=== PATIENT | male | born 1960 | race Hispanic/Latino ===

== ENCOUNTER 2017-04-06 10:51 | Inpatient (IN) | payer MEDICARE, MEDICAID ==
[2017-04-06 11:38] LABS: BASO # 0.04 K/mm3 (0.0-2.0); BASO % 0.5 % (0.0-3.0); EOS # 0.1 (0.0-0.7); EOS % 1.6 % (1.5-5.0); GRAN # 6.64 (1.4-6.5); GRAN % 76.1 % (50.0-68.0); HEMOGLOBIN 14.4 gm/dL (14.0-18.0); LYMPH # 1.2 (1.2-3.4); LYMPH % 14.2 % (22.0-35.0); MEAN CORPUSCULAR HEMOGLOBIN 29.9 pg (25.0-35.0); MEAN CORPUSCULAR HGB CONC 33.6 g/dl (31.0-37.0); MEAN PLATELET VOLUME 10.3 fl (7.0-11.0); MONO # 0.7 (0.1-0.6); MONO % 7.6 % (1.0-6.0); PLATELET COUNT 299 10^3/uL (120.0-450.0); RBC 4.82 10^6/uL (3.5-6.1); RED CELL DISTRIBUTION WIDTH 12.8 % (11.5-14.5); WHITE BLOOD COUNT 8.7 10^3/ul (4.5-11.0)
--- NOTE | 2017-04-06 11:42 | ED PDOC ---
Arrival/HPI - General Chief Complaint: Lower Extremity Problem/Injury Time Seen by Provider: 04/06/17 11:07 Historian: Patient, Caregiver - History of Present Illness Narrative History of Present Illness (Text): 04/06/17 11:38 A 56 year old male was sent into the emergency department by industrial eng for possible cellulitis to bilateral lower extremities. Caregiver reports patient has failed several outpatient antibiotic treatments. Patient denies any fever, chills, nausea, vomiting, diarrhea, abdominal pain, chest pain, shortness of breath or any other complaints. PMD: Dr. Saavedra Emergency Detail Driver: Dr. Horta Time/Duration: < month Symptom Course: Unchanged Quality: Other Context: Other Past Medical History - Provider Review Nursing Documentation Reviewed: Yes - Infectious Disease Hx of Infectious Diseases: None - Tetanus Immunization Tetanus Immunization: Unknown - Cardiac Hx Cardiac Disorders: Yes Hx Congestive Heart Failure: Yes Hx Hypertension: Yes - Pulmonary Hx Chronic Obstructive Pulmonary Disease (COPD): No - Neurological Other/Comment: Epilepsy - HEENT Hx HEENT Disorder: Yes Other/Comment: wears glasses - Renal Hx Renal Failure: No - Endocrine/Metabolic Hx Diabetes Mellitus Type 2: Yes - Hematological/Oncological Hx Blood Disorders: No Hx AIDS: No Hx Anemia: No Hx Cancer: No Hx Chemotherapy: No Hx Cirrhosis: No Hx Hepatitis A: No Hx Hepatitis B: No Hx Hepatitis C: No Hx Metastasis: No Hx Shingles: No Hx Unexplained Bleeding: No Other/Comment: blood infection - Integumentary Hx Dermatological Disorder: Yes Hx Basal Cell Carcinoma: No Hx Eczema: No Hx Melanoma: No Hx Psoriasis: No Hx Squamous Cell Carcinoma: No Other/Comment: multiple wounds on the rt leg, cellulitis in b/l extreminity. 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 - Surgical History Hx Amputation: No Hx Appendectomy: No Hx Cholecystectomy: No Hx Gastric Bypass Surgery: No Hx Hysterectomy: No Hx Joint Replacement: No Hx Kidney Transplant: No Hx Liver Transplant: No Hx Mastectomy: No Hx Musculoskeletal Surgery: No Hx Open Heart Surgery: No Hx Orthopedic Surgery: No Hx Splenectomy: No Hx Valve Replacement: No - Anesthesia Hx Anesthesia: Yes Hx Anesthesia Reactions: No Hx Malignant Hyperthermia: No - Suicidal Assessment Feels Threatened In Home Enviroment: No Family/Social History - Physician Review Nursing Documentation Reviewed: Yes Family/Social History: No Known Family HX Smoking Status: Former Smoker Hx Alcohol Use: No Hx Substance Use: No Hx Substance Use Treatment: No Allergies/Home Meds Allergies/Adverse Reactions: Allergies No Known Allergies Allergy (Verified 04/06/17 13:00) Home Medications: Home Meds Medication Instructions Recorded Confirmed Omeprazole [Prilosec] 20 mg PO DAILY 05/30/15 04/06/17 Ramipril [Altace] 10 mg PO DAILY 05/30/15 04/06/17 Glipizide 10 mg PO [facility] 08/24/15 04/06/17 Pioglitazone [Actos] 45 mg PO DAILY #0 12/10/15 04/06/17 Potassium Chloride [K-Tab ER] 20 meq PO DAILY #0 12/10/15 04/06/17 Atorvastatin [Lipitor] 10 mg PO DIN 05/29/16 04/06/17 Iron Fumarate/Vit C/Vit B12/FA 1 cap PO DAILY 05/31/16 04/06/17 [Trigels-F Forte Softgel] Insulin Glargine,Hum.rec.anlog 45 unit SQ 04/06/17 04/06/17 [Lantus Solostar] Metformin HCl [Glucophage] 1,000 mg PO ACBD 04/06/17 04/06/17 Review of Systems - Physician Review All systems were reviewed & negative as marked: Yes - Review of Systems Constitutional: absent: Fevers, Night Sweats Respiratory: absent: SOB Cardiovascular: absent: Chest Pain Gastrointestinal: absent: Abdominal Pain, Diarrhea, Nausea, Vomiting Skin: Cellulitis (to bilateral lower extremities) Physical Exam Vital Signs Reviewed: Yes Vital Signs Temp Pulse Resp BP Pulse Ox 04/06/17 12:06 79 18 144/79 97 04/06/17 11:12 89 18 146/81 97 04/06/17 11:02 97.9 F 96 H 16 146/81 98 Temperature: Afebrile Blood Pressure: Normal Pulse: Tachycardic Respiratory Rate: Normal Appearance: Positive for: Well-Appearing, Non-Toxic, Comfortable Pain Distress: None Mental Status: Positive for: Alert and Oriented X 3 Finger Stick Blood Glucose: 411 - Systems Exam Head: Present: Atraumatic, Normocephalic Pupils: Present: PERRL Extroacular Muscles: Present: EOMI Conjunctiva: Present: Normal Mouth: Present: Moist Mucous Membranes Neck: Present: Normal Range of Motion Respiratory/Chest: Present: Clear to Auscultation, Good Air Exchange. No: Respiratory Distress, Accessory Muscle Use Cardiovascular: Present: Regular Rate and Rhythm, Normal S1, S2. No: Murmurs Abdomen: Present: Normal Bowel Sounds. No: Tenderness, Distention, Peritoneal Signs Back: Present: Normal Inspection Upper Extremity: Present: Normal Inspection. No: Cyanosis, Edema Lower Extremity: Present: NORMAL PULSES, Neurovascularly Intact, Other ( bilateral lower extremity cellulitis). No: Edema, CALF TENDERNESS, Deformity Neurological: Present: GCS=15, CN II-XII Intact, Speech Normal Skin: Present: Warm, Dry, Normal Color. No: Rashes Psychiatric: Present: Alert, Oriented x 3, Normal Insight, Normal Concentration Medical Decision Making ED Course and Treatment: 04/06/17 11:38 Impression: A 56 year old male with cellulitis to bilateral lower extremities Plan: -- Lower extremity duplex ultrasound -- Labs -- Blood and Wound culture -- IV fluids, Vancomycin and insulin -- Reassess and disposition Progress Notes: 04/06/17 12:52 Ultrasound is negative for DVT. - Lab Interpretations Lab Results: 04/06/17 11:15 04/06/17 11:15 Lab Results 04/06/17 11:15: Sodium 134, Potassium 4.5, Chloride 99, Carbon Dioxide 24, Anion Gap 16, BUN 12, Creatinine 0.6, Est GFR ( Amer) > 60, Est GFR (Non- Af Amer) > 60, Random Glucose 452 H* D, Calcium 9.7, Total Bilirubin 0.7, AST 28 , ALT 37, Alkaline Phosphatase 135 H, Total Protein 7.8, Albumin 4.2, Globulin 3.5, Albumin/Globulin Ratio 1.2 04/06/17 11:15: WBC 8.7, RBC 4.82, Hgb 14.4, Hct 42.9, MCV 89.0, MCH 29.9, MCHC 33.6, RDW 12.8, Plt Count 299, MPV 10.3, Gran % 76.1 H, Lymph % (Auto) 14.2 L, [place] % (Auto) 7.6 H, Eos % (Auto) 1.6, Baso % (Auto) 0.5, Gran # 6.64 H, Lymph # 1.2, [place] # 0.7 H, Eos # 0.1, Baso # 0.04 - RAD Interpretation Radiology Orders: 04/06/17 12:05 DUPLEX LOWER EXTRM VEIN BILAT [US] Stat - Medication Orders Current Medication Orders: Atorvastatin Calcium (Lipitor) 10 mg PO DIN [facility] Last Admin: 04/06/17 17:29 Dose: 10 mg Diltiazem HCl (Cardizem Cd) 120 mg PO DAILY [facility] Last Admin: 04/06/17 16:27 Dose: 120 mg Furosemide (Lasix) 20 mg PO DAILY [facility] Last Admin: 04/06/17 17:29 Dose: 20 mg Gabapentin (Neurontin) 400 mg PO TID [facility] PRN Reason: Protocol Last Admin: 04/06/17 17:29 Dose: 400 mg Glipizide (Glucotrol) 10 mg PO ACBD [facility] Last Admin: 04/06/17 17:27 Dose: 10 mg Cefepime HCl (Maxipime 1gm) 1 gm in 100 mls @ 100 mls/hr IVPB Q8 [facility] PRN Reason: Protocol Last Admin: 04/06/17 22:10 Dose: 100 mls/hr Vancomycin HCl (Vancomycin 1gm) 1 gm in 250 mls @ 167 mls/hr IVPB Q12H [facility] PRN Reason: Protocol Last Admin: 04/06/17 17:26 Dose: 167 mls/hr Insulin Human Regular (Humulin R High) 0 units SC ACHS [facility] PRN Reason: Protocol Last Admin: 04/06/17 17:28 Dose: 10 units Metformin HCl (Glucophage) 1,000 mg PO ACBD [facility] Last Admin: 04/06/17 17:27 Dose: 1,000 mg Potassium Chloride (K-Dur 20 Meq Er Tab) 20 meq PO DAILY [facility] Ramipril (Altace) 10 mg PO DAILY [facility] Warfarin Sodium (Coumadin) 10 mg PO DAILY [facility] PRN Reason: Protocol Warfarin Sodium (Coumadin) 2 mg PO DAILY [facility] PRN Reason: Protocol Discontinued Medications Vancomycin HCl (Vancomycin 1gm) 1 gm in 250 mls @ 167 mls/hr IVPB STAT [facility] PRN Reason: Protocol Stop: 04/06/17 13:34 Last Admin: 04/06/17 12:27 Dose: 167 mls/hr Sodium Chloride (Sodium Chloride 0.9%) 1,000 mls @ 200 mls/hr IV .Q5H [facility] Last Admin: 04/06/17 12:26 Dose: 200 mls/hr Insulin Human Regular (Humulin R) 6 units IVP STAT STA Stop: 04/06/17 12:09 Last Admin: 04/06/17 12:29 Dose: 6 units Pneumococcal Polyvalent Vaccine (Pneumovax 23 Vaccine) 0.5 ml IM .ONCE ONE Stop: 04/06/17 19:02 - Scribe Statement The provider has reviewed the documentation as recorded by the Kelli Houston Provider Scribe Attestation: All medical record entries made by the Juniberika were at my direction and personally dictated by me. I have reviewed the chart and agree that the record accurately reflects my personal performance of the history, physical exam, medical decision making, and the department course for this patient. I have also personally directed, reviewed, and agree with the discharge instructions and disposition. Disposition/Present on Arrival - Present on Arrival Any Indicators Present on Arrival: Yes History of DVT/PE: No History of Uncontrolled Diabetes: Yes Urinary Catheter: No History of Decub. Ulcer: No History Surgical Site Infection Following: None - Disposition Have Diagnosis and Disposition been Completed?: Yes Diagnosis: Cellulitis Disposition: HOSPITALIZED Disposition Time: 12:05 Condition: STABLE
[2017-04-06 11:45] LABS: ALB/GLOB RATIO 1.2 (1.1-1.8); ALBUMIN 4.2 g/dL (3.0-4.8); ALT/SGPT 37 U/L (7-56); AST/SGOT 28 U/L (15-59); BLOOD UREA NITROGEN 12 mg/dL (7-21); CALCIUM 9.7 mg/dL (8.4-10.5); GFR AFRICAN-AMERICAN > 60; GFR NON-AFRICAN AMERICAN > 60
[2017-04-06] MEDS ORDERED: Vancomycin 1gm in NS 250ml 1 GM/250 ML BAG IVPB STA (12:05)
[2017-04-06] MEDS ORDERED: Insulin Regular 1 UNITS/0.01 ML ML IVP STA (12:08)
[2017-04-06] MEDS ORDERED: Sodium Chloride 0.9% 1,000 ML IV SCH (12:15)
--- NOTE | 2017-04-06 16:22 | US ---
HISTORY: Leg pain and swelling. Evaluate for DVT PHYSICIAN(S): Link Owens MD. TECHNIQUE: Duplex sonography and color-flow Doppler with graded compression were used to evaluate the deep venous systems of both lower extremities. The exam is limited by body habitus and edema. The calf veins are not adequately seen. FINDINGS: The visualized deep venous systems of both lower extremities are sonographically normal and compressible. Normal wave forms and augmentation are seen. There is no sonographic evidence for deep venous thrombosis in the visualized segments of both lower extremities. IMPRESSION: No sonographic evidence for deep venous thrombosis in the visualized segments of both lower extremities. Limited exam
[2017-04-06] MEDS: diltiaZEM 120 mg/24 Hours CD Cap PO SCH (16:27)
[2017-04-06] MEDS: Cefepime 1gm in NS 100ml 1 GM/100 ML BAG IVPB SCH ×2 (17:21→22:10)
[2017-04-06] MEDS: Vancomycin 1gm in NS 250ml 1 GM/250 ML BAG IVPB SCH (17:26)
[2017-04-06] MEDS: Insulin Reg-HIGH-Coverage SC SCH ×2 (17:28→23:06)
[2017-04-06 19:00] VITALS: BMI 52.4
[2017-04-06] MEDS ORDERED: Pneumococcal 23-Valent Vaccine IM ONE (19:01)
[2017-04-07] MEDS: Vancomycin 1gm in NS 250ml 1 GM/250 ML BAG IVPB SCH ×2 (04:05→17:05)
[2017-04-07] MEDS: Cefepime 1gm in NS 100ml 1 GM/100 ML BAG IVPB SCH ×3 (06:14→21:21)
[2017-04-07 07:25] LABS: INR 1.01 (0.93-1.08); PROTHROMBIN TIME 10.9 Seconds (9.9-11.8)
[2017-04-07] MEDS: Insulin Reg-HIGH-Coverage SC SCH ×3 (08:00→17:07)
[2017-04-07 08:13] VITALS: RESP 20
[2017-04-07] MEDS: Potassium Chloride 20 mEq ER Tab PO SCH (09:41)
[2017-04-07] MEDS: diltiaZEM 120 mg/24 Hours CD Cap PO SCH (09:41)
--- NOTE | 2017-04-07 10:47 | CP.PCM.CON ---
<Magui Ahuja - Last Filed: 04/07/17 10:43> History of Present Illness - History of Present Illness History of Present Illness: 56 year old male with PMHx including DM, CHF, hypertension, atrial fibrillation , elephantiasis, dyslipidemia, was seen today with attending Dr. Horta regarding right lower extremity ulcerations and bilateral lower extremity chronic edema. Patient is resting comfortably in bed. Bilateral lower extremitie bandages are clean dry and intact. No new complaints at this time. Patient denies any n/v/f/c/sob/cp. Past Patient History - Infectious Disease Hx of Infectious Diseases: None - Tetanus Immunizations Tetanus Immunization: Unknown - Past Medical History & Family History Past Medical History?: Yes - Past Social History Smoking Status: Former Smoker - CARDIAC Hx Cardiac Disorders: Yes Hx Congestive Heart Failure: Yes Hx Hypertension: Yes - PULMONARY Hx Chronic Obstructive Pulmonary Disease (COPD): No - NEUROLOGICAL Other/Comment: Epilepsy - HEENT Hx HEENT Problems: Yes Other/Comment: wears glasses - RENAL Hx Renal Failure: No - ENDOCRINE/METABOLIC Hx Diabetes Mellitus Type 2: Yes - HEMATOLOGICAL/ONCOLOGICAL Hx Blood Disorders: No Hx AIDS: No Hx Anemia: No Hx Cancer: No Hx Chemotherapy: No Hx Cirrhosis: No Hx Hepatitis A: No Hx Hepatitis B: No Hx Hepatitis C: No Hx Metastesis: No Hx Shingles: No Hx Unexplained Bleeding: No Other/Comment: blood infection - INTEGUMENTARY Hx Dermatological Problems: Yes Hx Basil Cell: No Hx Eczema: No Hx Melanoma: No Hx Psoriasis: No Hx Squamous Cell: No Other/Comment: multiple wounds on the rt leg, cellulitis in b/l extreminity. 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 - SURGICAL HISTORY Hx Amputation: No Hx Appendectomy: No Hx Cholecystectomy: No Hx Gastric Bypass Surgery: No Hx Hysterectomy: No Hx Joint Replacement: No Hx Kidney Transplant: No Hx Liver Transplant: No Hx Mastectomy: No Hx Musculoskeletal Surgery: No Hx Open Heart Surgery: No Hx Orthopedic Surgery: No Hx Splenectomy: No Hx Valve Replacement: No - ANESTHESIA Hx Anesthesia: Yes Hx Anesthesia Reactions: No Hx Malignant Hyperthermia: No Meds Allergies/Adverse Reactions: Allergies Allergy/AdvReac Type Severity Reaction Status Date / Time No Known Allergies Allergy Verified 04/06/17 13:00 - Medications Medications: Current Medications Atorvastatin Calcium (Lipitor) 10 mg PO DIN [facility] Last Admin: 04/06/17 17:29 Dose: 10 mg Diltiazem HCl (Cardizem Cd) 120 mg PO DAILY [facility] Last Admin: 04/07/17 09:41 Dose: 120 mg Furosemide (Lasix) 20 mg PO DAILY [facility] Last Admin: 04/07/17 09:41 Dose: 20 mg Gabapentin (Neurontin) 400 mg PO TID [facility] PRN Reason: Protocol Last Admin: 04/07/17 09:40 Dose: 400 mg Glipizide (Glucotrol) 10 mg PO ACBD [facility] Last Admin: 04/07/17 08:00 Dose: 10 mg Cefepime HCl (Maxipime 1gm) 1 gm in 100 mls @ 100 mls/hr IVPB Q8 [facility] PRN Reason: Protocol Last Admin: 04/07/17 06:14 Dose: 100 mls/hr Vancomycin HCl (Vancomycin 1gm) 1 gm in 250 mls @ 167 mls/hr IVPB Q12H [facility] PRN Reason: Protocol Last Admin: 04/07/17 04:05 Dose: 167 mls/hr Insulin Human Regular (Humulin R High) 0 units SC ACHS [facility] PRN Reason: Protocol Last Admin: 04/07/17 08:00 Dose: 7 units Metformin HCl (Glucophage) 1,000 mg PO ACBD [facility] Last Admin: 04/07/17 08:00 Dose: 1,000 mg Potassium Chloride (K-Dur 20 Meq Er Tab) 20 meq PO DAILY [facility] Last Admin: 04/07/17 09:41 Dose: 20 meq Ramipril (Altace) 10 mg PO DAILY [facility] Last Admin: 04/07/17 09:40 Dose: 10 mg Warfarin Sodium (Coumadin) 10 mg PO DAILY [facility] PRN Reason: Protocol Last Admin: 04/07/17 09:41 Dose: 10 mg Warfarin Sodium (Coumadin) 2 mg PO DAILY [facility] PRN Reason: Protocol Last Admin: 04/07/17 09:41 Dose: 2 mg Physical Exam - Constitutional Appears: No Acute Distress - Extremities Exam Additional comments: Lower extremity focused exam: VASC: Diffuse edema of bilateral lower extremities. Skin temperature is increased on the right NEURO: Gross sensation intact DERM: Open ulceration to right lower extremity with granular base at the lateral aspect of the leg with sanguinous drainage, no purulence, no erythema, moderate malodor. Two additional small superficial ulcerations present to the anterior and lateral leg with sanguinous drainage. Surrounding skin is erythematous and hyperpigmented. Left leg has an open ulcer to the lateral aspect just distal to the knee, mild xerosis and hyperpigmentation. ORTHO: Negative pain on palpation to the lower extremities - Neurological Exam Neurological exam: Alert, Oriented x3 - Psychiatric Exam Psychiatric exam: Normal Affect, Normal Mood Results - Vital Signs Recent Vital Signs: Last Vital Signs Temp 97.6 F 04/07/17 08:12 Pulse 89 04/07/17 09:41 Resp 20 04/07/17 08:12 BP 170/88 H 04/07/17 09:41 Pulse Ox 94 L 04/07/17 08:12 - Labs Result Diagrams: 04/06/17 11:15 04/06/17 11:15 Labs: Laboratory Results - last 24 hr 04/06/17 04/07/17 16:13 06:45 PT 10.9 INR 1.01 POC Glucose (mg/dL) 325 H Assessment & Plan - Assessment and Plan (Free Text) Assessment: 56 year old male with right lower extremity cellulitis with venous stasis ulceration and bilateral chronic lower extremity edema. Plan: Patient examined and evaluated with an attending Dr. Horta Patients bilateral legs cleansed with saline LE US negative for DVT Right leg dressed with xeroform, ABD, kerlix Left leg dressed with maxorb, optifoam Patient to continue IV abx Podiatry will continue to follow, pt will f/u in the wound care center after DC <Brittney Horta - Last Filed: 04/09/17 14:52> Results - Vital Signs Recent Vital Signs: Last Vital Signs Temp 98.2 F 04/09/17 08:00 Pulse 65 04/09/17 08:00 Resp 20 04/09/17 08:00 BP 178/88 H 04/09/17 09:24 Pulse Ox 94 L 04/09/17 08:00 - Labs Result Diagrams: 04/06/17 11:15 04/06/17 11:15 Attending/Attestation - Attestation I have personally seen and examined this patient.: Yes I have fully participated in the care of the patient.: Yes I have reviewed all pertinent clinical information: Yes
--- NOTE | 2017-04-07 11:50 | CP.PCM.CON ---
History of Present Illness - History of Present Illness History of Present Illness: 56 year old male with PMH of right leg skin/skin structure infection with chronic leg ulcers, growing MRSA and sensitive Klebsiella in 2016, Bilateral lower extremity skin and skin structure infection (Enterobacter, Klebsiella Oxytoca and Group B Strep, as well as MRSA) which was treated 06/2015; MRSA and Pseudomonas cellulitis of left leg in Sep 2015, January and March 2016, and MRSA cellulitis in 2015, chronic lymphedema of the lower extremities, Morbid obesity with BMI 53, HTN, DM, history of Strep bacteremia, history of hernia surgery, Learning disability wasa brought in to [facility] because of failed outpatient therapy for the right leg, which has been weeping associated with the ulcers on the legs. There has been no note of fever, no vomiting, no diarrhea, no loss of consciousness, no convulsions. Infectious Diseases consult is requested to further evaluate and manage. Review of Systems - Review of Systems Systems not reviewed;Unavailable: Other (learning disability) Past Patient History - Infectious Disease Hx of Infectious Diseases: None - Tetanus Immunizations Tetanus Immunization: Unknown - Past Medical History & Family History Past Medical History?: Yes - Past Social History Smoking Status: Former Smoker - CARDIAC Hx Cardiac Disorders: Yes Hx Congestive Heart Failure: Yes Hx Hypertension: Yes - PULMONARY Hx Chronic Obstructive Pulmonary Disease (COPD): No - NEUROLOGICAL Other/Comment: Epilepsy - HEENT Hx HEENT Problems: Yes Other/Comment: wears glasses - RENAL Hx Renal Failure: No - ENDOCRINE/METABOLIC Hx Diabetes Mellitus Type 2: Yes - HEMATOLOGICAL/ONCOLOGICAL Hx Blood Disorders: No Hx AIDS: No Hx Anemia: No Hx Cancer: No Hx Chemotherapy: No Hx Cirrhosis: No Hx Hepatitis A: No Hx Hepatitis B: No Hx Hepatitis C: No Hx Metastesis: No Hx Shingles: No Hx Unexplained Bleeding: No Other/Comment: blood infection - INTEGUMENTARY Hx Dermatological Problems: Yes Hx Basil Cell: No Hx Eczema: No Hx Melanoma: No Hx Psoriasis: No Hx Squamous Cell: No Other/Comment: multiple wounds on the rt leg, cellulitis in b/l extreminity. 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 - SURGICAL HISTORY Hx Amputation: No Hx Appendectomy: No Hx Cholecystectomy: No Hx Gastric Bypass Surgery: No Hx Hysterectomy: No Hx Joint Replacement: No Hx Kidney Transplant: No Hx Liver Transplant: No Hx Mastectomy: No Hx Musculoskeletal Surgery: No Hx Open Heart Surgery: No Hx Orthopedic Surgery: No Hx Splenectomy: No Hx Valve Replacement: No - ANESTHESIA Hx Anesthesia: Yes Hx Anesthesia Reactions: No Hx Malignant Hyperthermia: No Meds Allergies/Adverse Reactions: Allergies Allergy/AdvReac Type Severity Reaction Status Date / Time No Known Allergies Allergy Verified 04/06/17 13:00 - Medications Medications: Current Medications Atorvastatin Calcium (Lipitor) 10 mg PO DIN [facility] Diltiazem HCl (Cardizem Cd) 120 mg PO DAILY [facility] Furosemide (Lasix) 20 mg PO DAILY [facility] Gabapentin (Neurontin) 400 mg PO TID [facility] PRN Reason: Protocol Glipizide (Glucotrol) 10 mg PO ACBD [facility] Cefepime HCl (Maxipime 1gm) 1 gm in 100 mls @ 100 mls/hr IVPB Q8 [facility] PRN Reason: Protocol Vancomycin HCl (Vancomycin 1gm) 250 mls @ 167 mls/hr IVPB Q12H [facility] PRN Reason: Protocol Insulin Human Regular (Humulin R High) 0 units SC ACHS [facility] PRN Reason: Protocol Metformin HCl (Glucophage) 1,000 mg PO ACBD [facility] Potassium Chloride (K-Dur 20 Meq Er Tab) 20 meq PO DAILY [facility] Ramipril (Altace) 10 mg PO DAILY [facility] Warfarin Sodium (Coumadin) 10 mg PO DAILY [facility] PRN Reason: Protocol Warfarin Sodium (Coumadin) 2 mg PO DAILY [facility] PRN Reason: Protocol Physical Exam - Constitutional Appears: Non-toxic, No Acute Distress - Head Exam Head Exam: NORMAL INSPECTION - ENT Exam ENT Exam: Mucous Membranes Moist - Neck Exam Neck exam: Negative for: Lymphadenopathy, Meningismus - Respiratory Exam Respiratory Exam: Decreased Breath Sounds - Cardiovascular Exam Cardiovascular Exam: +S1, +S2 - GI/Abdominal Exam GI & Abdominal Exam: Soft. absent: Tenderness - Extremities Exam Additional comments: right leg with dry dressings in place Results - Vital Signs Recent Vital Signs: Last Vital Signs Temp 97.9 F 04/06/17 11:02 Pulse 79 04/06/17 12:06 Resp 18 04/06/17 12:06 BP 144/79 04/06/17 12:06 Pulse Ox 97 04/06/17 12:06 - Labs Result Diagrams: 04/06/17 11:15 04/06/17 11:15 Labs: Laboratory Results - last 24 hr 04/06/17 16:13 POC Glucose (mg/dL) 325 H Assessment & Plan - Assessment and Plan (Free Text) Plan: Assessment Probable right leg skin and skin structure infection associated with chronic leg ulcers history of sepsis secondary to right leg skin/skin structure infection with chronic leg ulcers, growing MRSA and sensitive Klebsiella history of MRSA cellulitis Jun. 2015 history of Bilateral lower extremity skin and skin structure infection ( Enterobacter, Klebsiella Oxytoca and Group B Strep, as well as MRSA) which was treated 06/2015; MRSA and Pseudomonas cellulitis of left leg in Sep 2015, January and March 2016 chronic lymphedema of the lower extremities Morbid obesity with BMI 55 HTN DM history of Strep bacteremia history of hernia surgery Learning disability Plan started patient on Vancomycin and cefepime pending blood and wound cx; follow up Podiatry evaluation and plans will monitor clinically
--- NOTE | 2017-04-07 18:50 | CP.PCM.HP ---
History of Present Illness - History of Present Illness History of Present Illness: Pt sent due to R leg ulcer. He has a hx of MRSA and frequent infections in the legs. He has chronic skin changes and chronic wounds. He denies SOB/CP/N/V/LIAO/ Fever. He is no able to give a good history due to his cognitive issues. Present on Admission - Present on Admission Any Indicators Present on Admission: Yes History of DVT/PE: Yes Review of Systems - Constitutional Constitutional: absent: Frequent Falls, Lethargy, Malaise - EENT Eyes: absent: Diplopia, Loss of Peripheral Vision, Photophobia Ears: absent: Disequilibrium Nose/Mouth/Throat: absent: Dry Mouth - Cardiovascular Cardiovascular: Leg Edema. absent: Claudication - Respiratory Respiratory: absent: Cough Past Patient History - Infectious Disease Hx of Infectious Diseases: None - Tetanus Immunizations Tetanus Immunization: Unknown - Past Medical History & Family History Past Medical History?: Yes - Past Social History Smoking Status: Former Smoker - CARDIAC Hx Cardiac Disorders: Yes Hx Congestive Heart Failure: Yes Hx Hypertension: Yes - PULMONARY Hx Chronic Obstructive Pulmonary Disease (COPD): No - NEUROLOGICAL Other/Comment: Epilepsy - HEENT Hx HEENT Problems: Yes Other/Comment: wears glasses - RENAL Hx Renal Failure: No - ENDOCRINE/METABOLIC Hx Diabetes Mellitus Type 2: Yes - HEMATOLOGICAL/ONCOLOGICAL Hx Blood Disorders: No Hx AIDS: No Hx Anemia: No Hx Cancer: No Hx Chemotherapy: No Hx Cirrhosis: No Hx Hepatitis A: No Hx Hepatitis B: No Hx Hepatitis C: No Hx Metastesis: No Hx Shingles: No Hx Unexplained Bleeding: No Other/Comment: blood infection - INTEGUMENTARY Hx Dermatological Problems: Yes Hx Basil Cell: No Hx Eczema: No Hx Melanoma: No Hx Psoriasis: No Hx Squamous Cell: No Other/Comment: multiple wounds on the rt leg, cellulitis in b/l extreminity. 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 - SURGICAL HISTORY Hx Amputation: No Hx Appendectomy: No Hx Cholecystectomy: No Hx Gastric Bypass Surgery: No Hx Hysterectomy: No Hx Joint Replacement: No Hx Kidney Transplant: No Hx Liver Transplant: No Hx Mastectomy: No Hx Musculoskeletal Surgery: No Hx Open Heart Surgery: No Hx Orthopedic Surgery: No Hx Splenectomy: No Hx Valve Replacement: No - ANESTHESIA Hx Anesthesia: Yes Hx Anesthesia Reactions: No Hx Malignant Hyperthermia: No Meds Allergies/Adverse Reactions: Allergies Allergy/AdvReac Type Severity Reaction Status Date / Time No Known Allergies Allergy Verified 04/06/17 13:00 Physical Exam - Head Exam Head Exam: ATRAUMATIC, NORMAL INSPECTION, NORMOCEPHALIC - Eye Exam Eye Exam: EOMI, Normal appearance, PERRL Pupil Exam: NORMAL ACCOMODATION, PERRL - ENT Exam ENT Exam: Mucous Membranes Moist, Normal Exam - Neck Exam Neck exam: Positive for: Normal Inspection - Respiratory Exam Respiratory Exam: Clear to Auscultation Bilateral, NORMAL BREATHING PATTERN - Cardiovascular Exam Cardiovascular Exam: RRR, +S1, +S2 - GI/Abdominal Exam GI & Abdominal Exam: Normal Bowel Sounds, Soft. absent: Organomegaly, Pulsatile Mass, Tenderness - Exam Exam: NORMAL INSPECTION - Back Exam Back exam: NORMAL INSPECTION. absent: CVA tenderness (R) - Neurological Exam Neurological exam: Alert, CN II-XII Intact, Normal Gait, Oriented x3, Reflexes Normal - Skin Skin Exam: Erythema, Pallor, Rash Results - Vital Signs Recent Vital Signs: Last Vital Signs Temp 98.2 F 04/07/17 16:30 Pulse 72 04/07/17 16:30 Resp 20 04/07/17 16:30 BP 164/84 H 04/07/17 16:30 Pulse Ox 99 04/07/17 16:30 - Labs Result Diagrams: 04/06/17 11:15 04/06/17 11:15 Labs: Laboratory Results - last 24 hr 04/06/17 04/07/17 13:08 06:45 PT 10.9 INR 1.01 POC Glucose (mg/dL) 349 H Assessment & Plan - Assessment and Plan (Free Text) Assessment: Cellulitis DM-2 A Fib Obesit HTN Dylipidemia Plan: Pt will need to be admited for IV Abx. He is going to be seen by Dr Horta from Podiatry and by ID. He is going to be covered by Insulin. He will be given Coumadin for his A fib. Spoke to Dr Horta. - Date & Time Date: 04/07/17 Time: 08:25
[2017-04-08] MEDS: Vancomycin 1gm in NS 250ml 1 GM/250 ML BAG IVPB SCH ×2 (05:29→16:53)
[2017-04-08] MEDS: Cefepime 1gm in NS 100ml 1 GM/100 ML BAG IVPB SCH ×3 (05:29→21:54)
[2017-04-08] MEDS: Insulin Reg-HIGH-Coverage SC SCH ×4 (08:18→22:28)
--- NOTE | 2017-04-08 08:33 | CP.PCM.PN ---
Subjective - Date & Time of Evaluation Date of Evaluation: 04/08/17 Time of Evaluation: 08:29 - Subjective Subjective: Pt with no pain. Eating well. Sleeps well. Objective - Vital Signs/Intake and Output Vital Signs (last 24 hours): Temp Pulse Resp BP Pulse Ox 98.5 F 73 20 170/96 H 97 04/08/17 07:30 04/08/17 07:30 04/08/17 07:30 04/08/17 07:30 04/08/17 07:30 Intake and Output: 04/08/17 04/08/17 06:59 18:59 Intake Total 960 Output Total 1250 Balance -290 - Medications Medications: Current Medications Atorvastatin Calcium (Lipitor) 10 mg PO DIN [facility] Last Admin: 04/07/17 17:07 Dose: 10 mg Diltiazem HCl (Cardizem Cd) 120 mg PO DAILY [facility] Last Admin: 04/07/17 09:41 Dose: 120 mg Furosemide (Lasix) 20 mg PO DAILY [facility] Last Admin: 04/07/17 09:41 Dose: 20 mg Gabapentin (Neurontin) 400 mg PO TID [facility] PRN Reason: Protocol Last Admin: 04/07/17 17:07 Dose: 400 mg Glipizide (Glucotrol) 10 mg PO ACBD [facility] Last Admin: 04/07/17 17:07 Dose: 10 mg Cefepime HCl (Maxipime 1gm) 1 gm in 100 mls @ 100 mls/hr IVPB Q8 [facility] PRN Reason: Protocol Last Admin: 04/08/17 05:29 Dose: 100 mls/hr Vancomycin HCl (Vancomycin 1gm) 1 gm in 250 mls @ 167 mls/hr IVPB Q12H [facility] PRN Reason: Protocol Last Admin: 04/08/17 05:29 Dose: 167 mls/hr Insulin Human Regular (Humulin R High) 0 units SC ACHS [facility] PRN Reason: Protocol Last Admin: 04/07/17 17:07 Dose: 4 units Metformin HCl (Glucophage) 1,000 mg PO ACBD [facility] Last Admin: 04/07/17 17:07 Dose: 1,000 mg Potassium Chloride (K-Dur 20 Meq Er Tab) 20 meq PO DAILY [facility] Last Admin: 04/07/17 09:41 Dose: 20 meq Ramipril (Altace) 10 mg PO DAILY [facility] Last Admin: 04/07/17 09:40 Dose: 10 mg Warfarin Sodium (Coumadin) 10 mg PO DAILY [facility] PRN Reason: Protocol Last Admin: 04/07/17 09:41 Dose: 10 mg Warfarin Sodium (Coumadin) 2 mg PO DAILY [facility] PRN Reason: Protocol Last Admin: 04/07/17 09:41 Dose: 2 mg - Labs Labs: PT 10.9 Seconds (9.9-11.8) 04/07/17 06:45 INR 1.01 (0.93-1.08) 04/07/17 06:45 - Constitutional Appears: Non-toxic - Head Exam Head Exam: NORMAL INSPECTION - Eye Exam Eye Exam: EOMI, Normal appearance, PERRL - ENT Exam ENT Exam: Mucous Membranes Moist, Normal Exam - Neck Exam Neck Exam: Full ROM, Normal Inspection. absent: Lymphadenopathy - Respiratory Exam Respiratory Exam: Clear to Ausculation Bilateral, NORMAL BREATHING PATTERN. absent: Prolonged Expiratory Phase, Rales, Respiratory Distress - Cardiovascular Exam Cardiovascular Exam: REGULAR RHYTHM, +S1, +S2. absent: Murmur - GI/Abdominal Exam GI & Abdominal Exam: Soft, Normal Bowel Sounds. absent: Tenderness - Rectal Exam Rectal Exam: NORMAL INSPECTION Assessment and Plan - Assessment and Plan (Free Text) Assessment: Cellulitis DM-2 A Fib Obesit HTN Dylipidemia . Plan: Pt will need to be admited for IV Abx- Vanco. Dr Horta from Podiatry and by ID following. Will get Surgery evaluation with Dr Mondragon, known to him very well. He is going to be covered by Insulin. He will be given Coumadin for his A fib. On ISS for DM-2. FS with coverage. On Neurontin for neuropathy. On Cardiezem for A fib. Lipitor for Dyslipidemia. TCU evaluation.
[2017-04-08] MEDS: Potassium Chloride 20 mEq ER Tab PO SCH (09:21)
[2017-04-08] MEDS: diltiaZEM 120 mg/24 Hours CD Cap PO SCH (09:22)
--- NOTE | 2017-04-08 10:48 | CP.PCM.CON ---
History of Present Illness - History of Present Illness History of Present Illness: 56M PMHx of MRSA and leg infections presented to the ED for bilateral lower extremity cellulitis. Pt states continued change in color of his legs. Denies pain, fever, chest pain, SOB, abd pain, N/V. Pt is poor historian. PMHx: MRSA cellulitis PSHx: Hernia repair Meds: per Med Rec Review of Systems - Constitutional Constitutional: As Per HPI. absent: Headache - Cardiovascular Cardiovascular: Leg Edema, Leg Ulcers. absent: Chest Pain - Respiratory Respiratory: absent: Cough, Dyspnea - Gastrointestinal Gastrointestinal: absent: Abdominal Pain, Change in Bowel Habits - Musculoskeletal Musculoskeletal: Abnormal Gait Past Patient History - Infectious Disease Hx of Infectious Diseases: None, MRSA - Tetanus Immunizations Tetanus Immunization: Unknown - Past Medical History & Family History Past Medical History?: Yes - Past Social History Smoking Status: Former Smoker - CARDIAC Hx Cardiac Disorders: Yes Hx Congestive Heart Failure: Yes Hx Hypertension: Yes - PULMONARY Hx Chronic Obstructive Pulmonary Disease (COPD): No - NEUROLOGICAL Other/Comment: Epilepsy - HEENT Hx HEENT Problems: Yes Other/Comment: wears glasses - RENAL Hx Renal Failure: No - ENDOCRINE/METABOLIC Hx Diabetes Mellitus Type 2: Yes - HEMATOLOGICAL/ONCOLOGICAL Hx Blood Disorders: No Hx AIDS: No Hx Anemia: No Hx Cancer: No Hx Chemotherapy: No Hx Cirrhosis: No Hx Hepatitis A: No Hx Hepatitis B: No Hx Hepatitis C: No Hx Metastesis: No Hx Shingles: No Hx Unexplained Bleeding: No Other/Comment: blood infection - INTEGUMENTARY Hx Dermatological Problems: Yes Hx Basil Cell: No Hx Eczema: No Hx Melanoma: No Hx Psoriasis: No Hx Squamous Cell: No Other/Comment: multiple wounds on the rt leg, cellulitis in b/l extreminity. 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 - SURGICAL HISTORY Hx Amputation: No Hx Appendectomy: No Hx Cholecystectomy: No Hx Gastric Bypass Surgery: No Hx Hysterectomy: No Hx Joint Replacement: No Hx Kidney Transplant: No Hx Liver Transplant: No Hx Mastectomy: No Hx Musculoskeletal Surgery: No Hx Open Heart Surgery: No Hx Orthopedic Surgery: No Hx Splenectomy: No Hx Valve Replacement: No - ANESTHESIA Hx Anesthesia: Yes Hx Anesthesia Reactions: No Hx Malignant Hyperthermia: No Meds Allergies/Adverse Reactions: Allergies Allergy/AdvReac Type Severity Reaction Status Date / Time No Known Allergies Allergy Verified 04/06/17 13:00 - Medications Medications: Current Medications Atorvastatin Calcium (Lipitor) 10 mg PO DIN [facility] Last Admin: 04/07/17 17:07 Dose: 10 mg Diltiazem HCl (Cardizem Cd) 120 mg PO DAILY [facility] Last Admin: 04/08/17 09:22 Dose: 120 mg Furosemide (Lasix) 20 mg PO DAILY [facility] Last Admin: 04/08/17 09:21 Dose: 20 mg Gabapentin (Neurontin) 400 mg PO TID [facility] PRN Reason: Protocol Last Admin: 04/08/17 09:26 Dose: 400 mg Glipizide (Glucotrol) 10 mg PO ACBD [facility] Last Admin: 04/08/17 08:19 Dose: 10 mg Cefepime HCl (Maxipime 1gm) 1 gm in 100 mls @ 100 mls/hr IVPB Q8 [facility] PRN Reason: Protocol Last Admin: 04/08/17 05:29 Dose: 100 mls/hr Vancomycin HCl (Vancomycin 1gm) 1 gm in 250 mls @ 167 mls/hr IVPB Q12H [facility] PRN Reason: Protocol Last Admin: 04/08/17 05:29 Dose: 167 mls/hr Insulin Human Regular (Humulin R High) 0 units SC ACHS [facility] PRN Reason: Protocol Last Admin: 04/08/17 08:18 Dose: 4 units Metformin HCl (Glucophage) 1,000 mg PO ACBD [facility] Last Admin: 04/08/17 08:19 Dose: 1,000 mg Potassium Chloride (K-Dur 20 Meq Er Tab) 20 meq PO DAILY [facility] Last Admin: 04/08/17 09:21 Dose: 20 meq Ramipril (Altace) 10 mg PO DAILY [facility] Last Admin: 04/08/17 09:22 Dose: 10 mg Warfarin Sodium (Coumadin) 10 mg PO DAILY [facility] PRN Reason: Protocol Last Admin: 04/08/17 09:25 Dose: 10 mg Warfarin Sodium (Coumadin) 2 mg PO DAILY [facility] PRN Reason: Protocol Last Admin: 04/08/17 09:26 Dose: 2 mg Physical Exam - Constitutional Appears: No Acute Distress Additional comments: Only responds to questions as yes and no - Head Exam Head Exam: ATRAUMATIC - Eye Exam Eye Exam: Normal appearance, PERRL - Respiratory Exam Respiratory Exam: Clear to Auscultation Bilateral, NORMAL BREATHING PATTERN. absent: Accessory Muscle Use - Cardiovascular Exam Cardiovascular Exam: REGULAR RHYTHM, +S1, +S2 - GI/Abdominal Exam GI & Abdominal Exam: Normal Bowel Sounds, Soft. absent: Firm, Organomegaly, Pulsatile Mass, Tenderness Additional comments: old scar 5cm below umbilicus - Extremities Exam Extremities exam: Positive for: joint swelling Additional comments: Skin erosion bilateral. dark, non-erythema left leg. Right leg in bandage during time of examination. Removed bandage and re-dressed. Right leg stage 2 ulcer. - Skin Additional comments: Right leg ulcer measuring below the tibial plateau to 4cm above the malleolus. Results - Vital Signs Recent Vital Signs: Last Vital Signs Temp 98.5 F 04/08/17 07:30 Pulse 73 04/08/17 09:22 Resp 20 04/08/17 07:30 BP 170/96 H 04/08/17 09:22 Pulse Ox 97 04/08/17 07:30 - Labs Result Diagrams: 04/06/17 11:15 04/06/17 11:15 Labs: Laboratory Results - last 24 hr 04/06/17 13:08 POC Glucose (mg/dL) 349 H Assessment & Plan - Assessment and Plan (Free Text) Assessment: 56M with hx of leg ulcers and MRSA Plan: - continue with dressing changes - follow ID recs - wound care per podiatry - no surgical intervention at this time will discuss with Dr. Giancarlo Rangel PGY1
--- NOTE | 2017-04-08 11:22 | CP.PCM.PN ---
Subjective - Date & Time of Evaluation Date of Evaluation: 04/08/17 Time of Evaluation: 10:10 - Subjective Subjective: Comfortable on a chair, not in distress, afebrile. Objective - Vital Signs/Intake and Output Vital Signs (last 24 hours): Temp Pulse Resp BP Pulse Ox 98.5 F 73 20 170/96 H 97 04/08/17 07:30 04/08/17 07:30 04/08/17 07:30 04/08/17 07:30 04/08/17 07:30 Intake and Output: 04/08/17 04/08/17 06:59 18:59 Intake Total 960 Output Total 1250 Balance -290 - Medications Medications: Current Medications Atorvastatin Calcium (Lipitor) 10 mg PO DIN [facility] Last Admin: 04/07/17 17:07 Dose: 10 mg Diltiazem HCl (Cardizem Cd) 120 mg PO DAILY [facility] Last Admin: 04/07/17 09:41 Dose: 120 mg Furosemide (Lasix) 20 mg PO DAILY [facility] Last Admin: 04/07/17 09:41 Dose: 20 mg Gabapentin (Neurontin) 400 mg PO TID [facility] PRN Reason: Protocol Last Admin: 04/07/17 17:07 Dose: 400 mg Glipizide (Glucotrol) 10 mg PO ACBD [facility] Last Admin: 04/07/17 17:07 Dose: 10 mg Cefepime HCl (Maxipime 1gm) 1 gm in 100 mls @ 100 mls/hr IVPB Q8 [facility] PRN Reason: Protocol Last Admin: 04/08/17 05:29 Dose: 100 mls/hr Vancomycin HCl (Vancomycin 1gm) 1 gm in 250 mls @ 167 mls/hr IVPB Q12H [facility] PRN Reason: Protocol Last Admin: 04/08/17 05:29 Dose: 167 mls/hr Insulin Human Regular (Humulin R High) 0 units SC ACHS [facility] PRN Reason: Protocol Last Admin: 04/07/17 17:07 Dose: 4 units Metformin HCl (Glucophage) 1,000 mg PO ACBD [facility] Last Admin: 04/07/17 17:07 Dose: 1,000 mg Potassium Chloride (K-Dur 20 Meq Er Tab) 20 meq PO DAILY [facility] Last Admin: 04/07/17 09:41 Dose: 20 meq Ramipril (Altace) 10 mg PO DAILY [facility] Last Admin: 04/07/17 09:40 Dose: 10 mg Warfarin Sodium (Coumadin) 10 mg PO DAILY [facility] PRN Reason: Protocol Last Admin: 04/07/17 09:41 Dose: 10 mg Warfarin Sodium (Coumadin) 2 mg PO DAILY [facility] PRN Reason: Protocol Last Admin: 04/07/17 09:41 Dose: 2 mg - Labs Labs: PT 10.9 Seconds (9.9-11.8) 04/07/17 06:45 INR 1.01 (0.93-1.08) 04/07/17 06:45 - Constitutional Appears: Non-toxic, No Acute Distress - Head Exam Head Exam: NORMAL INSPECTION - Neck Exam Neck Exam: absent: Meningismus - Respiratory Exam Respiratory Exam: Decreased Breath Sounds - Cardiovascular Exam Cardiovascular Exam: +S1, +S2 - GI/Abdominal Exam GI & Abdominal Exam: Soft. absent: Tenderness - Extremities Exam Additional comments: right leg with dry dressings in place Assessment and Plan - Assessment and Plan (Free Text) Plan: Assessment Probable right leg skin and skin structure infection associated with chronic leg ulcers history of sepsis secondary to right leg skin/skin structure infection with chronic leg ulcers, growing MRSA and sensitive Klebsiella history of MRSA cellulitis Jun. 2015 history of Bilateral lower extremity skin and skin structure infection ( Enterobacter, Klebsiella Oxytoca and Group B Strep, as well as MRSA) which was treated 06/2015; MRSA and Pseudomonas cellulitis of left leg in Sep 2015, January and March 2016 chronic lymphedema of the lower extremities Morbid obesity with BMI 55 HTN DM history of Strep bacteremia history of hernia surgery Learning disability Plan continue Vancomycin and cefepime day 2 pending final blood and wound cx; follow up Podiatry evaluation and plans will continue to monitor clinically
--- NOTE | 2017-04-08 11:53 | CP.PCM.PN ---
<Magui Ahuja - Last Filed: 04/08/17 11:50> Subjective - Date & Time of Evaluation Date of Evaluation: 04/08/17 Time of Evaluation: 11:50 - Subjective Subjective: 56 year old male was seen today resting in a chair at bedside regarding right lower extremity cellulitis, ulcerations and bilateral lower extremity chronic edema. Bilateral lower extremity bandages are clean dry and intact. No new complaints at this time. Patient denies any n/v/f/c/sob/cp. Objective - Vital Signs/Intake and Output Vital Signs (last 24 hours): Temp Pulse Resp BP Pulse Ox 98.5 F 73 20 170/96 H 97 04/08/17 07:30 04/08/17 09:22 04/08/17 07:30 04/08/17 09:22 04/08/17 07:30 Intake and Output: 04/08/17 04/08/17 06:59 18:59 Intake Total 960 Output Total 1250 Balance -290 - Medications Medications: Current Medications Atorvastatin Calcium (Lipitor) 10 mg PO DIN [facility] Last Admin: 04/07/17 17:07 Dose: 10 mg Diltiazem HCl (Cardizem Cd) 120 mg PO DAILY [facility] Last Admin: 04/08/17 09:22 Dose: 120 mg Furosemide (Lasix) 20 mg PO DAILY [facility] Last Admin: 04/08/17 09:21 Dose: 20 mg Gabapentin (Neurontin) 400 mg PO TID [facility] PRN Reason: Protocol Last Admin: 04/08/17 09:26 Dose: 400 mg Glipizide (Glucotrol) 10 mg PO ACBD [facility] Last Admin: 04/08/17 08:19 Dose: 10 mg Cefepime HCl (Maxipime 1gm) 1 gm in 100 mls @ 100 mls/hr IVPB Q8 [facility] PRN Reason: Protocol Last Admin: 04/08/17 05:29 Dose: 100 mls/hr Vancomycin HCl (Vancomycin 1gm) 1 gm in 250 mls @ 167 mls/hr IVPB Q12H [facility] PRN Reason: Protocol Last Admin: 04/08/17 05:29 Dose: 167 mls/hr Insulin Human Regular (Humulin R High) 0 units SC ACHS [facility] PRN Reason: Protocol Last Admin: 04/08/17 08:18 Dose: 4 units Metformin HCl (Glucophage) 1,000 mg PO ACBD [facility] Last Admin: 04/08/17 08:19 Dose: 1,000 mg Potassium Chloride (K-Dur 20 Meq Er Tab) 20 meq PO DAILY [facility] Last Admin: 04/08/17 09:21 Dose: 20 meq Ramipril (Altace) 10 mg PO DAILY [facility] Last Admin: 04/08/17 09:22 Dose: 10 mg Warfarin Sodium (Coumadin) 10 mg PO DAILY [facility] PRN Reason: Protocol Last Admin: 04/08/17 09:25 Dose: 10 mg Warfarin Sodium (Coumadin) 2 mg PO DAILY [facility] PRN Reason: Protocol Last Admin: 04/08/17 09:26 Dose: 2 mg - Labs Labs: PT 10.9 Seconds (9.9-11.8) 04/07/17 06:45 INR 1.01 (0.93-1.08) 04/07/17 06:45 - Constitutional Appears: Non-toxic, No Acute Distress - Extremities Exam Additional comments: Lower extremity focused exam: VASC: Diffuse edema of bilateral lower extremities. Skin temperature is increased on the right lower extremity compared to left NEURO: Gross sensation intact DERM: Open ulcerations to right lower extremity with granular base at the lateral aspect of the leg with sanguinous drainage, no purulence, no erythema, moderate malodor. Two additional small superficial ulcerations present to the anterior and lateral leg with sanguinous drainage. Surrounding skin is erythematous and hyperpigmented. Left leg has an open ulcer to the lateral aspect just distal to the knee with moderate amount of serous drainage, mild xerosis and hyperpigmentation. ORTHO: Negative pain on palpation to the lower extremities - Neurological Exam Neurological Exam: Alert, Awake - Psychiatric Exam Psychiatric exam: Normal Mood Assessment and Plan - Assessment and Plan (Free Text) Assessment: 56 year old male with right lower extremity cellulitis with venous stasis ulceration and bilateral chronic lower extremity edema. Plan: Patient examined and evaluated discussed in detail with attending Dr. Guerrero Patients bilateral legs cleansed with saline LE US negative for DVT Right leg dressed with xeroform, ABD, kerlix Left leg dressed with maxorb, optifoam Patient to continue IV abx per ID Podiatry will continue to follow, pt will f/u in the wound care center after DC <Marin Guerrero - Last Filed: 04/08/17 12:18> Objective - Vital Signs/Intake and Output Vital Signs (last 24 hours): Temp Pulse Resp BP Pulse Ox 98.5 F 73 20 170/96 H 97 04/08/17 07:30 04/08/17 09:22 04/08/17 07:30 04/08/17 09:22 04/08/17 07:30 Intake and Output: 04/08/17 04/08/17 06:59 18:59 Intake Total 960 Output Total 1250 Balance -290 - Medications Medications: Current Medications Atorvastatin Calcium (Lipitor) 10 mg PO DIN [facility] Last Admin: 04/07/17 17:07 Dose: 10 mg Diltiazem HCl (Cardizem Cd) 120 mg PO DAILY [facility] Last Admin: 04/08/17 09:22 Dose: 120 mg Furosemide (Lasix) 20 mg PO DAILY [facility] Last Admin: 04/08/17 09:21 Dose: 20 mg Gabapentin (Neurontin) 400 mg PO TID [facility] PRN Reason: Protocol Last Admin: 04/08/17 09:26 Dose: 400 mg Glipizide (Glucotrol) 10 mg PO ACBD [facility] Last Admin: 04/08/17 08:19 Dose: 10 mg Cefepime HCl (Maxipime 1gm) 1 gm in 100 mls @ 100 mls/hr IVPB Q8 [facility] PRN Reason: Protocol Last Admin: 04/08/17 05:29 Dose: 100 mls/hr Vancomycin HCl (Vancomycin 1gm) 1 gm in 250 mls @ 167 mls/hr IVPB Q12H [facility] PRN Reason: Protocol Last Admin: 04/08/17 05:29 Dose: 167 mls/hr Insulin Human Regular (Humulin R High) 0 units SC ACHS [facility] PRN Reason: Protocol Last Admin: 04/08/17 08:18 Dose: 4 units Metformin HCl (Glucophage) 1,000 mg PO ACBD [facility] Last Admin: 04/08/17 08:19 Dose: 1,000 mg Potassium Chloride (K-Dur 20 Meq Er Tab) 20 meq PO DAILY [facility] Last Admin: 04/08/17 09:21 Dose: 20 meq Ramipril (Altace) 10 mg PO DAILY [facility] Last Admin: 04/08/17 09:22 Dose: 10 mg Warfarin Sodium (Coumadin) 10 mg PO DAILY [facility] PRN Reason: Protocol Last Admin: 04/08/17 09:25 Dose: 10 mg Warfarin Sodium (Coumadin) 2 mg PO DAILY [facility] PRN Reason: Protocol Last Admin: 04/08/17 09:26 Dose: 2 mg - Labs Labs: PT 10.9 Seconds (9.9-11.8) 04/07/17 06:45 INR 1.01 (0.93-1.08) 04/07/17 06:45 Attending/Attestation - Attestation I have personally seen and examined this patient.: Yes I have fully participated in the care of the patient.: Yes I have reviewed all pertinent clinical information, including history, physical exam and plan: Yes
[2017-04-08 15:59] VITALS: O2SAT 94
[2017-04-09] MEDS: Vancomycin 1gm in NS 250ml 1 GM/250 ML BAG IVPB SCH (04:53)
[2017-04-09] MEDS: Cefepime 1gm in NS 100ml 1 GM/100 ML BAG IVPB SCH (06:32)
[2017-04-09] MEDS: diltiaZEM 120 mg/24 Hours CD Cap PO SCH ×2 (06:54→09:29)
[2017-04-09] MEDS: Insulin Reg-HIGH-Coverage SC SCH (07:49)
[2017-04-09 08:08] VITALS: PULSE 65; TEMP 98.2
--- NOTE | 2017-04-09 08:25 | CP.PCM.PN ---
Subjective - Date & Time of Evaluation Date of Evaluation: 04/09/17 Time of Evaluation: 08:15 - Subjective Subjective: Pt with no pain. Eating well. Objective - Vital Signs/Intake and Output Vital Signs (last 24 hours): Temp Pulse Resp BP Pulse Ox 98.2 F 65 20 187/90 H 94 L 04/09/17 08:00 04/09/17 08:00 04/09/17 08:00 04/09/17 08:00 04/09/17 08:00 Intake and Output: 04/09/17 04/09/17 06:59 18:59 Intake Total 1020 Output Total 1125 Balance -105 - Medications Medications: Current Medications Atorvastatin Calcium (Lipitor) 10 mg PO DIN [facility] Last Admin: 04/08/17 18:07 Dose: 10 mg Diltiazem HCl (Cardizem Cd) 120 mg PO DAILY [facility] Last Admin: 04/09/17 06:54 Dose: 120 mg Furosemide (Lasix) 20 mg PO DAILY [facility] Last Admin: 04/08/17 09:21 Dose: 20 mg Gabapentin (Neurontin) 400 mg PO TID [facility] PRN Reason: Protocol Last Admin: 04/08/17 18:07 Dose: 400 mg Glipizide (Glucotrol) 10 mg PO ACBD [facility] Last Admin: 04/09/17 07:49 Dose: 10 mg Cefepime HCl (Maxipime 1gm) 1 gm in 100 mls @ 100 mls/hr IVPB Q8 [facility] PRN Reason: Protocol Last Admin: 04/09/17 06:32 Dose: 100 mls/hr Vancomycin HCl (Vancomycin 1gm) 1 gm in 250 mls @ 167 mls/hr IVPB Q12H [facility] PRN Reason: Protocol Last Admin: 04/09/17 04:53 Dose: 167 mls/hr Insulin Human Regular (Humulin R High) 0 units SC ACHS [facility] PRN Reason: Protocol Last Admin: 04/09/17 07:49 Dose: 7 units Metformin HCl (Glucophage) 1,000 mg PO ACBD [facility] Last Admin: 04/09/17 07:49 Dose: 1,000 mg Potassium Chloride (K-Dur 20 Meq Er Tab) 20 meq PO DAILY [facility] Last Admin: 04/08/17 09:21 Dose: 20 meq Ramipril (Altace) 10 mg PO DAILY [facility] Last Admin: 04/08/17 09:22 Dose: 10 mg Warfarin Sodium (Coumadin) 10 mg PO DAILY [facility] PRN Reason: Protocol Last Admin: 04/08/17 09:25 Dose: 10 mg Warfarin Sodium (Coumadin) 2 mg PO DAILY [facility] PRN Reason: Protocol Last Admin: 04/08/17 09:26 Dose: 2 mg - Labs Labs: PT 10.9 Seconds (9.9-11.8) 04/07/17 06:45 INR 1.01 (0.93-1.08) 04/07/17 06:45 - Constitutional Appears: Well - Head Exam Head Exam: NORMAL INSPECTION - Eye Exam Eye Exam: EOMI, Normal appearance, PERRL - ENT Exam ENT Exam: Mucous Membranes Moist, Normal Exam - Neck Exam Neck Exam: Full ROM, Normal Inspection. absent: Lymphadenopathy - Respiratory Exam Respiratory Exam: Clear to Ausculation Bilateral, NORMAL BREATHING PATTERN. absent: Rales, Rhonchi - Cardiovascular Exam Cardiovascular Exam: REGULAR RHYTHM, +S1, +S2. absent: Murmur - GI/Abdominal Exam GI & Abdominal Exam: Soft, Normal Bowel Sounds. absent: Tenderness, Hernia - Extremities Exam Extremities Exam: Full ROM, Normal Capillary Refill (chronic skin changes). absent: Joint Swelling, Pedal Edema Assessment and Plan - Assessment and Plan (Free Text) Plan: IV Abx- Vanco. Dr Horta from Podiatry and by ID, and Dr Mondragon following. On Insulin. He will be given Coumadin for his A fib. On ISS for DM-2. FS with coverage. On Neurontin for neuropathy. On Cardiezem for A fib. Lipitor for Dyslipidemia. TCU pending.
--- NOTE | 2017-04-09 08:55 | CP.PCM.PN ---
Subjective - Date & Time of Evaluation Date of Evaluation: 04/09/17 Time of Evaluation: 09:00 - Subjective Subjective: Diabetic male seen for cellulitis and infection with open wounds to the RLE - pt with elephantitis of the legs which we have been trying to control with compression dressings; unfortunately his insurance will not pay for [place] wraps or lymphedema machine Pt seen with legs elevated in no distress Objective - Vital Signs/Intake and Output Vital Signs (last 24 hours): Temp Pulse Resp BP Pulse Ox 98.2 F 65 20 187/90 H 94 L 04/09/17 08:00 04/09/17 08:00 04/09/17 08:00 04/09/17 08:00 04/09/17 08:00 Intake and Output: 04/09/17 04/09/17 06:59 18:59 Intake Total 1020 Output Total 1125 Balance -105 - Medications Medications: Current Medications Atorvastatin Calcium (Lipitor) 10 mg PO DIN [facility] Last Admin: 04/08/17 18:07 Dose: 10 mg Diltiazem HCl (Cardizem Cd) 120 mg PO DAILY [facility] Last Admin: 04/09/17 06:54 Dose: 120 mg Furosemide (Lasix) 20 mg PO DAILY [facility] Last Admin: 04/08/17 09:21 Dose: 20 mg Gabapentin (Neurontin) 400 mg PO TID [facility] PRN Reason: Protocol Last Admin: 04/08/17 18:07 Dose: 400 mg Glipizide (Glucotrol) 10 mg PO ACBD [facility] Last Admin: 04/09/17 07:49 Dose: 10 mg Cefepime HCl (Maxipime 1gm) 1 gm in 100 mls @ 100 mls/hr IVPB Q8 [facility] PRN Reason: Protocol Last Admin: 04/09/17 06:32 Dose: 100 mls/hr Vancomycin HCl (Vancomycin 1gm) 1 gm in 250 mls @ 167 mls/hr IVPB Q12H [facility] PRN Reason: Protocol Last Admin: 04/09/17 04:53 Dose: 167 mls/hr Insulin Human Regular (Humulin R High) 0 units SC ACHS [facility] PRN Reason: Protocol Last Admin: 04/09/17 07:49 Dose: 7 units Metformin HCl (Glucophage) 1,000 mg PO ACBD [facility] Last Admin: 04/09/17 07:49 Dose: 1,000 mg Potassium Chloride (K-Dur 20 Meq Er Tab) 20 meq PO DAILY [facility] Last Admin: 04/08/17 09:21 Dose: 20 meq Ramipril (Altace) 10 mg PO DAILY [facility] Last Admin: 04/08/17 09:22 Dose: 10 mg Warfarin Sodium (Coumadin) 10 mg PO DAILY [facility] PRN Reason: Protocol Last Admin: 04/08/17 09:25 Dose: 10 mg Warfarin Sodium (Coumadin) 2 mg PO DAILY [facility] PRN Reason: Protocol Last Admin: 04/08/17 09:26 Dose: 2 mg - Labs Labs: PT 10.9 Seconds (9.9-11.8) 04/07/17 06:45 INR 1.01 (0.93-1.08) 04/07/17 06:45 - Constitutional Appears: Well, No Acute Distress - Extremities Exam Extremities Exam: Normal Capillary Refill, Pedal Edema. absent: Calf Tenderness , Joint Swelling, Tenderness Additional comments: multiple open wounds on the right leg - cellulitis is resolving - no calor - maceration of the tissue noted; multiple small open wounds no sinus tract no undermining no fluctuance no malodor noted - chronic skin changes of chronic edema noted Assessment and Plan - Assessment and Plan (Free Text) Assessment: Diabetes with chronic lower extremity edema - RLE cellulits and ulcerationbs - improving Plan: continue local care continue leg elevation continue IV amtibiotics C&S reviewed pt toTCU ]dressing change done will follow
[2017-04-09] MEDS: Potassium Chloride 20 mEq ER Tab PO SCH (09:24)
[2017-04-09 09:31] VITALS: BP 178/88
--- NOTE | 2017-04-09 11:40 | CP.PCM.PN ---
Subjective - Date & Time of Evaluation Date of Evaluation: 04/09/17 Time of Evaluation: 11:05 - Subjective Subjective: Comfortable on a chair, not in distress, afebrile. Objective - Vital Signs/Intake and Output Vital Signs (last 24 hours): Temp Pulse Resp BP Pulse Ox 98.2 F 65 20 178/88 H 94 L 04/09/17 08:00 04/09/17 08:00 04/09/17 08:00 04/09/17 09:24 04/09/17 08:00 Intake and Output: 04/09/17 04/09/17 06:59 18:59 Intake Total 1020 Output Total 1125 Balance -105 - Medications Medications: Current Medications Atorvastatin Calcium (Lipitor) 10 mg PO DIN [facility] Last Admin: 04/08/17 18:07 Dose: 10 mg Diltiazem HCl (Cardizem Cd) 120 mg PO DAILY [facility] Last Admin: 04/09/17 09:29 Dose: Not Given Furosemide (Lasix) 20 mg PO DAILY [facility] Last Admin: 04/09/17 09:24 Dose: 20 mg Gabapentin (Neurontin) 400 mg PO TID [facility] PRN Reason: Protocol Last Admin: 04/09/17 09:24 Dose: 400 mg Glipizide (Glucotrol) 10 mg PO ACBD [facility] Last Admin: 04/09/17 07:49 Dose: 10 mg Cefepime HCl (Maxipime 1gm) 1 gm in 100 mls @ 100 mls/hr IVPB Q8 [facility] PRN Reason: Protocol Last Admin: 04/09/17 06:32 Dose: 100 mls/hr Vancomycin HCl (Vancomycin 1gm) 1 gm in 250 mls @ 167 mls/hr IVPB Q12H [facility] PRN Reason: Protocol Last Admin: 04/09/17 04:53 Dose: 167 mls/hr Insulin Human Regular (Humulin R High) 0 units SC ACHS [facility] PRN Reason: Protocol Last Admin: 04/09/17 07:49 Dose: 7 units Metformin HCl (Glucophage) 1,000 mg PO ACBD [facility] Last Admin: 04/09/17 07:49 Dose: 1,000 mg Potassium Chloride (K-Dur 20 Meq Er Tab) 20 meq PO DAILY [facility] Last Admin: 04/09/17 09:24 Dose: 20 meq Ramipril (Altace) 10 mg PO DAILY [facility] Last Admin: 04/09/17 09:24 Dose: 10 mg Warfarin Sodium (Coumadin) 10 mg PO DAILY [facility] PRN Reason: Protocol Last Admin: 04/09/17 09:24 Dose: 10 mg Warfarin Sodium (Coumadin) 2 mg PO DAILY [facility] PRN Reason: Protocol Last Admin: 04/09/17 09:24 Dose: 2 mg - Labs Labs: PT 10.9 Seconds (9.9-11.8) 04/07/17 06:45 INR 1.01 (0.93-1.08) 04/07/17 06:45 - Constitutional Appears: Non-toxic, No Acute Distress - Head Exam Head Exam: NORMAL INSPECTION - ENT Exam ENT Exam: Mucous Membranes Moist - Neck Exam Neck Exam: absent: Lymphadenopathy, Meningismus - Respiratory Exam Respiratory Exam: Decreased Breath Sounds - Cardiovascular Exam Cardiovascular Exam: +S1, +S2 - GI/Abdominal Exam GI & Abdominal Exam: Soft. absent: Tenderness - Extremities Exam Additional comments: right leg with dry dressings in place Assessment and Plan - Assessment and Plan (Free Text) Plan: Assessment Probable right leg skin and skin structure infection associated with chronic leg ulcers history of sepsis secondary to right leg skin/skin structure infection with chronic leg ulcers, growing MRSA and sensitive Klebsiella history of MRSA cellulitis Jun. 2015 history of Bilateral lower extremity skin and skin structure infection ( Enterobacter, Klebsiella Oxytoca and Group B Strep, as well as MRSA) which was treated 06/2015; MRSA and Pseudomonas cellulitis of left leg in Sep 2015, January and March 2016 chronic lymphedema of the lower extremities Morbid obesity with BMI 55 HTN DM history of Strep bacteremia history of hernia surgery Learning disability Plan continue Vancomycin and cefepime day 3 pending final blood and wound cx ( preliminarily showing Staph aureus); reviewed Podiatry evaluation and plans will continue to monitor clinically
== END 2017-04-09 11:50 | DRG 593 ==
LOC: ED 10:51 → ERH 12:06 → 5RNO 13:23
PROVIDERS: ADMIT Internal Medicine Nephrology; ATTEND Internal Medicine Nephrology
DX: L97.919 Non-pressure chronic ulcer of unspecified part of right lower leg with unspecified severity (principal); L03.115 Cellulitis of right lower limb; I11.0 Hypertensive heart disease with heart failure; E11.622 Type 2 diabetes mellitus with other skin ulcer; I50.9 Heart failure, unspecified; Z68.43 Body mass index [BMI] 50.0-59.9, adult; I48.91 Unspecified atrial fibrillation; G62.9 Polyneuropathy, unspecified; L03.116 Cellulitis of left lower limb; G40.909 Epilepsy, unspecified, not intractable, without status epilepticus; E66.01 Morbid (severe) obesity due to excess calories; E78.5 Hyperlipidemia, unspecified; F79 Unspecified intellectual disabilities; F81.9 Developmental disorder of scholastic skills, unspecified; I87.8 Other specified disorders of veins; I89.0 Lymphedema, not elsewhere classified; Z79.899 Other long term (current) drug therapy; Z86.14 Personal history of Methicillin resistant Staphylococcus aureus infection; Z87.891 Personal history of nicotine dependence; R40.2412 Glasgow coma scale score 13-15, at arrival to emergency department; L85.3 Xerosis cutis; L81.9 Disorder of pigmentation, unspecified; B95.62 Methicillin resistant Staphylococcus aureus infection as the cause of diseases classified elsewhere

== ENCOUNTER 2017-04-09 12:02 | Inpatient (IN) | payer OTHER, MEDICAID ==
[2017-04-09 12:10] VITALS: BMI 52.2
[2017-04-09] MEDS: Cefepime 1gm in NS 100ml 1 GM/100 ML BAG IVPB SCH ×2 (15:18→21:36)
[2017-04-09] MEDS: Vancomycin 1gm in NS 250ml 1 GM/250 ML BAG IVPB SCH (17:28)
[2017-04-09] MEDS: Insulin Reg-HIGH-Coverage SC SCH ×2 (17:40→21:49)
[2017-04-10] MEDS: Vancomycin 1gm in NS 250ml 1 GM/250 ML BAG IVPB SCH (05:18)
[2017-04-10] MEDS: Cefepime 1gm in NS 100ml 1 GM/100 ML BAG IVPB SCH (05:18)
[2017-04-10] MEDS: Insulin Reg-HIGH-Coverage SC SCH ×4 (06:33→22:16)
[2017-04-10] MEDS: Potassium Chloride 20 mEq ER Tab PO SCH (08:03)
--- NOTE | 2017-04-10 08:29 | CP.PCM.PN ---
Subjective - Date & Time of Evaluation Date of Evaluation: 04/10/17 Time of Evaluation: 08:25 - Subjective Subjective: PGY [address] Mondragon Patient seen and examined this morning. No acute events over night. Patient has MR and does not verbalize any complaints at this time. Objective - Vital Signs/Intake and Output Vital Signs (last 24 hours): Temp Pulse Resp BP Pulse Ox 98.5 F 78 18 162/90 H 95 04/10/17 06:00 04/10/17 06:00 04/10/17 06:00 04/10/17 06:00 04/10/17 06:00 Intake and Output: 04/10/17 04/10/17 06:59 18:59 Intake Total 680 Output Total 700 Balance -20 - Medications Medications: Current Medications Atorvastatin Calcium (Lipitor) 10 mg PO DIN [facility] PRN Reason: Protocol Last Admin: 04/09/17 17:27 Dose: 10 mg Diltiazem HCl (Cardizem Cd) 120 mg PO DAILY [facility] PRN Reason: Protocol Furosemide (Lasix) 20 mg PO DAILY [facility] PRN Reason: Protocol Gabapentin (Neurontin) 400 mg PO TID [facility] PRN Reason: Protocol Last Admin: 04/09/17 17:27 Dose: 400 mg Glipizide (Glucotrol) 10 mg PO 0700,1700 [facility] PRN Reason: Protocol Last Admin: 04/10/17 06:43 Dose: 10 mg Cefepime HCl (Maxipime 1gm) 1 gm in 100 mls @ 100 mls/hr IVPB Q8 [facility] PRN Reason: Protocol Last Admin: 04/10/17 05:18 Dose: 100 mls/hr Vancomycin HCl (Vancomycin 1gm) 1 gm in 250 mls @ 167 mls/hr IVPB Q12H [facility] PRN Reason: Protocol Last Admin: 04/10/17 05:18 Dose: 167 mls/hr Insulin Human Regular (Humulin R High) 0 units SC ACHS [facility] PRN Reason: Protocol Last Admin: 04/10/17 06:33 Dose: 4 units Metformin HCl (Glucophage) 1,000 mg PO ACBD [facility] PRN Reason: Protocol Last Admin: 04/10/17 08:03 Dose: 1,000 mg Potassium Chloride (K-Dur 20 Meq Er Tab) 20 meq PO 0800 [facility] PRN Reason: Protocol Last Admin: 04/10/17 08:03 Dose: 20 meq Ramipril (Altace) 10 mg PO DAILY [facility] PRN Reason: Protocol Warfarin Sodium (Coumadin) 10 mg PO 1800 [facility] PRN Reason: Protocol Warfarin Sodium (Coumadin) 2 mg PO 1800 [facility] PRN Reason: Protocol - Constitutional Appears: No Acute Distress - Respiratory Exam Respiratory Exam: NORMAL BREATHING PATTERN. absent: Respiratory Distress - Extremities Exam Additional comments: b/l LE lymphedema - Neurological Exam Neurological Exam: Alert, Awake Assessment and Plan - Assessment and Plan (Free Text) Assessment: 56 year old M with b/l LE lymphedema and RLE wound Plan: Apply abdominal binders to upper thighs b/l Apply serg wraps to lower portion of LE b/l Continue medical management for MRSA infxn Swapnil Salazar PGY 1
[2017-04-10] MEDS: diltiaZEM 120 mg/24 Hours CD Cap PO SCH (10:21)
--- NOTE | 2017-04-10 13:50 | CP.PCM.CON ---
History of Present Illness - History of Present Illness History of Present Illness: 56 year old male with PMH of right leg skin/skin structure infection with chronic leg ulcers, growing MRSA and sensitive Klebsiella in 2015, Bilateral lower extremity skin and skin structure infection (Enterobacter, Klebsiella Oxytoca and Group B Strep, as well as MRSA) which was treated 06/2015; MRSA and Pseudomonas cellulitis of left leg in Sep 2015, January and March 2016, and MRSA cellulitis in 2015, chronic lymphedema of the lower extremities, Morbid obesity with BMI 53, HTN, DM, history of Strep bacteremia, history of hernia surgery, Learning disability was initially brought in to [facility] because of lower extremity edema with weeping of the ulcers on the right leg. He has been on antibiotics and wound care and has been doing well. He is now transferred to [facility] for continued medical therapy and physical rehab. Infectious Diseases consult is requested to continue his antibiotic therapy. Review of Systems - Review of Systems Systems not reviewed;Unavailable: Other (learning disability) Past Patient History - Infectious Disease Hx of Infectious Diseases: None, MRSA - Tetanus Immunizations Tetanus Immunization: Unknown - Past Medical History & Family History Past Medical History?: Yes - Past Social History Smoking Status: Former Smoker - CARDIAC Hx Cardiac Disorders: Yes Hx Congestive Heart Failure: Yes Hx Hypertension: Yes - PULMONARY Hx Chronic Obstructive Pulmonary Disease (COPD): No - NEUROLOGICAL Other/Comment: Epilepsy - HEENT Hx HEENT Problems: Yes Other/Comment: wears glasses - RENAL Hx Renal Failure: No - ENDOCRINE/METABOLIC Hx Diabetes Mellitus Type 2: Yes - HEMATOLOGICAL/ONCOLOGICAL Hx Blood Disorders: No Hx AIDS: No Hx Anemia: No Hx Cancer: No Hx Chemotherapy: No Hx Cirrhosis: No Hx Hepatitis A: No Hx Hepatitis B: No Hx Hepatitis C: No Hx Metastesis: No Hx Shingles: No Hx Unexplained Bleeding: No Other/Comment: blood infection - INTEGUMENTARY Hx Dermatological Problems: Yes Hx Basil Cell: No Hx Eczema: No Hx Melanoma: No Hx Psoriasis: No Hx Squamous Cell: No Other/Comment: multiple wounds on the rt leg, cellulitis in b/l extreminity. 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 - SURGICAL HISTORY Hx Amputation: No Hx Appendectomy: No Hx Cholecystectomy: No Hx Gastric Bypass Surgery: No Hx Hysterectomy: No Hx Joint Replacement: No Hx Kidney Transplant: No Hx Liver Transplant: No Hx Mastectomy: No Hx Musculoskeletal Surgery: No Hx Open Heart Surgery: No Hx Orthopedic Surgery: No Hx Splenectomy: No Hx Valve Replacement: No - ANESTHESIA Hx Anesthesia: Yes Hx Anesthesia Reactions: No Hx Malignant Hyperthermia: No Meds Allergies/Adverse Reactions: Allergies Allergy/AdvReac Type Severity Reaction Status Date / Time No Known Allergies Allergy Verified 04/06/17 13:00 - Medications Medications: Current Medications Atorvastatin Calcium (Lipitor) 10 mg PO DIN [facility] PRN Reason: Protocol Last Admin: 04/09/17 17:27 Dose: 10 mg Diltiazem HCl (Cardizem Cd) 120 mg PO DAILY [facility] PRN Reason: Protocol Furosemide (Lasix) 20 mg PO DAILY [facility] PRN Reason: Protocol Gabapentin (Neurontin) 400 mg PO TID [facility] PRN Reason: Protocol Last Admin: 04/09/17 17:27 Dose: 400 mg Glipizide (Glucotrol) 10 mg PO 0700,1700 [facility] PRN Reason: Protocol Last Admin: 04/09/17 17:27 Dose: 10 mg Cefepime HCl (Maxipime 1gm) 1 gm in 100 mls @ 100 mls/hr IVPB Q8 [facility] PRN Reason: Protocol Last Admin: 04/09/17 21:36 Dose: 100 mls/hr Vancomycin HCl (Vancomycin 1gm) 1 gm in 250 mls @ 167 mls/hr IVPB Q12H [facility] PRN Reason: Protocol Last Admin: 04/09/17 17:28 Dose: 167 mls/hr Insulin Human Regular (Humulin R High) 0 units SC ACHS [facility] PRN Reason: Protocol Last Admin: 04/09/17 21:49 Dose: Not Given Metformin HCl (Glucophage) 1,000 mg PO ACBD [facility] PRN Reason: Protocol Last Admin: 04/09/17 17:43 Dose: 1,000 mg Potassium Chloride (K-Dur 20 Meq Er Tab) 20 meq PO 0800 [facility] PRN Reason: Protocol Ramipril (Altace) 10 mg PO DAILY [facility] PRN Reason: Protocol Warfarin Sodium (Coumadin) 10 mg PO 1800 [facility] PRN Reason: Protocol Warfarin Sodium (Coumadin) 2 mg PO 1800 [facility] PRN Reason: Protocol Physical Exam - Constitutional Appears: Non-toxic, No Acute Distress - Head Exam Head Exam: NORMAL INSPECTION - ENT Exam ENT Exam: Mucous Membranes Moist - Neck Exam Neck exam: Negative for: Lymphadenopathy, Meningismus - Respiratory Exam Respiratory Exam: Decreased Breath Sounds - Cardiovascular Exam Cardiovascular Exam: +S1, +S2 - GI/Abdominal Exam GI & Abdominal Exam: Soft. absent: Tenderness - Extremities Exam Additional comments: both legs with dry dressings in place Results - Vital Signs Recent Vital Signs: Last Vital Signs Temp 98 F 04/09/17 16:00 Pulse 68 04/09/17 16:00 Resp 18 04/09/17 16:00 BP 133/76 04/09/17 16:00 Pulse Ox 95 04/09/17 16:00 - Labs Labs: Laboratory Results - last 24 hr 04/09/17 04/09/17 16:37 21:36 POC Glucose (mg/dL) 183 H 167 H Assessment & Plan - Assessment and Plan (Free Text) Plan: Assessment Probable right leg skin and skin structure infection associated with chronic leg ulcers, growing MRSA history of sepsis secondary to right leg skin/skin structure infection with chronic leg ulcers, growing MRSA and sensitive Klebsiella history of MRSA cellulitis Jun. 2015 history of Bilateral lower extremity skin and skin structure infection ( Enterobacter, Klebsiella Oxytoca and Group B Strep, as well as MRSA) which was treated 06/2015; MRSA and Pseudomonas cellulitis of left leg in Sep 2015, January and March 2016 chronic lymphedema of the lower extremities Morbid obesity with BMI 55 HTN DM history of Strep bacteremia history of hernia surgery Learning disability Plan continue Vancomycin day 4 and will continue to follow clinically - will target 7 -10 days of therapy
[2017-04-11] MEDS: Insulin Reg-HIGH-Coverage SC SCH ×3 (06:36→17:43)
--- NOTE | 2017-04-11 08:08 | CP.PCM.PN ---
Subjective - Date & Time of Evaluation Date of Evaluation: 04/11/17 Time of Evaluation: 08:04 - Subjective Subjective: General Surgery PGY [address] Mondragon Patient seen and examined this morning at bedside. No acute events over night. Patient has MR and does not verbalize any discomfort at this time. Objective - Vital Signs/Intake and Output Vital Signs (last 24 hours): Temp Pulse Resp BP Pulse Ox 98.5 F 71 18 155/84 H 97 04/11/17 05:29 04/11/17 05:29 04/11/17 05:29 04/11/17 05:29 04/11/17 05:29 Intake and Output: 04/11/17 04/11/17 06:59 18:59 Intake Total 500 Output Total 700 Balance -200 - Medications Medications: Current Medications Atorvastatin Calcium (Lipitor) 10 mg PO DIN [facility] PRN Reason: Protocol Last Admin: 04/10/17 17:59 Dose: 10 mg Diltiazem HCl (Cardizem Cd) 120 mg PO DAILY [facility] PRN Reason: Protocol Last Admin: 04/10/17 10:21 Dose: 120 mg Furosemide (Lasix) 20 mg PO DAILY [facility] PRN Reason: Protocol Last Admin: 04/10/17 10:23 Dose: 20 mg Gabapentin (Neurontin) 400 mg PO TID [facility] PRN Reason: Protocol Last Admin: 04/10/17 17:58 Dose: 400 mg Glipizide (Glucotrol) 10 mg PO 0700,1700 [facility] PRN Reason: Protocol Last Admin: 04/11/17 06:35 Dose: 10 mg Vancomycin HCl 1.5 gm/ Sodium (Chloride) 250 mls @ 167 mls/hr IVPB 0600,1800 [facility] PRN Reason: Protocol Last Admin: 04/11/17 05:12 Dose: 167 mls/hr Insulin Human Regular (Humulin R High) 0 units SC ACHS [facility] PRN Reason: Protocol Last Admin: 04/11/17 06:36 Dose: 2 units Metformin HCl (Glucophage) 1,000 mg PO ACBD [facility] PRN Reason: Protocol Last Admin: 04/10/17 17:58 Dose: 1,000 mg Potassium Chloride (K-Dur 20 Meq Er Tab) 20 meq PO 0800 [facility] PRN Reason: Protocol Last Admin: 04/10/17 08:03 Dose: 20 meq Ramipril (Altace) 10 mg PO DAILY [facility] PRN Reason: Protocol Last Admin: 04/10/17 10:21 Dose: 10 mg Warfarin Sodium (Coumadin) 10 mg PO 1800 [facility] PRN Reason: Protocol Last Admin: 04/10/17 17:59 Dose: 10 mg Warfarin Sodium (Coumadin) 2 mg PO 1800 [facility] PRN Reason: Protocol Last Admin: 04/10/17 18:03 Dose: 2 mg - Constitutional Appears: No Acute Distress - Head Exam Head Exam: ATRAUMATIC - ENT Exam ENT Exam: Mucous Membranes Moist - Respiratory Exam Respiratory Exam: Clear to Ausculation Bilateral, NORMAL BREATHING PATTERN - Cardiovascular Exam Cardiovascular Exam: REGULAR RHYTHM - Extremities Exam Extremities Exam: Pedal Edema Additional comments: B/L LE edema with RLE wound. - Neurological Exam Neurological Exam: Alert, Awake - Psychiatric Exam Additional comments: Patient has MR. He is in a pleasant mood today. - Skin Skin Exam: Dry, Normal Color, Warm Assessment and Plan - Assessment and Plan (Free Text) Assessment: 56 year old M with B/L LE edema with RLE wound. Plan: No need for abdominal binders/serg wraps on LE at this time. Continue medical management for MRSA infxn. No need for surgical intervention at this moment. Swapnil Salazar PGY 1
[2017-04-11] MEDS: Potassium Chloride 20 mEq ER Tab PO SCH (08:32)
[2017-04-11 08:33] LABS: INR 2.06 (0.93-1.08); PROTHROMBIN TIME 22.2 Seconds (9.9-11.8)
[2017-04-11] MEDS: diltiaZEM 120 mg/24 Hours CD Cap PO SCH (10:10)
--- NOTE | 2017-04-11 17:06 | CP.PCM.PN ---
<AhujaMagui - Last Filed: 04/11/17 17:02> Subjective - Date & Time of Evaluation Date of Evaluation: 04/11/17 Time of Evaluation: 17:02 - Subjective Subjective: 56 year old male was seen today resting in a chair at bedside in TCU regarding right lower extremity cellulitis, ulcerations and bilateral lower extremity chronic edema. Bilateral lower extremity bandages are clean dry and intact. No new complaints at this time. Objective - Vital Signs/Intake and Output Vital Signs (last 24 hours): Temp Pulse Resp BP Pulse Ox 97 F L 75 18 141/68 95 04/11/17 16:00 04/11/17 16:00 04/11/17 16:00 04/11/17 16:00 04/11/17 16:00 Intake and Output: 04/11/17 04/11/17 06:59 18:59 Intake Total 500 Output Total 700 Balance -200 - Medications Medications: Current Medications Atorvastatin Calcium (Lipitor) 10 mg PO DIN [facility] PRN Reason: Protocol Last Admin: 04/10/17 17:59 Dose: 10 mg Diltiazem HCl (Cardizem Cd) 120 mg PO DAILY [facility] PRN Reason: Protocol Last Admin: 04/11/17 10:10 Dose: 120 mg Furosemide (Lasix) 20 mg PO DAILY [facility] PRN Reason: Protocol Last Admin: 04/11/17 10:11 Dose: 20 mg Gabapentin (Neurontin) 400 mg PO TID [facility] PRN Reason: Protocol Last Admin: 04/11/17 13:38 Dose: 400 mg Glipizide (Glucotrol) 10 mg PO 0700,1700 [facility] PRN Reason: Protocol Last Admin: 04/11/17 06:35 Dose: 10 mg Vancomycin HCl 1.5 gm/ Sodium (Chloride) 250 mls @ 167 mls/hr IVPB 0600,1800 [facility] PRN Reason: Protocol Last Admin: 04/11/17 05:12 Dose: 167 mls/hr Insulin Human Regular (Humulin R High) 0 units SC ACHS [facility] PRN Reason: Protocol Last Admin: 04/11/17 12:48 Dose: 2 units Metformin HCl (Glucophage) 1,000 mg PO ACBD [facility] PRN Reason: Protocol Potassium Chloride (K-Dur 20 Meq Er Tab) 20 meq PO 0800 [facility] PRN Reason: Protocol Last Admin: 04/11/17 08:32 Dose: 20 meq Ramipril (Altace) 10 mg PO DAILY [facility] PRN Reason: Protocol Last Admin: 04/11/17 10:10 Dose: 10 mg Warfarin Sodium (Coumadin) 10 mg PO 1800 [facility] PRN Reason: Protocol Last Admin: 04/10/17 17:59 Dose: 10 mg Warfarin Sodium (Coumadin) 2 mg PO 1800 [facility] PRN Reason: Protocol Last Admin: 04/10/17 18:03 Dose: 2 mg - Labs Labs: PT 22.2 Seconds (9.9-11.8) H 04/11/17 07:40 INR 2.06 (0.93-1.08) H 04/11/17 07:40 - Constitutional Appears: Non-toxic, No Acute Distress - Extremities Exam Additional comments: Lower extremity focused exam: VASC: Diffuse edema of bilateral lower extremities. Skin temperature is warm to warm from proximal to distal b/l-cellulitis resolving NEURO: Gross sensation intact DERM: Superficial ulcerations noted to right lower extremity with granular base at the lateral aspect of the leg with scant amount sanguinous drainage, no purulence, no erythema, no malodor noted. Left leg has an open ulcer to the lateral aspect just distal to the knee with moderate amount of serous drainage, no malodor, no fluctuance, mild xerosis and hyperpigmentation. Chronic skin changes of chronic edema noted ORTHO: Negative pain on palpation to the lower extremities - Neurological Exam Neurological Exam: Alert, Awake - Psychiatric Exam Psychiatric exam: Normal Affect, Normal Mood Assessment and Plan - Assessment and Plan (Free Text) Assessment: 56 year old male with diabetes and chronic lower extremity edema, right LE celulitis and ulcerations-improving Plan: Patient examined and evaluated discussed in detail with attending Dr. Horta wound culture-MRSA Patients bilateral legs cleansed with saline Right leg dressed with maxorb, ABD, kerlix Left leg dressed with maxorb, optifoam Patient to continue IV abx per ID Podiatry will continue to follow, pt will f/u in the wound care center after DC <Brittney Horta - Last Filed: 04/17/17 17:19> Objective - Vital Signs/Intake and Output Vital Signs (last 24 hours): Temp Pulse Resp BP Pulse Ox 98.3 F 67 18 146/73 95 04/16/17 05:45 04/17/17 09:50 04/16/17 05:45 04/17/17 09:50 04/16/17 05:45 - Medications Medications: Current Medications Atorvastatin Calcium (Lipitor) 10 mg PO DIN [facility] PRN Reason: Protocol Last Admin: 04/16/17 17:36 Dose: 10 mg Diltiazem HCl (Cardizem Cd) 120 mg PO DAILY [facility] PRN Reason: Protocol Last Admin: 04/17/17 09:50 Dose: 120 mg Furosemide (Lasix) 20 mg PO DAILY [facility] PRN Reason: Protocol Last Admin: 04/17/17 09:50 Dose: 20 mg Gabapentin (Neurontin) 400 mg PO TID [facility] PRN Reason: Protocol Last Admin: 04/17/17 13:22 Dose: 400 mg Glipizide (Glucotrol) 10 mg PO 0700,1700 [facility] PRN Reason: Protocol Last Admin: 04/17/17 08:01 Dose: 10 mg Insulin Human Regular (Humulin R High) 0 units SC ACHS [facility] PRN Reason: Protocol Last Admin: 04/17/17 13:21 Dose: Not Given Metformin HCl (Glucophage) 1,000 mg PO ACBD [facility] PRN Reason: Protocol Last Admin: 04/17/17 08:01 Dose: 1,000 mg Potassium Chloride (K-Dur 20 Meq Er Tab) 20 meq PO 0800 [facility] PRN Reason: Protocol Last Admin: 04/17/17 08:01 Dose: 20 meq Ramipril (Altace) 10 mg PO DAILY [facility] PRN Reason: Protocol Last Admin: 04/17/17 09:50 Dose: 10 mg - Labs Labs: 04/14/17 05:26 PT 50.5 Seconds (9.9-11.8) H* 04/17/17 08:19 INR 4.68 (0.93-1.08) H* 04/17/17 08:19 Attending/Attestation - Attestation I have personally seen and examined this patient.: Yes I have fully participated in the care of the patient.: Yes I have reviewed all pertinent clinical information, including history, physical exam and plan: Yes
--- NOTE | 2017-04-11 18:57 | CP.PCM.PN ---
Subjective - Date & Time of Evaluation Date of Evaluation: 04/11/17 Time of Evaluation: 12:30 - Subjective Subjective: Comfortably walking around doing physical rehab, not in distress, afebrile. Objective - Vital Signs/Intake and Output Vital Signs (last 24 hours): Temp Pulse Resp BP Pulse Ox 97 F L 75 18 141/68 95 04/11/17 16:00 04/11/17 16:00 04/11/17 16:00 04/11/17 16:00 04/11/17 16:00 Intake and Output: 04/11/17 04/11/17 06:59 18:59 Intake Total 500 Output Total 700 Balance -200 - Medications Medications: Current Medications Atorvastatin Calcium (Lipitor) 10 mg PO DIN [facility] PRN Reason: Protocol Last Admin: 04/11/17 17:44 Dose: 10 mg Diltiazem HCl (Cardizem Cd) 120 mg PO DAILY [facility] PRN Reason: Protocol Last Admin: 04/11/17 10:10 Dose: 120 mg Furosemide (Lasix) 20 mg PO DAILY [facility] PRN Reason: Protocol Last Admin: 04/11/17 10:11 Dose: 20 mg Gabapentin (Neurontin) 400 mg PO TID [facility] PRN Reason: Protocol Last Admin: 04/11/17 17:44 Dose: 400 mg Glipizide (Glucotrol) 10 mg PO 0700,1700 [facility] PRN Reason: Protocol Last Admin: 04/11/17 17:43 Dose: 10 mg Vancomycin HCl 1.5 gm/ Sodium (Chloride) 250 mls @ 167 mls/hr IVPB 0600,1800 [facility] PRN Reason: Protocol Last Admin: 04/11/17 17:45 Dose: 167 mls/hr Insulin Human Regular (Humulin R High) 0 units SC ACHS [facility] PRN Reason: Protocol Last Admin: 04/11/17 17:43 Dose: 2 units Metformin HCl (Glucophage) 1,000 mg PO ACBD [facility] PRN Reason: Protocol Last Admin: 04/11/17 17:43 Dose: 1,000 mg Potassium Chloride (K-Dur 20 Meq Er Tab) 20 meq PO 0800 [facility] PRN Reason: Protocol Last Admin: 04/11/17 08:32 Dose: 20 meq Ramipril (Altace) 10 mg PO DAILY [facility] PRN Reason: Protocol Last Admin: 04/11/17 10:10 Dose: 10 mg Warfarin Sodium (Coumadin) 10 mg PO 1800 [facility] PRN Reason: Protocol Last Admin: 04/11/17 17:42 Dose: 10 mg Warfarin Sodium (Coumadin) 2 mg PO 1800 [facility] PRN Reason: Protocol Last Admin: 04/11/17 17:42 Dose: 2 mg - Labs Labs: PT 22.2 Seconds (9.9-11.8) H 04/11/17 07:40 INR 2.06 (0.93-1.08) H 04/11/17 07:40 - Constitutional Appears: Non-toxic, No Acute Distress - Head Exam Head Exam: NORMAL INSPECTION - ENT Exam ENT Exam: Mucous Membranes Moist - Neck Exam Neck Exam: absent: Meningismus - Respiratory Exam Respiratory Exam: Decreased Breath Sounds - Cardiovascular Exam Cardiovascular Exam: +S1, +S2 - GI/Abdominal Exam GI & Abdominal Exam: Soft. absent: Tenderness Assessment and Plan - Assessment and Plan (Free Text) Plan: Assessment Probable right leg skin and skin structure infection associated with chronic leg ulcers, growing MRSA history of sepsis secondary to right leg skin/skin structure infection with chronic leg ulcers, growing MRSA and sensitive Klebsiella history of MRSA cellulitis Jun. 2015 history of Bilateral lower extremity skin and skin structure infection ( Enterobacter, Klebsiella Oxytoca and Group B Strep, as well as MRSA) which was treated 06/2015; MRSA and Pseudomonas cellulitis of left leg in Sep 2015, January and March 2016 chronic lymphedema of the lower extremities Morbid obesity with BMI 55 HTN DM history of Strep bacteremia history of hernia surgery Learning disability Plan continue Vancomycin day 5 and will continue to follow clinically - will target 7 -10 days of therapy
[2017-04-12] MEDS: Insulin Reg-HIGH-Coverage SC SCH ×5 (06:47→22:16)
[2017-04-12] MEDS: Potassium Chloride 20 mEq ER Tab PO SCH (07:53)
[2017-04-12] MEDS: diltiaZEM 120 mg/24 Hours CD Cap PO SCH (10:14)
--- NOTE | 2017-04-12 12:14 | CP.PCM.PN ---
<SeymourMagui - Last Filed: 04/12/17 12:12> Subjective - Date & Time of Evaluation Date of Evaluation: 04/12/17 Time of Evaluation: 12:12 - Subjective Subjective: 56 year old male was seen today resting in a chair at bedside in TCU regarding right lower extremity cellulitis, ulcerations and bilateral lower extremity chronic edema. Dressing c/d/i. Patient NAD. Objective - Vital Signs/Intake and Output Vital Signs (last 24 hours): Temp Pulse Resp BP Pulse Ox 97.6 F 72 12 135/82 100 04/12/17 10:00 04/12/17 10:14 04/12/17 10:00 04/12/17 10:15 04/12/17 10:00 - Medications Medications: Current Medications Atorvastatin Calcium (Lipitor) 10 mg PO DIN [facility] PRN Reason: Protocol Last Admin: 04/11/17 17:44 Dose: 10 mg Diltiazem HCl (Cardizem Cd) 120 mg PO DAILY [facility] PRN Reason: Protocol Last Admin: 04/12/17 10:14 Dose: 120 mg Furosemide (Lasix) 20 mg PO DAILY [facility] PRN Reason: Protocol Last Admin: 04/12/17 10:15 Dose: 20 mg Gabapentin (Neurontin) 400 mg PO TID [facility] PRN Reason: Protocol Last Admin: 04/12/17 10:15 Dose: 400 mg Glipizide (Glucotrol) 10 mg PO 0700,1700 [facility] PRN Reason: Protocol Last Admin: 04/12/17 07:52 Dose: 10 mg Vancomycin HCl 1.5 gm/ Sodium (Chloride) 250 mls @ 167 mls/hr IVPB 0600,1800 [facility] PRN Reason: Protocol Last Admin: 04/12/17 05:22 Dose: 167 mls/hr Insulin Human Regular (Humulin R High) 0 units SC ACHS [facility] PRN Reason: Protocol Last Admin: 04/12/17 11:55 Dose: Not Given Metformin HCl (Glucophage) 1,000 mg PO ACBD [facility] PRN Reason: Protocol Last Admin: 04/12/17 07:52 Dose: 1,000 mg Potassium Chloride (K-Dur 20 Meq Er Tab) 20 meq PO 0800 [facility] PRN Reason: Protocol Last Admin: 04/12/17 07:53 Dose: 20 meq Ramipril (Altace) 10 mg PO DAILY [facility] PRN Reason: Protocol Last Admin: 04/12/17 10:14 Dose: 10 mg Warfarin Sodium (Coumadin) 10 mg PO 1800 [facility] PRN Reason: Protocol Last Admin: 04/11/17 17:42 Dose: 10 mg Warfarin Sodium (Coumadin) 2 mg PO 1800 [facility] PRN Reason: Protocol Last Admin: 04/11/17 17:42 Dose: 2 mg - Labs Labs: PT 22.2 Seconds (9.9-11.8) H 04/11/17 07:40 INR 2.06 (0.93-1.08) H 04/11/17 07:40 - Constitutional Appears: No Acute Distress - Extremities Exam Additional comments: Lower extremity focused exam: VASC: Diffuse edema of bilateral lower extremities. Skin temperature is warm to warm from proximal to distal b/l-cellulitis resolving NEURO: Gross sensation intact DERM: Superficial ulcerations noted to right lower extremity with granular base at the lateral aspect of the leg with scant amount sanguinous drainage, no purulence, no erythema, no malodor noted. Left leg has an open ulcer to the lateral aspect just distal to the knee with mild amount of serous drainage, no malodor, no fluctuance, mild xerosis and hyperpigmentation. Chronic skin changes of chronic edema noted ORTHO: Negative pain on palpation to the lower extremities - Neurological Exam Neurological Exam: Alert, Awake Assessment and Plan - Assessment and Plan (Free Text) Assessment: 56 year old male with diabetes and chronic lower extremity edema, right LE celulitis and ulcerations-improving Plan: Patient examined and evaluated discussed in detail with attending Dr. Horta chart,labs, vitals reviewed wound culture-MRSA Right leg dressed with maxorb, ABD, kerlix Left leg dressed with maxorb, optifoam Patient to continue IV abx per ID Podiatry will continue to follow, pt will f/u in the wound care center after DC <Brittney Horta - Last Filed: 04/17/17 17:21> Objective - Vital Signs/Intake and Output Vital Signs (last 24 hours): Temp Pulse Resp BP Pulse Ox 98.3 F 67 18 146/73 95 04/16/17 05:45 04/17/17 09:50 04/16/17 05:45 04/17/17 09:50 04/16/17 05:45 - Medications Medications: Current Medications Atorvastatin Calcium (Lipitor) 10 mg PO DIN [facility] PRN Reason: Protocol Last Admin: 04/16/17 17:36 Dose: 10 mg Diltiazem HCl (Cardizem Cd) 120 mg PO DAILY [facility] PRN Reason: Protocol Last Admin: 04/17/17 09:50 Dose: 120 mg Furosemide (Lasix) 20 mg PO DAILY [facility] PRN Reason: Protocol Last Admin: 04/17/17 09:50 Dose: 20 mg Gabapentin (Neurontin) 400 mg PO TID [facility] PRN Reason: Protocol Last Admin: 04/17/17 13:22 Dose: 400 mg Glipizide (Glucotrol) 10 mg PO 0700,1700 [facility] PRN Reason: Protocol Last Admin: 04/17/17 08:01 Dose: 10 mg Insulin Human Regular (Humulin R High) 0 units SC ACHS [facility] PRN Reason: Protocol Last Admin: 04/17/17 13:21 Dose: Not Given Metformin HCl (Glucophage) 1,000 mg PO ACBD [facility] PRN Reason: Protocol Last Admin: 04/17/17 08:01 Dose: 1,000 mg Potassium Chloride (K-Dur 20 Meq Er Tab) 20 meq PO 0800 [facility] PRN Reason: Protocol Last Admin: 04/17/17 08:01 Dose: 20 meq Ramipril (Altace) 10 mg PO DAILY [facility] PRN Reason: Protocol Last Admin: 04/17/17 09:50 Dose: 10 mg - Labs Labs: 04/14/17 05:26 PT 50.5 Seconds (9.9-11.8) H* 04/17/17 08:19 INR 4.68 (0.93-1.08) H* 04/17/17 08:19 Attending/Attestation - Attestation I have personally seen and examined this patient.: Yes I have fully participated in the care of the patient.: Yes I have reviewed all pertinent clinical information, including history, physical exam and plan: Yes
[2017-04-13] MEDS: Insulin Reg-HIGH-Coverage SC SCH ×4 (06:35→21:40)
[2017-04-13] MEDS: Potassium Chloride 20 mEq ER Tab PO SCH (07:53)
[2017-04-13] MEDS: diltiaZEM 120 mg/24 Hours CD Cap PO SCH (09:48)
--- NOTE | 2017-04-13 11:35 | CP.PCM.PN ---
<AhujaMagui - Last Filed: 04/13/17 11:32> Subjective - Date & Time of Evaluation Date of Evaluation: 04/13/17 Time of Evaluation: 11:32 - Subjective Subjective: 56 year old male was seen today resting in a chair at bedside with attending Dr. Horta regarding right lower extremity cellulitis, ulcerations and bilateral lower extremity chronic edema. Dressing c/d/i. Patient NAD. Objective - Vital Signs/Intake and Output Vital Signs (last 24 hours): Temp Pulse Resp BP Pulse Ox 98.8 F 70 18 124/63 100 04/12/17 16:44 04/13/17 09:48 04/12/17 16:44 04/13/17 09:49 04/12/17 16:44 - Medications Medications: Current Medications Atorvastatin Calcium (Lipitor) 10 mg PO DIN [facility] PRN Reason: Protocol Last Admin: 04/12/17 17:32 Dose: 10 mg Diltiazem HCl (Cardizem Cd) 120 mg PO DAILY [facility] PRN Reason: Protocol Last Admin: 04/13/17 09:48 Dose: 120 mg Furosemide (Lasix) 20 mg PO DAILY [facility] PRN Reason: Protocol Last Admin: 04/13/17 09:49 Dose: 20 mg Gabapentin (Neurontin) 400 mg PO TID [facility] PRN Reason: Protocol Last Admin: 04/13/17 09:50 Dose: 400 mg Glipizide (Glucotrol) 10 mg PO 0700,1700 [facility] PRN Reason: Protocol Last Admin: 04/13/17 07:52 Dose: 10 mg Vancomycin HCl 1.5 gm/ Sodium (Chloride) 250 mls @ 167 mls/hr IVPB 0600,1800 [facility] PRN Reason: Protocol Last Admin: 04/13/17 05:38 Dose: 167 mls/hr Insulin Human Regular (Humulin R High) 0 units SC ACHS [facility] PRN Reason: Protocol Last Admin: 04/13/17 06:35 Dose: 2 units Metformin HCl (Glucophage) 1,000 mg PO ACBD [facility] PRN Reason: Protocol Last Admin: 04/13/17 07:52 Dose: 1,000 mg Potassium Chloride (K-Dur 20 Meq Er Tab) 20 meq PO 0800 [facility] PRN Reason: Protocol Last Admin: 04/13/17 07:53 Dose: 20 meq Ramipril (Altace) 10 mg PO DAILY [facility] PRN Reason: Protocol Last Admin: 04/13/17 09:48 Dose: 10 mg Warfarin Sodium (Coumadin) 10 mg PO 1800 [facility] PRN Reason: Protocol Last Admin: 04/12/17 18:30 Dose: 10 mg Warfarin Sodium (Coumadin) 2 mg PO 1800 [facility] PRN Reason: Protocol Last Admin: 04/12/17 18:29 Dose: 2 mg - Labs Labs: PT 22.2 Seconds (9.9-11.8) H 04/11/17 07:40 INR 2.06 (0.93-1.08) H 04/11/17 07:40 - Constitutional Appears: Well, Non-toxic, No Acute Distress - Extremities Exam Additional comments: Lower extremity focused exam: VASC: Diffuse edema of bilateral lower extremities. Skin temperature is warm to warm from proximal to distal b/l-cellulitis resolving NEURO: Gross sensation intact DERM: Superficial ulceration noted to right lower extremity with granular base at the medial aspect of the leg with scant amount sanguinous drainage, no purulence, no erythema, no malodor noted. Superfical ulceration noted to the lateral aspect just distal to the knee with scant amount of serous drainage, no malodor, no fluctuance, mild xerosis and hyperpigmentation. Chronic skin changes of chronic edema noted ORTHO: Negative pain on palpation to the lower extremities - Neurological Exam Neurological Exam: Alert, Awake - Psychiatric Exam Psychiatric exam: Normal Affect, Normal Mood Assessment and Plan - Assessment and Plan (Free Text) Assessment: 56 year old male with diabetes and chronic lower extremity edema, right LE cellulitis and ulcerations-improving Plan: Patient examined and evaluated with attending Dr. Horta chart,labs, vitals reviewed wound culture-MRSA Right and left leg ulcers dressed with maxorb, optifoam Tubigrips applied to LE b/l, to be applied during the day and removed at night Patient to continue IV abx per ID Podiatry will continue to follow, pt will f/u in the wound care center after DC <Brittney Horta - Last Filed: 04/17/17 17:22> Objective - Vital Signs/Intake and Output Vital Signs (last 24 hours): Temp Pulse Resp BP Pulse Ox 98.3 F 67 18 146/73 95 04/16/17 05:45 04/17/17 09:50 04/16/17 05:45 04/17/17 09:50 04/16/17 05:45 - Medications Medications: Current Medications Atorvastatin Calcium (Lipitor) 10 mg PO DIN [facility] PRN Reason: Protocol Last Admin: 04/16/17 17:36 Dose: 10 mg Diltiazem HCl (Cardizem Cd) 120 mg PO DAILY [facility] PRN Reason: Protocol Last Admin: 04/17/17 09:50 Dose: 120 mg Furosemide (Lasix) 20 mg PO DAILY [facility] PRN Reason: Protocol Last Admin: 04/17/17 09:50 Dose: 20 mg Gabapentin (Neurontin) 400 mg PO TID [facility] PRN Reason: Protocol Last Admin: 04/17/17 13:22 Dose: 400 mg Glipizide (Glucotrol) 10 mg PO 0700,1700 [facility] PRN Reason: Protocol Last Admin: 04/17/17 08:01 Dose: 10 mg Insulin Human Regular (Humulin R High) 0 units SC ACHS [facility] PRN Reason: Protocol Last Admin: 04/17/17 13:21 Dose: Not Given Metformin HCl (Glucophage) 1,000 mg PO ACBD [facility] PRN Reason: Protocol Last Admin: 04/17/17 08:01 Dose: 1,000 mg Potassium Chloride (K-Dur 20 Meq Er Tab) 20 meq PO 0800 [facility] PRN Reason: Protocol Last Admin: 04/17/17 08:01 Dose: 20 meq Ramipril (Altace) 10 mg PO DAILY [facility] PRN Reason: Protocol Last Admin: 04/17/17 09:50 Dose: 10 mg - Labs Labs: 04/14/17 05:26 PT 50.5 Seconds (9.9-11.8) H* 04/17/17 08:19 INR 4.68 (0.93-1.08) H* 04/17/17 08:19 Attending/Attestation - Attestation I have personally seen and examined this patient.: Yes I have fully participated in the care of the patient.: Yes I have reviewed all pertinent clinical information, including history, physical exam and plan: Yes
--- NOTE | 2017-04-13 12:29 | CP.PCM.PN ---
Subjective - Date & Time of Evaluation Date of Evaluation: 04/13/17 Time of Evaluation: 12:05 - Subjective Subjective: Comfortable on a chair, no fevers overnight, not in distress. Objective - Vital Signs/Intake and Output Vital Signs (last 24 hours): Temp Pulse Resp BP Pulse Ox 97 F L 75 18 141/68 95 04/11/17 16:00 04/11/17 16:00 04/11/17 16:00 04/11/17 16:00 04/11/17 16:00 - Medications Medications: Current Medications Atorvastatin Calcium (Lipitor) 10 mg PO DIN [facility] PRN Reason: Protocol Last Admin: 04/11/17 17:44 Dose: 10 mg Diltiazem HCl (Cardizem Cd) 120 mg PO DAILY [facility] PRN Reason: Protocol Last Admin: 04/11/17 10:10 Dose: 120 mg Furosemide (Lasix) 20 mg PO DAILY [facility] PRN Reason: Protocol Last Admin: 04/11/17 10:11 Dose: 20 mg Gabapentin (Neurontin) 400 mg PO TID [facility] PRN Reason: Protocol Last Admin: 04/11/17 17:44 Dose: 400 mg Glipizide (Glucotrol) 10 mg PO 0700,1700 [facility] PRN Reason: Protocol Last Admin: 04/12/17 07:52 Dose: 10 mg Vancomycin HCl 1.5 gm/ Sodium (Chloride) 250 mls @ 167 mls/hr IVPB 0600,1800 [facility] PRN Reason: Protocol Last Admin: 04/12/17 05:22 Dose: 167 mls/hr Insulin Human Regular (Humulin R High) 0 units SC ACHS [facility] PRN Reason: Protocol Last Admin: 04/12/17 06:52 Dose: 4 units Metformin HCl (Glucophage) 1,000 mg PO ACBD [facility] PRN Reason: Protocol Last Admin: 04/12/17 07:52 Dose: 1,000 mg Potassium Chloride (K-Dur 20 Meq Er Tab) 20 meq PO 0800 [facility] PRN Reason: Protocol Last Admin: 04/12/17 07:53 Dose: 20 meq Ramipril (Altace) 10 mg PO DAILY [facility] PRN Reason: Protocol Last Admin: 04/11/17 10:10 Dose: 10 mg Warfarin Sodium (Coumadin) 10 mg PO 1800 [facility] PRN Reason: Protocol Last Admin: 04/11/17 17:42 Dose: 10 mg Warfarin Sodium (Coumadin) 2 mg PO 1800 [facility] PRN Reason: Protocol Last Admin: 04/11/17 17:42 Dose: 2 mg - Labs Labs: PT 22.2 Seconds (9.9-11.8) H 04/11/17 07:40 INR 2.06 (0.93-1.08) H 04/11/17 07:40 - Constitutional Appears: Non-toxic, No Acute Distress - Head Exam Head Exam: NORMAL INSPECTION - Neck Exam Neck Exam: absent: Meningismus - Respiratory Exam Respiratory Exam: Decreased Breath Sounds - Cardiovascular Exam Cardiovascular Exam: +S1, +S2 - GI/Abdominal Exam GI & Abdominal Exam: Soft. absent: Tenderness - Extremities Exam Additional comments: both lower extremities with dry dressings in place Assessment and Plan - Assessment and Plan (Free Text) Plan: Assessment Probable right leg skin and skin structure infection associated with chronic leg ulcers, growing MRSA history of sepsis secondary to right leg skin/skin structure infection with chronic leg ulcers, growing MRSA and sensitive Klebsiella history of MRSA cellulitis Jun. 2015 history of Bilateral lower extremity skin and skin structure infection ( Enterobacter, Klebsiella Oxytoca and Group B Strep, as well as MRSA) which was treated 06/2015; MRSA and Pseudomonas cellulitis of left leg in Sep 2015, January and March 2016 chronic lymphedema of the lower extremities Morbid obesity with BMI 55 HTN DM history of Strep bacteremia history of hernia surgery Learning disability Plan continue Vancomycin day 6 and will continue to monitor clinically - target 7-10 days of therapy
[2017-04-14 06:08] LABS: INR 2.84 (0.93-1.08); PROTHROMBIN TIME 30.7 Seconds (9.9-11.8)
[2017-04-14] MEDS: Insulin Reg-HIGH-Coverage SC SCH ×4 (06:38→21:58)
[2017-04-14] MEDS: Potassium Chloride 20 mEq ER Tab PO SCH (08:13)
[2017-04-14 08:36] LABS: ALB/GLOB RATIO 1.2 (1.1-1.8); ALBUMIN 3.7 g/dL (3.0-4.8); ALT/SGPT 44 U/L (7-56); AST/SGOT 28 U/L (15-59); BLOOD UREA NITROGEN 9 mg/dL (7-21); CALCIUM 9.3 mg/dL (8.4-10.5); GFR AFRICAN-AMERICAN > 60; GFR NON-AFRICAN AMERICAN > 60
[2017-04-14] MEDS: diltiaZEM 120 mg/24 Hours CD Cap PO SCH (09:10)
--- NOTE | 2017-04-14 10:29 | CP.PCM.PN ---
<Magui Ahuja - Last Filed: 04/14/17 10:27> Subjective - Date & Time of Evaluation Date of Evaluation: 04/14/17 Time of Evaluation: 10:27 - Subjective Subjective: 56 year old male was seen resting in a chair at bedside with attending Dr. Horta regarding right lower extremity cellulitis, ulcerations and bilateral lower extremity chronic edema. Dressing c/d/i. Tubigrips noted to LE b/l. Patient NAD. Objective - Vital Signs/Intake and Output Vital Signs (last 24 hours): Temp Pulse Resp BP Pulse Ox 98.5 F 66 18 134/78 95 04/13/17 16:00 04/14/17 09:10 04/13/17 16:00 04/14/17 09:11 04/13/17 16:00 Intake and Output: 04/14/17 04/14/17 06:59 18:59 Intake Total 680 Output Total 800 Balance -120 - Medications Medications: Current Medications Atorvastatin Calcium (Lipitor) 10 mg PO DIN [facility]LIN PRN Reason: Protocol Last Admin: 04/13/17 17:35 Dose: 10 mg Diltiazem HCl (Cardizem Cd) 120 mg PO DAILY [facility] PRN Reason: Protocol Last Admin: 04/14/17 09:10 Dose: 120 mg Furosemide (Lasix) 20 mg PO DAILY [facility]LIN PRN Reason: Protocol Last Admin: 04/14/17 09:11 Dose: 20 mg Gabapentin (Neurontin) 400 mg PO TID MARLIN PRN Reason: Protocol Last Admin: 04/14/17 09:12 Dose: 400 mg Glipizide (Glucotrol) 10 mg PO 0700,1700 MARLIN PRN Reason: Protocol Last Admin: 04/14/17 08:13 Dose: 10 mg Vancomycin HCl 1.5 gm/ Sodium (Chloride) 250 mls @ 167 mls/hr IVPB 0600,1800 MARLIN PRN Reason: Protocol Last Admin: 04/14/17 05:35 Dose: 167 mls/hr Insulin Human Regular (Humulin R High) 0 units SC ACHS MARLIN PRN Reason: Protocol Last Admin: 04/14/17 06:38 Dose: 4 units Metformin HCl (Glucophage) 1,000 mg PO ACBD [facility]LIN PRN Reason: Protocol Last Admin: 04/14/17 08:13 Dose: 1,000 mg Potassium Chloride (K-Dur 20 Meq Er Tab) 20 meq PO 0800 MARLIN PRN Reason: Protocol Last Admin: 04/14/17 08:13 Dose: 20 meq Ramipril (Altace) 10 mg PO DAILY [facility]LIN PRN Reason: Protocol Last Admin: 04/14/17 09:10 Dose: 10 mg Warfarin Sodium (Coumadin) 10 mg PO 1800 [facility] PRN Reason: Protocol Last Admin: 04/13/17 17:33 Dose: 10 mg Warfarin Sodium (Coumadin) 2 mg PO 1800 [facility] PRN Reason: Protocol Last Admin: 04/13/17 17:34 Dose: 2 mg - Labs Labs: 04/14/17 05:26 PT 30.7 Seconds (9.9-11.8) H* 04/14/17 05:26 INR 2.84 (0.93-1.08) H 04/14/17 05:26 - Constitutional Appears: Well, Non-toxic, No Acute Distress - Extremities Exam Additional comments: Lower extremity focused exam: VASC: Diffuse edema of bilateral lower extremities. Skin temperature is warm to warm from proximal to distal b/l-cellulitis resolving NEURO: Gross sensation intact DERM: Superficial ulceration-improving noted to right lower extremity with granular base at the medial aspect of the leg with scant amount sanguinous drainage, no purulence, no erythema, no malodor noted. Superfical ulceration- improving noted to the lateral aspect just distal to the knee with scant amount of serous drainage, no malodor, no fluctuance, mild xerosis and hyperpigmentation. Chronic skin changes of chronic edema noted ORTHO: Negative pain on palpation to the lower extremities - Neurological Exam Neurological Exam: Alert, Awake, Oriented x3 - Psychiatric Exam Psychiatric exam: Normal Affect, Normal Mood Assessment and Plan - Assessment and Plan (Free Text) Assessment: 56 year old male with diabetes and chronic lower extremity edema, right LE cellulitis and ulcerations-improving Plan: Patient examined and evaluated with attending Dr. Horta chart, labs, vitals reviewed;afebrile wound culture-MRSA Right and left leg ulcers dressed with maxorb, optifoam Tubigrips applied to LE b/l, to be applied during the day and removed at night Patient to continue IV abx per ID Podiatry will continue to follow, pt will f/u in the wound care center after DC <Brittney Horta - Last Filed: 04/17/17 17:30> Objective - Vital Signs/Intake and Output Vital Signs (last 24 hours): Temp Pulse Resp BP Pulse Ox 98.3 F 67 18 146/73 95 04/16/17 05:45 04/17/17 09:50 04/16/17 05:45 04/17/17 09:50 04/16/17 05:45 - Medications Medications: Current Medications Atorvastatin Calcium (Lipitor) 10 mg PO DIN MARLIN PRN Reason: Protocol Last Admin: 04/17/17 17:21 Dose: 10 mg Diltiazem HCl (Cardizem Cd) 120 mg PO DAILY [facility]LIN PRN Reason: Protocol Last Admin: 04/17/17 09:50 Dose: 120 mg Furosemide (Lasix) 20 mg PO DAILY [facility]LIN PRN Reason: Protocol Last Admin: 04/17/17 09:50 Dose: 20 mg Gabapentin (Neurontin) 400 mg PO TID [facility]LIN PRN Reason: Protocol Last Admin: 04/17/17 17:21 Dose: 400 mg Glipizide (Glucotrol) 10 mg PO 0700,1700 MAR[facility] PRN Reason: Protocol Last Admin: 04/17/17 17:20 Dose: 10 mg Insulin Human Regular (Humulin R High) 0 units SC ACHS [facility]LIN PRN Reason: Protocol Last Admin: 04/17/17 17:20 Dose: 2 units Metformin HCl (Glucophage) 1,000 mg PO ACBD [facility] PRN Reason: Protocol Last Admin: 04/17/17 17:20 Dose: 1,000 mg Potassium Chloride (K-Dur 20 Meq Er Tab) 20 meq PO 0800 [facility] PRN Reason: Protocol Last Admin: 04/17/17 08:01 Dose: 20 meq Ramipril (Altace) 10 mg PO DAILY [facility]LIN PRN Reason: Protocol Last Admin: 04/17/17 09:50 Dose: 10 mg - Labs Labs: 04/14/17 05:26 PT 50.5 Seconds (9.9-11.8) H* 04/17/17 08:19 INR 4.68 (0.93-1.08) H* 04/17/17 08:19 Attending/Attestation - Attestation I have personally seen and examined this patient.: Yes I have fully participated in the care of the patient.: Yes I have reviewed all pertinent clinical information, including history, physical exam and plan: Yes
[2017-04-15] MEDS: Insulin Reg-HIGH-Coverage SC SCH ×4 (06:29→22:00)
[2017-04-15] MEDS: Potassium Chloride 20 mEq ER Tab PO SCH (08:20)
[2017-04-15] MEDS: diltiaZEM 120 mg/24 Hours CD Cap PO SCH (09:35)
--- NOTE | 2017-04-15 16:03 | CP.PCM.PN ---
Subjective - Date & Time of Evaluation Date of Evaluation: 04/15/17 Time of Evaluation: 11:40 - Subjective Subjective: Comfortable on a chair, not in distress, afebrile. Objective - Vital Signs/Intake and Output Vital Signs (last 24 hours): Temp Pulse Resp BP Pulse Ox 98.5 F 71 18 120/68 95 04/13/17 16:00 04/13/17 16:00 04/13/17 16:00 04/13/17 16:00 04/13/17 16:00 Intake and Output: 04/13/17 04/14/17 18:59 06:59 Intake Total 680 Output Total 800 Balance -120 - Medications Medications: Current Medications Atorvastatin Calcium (Lipitor) 10 mg PO DIN [facility]LIN PRN Reason: Protocol Last Admin: 04/13/17 17:35 Dose: 10 mg Diltiazem HCl (Cardizem Cd) 120 mg PO DAILY [facility] PRN Reason: Protocol Last Admin: 04/13/17 09:48 Dose: 120 mg Furosemide (Lasix) 20 mg PO DAILY [facility] PRN Reason: Protocol Last Admin: 04/13/17 09:49 Dose: 20 mg Gabapentin (Neurontin) 400 mg PO TID [facility] PRN Reason: Protocol Last Admin: 04/13/17 17:36 Dose: 400 mg Glipizide (Glucotrol) 10 mg PO 0700,1700 [facility] PRN Reason: Protocol Last Admin: 04/13/17 17:34 Dose: 10 mg Vancomycin HCl 1.5 gm/ Sodium (Chloride) 250 mls @ 167 mls/hr IVPB 0600,1800 [facility] PRN Reason: Protocol Last Admin: 04/14/17 05:35 Dose: 167 mls/hr Insulin Human Regular (Humulin R High) 0 units SC ACHS [facility] PRN Reason: Protocol Last Admin: 04/13/17 21:40 Dose: Not Given Metformin HCl (Glucophage) 1,000 mg PO ACBD [facility] PRN Reason: Protocol Last Admin: 04/13/17 17:34 Dose: 1,000 mg Potassium Chloride (K-Dur 20 Meq Er Tab) 20 meq PO 0800 [facility] PRN Reason: Protocol Last Admin: 04/13/17 07:53 Dose: 20 meq Ramipril (Altace) 10 mg PO DAILY [facility] PRN Reason: Protocol Last Admin: 04/13/17 09:48 Dose: 10 mg Warfarin Sodium (Coumadin) 10 mg PO 1800 [facility] PRN Reason: Protocol Last Admin: 04/13/17 17:33 Dose: 10 mg Warfarin Sodium (Coumadin) 2 mg PO 1800 [facility] PRN Reason: Protocol Last Admin: 04/13/17 17:34 Dose: 2 mg - Labs Labs: PT 30.7 Seconds (9.9-11.8) H* 04/14/17 05:26 INR 2.84 (0.93-1.08) H 04/14/17 05:26 - Constitutional Appears: Non-toxic, No Acute Distress - Head Exam Head Exam: NORMAL INSPECTION - Neck Exam Neck Exam: absent: Meningismus - Respiratory Exam Respiratory Exam: Decreased Breath Sounds - Cardiovascular Exam Cardiovascular Exam: +S1, +S2 - GI/Abdominal Exam GI & Abdominal Exam: Soft. absent: Tenderness - Extremities Exam Additional comments: both legs with dry dressings in place Assessment and Plan - Assessment and Plan (Free Text) Plan: Assessment Probable right leg skin and skin structure infection associated with chronic leg ulcers, growing MRSA history of sepsis secondary to right leg skin/skin structure infection with chronic leg ulcers, growing MRSA and sensitive Klebsiella history of MRSA cellulitis 2015 history of Bilateral lower extremity skin and skin structure infection ( Enterobacter, Klebsiella Oxytoca and Group B Strep, as well as MRSA) which was treated 06/2015; MRSA and Pseudomonas cellulitis of left leg in Sep 2015, January and March 2016 chronic lymphedema of the lower extremities Morbid obesity with BMI 55 HTN DM history of Strep bacteremia history of hernia surgery Learning disability Plan continue Vancomycin day 8 and will continue to monitor clinically - target 7-10 days of therapy - will d/c antibiotics after today
[2017-04-16] MEDS: Insulin Reg-HIGH-Coverage SC SCH ×4 (06:43→21:31)
[2017-04-16] MEDS: Potassium Chloride 20 mEq ER Tab PO SCH (08:09)
[2017-04-16] MEDS: diltiaZEM 120 mg/24 Hours CD Cap PO SCH (09:50)
--- NOTE | 2017-04-16 11:13 | PN ---
DATE: 04/14/2017 SUBJECTIVE: Patient is in room 320, was seen earlier. No fevers, no chills. Overall, much improved. PHYSICAL EXAMINATION: VITAL SIGNS: Temperature is 98, blood pressure is 130/70, respiratory rate of 16. HEENT: Unremarkable. NECK: Supple. LUNGS: Decreased breath sounds. HEART: Normal S1, S2. ABDOMEN: Noted. EXTREMITIES: Examination of lower extremities are noted. LABORATORY EXAMINATION: Reveals a BUN of 9, creatinine of 0.5 and review of orders reveals the patient to be on vancomycin. Microbiology reveals the patient's cultures are MRSA from the right leg, and patient's last creatinine was 0.5. ASSESSMENT AND PLAN: This is a 56-year-old male with morbid obesity, body mass index of 52 with a probable right leg skin and soft tissue infection with methicillin-resistant Staphylococcus aureus and history of sepsis. Today is day #7 of vancomycin, will complete 7 to 10 days and we will follow with you. Jean-Claude Aviles MD
--- NOTE | 2017-04-16 11:25 | PN ---
DATE: 04/15/2017 SUBJECTIVE: The patient has no complaints of chest pain, no headaches, or dizziness. PHYSICAL EXAMINATION: VITAL SIGNS: Temperature is 97.7, pulse is 62, blood pressure is 135/83, respirations 17. HEENT: Atraumatic, normocephalic. Anicteric sclerae. Moist mucosa. NECK: No JVD, adenopathy or bruits. CARDIOVASCULAR: S1, S2 is regular. No murmurs, rubs or gallops. LUNGS: Clear to auscultation bilaterally, good air entry. No wheezes or rales. ABDOMEN: Bowel sounds are positive, soft, nontender, nondistended. EXTREMITIES: Lower extremities, there are chronic skin changes in the legs. Full range of motion. ASSESSMENT: 1. Lower extremity cellulitis, resolved. 2. Atrial fibrillation. 3. Obesity with a BMI of 52. 4. Hypertension. 5. Dyslipidemia. 6. Diabetes type 2. PLAN: The patient is currently comfortable. He is on the diltiazem for his hypertension. He is on Altace as well. His blood pressure is controlled. He is on Coumadin. He is on Lipitor for his dyslipidemia as well as metformin. The patient is on potassium replacement and Lipitor for dyslipidemia. He has finished with vancomycin. I will discontinue his vancomycin at this point. His mother is also in the hospital on the Transitional Care Unit. We will need to coordinate the patient's discharge. He is walking well with physical therapy. He walks more than 100 feet. His last INR was therapeutic. I will repeat his INR in a few days. Winston Streeter MD
[2017-04-17] MEDS: Insulin Reg-HIGH-Coverage SC SCH ×4 (06:31→22:07)
[2017-04-17] MEDS: Potassium Chloride 20 mEq ER Tab PO SCH (08:01)
[2017-04-17 08:56] LABS: PROTHROMBIN TIME 50.5 Seconds (9.9-11.8)
[2017-04-17 08:57] LABS: INR 4.68 (0.93-1.08)
[2017-04-17] MEDS: diltiaZEM 120 mg/24 Hours CD Cap PO SCH (09:50)
--- NOTE | 2017-04-17 15:55 | CP.PCM.PN ---
<Karley Sommers - Last Filed: 04/17/17 16:35> Subjective - Date & Time of Evaluation Date of Evaluation: 04/17/17 Time of Evaluation: 13:30 - Subjective Subjective: 56 year old male was seen resting in a chair at bedside regarding right lower extremity cellulitis, ulcerations and bilateral lower extremity chronic edema. Dressing clean dry and intact. Tubigrips noted to LE B/L. Patient NAD. Objective - Vital Signs/Intake and Output Vital Signs (last 24 hours): Temp Pulse Resp BP Pulse Ox 98.3 F 67 18 146/73 95 04/16/17 05:45 04/17/17 09:50 04/16/17 05:45 04/17/17 09:50 04/16/17 05:45 - Medications Medications: Current Medications Atorvastatin Calcium (Lipitor) 10 mg PO DIN [facility] PRN Reason: Protocol Last Admin: 04/16/17 17:36 Dose: 10 mg Diltiazem HCl (Cardizem Cd) 120 mg PO DAILY [facility] PRN Reason: Protocol Last Admin: 04/17/17 09:50 Dose: 120 mg Furosemide (Lasix) 20 mg PO DAILY [facility] PRN Reason: Protocol Last Admin: 04/17/17 09:50 Dose: 20 mg Gabapentin (Neurontin) 400 mg PO TID [facility] PRN Reason: Protocol Last Admin: 04/17/17 13:22 Dose: 400 mg Glipizide (Glucotrol) 10 mg PO 0700,1700 [facility] PRN Reason: Protocol Last Admin: 04/17/17 08:01 Dose: 10 mg Insulin Human Regular (Humulin R High) 0 units SC ACHS [facility] PRN Reason: Protocol Last Admin: 04/17/17 13:21 Dose: Not Given Metformin HCl (Glucophage) 1,000 mg PO ACBD [facility] PRN Reason: Protocol Last Admin: 04/17/17 08:01 Dose: 1,000 mg Potassium Chloride (K-Dur 20 Meq Er Tab) 20 meq PO 0800 [facility] PRN Reason: Protocol Last Admin: 04/17/17 08:01 Dose: 20 meq Ramipril (Altace) 10 mg PO DAILY [facility] PRN Reason: Protocol Last Admin: 04/17/17 09:50 Dose: 10 mg - Labs Labs: 04/14/17 05:26 PT 50.5 Seconds (9.9-11.8) H* 04/17/17 08:19 INR 4.68 (0.93-1.08) H* 04/17/17 08:19 - Constitutional Appears: Well, Non-toxic, No Acute Distress - Extremities Exam Additional comments: Lower extremity focused exam: Vasc: Diffuse edema of bilateral lower extremities. Skin temperature is warm to warm from proximal to distal b/l with cellulitis shown to be resolving Derm: Superficial ulceration on RLE shows positive signs of healing- no drainage , no purulence, no erythema, no malodor noted. Superfical ulceration-improving noted to the lateral aspect just distal to the knee with scant amount of serous drainage noted on dressing, no malodor, no fluctuance, mild hyperpigmentation. Chronic skin changes of chronic edema noted Neuro: Protective sensation is grossly intact Ortho: Negative pain upon palpation to the lower extremities - Neurological Exam Neurological Exam: Alert, Awake, Oriented x3 - Psychiatric Exam Psychiatric exam: Normal Affect, Normal Mood Assessment and Plan - Assessment and Plan (Free Text) Assessment: 56 year old male with diabetes and chronic lower extremity edema, right LE cellulitis and superficial ulcerations on proximal anterior legs B/L Plan: Patient examined and evaluated in bedside chair Discussed plan in detail with attending Dr. Horta chart, labs, vitals reviewed- afebrile Left anterior leg wound dressed with Maxorb and Optifoam Tubigrips applied to LE b/l, to be applied during the day and removed at night Patient to continue IV abx per ID Podiatry will continue to follow Pt will f/u in the wound care center after DC <Brittney Horta - Last Filed: 04/17/17 18:45> Objective - Vital Signs/Intake and Output Vital Signs (last 24 hours): Temp Pulse Resp BP Pulse Ox 98.3 F 67 18 146/73 95 04/16/17 05:45 04/17/17 09:50 04/16/17 05:45 04/17/17 09:50 04/16/17 05:45 - Medications Medications: Current Medications Atorvastatin Calcium (Lipitor) 10 mg PO DIN MARLIN PRN Reason: Protocol Last Admin: 04/17/17 17:21 Dose: 10 mg Diltiazem HCl (Cardizem Cd) 120 mg PO DAILY [facility] PRN Reason: Protocol Last Admin: 04/17/17 09:50 Dose: 120 mg Furosemide (Lasix) 20 mg PO DAILY [facility] PRN Reason: Protocol Last Admin: 04/17/17 09:50 Dose: 20 mg Gabapentin (Neurontin) 400 mg PO TID [facility] PRN Reason: Protocol Last Admin: 04/17/17 17:21 Dose: 400 mg Glipizide (Glucotrol) 10 mg PO 0700,1700 MAR[facility] PRN Reason: Protocol Last Admin: 04/17/17 17:20 Dose: 10 mg Insulin Human Regular (Humulin R High) 0 units SC ACHS [facility] PRN Reason: Protocol Last Admin: 04/17/17 17:20 Dose: 2 units Metformin HCl (Glucophage) 1,000 mg PO ACBD [facility] PRN Reason: Protocol Last Admin: 04/17/17 17:20 Dose: 1,000 mg Potassium Chloride (K-Dur 20 Meq Er Tab) 20 meq PO 0800 [facility] PRN Reason: Protocol Last Admin: 04/17/17 08:01 Dose: 20 meq Ramipril (Altace) 10 mg PO DAILY [facility] PRN Reason: Protocol Last Admin: 04/17/17 09:50 Dose: 10 mg - Labs Labs: 04/14/17 05:26 PT 50.5 Seconds (9.9-11.8) H* 04/17/17 08:19 INR 4.68 (0.93-1.08) H* 04/17/17 08:19 Attending/Attestation - Attestation I have personally seen and examined this patient.: Yes I have fully participated in the care of the patient.: Yes I have reviewed all pertinent clinical information, including history, physical exam and plan: Yes
--- NOTE | 2017-04-17 16:16 | CP.PCM.PN ---
Subjective - Date & Time of Evaluation Date of Evaluation: 04/17/17 Time of Evaluation: 09:15 - Subjective Subjective: Comfortable on a chair, not in distress, no fevers. Objective - Vital Signs/Intake and Output Vital Signs (last 24 hours): Temp Pulse Resp BP Pulse Ox 98.3 F 67 18 146/73 95 04/16/17 05:45 04/17/17 09:50 04/16/17 05:45 04/17/17 09:50 04/16/17 05:45 - Medications Medications: Current Medications Atorvastatin Calcium (Lipitor) 10 mg PO DIN MARLIN PRN Reason: Protocol Last Admin: 04/16/17 17:36 Dose: 10 mg Diltiazem HCl (Cardizem Cd) 120 mg PO DAILY [facility] PRN Reason: Protocol Last Admin: 04/17/17 09:50 Dose: 120 mg Furosemide (Lasix) 20 mg PO DAILY [facility] PRN Reason: Protocol Last Admin: 04/17/17 09:50 Dose: 20 mg Gabapentin (Neurontin) 400 mg PO TID [facility] PRN Reason: Protocol Last Admin: 04/17/17 13:22 Dose: 400 mg Glipizide (Glucotrol) 10 mg PO 0700,1700 [facility] PRN Reason: Protocol Last Admin: 04/17/17 08:01 Dose: 10 mg Insulin Human Regular (Humulin R High) 0 units SC ACHS [facility] PRN Reason: Protocol Last Admin: 04/17/17 13:21 Dose: Not Given Metformin HCl (Glucophage) 1,000 mg PO ACBD [facility] PRN Reason: Protocol Last Admin: 04/17/17 08:01 Dose: 1,000 mg Potassium Chloride (K-Dur 20 Meq Er Tab) 20 meq PO 0800 [facility] PRN Reason: Protocol Last Admin: 04/17/17 08:01 Dose: 20 meq Ramipril (Altace) 10 mg PO DAILY [facility] PRN Reason: Protocol Last Admin: 04/17/17 09:50 Dose: 10 mg - Labs Labs: 04/14/17 05:26 PT 50.5 Seconds (9.9-11.8) H* 04/17/17 08:19 INR 4.68 (0.93-1.08) H* 04/17/17 08:19 - Constitutional Appears: Non-toxic, No Acute Distress - Head Exam Head Exam: NORMAL INSPECTION - ENT Exam ENT Exam: Mucous Membranes Moist - Neck Exam Neck Exam: absent: Lymphadenopathy, Meningismus - Respiratory Exam Respiratory Exam: Decreased Breath Sounds - Cardiovascular Exam Cardiovascular Exam: +S1, +S2 - GI/Abdominal Exam GI & Abdominal Exam: Soft. absent: Tenderness - Extremities Exam Additional comments: lower extremities with dry dressings in place Assessment and Plan - Assessment and Plan (Free Text) Plan: Assessment S/P right leg skin and skin structure infection associated with chronic leg ulcers, growing MRSA history of sepsis secondary to right leg skin/skin structure infection with chronic leg ulcers, growing MRSA and sensitive Klebsiella history of MRSA cellulitis 2015 history of Bilateral lower extremity skin and skin structure infection ( Enterobacter, Klebsiella Oxytoca and Group B Strep, as well as MRSA) which was treated 06/2015; MRSA and Pseudomonas cellulitis of left leg in Sep 2015, January and March 2016 chronic lymphedema of the lower extremities Morbid obesity with BMI 55 HTN DM history of Strep bacteremia history of hernia surgery Learning disability Plan S/P 8 days of Vancomycin - will continue to monitor off antibiotics since he is at risk for nosocomial infections
[2017-04-18] MEDS: Insulin Reg-HIGH-Coverage SC SCH ×2 (06:33→13:44)
[2017-04-18 08:15] LABS: PROTHROMBIN TIME 47.5 Seconds (9.9-11.8)
[2017-04-18 08:17] LABS: INR 4.4 (0.93-1.08)
[2017-04-18] MEDS: Potassium Chloride 20 mEq ER Tab PO SCH (08:45)
--- NOTE | 2017-04-18 09:21 | PN ---
SUBJECTIVE: The patient is 56-year-old, seen and examined, sitting in chair, seems very comfortable, not in any distress. No fever, no nausea, no vomiting, no diarrhea. PHYSICAL EXAMINATION: VITAL SIGNS: He is afebrile. Pulse 67, respirations 18, blood pressure 146/73. LUNGS: Bilateral fair airflow. No rhonchi or crackles. HEART: S1 and S2 audible. ABDOMEN: Soft, obese, nontender. No rebound, no guarding. NEUROLOGIC: He is awake and alert, able to communicate. EXTREMITIES: Bilateral legs are wrapped in pressure dressings. Bilateral chronic stasis dermatitis visible on both feet. LABORATORY EXAM: His PT is 50.5 and INR 4.68. Chemistry: Blood sugar is 182. ASSESSMENT: 1. Chronic stasis bilateral dermatitis with cellulitis. 2. Morbid obesity. 3. Methicillin-resistant Staphylococcus aureus wound infection. 4. Hypertension. 5. Qeb-slcslrp-xtihihmes diabetes. 6. Learning disability. PLAN: We will continue the patient on current medical treatment. We will hold his Coumadin for today and tomorrow. Follow up PT and INR on Tuesday and restart Coumadin according to the patient's levels. Maria Hunt MD
[2017-04-18] MEDS: diltiaZEM 120 mg/24 Hours CD Cap PO SCH (09:52)
[2017-04-18 11:57] VITALS: BP 149/78; PULSE 67; RESP 12; TEMP 98; O2SAT 99
--- NOTE | 2017-04-18 13:57 | CP.PCM.PN ---
Subjective - Date & Time of Evaluation Date of Evaluation: 04/18/17 Time of Evaluation: 08:45 - Subjective Subjective: Comfortable on a chair, afebrile, not in distress. Objective - Vital Signs/Intake and Output Vital Signs (last 24 hours): Temp Pulse Resp BP Pulse Ox 98.3 F 67 18 146/73 95 04/16/17 05:45 04/17/17 09:50 04/16/17 05:45 04/17/17 09:50 04/16/17 05:45 - Medications Medications: Current Medications Atorvastatin Calcium (Lipitor) 10 mg PO DIN [facility]LIN PRN Reason: Protocol Last Admin: 04/17/17 17:21 Dose: 10 mg Diltiazem HCl (Cardizem Cd) 120 mg PO DAILY [facility] PRN Reason: Protocol Last Admin: 04/17/17 09:50 Dose: 120 mg Furosemide (Lasix) 20 mg PO DAILY [facility] PRN Reason: Protocol Last Admin: 04/17/17 09:50 Dose: 20 mg Gabapentin (Neurontin) 400 mg PO TID [facility] PRN Reason: Protocol Last Admin: 04/17/17 17:21 Dose: 400 mg Glipizide (Glucotrol) 10 mg PO 0700,1700 [facility] PRN Reason: Protocol Last Admin: 04/17/17 17:20 Dose: 10 mg Insulin Human Regular (Humulin R High) 0 units SC ACHS [facility]LIN PRN Reason: Protocol Last Admin: 04/18/17 06:33 Dose: 2 units Metformin HCl (Glucophage) 1,000 mg PO ACBD [facility] PRN Reason: Protocol Last Admin: 04/17/17 17:20 Dose: 1,000 mg Potassium Chloride (K-Dur 20 Meq Er Tab) 20 meq PO 0800 [facility] PRN Reason: Protocol Last Admin: 04/17/17 08:01 Dose: 20 meq Ramipril (Altace) 10 mg PO DAILY [facility]LIN PRN Reason: Protocol Last Admin: 04/17/17 09:50 Dose: 10 mg - Labs Labs: 04/14/17 05:26 PT 47.5 Seconds (9.9-11.8) H* 04/18/17 07:10 INR 4.40 (0.93-1.08) H* 04/18/17 07:10 - Constitutional Appears: Non-toxic, No Acute Distress - Head Exam Head Exam: NORMAL INSPECTION - Neck Exam Neck Exam: absent: Meningismus - Respiratory Exam Respiratory Exam: Decreased Breath Sounds - Cardiovascular Exam Cardiovascular Exam: +S1, +S2 - GI/Abdominal Exam GI & Abdominal Exam: Soft. absent: Tenderness - Extremities Exam Additional comments: both legs with dry dressings in place Assessment and Plan - Assessment and Plan (Free Text) Plan: Assessment S/P right leg skin and skin structure infection associated with chronic leg ulcers, grew MRSA history of sepsis secondary to right leg skin/skin structure infection with chronic leg ulcers, growing MRSA and sensitive Klebsiella history of MRSA cellulitis Jun. 2015 history of Bilateral lower extremity skin and skin structure infection ( Enterobacter, Klebsiella Oxytoca and Group B Strep, as well as MRSA) which was treated 06/2015; MRSA and Pseudomonas cellulitis of left leg in Sep 2015, January and March 2016 chronic lymphedema of the lower extremities Morbid obesity with BMI 55 HTN DM history of Strep bacteremia history of hernia surgery Learning disability Plan S/P 8 days of Vancomycin - will continue to monitor off antibiotics since he is at risk for hospital-acquired infections
--- NOTE | 2017-04-19 06:36 | DS ---
SUBJECTIVE: The patient is going to be discharged home today. His cellulitis has improved. He is going to continue on his home medications. His Coumadin has been hold because of elevated INR and his Coumadin dosage has been decreased. He is going to follow up Dr Horta and . PHYSICAL EXAMINATION: VITAL SIGNS: Temperature of 98, pulse of 67, blood pressure 149/78, respirations 12, and O2 saturation 99%. HEENT: Anicteric sclerae, moist mucosa. NECK: No JVD, adenopathy or thyromegaly. CARDIOVASCULAR: S1 and S2, irregular. No murmurs, rubs or gallops. LUNGS: Clear to occultation bilaterally. No wheezes, rales, or rhonchi. ABDOMEN: Bowel sounds are positive, soft, nontender, it is obese, difficult to check for hepatosplenomegaly. EXTREMITIES: Lower extremities, chronic skin changes. Full range of motion. ASSESSMENT: 1. Lower extremity cellulitis, resolved. 2. Atrial fibrillation. 3. Obesity with a body mass index of 52. 4. Hypertension. 5. Dyslipidemia 6. Diabetes type 2. PLAN: 1. The patient is currently comfortable. He is going to continue with his home medication. Condition is stable. Activity, increase as tolerated. Follow up with Dr. Owens as well as with Dr. Horta in 1 to 2 weeks. 2. Follow up with in 1 to 2 weeks. Winston Streeter MD
== END 2017-04-18 14:09 | disposition home health service (06) | DRG 603 ==
LOC: TRCU 12:02
PROVIDERS: ADMIT Internal Medicine Nephrology; ATTEND Internal Medicine Nephrology
PROC: F07Z9FZ Gait Training/Functional Ambulation Treatment using Assistive, Adaptive, Supportive or Protective Equipment (ICD-10-PCS; principal; 2017-04-10)
PROC: F07M6ZZ Therapeutic Exercise Treatment of Musculoskeletal System - Whole Body (ICD-10-PCS; 2017-04-10)
PROC: F08Z4ZZ Home Management Treatment (ICD-10-PCS; 2017-04-12)
DX: L03.115 Cellulitis of right lower limb (principal); E11.622 Type 2 diabetes mellitus with other skin ulcer; I11.0 Hypertensive heart disease with heart failure; I50.9 Heart failure, unspecified; Z68.43 Body mass index [BMI] 50.0-59.9, adult; I48.91 Unspecified atrial fibrillation; G40.909 Epilepsy, unspecified, not intractable, without status epilepticus; L97.919 Non-pressure chronic ulcer of unspecified part of right lower leg with unspecified severity; B95.62 Methicillin resistant Staphylococcus aureus infection as the cause of diseases classified elsewhere; E78.5 Hyperlipidemia, unspecified; E66.01 Morbid (severe) obesity due to excess calories; F79 Unspecified intellectual disabilities; F81.9 Developmental disorder of scholastic skills, unspecified; I89.0 Lymphedema, not elsewhere classified; L30.9 Dermatitis, unspecified; R79.1 Abnormal coagulation profile; Z79.84 Long term (current) use of oral hypoglycemic drugs; Z86.14 Personal history of Methicillin resistant Staphylococcus aureus infection; Z87.891 Personal history of nicotine dependence; L85.3 Xerosis cutis; L81.9 Disorder of pigmentation, unspecified

== ENCOUNTER 2017-05-20 08:15 | Inpatient (IN) | payer MEDICARE, MEDICAID ==
[2017-05-20] MEDS ORDERED: Piperacillin/Tazobact 3.375 gm 100 ML IVPB STA (08:24)
[2017-05-20] MEDS ORDERED: Vancomycin 1gm in NS 250ml 1 GM/250 ML BAG IVPB STA (08:25)
[2017-05-20] MEDS ORDERED: Sodium Chloride 0.9% 500 ML IV STA (08:25)
--- NOTE | 2017-05-20 08:28 | ED PDOC ---
Arrival/HPI - General Chief Complaint: Abdominal Pain Time Seen by Provider: 05/20/17 08:17 Historian: Patient - History of Present Illness Narrative History of Present Illness (Text): 05/20/17 08:24 Leonardo Patel is a 56 year old male, with a history of afib on eliquis and chronic leg ulcers, presents to the emergency department complaining of 3 day duration of elevated blood glucose level and lower abdominal pain. States symptoms are associated with nausea. Denies any vomiting, diarrhea, or urinary symptoms. Patient also notes of discharge from open wounds on right leg. He was admitted to the hospital recently for right lower extremity ulcers. Denies any headache dizziness, chest pain, difficulty breathing, back pain, or any other complaints at this time. Time/Duration: Other (3 day) Symptom Onset: Gradual Symptom Course: Unchanged Severity Level: Mild Activities at Onset: Light Past Medical History - Provider Review Nursing Documentation Reviewed: Yes - Infectious Disease Hx of Infectious Diseases: None, MRSA - Tetanus Immunization Tetanus Immunization: Unknown - Cardiac Hx Cardiac Disorders: Yes (Afib) Hx Congestive Heart Failure: Yes Hx Hypertension: Yes - Pulmonary Hx Chronic Obstructive Pulmonary Disease (COPD): No - Neurological Other/Comment: Epilepsy - HEENT Hx HEENT Disorder: Yes Other/Comment: wears glasses - Renal Hx Renal Failure: No - Endocrine/Metabolic Hx Diabetes Mellitus Type 2: Yes - Hematological/Oncological Hx Blood Disorders: No Hx AIDS: No Hx Anemia: No Hx Cancer: No Hx Chemotherapy: No Hx Cirrhosis: No Hx Hepatitis A: No Hx Hepatitis B: No Hx Hepatitis C: No Hx Metastasis: No Hx Shingles: No Hx Unexplained Bleeding: No Other/Comment: blood infection - Integumentary Hx Dermatological Disorder: Yes Hx Basal Cell Carcinoma: No Hx Eczema: No Hx Melanoma: No Hx Psoriasis: No Hx Squamous Cell Carcinoma: No Other/Comment: multiple wounds on the rt leg, cellulitis in b/l extreminity. 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 - Surgical History Hx Amputation: No Hx Appendectomy: No Hx Cholecystectomy: No Hx Gastric Bypass Surgery: No Hx Hysterectomy: No Hx Joint Replacement: No Hx Kidney Transplant: No Hx Liver Transplant: No Hx Mastectomy: No Hx Musculoskeletal Surgery: No Hx Open Heart Surgery: No Hx Orthopedic Surgery: No Hx Splenectomy: No Hx Valve Replacement: No - Anesthesia Hx Anesthesia: Yes Hx Anesthesia Reactions: No Hx Malignant Hyperthermia: No - Suicidal Assessment Feels Threatened In Home Enviroment: No Family/Social History - Physician Review Nursing Documentation Reviewed: Yes Family/Social History: No Known Family HX Smoking Status: Former Smoker Hx Alcohol Use: No Hx Substance Use: No Hx Substance Use Treatment: No Allergies/Home Meds Allergies/Adverse Reactions: Allergies No Known Allergies Allergy (Verified 05/20/17 12:16) Home Medications: Home Meds Medication Instructions Recorded Confirmed Apixaban [Eliquis] 2.5 mg PO BID 05/20/17 05/20/17 Atorvastatin [Lipitor] 10 mg PO DAILY 05/20/17 05/20/17 Diltiazem HCl [Diltiazem ER] 120 mg PO DAILY 05/20/17 05/20/17 Ferrous Fum/Vit C/B12/Stomc [Ziks 1 cap PO DAILY 05/20/17 05/20/17 Hematogen] Furosemide [Lasix] 20 mg PO DAILY 05/20/17 05/20/17 Gabapentin [Neurontin] 400 mg PO TID 05/20/17 05/20/17 GlipiZIDE [Glipizide] 10 mg PO BID 05/20/17 05/20/17 Insulin Lispro [Humalog Kwikpen 1 unit SQ ACHS 05/20/17 05/20/17 U-100] Metformin HCl [Glucophage] 1,000 mg PO BID 05/20/17 05/20/17 Omeprazole 20 mg PO DAILY 05/20/17 05/20/17 Omeprazole 20 mg PO DAILY 05/20/17 05/20/17 Pioglitazone HCl 45 mg PO DAILY 05/20/17 05/20/17 Potassium Chloride [Klor-Con M20] 20 meq PO DAILY 05/20/17 05/20/17 Ramipril [Altace] 10 mg PO DAILY 05/20/17 05/20/17 Review of Systems - Physician Review All systems were reviewed & negative as marked: Yes - Review of Systems Constitutional: Normal. absent: Fatigue, Fevers Respiratory: Normal. absent: SOB, Cough Cardiovascular: Normal. absent: Chest Pain, Palpitations Gastrointestinal: Abdominal Pain, Nausea. absent: Diarrhea, Vomiting Musculoskeletal: Other (drainage from open wound on right leg ) Psychiatric: Normal Physical Exam Vital Signs Reviewed: Yes Vital Signs Temp Pulse Resp BP Pulse Ox 05/20/17 11:19 98 H 18 148/76 99 05/20/17 09:32 99.4 F 05/20/17 08:21 98 F 92 H 18 154/61 H 95 Temperature: Afebrile Blood Pressure: Normal Pulse: Regular Respiratory Rate: Normal Appearance: Positive for: Non-Toxic, Other (Morbidly obese ) Pain Distress: None Mental Status: Positive for: Alert and Oriented X 3 Finger Stick Blood Glucose: 280 - Systems Exam Head: Present: Atraumatic, Normocephalic Pupils: Present: PERRL Conjunctiva: Present: Normal Mouth: Present: Moist Mucous Membranes Respiratory/Chest: Present: Clear to Auscultation, Good Air Exchange. No: Respiratory Distress, Accessory Muscle Use Cardiovascular: Present: Regular Rate and Rhythm, Normal S1, S2. No: Murmurs Abdomen: Present: Tenderness (minimal lower abdominal tenderness ), Normal Bowel Sounds. No: Distention, Peritoneal Signs, Guarding, McBurney's Point Tender Upper Extremity: Present: Normal Inspection. No: Cyanosis, Edema Lower Extremity: Present: Edema, Other (purulent discharge from open wound on right leg. b/l lower extremity elephantiasis. ). No: NORMAL PULSES, Cyanosis, Deformity, Temperature Abnormalties Neurological: Present: GCS=15, CN II-XII Intact, Speech Normal Skin: Present: Warm, Dry, Normal Color. No: Rashes Psychiatric: Present: Alert, Oriented x 3, Normal Insight, Normal Concentration Medical Decision Making ED Course and Treatment: 05/20/17 08:38 Impression: A 56 year old male who presents to the emergency department complaining of elevated blood glucose level, abdominal pain and discharge from open wound on right leg. Plan: -- EKG -- Labs, cardiac enzymes -- Chest X-ray -- Toradol --Zofran -- IV Fluids -- Vanco -- Zosyn -- Blood culture -- Urine culture -- Urinalysis -- Reassess and disposition Progress Notes: 05/20/17 08:40 EKG interpreted by me: NSR @ 96 bpm. normal axis. normal interval. 05/20/17 09:48 IMPRESSION: Two separate ureteral stones seen on the left. There is 5 mm distal ureteral stone at the UVJ and a 5-6 mm stone in the proximal ureter. There is also left- sided nephrolithiasis 05/20/17 10:50 Case discussed with who is aware and agrees with the plan to admit patient to med/surg for cellulitis and renal colic. Accepts patient under his service with on consult. Patient is aware and agrees with the plan. - Lab Interpretations Lab Results: 05/20/17 08:25 05/20/17 08:25 Lab Results 05/20/17 09:15: PT 11.0, INR 1.02, APTT 29.8 05/20/17 09:09: Urine Color Yellow, Urine Appearance Sl cloudy, Urine pH 6.0, Ur Specific [place] 1.010, Urine Protein Negative, Urine Glucose (UA) >=1000, Urine Ketones 15 H, Urine Blood Small H, Urine Nitrate Negative, Urine Bilirubin Negative, Urine Urobilinogen 0.2, Ur Leukocyte Esterase Negative, Urine RBC 5 - 10, Urine WBC Negative 05/20/17 08:25: pO2 68 H, VBG pH 7.37, VBG pCO2 43.0, VBG HCO3 24.9, VBG Total CO2 26.2, VBG O2 Sat (Calc) 96.1 H, VBG Base Excess -0.6 L, VBG Potassium 4.7, Sodium 133.0, Chloride 98.0, Glucose 322 H, Lactate 1.1, FiO2 21.0, Venous Blood Potassium 4.7 05/20/17 08:25: Sodium 135, Chloride 99, Potassium 4.7, Carbon Dioxide 24, Anion Gap 17, BUN 20, Creatinine 1.0, Est GFR ( Amer) > 60, Est GFR (Non- Af Amer) > 60, Random Glucose 305 H*, Calcium 9.4, Total Bilirubin 1.0, AST 20, ALT 36, Alkaline Phosphatase 122, Lactate Dehydrogenase 343, Total Creatine Kinase 31 L, Troponin I < 0.01, Total Protein 7.5, Albumin 4.1, Globulin 3.4, Albumin/Globulin Ratio 1.2, Amylase 48, Lipase 78 05/20/17 08:25: WBC 14.4 H D, RBC 4.85, Hgb 14.3, Hct 42.5, MCV 87.6, MCH 29.5, MCHC 33.6, RDW 13.2, Plt Count 269, MPV 10.3, Gran % 82.0 H, Lymph % (Auto) 8.1 L, Cameron % (Auto) 9.0 H, Eos % (Auto) 0.8 L, Baso % (Auto) 0.1, Gran # 11.78 H, Lymph # 1.2, Cameron # 1.3 H, Eos # 0.1, Baso # 0.02 05/20/17 08:20: POC Glucose (mg/dL) 280 H - RAD Interpretation Radiology Orders: 05/20/17 09:05 ABD & PELVIS IV CONTRAST ONLY [CT] Stat - Medication Orders Current Medication Orders: Apixaban (Eliquis) 2.5 mg PO BID [facility] PRN Reason: Protocol Atorvastatin Calcium (Lipitor) 10 mg PO DAILY [facility] Last Admin: 05/20/17 12:57 Dose: 10 mg Diltiazem HCl (Cardizem Cd) 120 mg PO DAILY [facility] Last Admin: 05/20/17 12:56 Dose: 120 mg Furosemide (Lasix) 20 mg PO DAILY [facility] Last Admin: 05/20/17 12:56 Dose: 20 mg Gabapentin (Neurontin) 400 mg PO TID [facility] PRN Reason: Protocol Last Admin: 05/20/17 17:02 Dose: 400 mg Glipizide (Glucotrol) 10 mg PO BID [facility] Last Admin: 05/20/17 17:02 Dose: 10 mg Cefepime HCl (Maxipime 1gm) 1 gm in 100 mls @ 100 mls/hr IVPB Q8 [facility] PRN Reason: Protocol Vancomycin HCl (Vancomycin 1gm) 1 gm in 250 mls @ 167 mls/hr IVPB Q12 [facility] PRN Reason: Protocol Insulin Human Regular (Humulin R Med) 0 units SC ACHS [facility] PRN Reason: Protocol Last Admin: 05/20/17 16:48 Dose: 7 units Metformin HCl (Glucophage) 1,000 mg PO BID [facility] Last Admin: 05/20/17 17:02 Dose: 1,000 mg Pioglitazone HCl (Actos) 45 mg PO DAILY [facility] Last Admin: 05/20/17 14:20 Dose: 45 mg Potassium Chloride (K-Dur 20 Meq Er Tab) 20 meq PO DAILY [facility] Last Admin: 05/20/17 12:57 Dose: 20 meq Ramipril (Altace) 10 mg PO DAILY [facility] Last Admin: 05/20/17 12:56 Dose: 10 mg Discontinued Medications Piperacillin Sod/Tazobactam Sod (Zosyn 3.375 In Ns 100ml) 100 mls @ 200 mls/hr IVPB STAT [facility] PRN Reason: Protocol Stop: 05/20/17 08:53 Last Admin: 05/20/17 08:42 Dose: 200 mls/hr Vancomycin HCl (Vancomycin 1gm) 1 gm in 250 mls @ 167 mls/hr IVPB STAT [facility] PRN Reason: Protocol Stop: 05/20/17 09:54 Last Admin: 05/20/17 09:54 Dose: 167 mls/hr Sodium Chloride (Sodium Chloride 0.9%) 500 mls @ 999 mls/hr IV .Q31M STA Stop: 05/20/17 08:55 Last Admin: 05/20/17 08:42 Dose: 999 mls/hr Vancomycin HCl (Vancomycin 1gm) 1 gm in 250 mls @ 167 mls/hr IVPB Q12H [facility] PRN Reason: Protocol Insulin Human Regular (Humulin R) 4 units IV STAT STA Stop: 05/20/17 09:11 Last Admin: 05/20/17 09:54 Dose: 4 units Iohexol (Omnipaque 350 150 Ml) Confirm Administered Dose 150 ml .ROUTE .STK-MED ONE Stop: 05/20/17 09:16 Ketorolac Tromethamine (Toradol) 30 mg IVP STAT STA Stop: 05/20/17 08:24 Last Admin: 05/20/17 08:43 Dose: 30 mg Ondansetron HCl (Zofran Inj) 4 mg IVP STAT STA Stop: 05/20/17 08:24 Last Admin: 05/20/17 08:42 Dose: 4 mg - Scribe Statement The provider has reviewed the documentation as recorded by the Kelli Martinez Provider Attestation: All medical record entries made by the Kelli were at my direction and personally dictated by me. I have reviewed the chart and agree that the record accurately reflects my personal performance of the history, physical exam, medical decision making, and the department course for this patient. I have also personally directed, reviewed, and agree with the discharge instructions and disposition. Disposition/Present on Arrival - Present on Arrival Any Indicators Present on Arrival: No History of DVT/PE: No History of Uncontrolled Diabetes: Yes Urinary Catheter: No History of Decub. Ulcer: No History Surgical Site Infection Following: None - Disposition Have Diagnosis and Disposition been Completed?: Yes Diagnosis: Cellulitis, Nephrolithiasis, Lymphedema of both lower extremities, Hyperglycemia Disposition: HOSPITALIZED Disposition Time: 11:00 Patient Problems: Current Active Problems Problem Status Onset Cellulitis Acute Hyperglycemia Acute Lymphedema of both lower extremities Acute Nephrolithiasis Acute Condition: FAIR
[2017-05-20 08:38] LABS: ADD MANUAL DIFF? NO
[2017-05-20 08:43] LABS: VENOUS BLOOD GAS BASE EXCESS -0.6 mmol/L (0.0-2.0); VENOUS BLOOD PH 7.37 (7.32-7.43)
[2017-05-20 08:44] LABS: BASO # 0.02 K/mm3 (0.0-2.0); BASO % 0.1 % (0.0-3.0); EOS # 0.1 (0.0-0.7); EOS % 0.8 % (1.5-5.0); GRAN # 11.78 (1.4-6.5); HEMATOCRIT 42.5 % (42.0-52.0); LYMPH # 1.2 (1.2-3.4); LYMPH % 8.1 % (22.0-35.0); MEAN CELL VOLUME 87.6 fl (80.0-105.0); MEAN CORPUSCULAR HEMOGLOBIN 29.5 pg (25.0-35.0); MEAN CORPUSCULAR HGB CONC 33.6 g/dl (31.0-37.0); MEAN PLATELET VOLUME 10.3 fl (7.0-11.0); MONO # 1.3 (0.1-0.6); PLATELET COUNT 269 10^3/uL (120.0-450.0); RED CELL DISTRIBUTION WIDTH 13.2 % (11.5-14.5); WHITE BLOOD COUNT 14.4 10^3/ul (4.5-11.0)
[2017-05-20 08:56] LABS: ALB/GLOB RATIO 1.2 (1.1-1.8); ALKALINE PHOSPHATASE 122 U/L (38-133); ALT/SGPT 36 U/L (7-56); AMYLASE 48 U/L (35-125); AST/SGOT 20 U/L (15-59); BLOOD UREA NITROGEN 20 mg/dL (7-21); CALCIUM 9.4 mg/dL (8.4-10.5); CARBON DIOXIDE 24 mmol/L (21-33); CHLORIDE 99 mmol/L (98-107); GFR AFRICAN-AMERICAN > 60; LIPASE 78 U/L (23-300); POTASSIUM 4.7 mmol/L (3.6-5.0); SODIUM 135 mmol/L (132-148); TOTAL PROTEIN 7.5 g/dL (5.8-8.3)
[2017-05-20 09:04] LABS: GLUCOSE,RANDOM 305 mg/dL (70-110)
[2017-05-20 09:08] LABS: TROPONIN I < 0.01 ng/mL
[2017-05-20] MEDS ORDERED: Insulin Regular 1 UNITS/0.01 ML ML IV STA (09:10)
[2017-05-20 09:32] LABS: URINE BILIRUBIN NEGATIVE (NEGATIVE); URINE BLOOD SMALL (NEGATIVE); URINE GLUCOSE (UA) >=1000 mg/dL (NEGATIVE); URINE KETONE 15 mg/dL (NEGATIVE); URINE LEUKOCYTE ESTERASE NEGATIVE Leu/uL (NEGATIVE); URINE PROTEIN NEGATIVE mg/dL (<30 mg/dL); URINE UROBILINOGEN 0.2 E.U./dL (<1 E.U./dL)
[2017-05-20 09:34] LABS: URINE APPEARANCE SL CLOUDY (CLEAR); URINE COLOR YELLOW (YELLOW)
[2017-05-20 09:35] LABS: INR 1.02 (0.93-1.08); PARTIAL THROMBOPLASTIN TIME 29.8 Seconds (23.7-30.8)
--- NOTE | 2017-05-20 09:43 | CT ---
PROCEDURE: CT Abdomen and Pelvis without intravenous contrast HISTORY: lower abd pain COMPARISON: 11/21/2014 TECHNIQUE: Without contrast.. Contrast Dose: Radiation dose: Total exam DLP = 1225 mGy-cm. This CT exam was performed using one or more of the following dose reduction techniques: Automated exposure control, adjustment of the mA and/or kV according to patient size, and/or use of iterative reconstruction technique. FINDINGS: LOWER THORAX: Unremarkable. LIVER: Unremarkable. No gross lesion or ductal dilatation. GALLBLADDER AND BILE DUCTS: There is a density near the neck of the gallbladder suspicious for stone. No evidence of cholecystitis. PANCREAS: Unremarkable. No gross lesion or ductal dilatation. SPLEEN: Unremarkable. ADRENALS: Unremarkable. No mass. KIDNEYS AND URETERS: There is a 5 mm stone in the left distal ureter at the UVJ image 151. The ureter is mildly dilated and there is some periureteral stranding. There is also a 6 mm stone in the proximal left ureter. This finding was also seen on the previous study. There is also nephrolithiasis. There is a 10 mm stone in the renal pelvis on the left. VASCULATURE: Unremarkable. No aortic aneurysm. BOWEL: Unremarkable. No obstruction. No gross mural thickening. APPENDIX: Unremarkable. Normal appendix. PERITONEUM: Unremarkable. No free fluid. No free air. LYMPH NODES: Unremarkable. No enlarged lymph nodes. BLADDER: Unremarkable. REPRODUCTIVE: Unremarkable. BONES: No acute fracture. OTHER FINDINGS: None. IMPRESSION: Two separate ureteral stones seen on the left. There is a 5 mm distal ureteral stone at the UVJ and a 5-6 mm stone in the proximal ureter. There is also left-sided nephrolithiasis
[2017-05-20 09:44] LABS: URINE WBC NEGATIVE /hpf (0-6)
[2017-05-20 12:47] VITALS: BMI 40.3
[2017-05-20] MEDS: diltiaZEM 120 mg/24 Hours CD Cap PO SCH (12:56)
[2017-05-20] MEDS: Potassium Chloride 20 mEq ER Tab PO SCH (12:57)
--- NOTE | 2017-05-20 15:26 | CP.PCM.CON ---
History of Present Illness - History of Present Illness History of Present Illness: Patient is a 56 year old male PMH CAD, HTN, Epilepsy, and chronic leg ulcers who presented to [facility] ED on 05/20/17 with complaints of abdominal pain found to have renal and ureteral stones, and leg ulcers. History was obtained from patient's mother; patient unable to verbally communicate. According to mother, patient was diagnosed with Elephantiasis 10 years ago which extended from his lower legs bilaterally to his feet, after 5 years of treatment with Dr. Horta , patient's condition improved on his legs but still pursued on his feet bilaterally due to patient no longer being able to obtain full length leg wrappings because of insurance. Patient also suffers from ulcerative wounds and skin growths on lower extremities bilaterally. As per patient's mother, wounds tend to both drain and bleed chronically. Patient wounds are taken care of three times a week at patient's home by both travel nurses and mother. Wounds are painful for patient. Patient is able to freely move extremities. PMH: See above PMD: Dr. Saavedra PSHx: Inguinal hernia repair Past Patient History - Infectious Disease Hx of Infectious Diseases: None, MRSA - Tetanus Immunizations Tetanus Immunization: Unknown - Past Medical History & Family History Past Medical History?: Yes - Past Social History Smoking Status: Never Smoked - CARDIAC Hx Cardiac Disorders: Yes (Afib) Hx Cardia Arrhythmia: Yes Hx Circulatory Problems: Yes Hx Congestive Heart Failure: Yes Hx Hypercholesterolemia: Yes Hx Hypertension: Yes Hx Peripheral Edema: Yes Hx Peripheral Vascular Disease: Yes - PULMONARY Hx Respiratory Disorders: No Hx Chronic Obstructive Pulmonary Disease (COPD): No - NEUROLOGICAL Hx Neurological Disorder: Yes (NEUROPATHY) Other/Comment: Epilepsy - HEENT Hx HEENT Problems: Yes Other/Comment: wears glasses - RENAL Hx Chronic Kidney Disease: Yes (2 URETERAL STONE,L NEPHROLITHIASIS) Hx Renal Failure: No - ENDOCRINE/METABOLIC Hx Endocrine Disorders: Yes Hx Diabetes Mellitus Type 2: Yes - HEMATOLOGICAL/ONCOLOGICAL Hx Blood Disorders: Yes (MRSA 2016 LEG WOUND) Hx AIDS: No Hx Anemia: No Hx Cancer: No Hx Chemotherapy: No Hx Cirrhosis: No Hx Hepatitis A: No Hx Hepatitis B: No Hx Hepatitis C: No Hx Metastesis: No Hx Shingles: No Hx Unexplained Bleeding: No Other/Comment: blood infection - INTEGUMENTARY Hx Dermatological Problems: Yes Hx Basil Cell: No Hx Eczema: No Hx Melanoma: No Hx Psoriasis: No Hx Squamous Cell: No Other/Comment: multiple wounds on the rt leg, cellulitis in b/l extreminity. Left thigh cellulitis - MUSCULOSKELETAL/RHEUMATOLOGICAL Hx Musculoskeletal Disorders: Yes Hx Falls: Yes Hx Unsteady Gait: Yes - GASTROINTESTINAL Hx Gastrointestinal Disorders: Yes Hx Colostomy: No Hx Crohn's Disease: No Hx Diverticulitis: No Hx Gall Bladder Disease: No Hx Gastroesophageal Reflux: Yes Hx Ileostomy: No Hx Liver Failure: No Hx Pancreatitis: No HX Swallowing Problems: No - GENITOURINARY/GYNECOLOGICAL Hx Genitourinary Disorders: No Hx Hematuria: No Hx Incontinence: No Hx Prostate Problems: No Hx Sexually Transmitted Disorders: No Hx Urinary Tract Infection: No - PSYCHIATRIC Hx Psychophysiologic Disorder: Yes Hx Substance Use: No Other/Comment: mental retardation due to defect - SURGICAL HISTORY Hx Surgeries: (VEIN STRIPPED 2000) Hx Amputation: No Hx Appendectomy: No Hx Cholecystectomy: No Hx Gastric Bypass Surgery: No Hx Hysterectomy: No Hx Joint Replacement: No Hx Kidney Transplant: No Hx Liver Transplant: No Hx Mastectomy: No Hx Musculoskeletal Surgery: No Hx Open Heart Surgery: No Hx Orthopedic Surgery: No Hx Splenectomy: No Hx Valve Replacement: No - ANESTHESIA Hx Anesthesia: Yes Hx Anesthesia Reactions: No Hx Malignant Hyperthermia: No Meds Allergies/Adverse Reactions: Allergies Allergy/AdvReac Type Severity Reaction Status Date / Time No Known Allergies Allergy Verified 05/20/17 12:16 - Medications Medications: Current Medications Apixaban (Eliquis) 2.5 mg PO BID [facility] PRN Reason: Protocol Atorvastatin Calcium (Lipitor) 10 mg PO DAILY [facility] Last Admin: 05/20/17 12:57 Dose: 10 mg Diltiazem HCl (Cardizem Cd) 120 mg PO DAILY [facility] Last Admin: 05/20/17 12:56 Dose: 120 mg Furosemide (Lasix) 20 mg PO DAILY [facility] Last Admin: 05/20/17 12:56 Dose: 20 mg Gabapentin (Neurontin) 400 mg PO TID [facility] PRN Reason: Protocol Glipizide (Glucotrol) 10 mg PO BID [facility] Insulin Human Regular (Humulin R Med) 0 units SC ACHS [facility] PRN Reason: Protocol Metformin HCl (Glucophage) 1,000 mg PO BID [facility] Pioglitazone HCl (Actos) 45 mg PO DAILY [facility] Last Admin: 05/20/17 14:20 Dose: 45 mg Potassium Chloride (K-Dur 20 Meq Er Tab) 20 meq PO DAILY [facility] Last Admin: 05/20/17 12:57 Dose: 20 meq Ramipril (Altace) 10 mg PO DAILY [facility] Last Admin: 05/20/17 12:56 Dose: 10 mg Physical Exam - Constitutional Appears: Well - Head Exam Head Exam: ATRAUMATIC, NORMAL INSPECTION, NORMOCEPHALIC - Eye Exam Eye Exam: Normal appearance - ENT Exam ENT Exam: Mucous Membranes Moist, Normal Exam - Neck Exam Neck exam: Positive for: Normal Inspection - Respiratory Exam Respiratory Exam: Clear to Auscultation Bilateral, NORMAL BREATHING PATTERN - Cardiovascular Exam Cardiovascular Exam: REGULAR RHYTHM, +S1, +S2 - GI/Abdominal Exam GI & Abdominal Exam: Normal Bowel Sounds, Soft - Extremities Exam Extremities exam: Positive for: joint swelling, tenderness Additional comments: Lower extremities are dry and scale-like bilaterally, edematous, and draining. - Neurological Exam Neurological exam: Alert, Oriented x3 - Skin Additional comments: Chronic lymphatic and venous stasis bilaterally Results - Vital Signs Recent Vital Signs: Last Vital Signs Temp 98.4 F 05/20/17 12:19 Pulse 78 05/20/17 12:56 Resp 18 05/20/17 12:19 BP 137/70 05/20/17 12:56 Pulse Ox 99 05/20/17 11:19 - Labs Result Diagrams: 05/20/17 08:25 05/20/17 08:25 Labs: Laboratory Results - last 24 hr 05/20/17 10:50 POC Glucose (mg/dL) 306 H Assessment & Plan - Assessment and Plan (Free Text) Assessment: Chronic lymphatic edematous and venous stasis changes - Full knee wrappings applied - Elevation of lower extremities - Will continue to change dressings daily Follow up with recs as per Dr. Mondragon
--- NOTE | 2017-05-20 16:27 | CARD ---
APPROVED REPORT EKG Measurement Heart [id number] <Conclusion> Normal sinus rhythm Normal ECG
[2017-05-20] MEDS: Insulin Reg-MEDIUM-Coverage SC SCH (16:48)
[2017-05-20] MEDS: Vancomycin 1gm in NS 250ml 1 GM/250 ML BAG IVPB SCH ×3 (16:57→22:45)
[2017-05-20] MEDS: Cefepime 1gm in NS 100ml 1 GM/100 ML BAG IVPB SCH (21:22)
[2017-05-21] MEDS: Cefepime 1gm in NS 100ml 1 GM/100 ML BAG IVPB SCH ×3 (05:46→21:21)
[2017-05-21] MEDS: Pantoprazole 40 mg EC Tab PO SCH (05:46)
--- NOTE | 2017-05-21 07:59 | CP.PCM.PN ---
Subjective - Date & Time of Evaluation Date of Evaluation: 05/21/17 Time of Evaluation: 07:00 - Subjective Subjective: Patient is a 56 M with chronic lymphedema and venous stasis. Patient was seen and examined at bedside today alert awake and oriented with no acute complaints. Patient does admit to tenderness in lower extremities bilaterally which according to patient's mother is always present. Patient denies f/c/n/v. Objective - Vital Signs/Intake and Output Vital Signs (last 24 hours): Temp Pulse Resp BP Pulse Ox 97 F L 88 20 142/80 100 05/20/17 16:00 05/20/17 16:00 05/20/17 16:00 05/20/17 16:00 05/20/17 16:00 Intake and Output: 05/21/17 05/21/17 06:59 18:59 Intake Total 480 Output Total 600 Balance -120 - Medications Medications: Current Medications Apixaban (Eliquis) 2.5 mg PO BID [facility] PRN Reason: Protocol Last Admin: 05/20/17 18:25 Dose: 2.5 mg Atorvastatin Calcium (Lipitor) 10 mg PO DAILY [facility] Last Admin: 05/20/17 12:57 Dose: 10 mg Diltiazem HCl (Cardizem Cd) 120 mg PO DAILY [facility] Last Admin: 05/20/17 12:56 Dose: 120 mg Furosemide (Lasix) 20 mg PO DAILY [facility] Last Admin: 05/20/17 12:56 Dose: 20 mg Gabapentin (Neurontin) 400 mg PO TID [facility] PRN Reason: Protocol Last Admin: 05/20/17 17:02 Dose: 400 mg Glipizide (Glucotrol) 10 mg PO BID [facility] Last Admin: 05/20/17 17:02 Dose: 10 mg Cefepime HCl (Maxipime 1gm) 1 gm in 100 mls @ 100 mls/hr IVPB Q8 [facility] PRN Reason: Protocol Last Admin: 05/21/17 05:46 Dose: 100 mls/hr Vancomycin HCl (Vancomycin 1gm) 1 gm in 250 mls @ 167 mls/hr IVPB Q12 [facility] PRN Reason: Protocol Last Admin: 05/20/17 22:45 Dose: 167 mls/hr Insulin Human Regular (Humulin R Med) 0 units SC ACHS [facility] PRN Reason: Protocol Last Admin: 05/20/17 16:48 Dose: 7 units Metformin HCl (Glucophage) 1,000 mg PO BID [facility] Last Admin: 05/20/17 17:02 Dose: 1,000 mg Pantoprazole Sodium (Protonix Ec Tab) 40 mg PO 0600 [facility] Last Admin: 05/21/17 05:46 Dose: 40 mg Pioglitazone HCl (Actos) 45 mg PO DAILY [facility] Last Admin: 05/20/17 14:20 Dose: 45 mg Potassium Chloride (K-Dur 20 Meq Er Tab) 20 meq PO DAILY [facility] Last Admin: 05/20/17 12:57 Dose: 20 meq Ramipril (Altace) 10 mg PO DAILY [facility] Last Admin: 05/20/17 12:56 Dose: 10 mg - Labs Labs: PT 11.0 Seconds (9.9-11.8) 05/20/17 09:15 INR 1.02 (0.93-1.08) 05/20/17 09:15 APTT 29.8 Seconds (23.7-30.8) 05/20/17 09:15 - Constitutional Appears: Well - Head Exam Head Exam: ATRAUMATIC, NORMAL INSPECTION, NORMOCEPHALIC - Eye Exam Eye Exam: Normal appearance - ENT Exam ENT Exam: Mucous Membranes Moist, Normal Exam - Neck Exam Neck Exam: Normal Inspection - Respiratory Exam Respiratory Exam: Clear to Ausculation Bilateral, NORMAL BREATHING PATTERN - Cardiovascular Exam Cardiovascular Exam: REGULAR RHYTHM, +S1, +S2 - Extremities Exam Additional comments: B/L lymphedema and chronic venous stasis Assessment and Plan - Assessment and Plan (Free Text) Assessment: 1.56 year old man with B/L lymphedema and chronic venous stasis -Abdominal binders in place -Continue to CEASAR bandage both legs -Podiatry on board -No surgical intervention at the moment; Surgical consult as needed Tommy Santos D.O. PGY1
[2017-05-21] MEDS: Insulin Reg-MEDIUM-Coverage SC SCH ×3 (09:09→17:02)
--- NOTE | 2017-05-21 10:01 | CP.PCM.CON ---
<Magui Ahuja - Last Filed: 05/21/17 09:58> History of Present Illness - History of Present Illness History of Present Illness: Podiatry consult note for Dr. Guerrero 56 year old male with PMHx including DM, CHF, hypertension, atrial fibrillation , elephantiasis, dyslipidemia, was seen today with attending Dr. Guerrero regarding right lower extremity ulcerations and bilateral lower extremity chronic edema. Patient is resting comfortably in bed. Bilateral lower extremity bandages are clean dry and intact. No new complaints at this time. Patient denies any n/v/f/c/sob/cp. Past Patient History - Infectious Disease Hx of Infectious Diseases: None, MRSA - Tetanus Immunizations Tetanus Immunization: Unknown - Past Medical History & Family History Past Medical History?: Yes - Past Social History Smoking Status: Former Smoker - CARDIAC Hx Cardiac Disorders: Yes (Afib) Hx Congestive Heart Failure: Yes Hx Hypertension: Yes - PULMONARY Hx Chronic Obstructive Pulmonary Disease (COPD): No - NEUROLOGICAL Other/Comment: Epilepsy - HEENT Hx HEENT Problems: Yes Other/Comment: wears glasses - RENAL Hx Renal Failure: No - ENDOCRINE/METABOLIC Hx Diabetes Mellitus Type 2: Yes - HEMATOLOGICAL/ONCOLOGICAL Hx Blood Disorders: No Hx AIDS: No Hx Anemia: No Hx Cancer: No Hx Chemotherapy: No Hx Cirrhosis: No Hx Hepatitis A: No Hx Hepatitis B: No Hx Hepatitis C: No Hx Metastesis: No Hx Shingles: No Hx Unexplained Bleeding: No Other/Comment: blood infection - INTEGUMENTARY Hx Dermatological Problems: Yes Hx Basil Cell: No Hx Eczema: No Hx Melanoma: No Hx Psoriasis: No Hx Squamous Cell: No Other/Comment: multiple wounds on the rt leg, cellulitis in b/l extreminity. 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 - SURGICAL HISTORY Hx Amputation: No Hx Appendectomy: No Hx Cholecystectomy: No Hx Gastric Bypass Surgery: No Hx Hysterectomy: No Hx Joint Replacement: No Hx Kidney Transplant: No Hx Liver Transplant: No Hx Mastectomy: No Hx Musculoskeletal Surgery: No Hx Open Heart Surgery: No Hx Orthopedic Surgery: No Hx Splenectomy: No Hx Valve Replacement: No - ANESTHESIA Hx Anesthesia: Yes Hx Anesthesia Reactions: No Hx Malignant Hyperthermia: No Meds Allergies/Adverse Reactions: Allergies Allergy/AdvReac Type Severity Reaction Status Date / Time No Known Allergies Allergy Verified 05/23/17 16:25 - Medications Medications: Current Medications Apixaban (Eliquis) 2.5 mg PO BID [facility] PRN Reason: Protocol Last Admin: 05/20/17 18:25 Dose: 2.5 mg Atorvastatin Calcium (Lipitor) 10 mg PO DAILY [facility] Last Admin: 05/20/17 12:57 Dose: 10 mg Diltiazem HCl (Cardizem Cd) 120 mg PO DAILY [facility] Last Admin: 05/20/17 12:56 Dose: 120 mg Furosemide (Lasix) 20 mg PO DAILY [facility] Last Admin: 05/20/17 12:56 Dose: 20 mg Gabapentin (Neurontin) 400 mg PO TID [facility] PRN Reason: Protocol Last Admin: 05/20/17 17:02 Dose: 400 mg Glipizide (Glucotrol) 10 mg PO BID [facility] Last Admin: 05/20/17 17:02 Dose: 10 mg Cefepime HCl (Maxipime 1gm) 1 gm in 100 mls @ 100 mls/hr IVPB Q8 [facility] PRN Reason: Protocol Last Admin: 05/21/17 05:46 Dose: 100 mls/hr Vancomycin HCl (Vancomycin 1gm) 1 gm in 250 mls @ 167 mls/hr IVPB Q12 [facility] PRN Reason: Protocol Last Admin: 05/20/17 22:45 Dose: 167 mls/hr Insulin Human Regular (Humulin R Med) 0 units SC ACHS [facility] PRN Reason: Protocol Last Admin: 05/21/17 09:09 Dose: 3 units Metformin HCl (Glucophage) 1,000 mg PO BID [facility] Last Admin: 05/20/17 17:02 Dose: 1,000 mg Pantoprazole Sodium (Protonix Ec Tab) 40 mg PO 0600 [facility] Last Admin: 05/21/17 05:46 Dose: 40 mg Pioglitazone HCl (Actos) 45 mg PO DAILY [facility] Last Admin: 05/20/17 14:20 Dose: 45 mg Potassium Chloride (K-Dur 20 Meq Er Tab) 20 meq PO DAILY [facility] Last Admin: 05/20/17 12:57 Dose: 20 meq Ramipril (Altace) 10 mg PO DAILY [facility] Last Admin: 05/20/17 12:56 Dose: 10 mg Physical Exam - Constitutional Appears: Non-toxic, No Acute Distress - Extremities Exam Additional comments: Lower extremity focused exam: VASC: Diffuse edema of bilateral lower extremities. Pedal pulses non-palpable due to edema. Skin temperature warm to warm from proximal to distal b/l NEURO: Gross sensation diminished b/l DERM: Open ulceration noted to right lower extremity measuring approximately 2 cm by 1.5 cm by 0.2 cm with granular base at the lateral aspect of the leg with scant amount of sanguinous drainage, no purulence, no erythema, mild malodor. No open ulcerations noted to the left lower extremity. Skin is diffusely xerotic with hyperpigmentation. Skin changes of chronic edema noted. ORTHO: No tenderness on palpation to the lower extremities - Neurological Exam Neurological exam: Alert, Oriented x3 - Psychiatric Exam Psychiatric exam: Normal Affect, Normal Mood Results - Vital Signs Recent Vital Signs: Last Vital Signs Temp 98.5 F 05/21/17 08:03 Pulse 80 05/21/17 08:03 Resp 18 05/21/17 08:03 BP 133/67 05/21/17 08:03 Pulse Ox 95 05/21/17 08:03 - Labs Result Diagrams: 05/20/17 08:25 05/20/17 08:25 Labs: Laboratory Results - last 24 hr 05/20/17 05/20/17 05/20/17 10:50 16:34 21:32 POC Glucose (mg/dL) 306 H 302 H 229 H Assessment & Plan - Assessment and Plan (Free Text) Assessment: 56 year old male with diabetes and chronic lower extremity lymphedema with right leg ulceration Plan: Patient examined and evaluated at bedside with attending Dr. Guerrero chart, labs, vitals reviewed- afebrile,WBC 14.4 Right leg wound culture obtained Right LE dressed with xeroform, 4x4, ABD, CEASAR Left LE dressed with CEASAR Lotrisone ordered to be applied to legs daily Patient to continue IV abx per ID Podiatry will continue to follow Pt will f/u in the wound care center after DC <Marin Guerrero - Last Filed: 05/24/17 11:51> Results - Vital Signs Recent Vital Signs: Last Vital Signs Temp 98.1 F 05/23/17 07:34 Pulse 69 05/23/17 10:37 Resp 20 05/23/17 07:34 BP 132/68 05/23/17 10:38 Pulse Ox 96 05/23/17 07:34 - Labs Result Diagrams: 05/23/17 08:49 05/23/17 08:49 Labs: Laboratory Results - last 24 hr 05/23/17 05/23/17 05/23/17 11:09 16:23 16:59 POC Glucose (mg/dL) 286 H 111 H 167 H Attending/Attestation - Attestation I have personally seen and examined this patient.: Yes I have fully participated in the care of the patient.: Yes I have reviewed all pertinent clinical information: Yes
[2017-05-21] MEDS ORDERED: Oxycodone/Acetaminophen 5/325 mg Tab PO PRN (10:23)
[2017-05-21] MEDS: diltiaZEM 120 mg/24 Hours CD Cap PO SCH (10:50)
[2017-05-21] MEDS: Potassium Chloride 20 mEq ER Tab PO SCH (10:50)
[2017-05-21] MEDS: Vancomycin 1gm in NS 250ml 1 GM/250 ML BAG IVPB SCH ×2 (10:52→22:42)
--- NOTE | 2017-05-21 17:10 | PN ---
SUBJECTIVE: The patient is seen on the floor. He is readmitted, I believe, for an ulcer on the lower leg. He is being followed by Dr. Horta as she has been following him for years in the clinic. The upper thighs are still swollen and being treated with bilateral abdominal binders. It sounds silly, but it works. The only thing I have that would squeeze some of the edema out. We will follow with you but without surgical intention. The small ulcers are being treated appropriately. Nnamdi Mondragon MD
--- NOTE | 2017-05-21 23:03 | PN ---
ADDENDUM SUBJECTIVE: The patient is a 56-year-old, morbidly obese, with history of multiple admission, was [facility] by Dr. Meek and his team. He has bilateral leg cellulitis, right leg ulcer is deeper than the left. The patient states his blood sugar was fluctuating high and he has left groin pain, but currently no nausea, vomiting, no diarrhea. No history of fever or chills. PAST MEDICAL HISTORY: Significant for: 1. Chronic atrial fibrillation. 2. Chronic bilateral venous stasis and crusting ulcers on both legs. 3. Morbid obesity. 4. Recurrent UTI. 5. Recurrent wound infection. 6. Non-insulin dependent diabetes. 7. History of depression. 8. 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 ALLERGIES: NOT ALLERGIC TO ANY MEDICATION. MEDICATION AT HOME: He is on insulin KwikPen, iron supplementation, omeprazole, Eliquis 2.5 twice a day, ramipril 10 mg daily, glipizide 10 mg twice a day, potassium 20 mEq daily, pioglitazone 45 mg daily, gabapentin 400 three times a day, metformin 1000 twice a day, diltiazem 120 daily, Lasix 20 mg daily, atorvastatin 10 mg daily. Physical examination, assessment and plan refer to today's progress note dictated earlier. Maria Hunt MD
[2017-05-22] MEDS: Insulin Reg-MEDIUM-Coverage SC SCH ×4 (04:38→17:02)
[2017-05-22] MEDS: Pantoprazole 40 mg EC Tab PO SCH (05:13)
[2017-05-22] MEDS: Cefepime 1gm in NS 100ml 1 GM/100 ML BAG IVPB SCH ×3 (05:13→21:11)
--- NOTE | 2017-05-22 07:32 | CON ---
DATE: 05/21/2017 LOCATION: The patient in [facility], bed #1. CHIEF COMPLAINT: Lower extremity infection times several days. HISTORY OF PRESENT ILLNESS: This is a 56-year-old male with morbid obesity with a BMI of 52 and history of bilateral lower extremity cellulitis in the past secondary to chronic lymphedema of lower extremities, morbid obesity, hypertension, diabetes, history of Streptococcus pneumoniae bacteremia, and history of learning disability, who is admitted with a diagnosis of cellulitis, renal stones, and hyperglycemia. The patient was seen in the emergency room by Dr. Magno Hernandez and has a history of atrial fibrillation, on Eliquis. The patient is admitted because of the abdominal pain and elevated glucose and a history of congestive heart failure and atrial fibrillation. The patient was found to have low-grade fevers in the emergency room and infectious disease consultation requested. No nausea or vomiting at this point. No chest pain, shortness of breath, or cough. PAST MEDICAL HISTORY: Significant for morbid obesity with a BMI of 52, bilateral lower extremity cellulitis, chronic lymphedema and elephantiasis of the lower extremities, hypertension, diabetes, history of learning disability, history of atrial fibrillation, congestive heart failure, GERD, kidney stones, also history of mental retardation, developmental delay. PAST SURGICAL HISTORY: Significant for vein stripping in 2000. ALLERGIES: THE PATIENT HAS NO KNOWN ALLERGIES. MEDICATIONS AT HOME: Reviewed and include Eliquis, Altace, glipizide, potassium, Neurontin, and metformin. PHYSICAL EXAMINATION VITAL SIGNS: The patient is in bed, appearing comfortable with a temperature of 99.4, pulse of 98, respiratory rate of 20, and blood pressure is 140/80. HEENT: Unremarkable. NECK: Supple. LUNGS: Decreased breath sounds. HEART: Normal S1 and S2. ABDOMEN: Soft and nontender. No rebound or guarding. LABORATORY DATA: Reveals a white count of 14,400; hemoglobin of 14; and platelets of 269. Coagulation is noted. Chemistries reveal the BUN of 20, creatinine of 1.0 and glucose is 306, . Urinalysis reveals negative wbc's and small blood. Imaging reveals the patient had a CAT scan of the abdomen and pelvis which reveals ureteral stones seen on left, a 5 mm distal ureteral stone at the UV junction and a 5 to 6 mm stone in the proximal ureter. There is also left-sided nephrolithiasis. Only 5 to 10 wbc's in the urinalysis are noted. Dr. Magui Ahuja' note is reviewed, chronic lower edema and ulceration. Dr. Tommy Santos' note is reviewed and Dr. Tommy Santos' consultation is reviewed. ASSESSMENT AND PLAN: He is a 56-year-old male with mental retardation, developmentally delayed, and learning disability, with history of morbid obesity with a body mass index of 52 and bilateral lower extremity lymphedema and elephantitis and chronic lymphedema and ulcers and history of hypertension and diabetes mellitus, history of Streptococcus pneumoniae bacteremia, atrial fibrillation, congestive heart failure, and renal stones, admitted now with low-grade fevers and white count of 14,400, with negative blood cultures and negative urine cultures. 1. Systemic inflammatory response syndrome with renal stone and lower extremity ulcers. We will treat the patient with cefepime pending final urine culture and he should have urology evaluation regarding the stones. I will follow closely with you. If all cultures are negative, we will discontinue the antibiotics. Jean-Claude Aviles MD
[2017-05-22 08:18] VITALS: O2SAT 96
[2017-05-22] MEDS: Vancomycin 1gm in NS 250ml 1 GM/250 ML BAG IVPB SCH ×2 (09:55→22:32)
[2017-05-22] MEDS: diltiaZEM 120 mg/24 Hours CD Cap PO SCH (09:56)
[2017-05-22] MEDS: Potassium Chloride 20 mEq ER Tab PO SCH (09:56)
[2017-05-22] MEDS: Clotrimazole/Betamethasone Lotion(30 ml) TOP SCH (09:57)
--- NOTE | 2017-05-22 14:08 | CP.PCM.PN ---
<Magui Ahuja - Last Filed: 05/22/17 14:06> Subjective - Date & Time of Evaluation Date of Evaluation: 05/22/17 Time of Evaluation: 14:06 - Subjective Subjective: Podiatry progress note for Dr. Guerrero 56 year old male was seen today regarding right lower extremity ulcerations and bilateral lower extremity chronic edema. Patient is resting comfortably in bed. Bilateral lower extremity bandages are clean dry and intact. No new complaints at this time. Patient denies any n/v/f/c/sob/cp. Objective - Vital Signs/Intake and Output Vital Signs (last 24 hours): Temp Pulse Resp BP Pulse Ox 97.6 F 70 18 132/55 L 96 05/22/17 08:16 05/22/17 09:56 05/22/17 08:16 05/22/17 09:56 05/22/17 08:16 Intake and Output: 05/22/17 05/22/17 06:59 18:59 Intake Total 240 Output Total 1400 Balance -1160 - Medications Medications: Current Medications Apixaban (Eliquis) 2.5 mg PO BID [facility] PRN Reason: Protocol Last Admin: 05/22/17 09:55 Dose: 2.5 mg Atorvastatin Calcium (Lipitor) 10 mg PO DAILY [facility] Last Admin: 05/22/17 09:55 Dose: 10 mg Betamethasone/Clotrimazole (Lotrisone) 0 ml TOP DAILY [facility] Last Admin: 05/22/17 09:57 Dose: 1 applic Diltiazem HCl (Cardizem Cd) 120 mg PO DAILY [facility] Last Admin: 05/22/17 09:56 Dose: 120 mg Furosemide (Lasix) 20 mg PO DAILY [facility] Last Admin: 05/22/17 09:56 Dose: 20 mg Gabapentin (Neurontin) 400 mg PO TID [facility] PRN Reason: Protocol Last Admin: 05/22/17 13:56 Dose: 400 mg Glipizide (Glucotrol) 10 mg PO BID [facility] Last Admin: 05/22/17 09:56 Dose: 10 mg Cefepime HCl (Maxipime 1gm) 1 gm in 100 mls @ 100 mls/hr IVPB Q8 [facility] PRN Reason: Protocol Last Admin: 05/22/17 13:56 Dose: 100 mls/hr Vancomycin HCl (Vancomycin 1gm) 1 gm in 250 mls @ 167 mls/hr IVPB Q12 [facility] PRN Reason: Protocol Last Admin: 05/22/17 09:55 Dose: 167 mls/hr Insulin Human Regular (Humulin R Med) 0 units SC ACHS [facility] PRN Reason: Protocol Last Admin: 05/22/17 11:55 Dose: 7 units Metformin HCl (Glucophage) 1,000 mg PO BID [facility] Last Admin: 05/22/17 09:55 Dose: 1,000 mg Oxycodone/Acetaminophen (Percocet 5/325 Mg Tab) 1 tab PO Q4H [facility] PRN Reason: Pain, moderate (4-7) Stop: 05/24/17 10:24 Last Admin: 05/21/17 10:50 Dose: 1 tab Pantoprazole Sodium (Protonix Ec Tab) 40 mg PO 0600 [facility] Last Admin: 05/22/17 05:13 Dose: 40 mg Pioglitazone HCl (Actos) 45 mg PO DAILY [facility] Last Admin: 05/22/17 09:55 Dose: 45 mg Potassium Chloride (K-Dur 20 Meq Er Tab) 20 meq PO DAILY [facility] Last Admin: 05/22/17 09:56 Dose: 20 meq Ramipril (Altace) 10 mg PO DAILY [facility] Last Admin: 05/22/17 09:55 Dose: 10 mg - Labs Labs: PT 11.0 Seconds (9.9-11.8) 05/20/17 09:15 INR 1.02 (0.93-1.08) 05/20/17 09:15 APTT 29.8 Seconds (23.7-30.8) 05/20/17 09:15 - Constitutional Appears: Non-toxic, No Acute Distress - Extremities Exam Additional comments: Lower extremity focused exam: VASC: Diffuse edema of bilateral lower extremities. Pedal pulses non-palpable due to edema. Skin temperature warm to warm from proximal to distal b/l NEURO: Gross sensation diminished b/l DERM: Open ulceration noted to right lower extremity measuring approximately 2 cm by 1.5 cm by 0.2 cm with granular base at the lateral aspect of the leg with scant amount of sanguinous drainage, no purulence, no erythema, mild malodor. No open ulcerations noted to the left lower extremity. Skin is diffusely xerotic with hyperpigmentation. Skin changes of chronic edema noted. ORTHO: No tenderness on palpation to the lower extremitie - Neurological Exam Neurological Exam: Alert, Awake, Oriented x3 - Psychiatric Exam Psychiatric exam: Normal Affect, Normal Mood Assessment and Plan - Assessment and Plan (Free Text) Assessment: 56 year old male with diabetes and chronic lower extremity lymphedema with right leg ulceration Plan: Patient examined and evaluated at bedside Discussed with attending Dr. Guerrero chart, labs, vitals reviewed- afebrile,WBC Right leg wound culture pending Lotrisone applied to legs b/l Right LE dressed with xeroform, 4x4, ABD, CEASAR Left LE dressed with CEASAR Patient to continue IV abx per ID Podiatry will continue to follow Pt will f/u in the wound care center after DC <Marin Guerrero - Last Filed: 05/24/17 11:53> Objective - Vital Signs/Intake and Output Vital Signs (last 24 hours): Temp Pulse Resp BP Pulse Ox 98.1 F 69 20 132/68 96 05/23/17 07:34 05/23/17 10:37 05/23/17 07:34 05/23/17 10:38 05/23/17 07:34 - Labs Labs: 05/23/17 08:49 05/23/17 08:49 PT 11.0 Seconds (9.9-11.8) 05/20/17 09:15 INR 1.02 (0.93-1.08) 05/20/17 09:15 APTT 29.8 Seconds (23.7-30.8) 05/20/17 09:15 Attending/Attestation - Attestation I have personally seen and examined this patient.: Yes I have fully participated in the care of the patient.: Yes I have reviewed all pertinent clinical information, including history, physical exam and plan: Yes
--- NOTE | 2017-05-22 14:19 | PN ---
SUBJECTIVE: The patient is in bed, in no acute distress, nontoxic. The patient seen earlier this morning. PHYSICAL EXAMINATION VITAL SIGNS: Temperature is 97, blood pressure is 130/50, respiratory rate of 18. HEENT: Unremarkable. NECK: Supple. LUNGS: Decreased breath sounds. HEART: Normal S1 and S2. ABDOMEN: Soft. LABORATORY DATA: Reveals a white count of 14,400, hemoglobin of 14, and creatinine is 1.0. Urinalysis is noted and microbiology reveals blood cultures are negative. Urine cultures have no growth and review of medication reveals the patient to be on vancomycin and cefepime. ASSESSMENT AND PLAN: A 56-year-old morbidly obese male with history of bilateral lower extremity cellulitis secondary to chronic lymphedema of the lower extremities and elephantitis and morbid obesity with BMI of 52, history of learning disability, mental retardation, and presenting with systemic inflammatory response syndrome and bilateral lower extremity ulcers. We will continue the present course pending pancultures and clinical response and this patient with CAT scan finding of the abdomen and pelvis since the patient was initially admitted with abdominal pain reveals kidney stones on CAT scan. We will follow with you. Jean-Claude Aviles MD
--- NOTE | 2017-05-22 23:43 | PN ---
DATE: SUBJECTIVE: The patient is 56 years old, seen and examined, sitting in chair, enjoying his lunch. The patient had complained of left flank pain and he passed a small stone last night. PHYSICAL EXAMINATION: VITAL SIGNS: The patient is afebrile, pulse 70, respiration 18, blood pressure 132/55. LUNGS: Bilateral fair airflow. No rhonchi or crackles. HEART: S1 and S2 audible. ABDOMEN: Soft, obese, nontender. No rebound, no guarding. NEUROLOGIC: He is awake, alert and able to communicate. EXTREMITIES: Bilateral legs, he has scaly, crusty ulcers and chronic stasis dermatitis. LABORATORY DATA: Blood sugar 301. Blood cultures and urine cultures are negative. ASSESSMENT AND PLAN: 1. Left nephrolithiasis, doubt gallstone, he seems to be comfortable now. 2. Morbid obesity. 3. Bilateral chronic venous stasis dermatitis and chronic ulcers. 4. Hypertension. 5. Mentally challenged. CAT scan showed 5 mm stone in the proximal ureter that he has passed already. So, plan is currently, the patient is on his oral hypoglycemics. He is on Eliquis. He is on cefepime, analgesic as needed. *------* will follow up this patient in a.m. Maria uHnt MD
[2017-05-23] MEDS: Pantoprazole 40 mg EC Tab PO SCH (05:18)
[2017-05-23] MEDS: Cefepime 1gm in NS 100ml 1 GM/100 ML BAG IVPB SCH ×2 (05:18→14:00)
[2017-05-23] MEDS: Insulin Reg-MEDIUM-Coverage SC SCH ×4 (05:19→11:48)
[2017-05-23 07:34] VITALS: BP 132/68; PULSE 69; RESP 20; TEMP 98.1
[2017-05-23 08:52] LABS: BASO # 0.02 K/mm3 (0.0-2.0); BASO % 0.2 % (0.0-3.0); EOS # 0.3 (0.0-0.7); EOS % 3.9 % (1.5-5.0); GRAN # 6.32 (1.4-6.5); GRAN % 74.9 % (50.0-68.0); HEMATOCRIT 40.6 % (42.0-52.0); LYMPH # 1.1 (1.2-3.4); LYMPH % 12.5 % (22.0-35.0); MEAN CELL VOLUME 90.2 fl (80.0-105.0); MEAN CORPUSCULAR HEMOGLOBIN 29.3 pg (25.0-35.0); MEAN CORPUSCULAR HGB CONC 32.5 g/dl (31.0-37.0); MEAN PLATELET VOLUME 9.6 fl (7.0-11.0); MONO # 0.7 (0.1-0.6); MONO % 8.5 % (1.0-6.0); WHITE BLOOD COUNT 8.5 10^3/ul (4.5-11.0)
[2017-05-23 09:05] LABS: ALB/GLOB RATIO 1.1 (1.1-1.8); ALKALINE PHOSPHATASE 104 U/L (38-133); ALT/SGPT 36 U/L (7-56); AST/SGOT 23 U/L (15-59); BILIRUBIN,TOTAL 0.5 mg/dL (0.2-1.3); BLOOD UREA NITROGEN 15 mg/dL (7-21); CALCIUM 9.2 mg/dL (8.4-10.5); CARBON DIOXIDE 26 mmol/L (21-33); CHLORIDE 101 mmol/L (98-107); GFR AFRICAN-AMERICAN > 60; GLUCOSE,RANDOM 232 mg/dL (70-110); POTASSIUM 4.6 mmol/L (3.6-5.0); SODIUM 138 mmol/L (132-148); TOTAL PROTEIN 6.8 g/dL (5.8-8.3)
--- NOTE | 2017-05-23 10:19 | CP.PCM.PN ---
<MedranoFelipe - Last Filed: 05/23/17 10:12> Subjective - Date & Time of Evaluation Date of Evaluation: 05/23/17 Time of Evaluation: 10:12 - Subjective Subjective: Podiatry progress note for Dr. Horta 56 year old male was seen today regarding ulcerations to right anterior leg and chronic bilateral lower extremity edema. Patient is resting comfortably in bed. Bilateral lower extremity bandages are clean dry and intact. No new complaints at this time. Patient denies any n/v/f/c/sob/cp. Objective - Vital Signs/Intake and Output Vital Signs (last 24 hours): Temp Pulse Resp BP Pulse Ox 98.1 F 69 20 132/68 96 05/23/17 07:34 05/23/17 07:34 05/23/17 07:34 05/23/17 07:34 05/23/17 07:34 Intake and Output: 05/23/17 05/23/17 06:59 18:59 Intake Total 360 Output Total 1600 Balance -1240 - Medications Medications: Current Medications Apixaban (Eliquis) 2.5 mg PO BID [facility] PRN Reason: Protocol Last Admin: 05/22/17 18:10 Dose: 2.5 mg Atorvastatin Calcium (Lipitor) 10 mg PO DAILY [facility] Last Admin: 05/22/17 09:55 Dose: 10 mg Betamethasone/Clotrimazole (Lotrisone) 0 ml TOP DAILY [facility] Last Admin: 05/22/17 09:57 Dose: 1 applic Diltiazem HCl (Cardizem Cd) 120 mg PO DAILY [facility] Last Admin: 05/22/17 09:56 Dose: 120 mg Furosemide (Lasix) 20 mg PO DAILY [facility] Last Admin: 05/22/17 09:56 Dose: 20 mg Gabapentin (Neurontin) 400 mg PO TID [facility] PRN Reason: Protocol Last Admin: 05/22/17 18:09 Dose: 400 mg Glipizide (Glucotrol) 10 mg PO BID [facility] Last Admin: 05/22/17 18:10 Dose: 10 mg Cefepime HCl (Maxipime 1gm) 1 gm in 100 mls @ 100 mls/hr IVPB Q8 [facility] PRN Reason: Protocol Last Admin: 05/23/17 05:18 Dose: 100 mls/hr Vancomycin HCl (Vancomycin 1gm) 1 gm in 250 mls @ 167 mls/hr IVPB Q12 [facility] PRN Reason: Protocol Last Admin: 05/22/17 22:32 Dose: 167 mls/hr Insulin Human Regular (Humulin R Med) 0 units SC ACHS [facility] PRN Reason: Protocol Last Admin: 05/23/17 08:13 Dose: 1 units Metformin HCl (Glucophage) 1,000 mg PO BID [facility] Last Admin: 05/22/17 18:10 Dose: 1,000 mg Oxycodone/Acetaminophen (Percocet 5/325 Mg Tab) 1 tab PO Q4H PRN PRN Reason: Pain, moderate (4-7) Stop: 05/24/17 10:24 Last Admin: 05/21/17 10:50 Dose: 1 tab Pantoprazole Sodium (Protonix Ec Tab) 40 mg PO 0600 [facility] Last Admin: 05/23/17 05:18 Dose: 40 mg Pioglitazone HCl (Actos) 45 mg PO DAILY [facility] Last Admin: 05/22/17 09:55 Dose: 45 mg Potassium Chloride (K-Dur 20 Meq Er Tab) 20 meq PO DAILY [facility] Last Admin: 05/22/17 09:56 Dose: 20 meq Ramipril (Altace) 10 mg PO DAILY [facility] Last Admin: 05/22/17 09:55 Dose: 10 mg - Labs Labs: 05/23/17 08:49 05/23/17 08:49 PT 11.0 Seconds (9.9-11.8) 05/20/17 09:15 INR 1.02 (0.93-1.08) 05/20/17 09:15 APTT 29.8 Seconds (23.7-30.8) 05/20/17 09:15 - Constitutional Appears: Well, Non-toxic, No Acute Distress - Extremities Exam Additional comments: Right Lower extremity focused exam: DERM: Open ulceration noted to right lower extremity measuring approximately 2 cm by 1.5 cm by 0.2 cm with granular base at the anterior aspect of the leg with scant amount of sanguinous drainage, no purulence, no erythema, mild malodor. No sign of acute infection is noted No open ulcerations noted to the left lower extremity. Skin is diffusely xerotic with hyperpigmentation. Skin changes of chronic edema noted. VASC: Diffuse edema of bilateral lower extremities. Pedal pulses non-palpable due to edema. Skin temperature warm to warm from proximal to distal b/l NEURO: Gross sensation diminished b/l ORTHO: No tenderness on palpation to the lower extremities - Neurological Exam Neurological Exam: Alert, Awake, Oriented x3 - Psychiatric Exam Psychiatric exam: Normal Affect, Normal Mood - Skin Skin Exam: Normal Color, Warm Assessment and Plan - Assessment and Plan (Free Text) Assessment: 56 year old male with diabetes and chronic lower extremity lymphedema with right leg ulceration Plan: Patient examined and evaluated at bedside Discussed with attending Dr. Horta chart, labs, vitals reviewed- afebrile, no leukocytosis Right leg wound culture; Gram (-) Rolando, Gram (+) Cocci Preliminary Lotrisone applied to legs b/l Right LE dressed with xeroform, 4x4, ABD, CEASAR Left LE dressed with CEASAR Patient to continue IV abx per ID Podiatry will continue to follow Pt will f/u in the wound care center after DC <Brittney Horta - Last Filed: 06/05/17 19:24> Objective - Vital Signs/Intake and Output Vital Signs (last 24 hours): Temp Pulse Resp BP Pulse Ox 98.1 F 69 20 132/68 96 05/23/17 07:34 05/23/17 10:37 05/23/17 07:34 05/23/17 10:38 05/23/17 07:34 - Labs Labs: 05/23/17 08:49 05/23/17 08:49 PT 11.0 Seconds (9.9-11.8) 05/20/17 09:15 INR 1.02 (0.93-1.08) 05/20/17 09:15 APTT 29.8 Seconds (23.7-30.8) 05/20/17 09:15 Attending/Attestation - Attestation I have personally seen and examined this patient.: Yes I have fully participated in the care of the patient.: Yes I have reviewed all pertinent clinical information, including history, physical exam and plan: Yes
[2017-05-23] MEDS: diltiaZEM 120 mg/24 Hours CD Cap PO SCH (10:37)
[2017-05-23] MEDS: Potassium Chloride 20 mEq ER Tab PO SCH (10:39)
[2017-05-23] MEDS: Clotrimazole/Betamethasone Lotion(30 ml) TOP SCH (10:40)
[2017-05-23] MEDS: Vancomycin 1gm in NS 250ml 1 GM/250 ML BAG IVPB SCH (10:40)
--- NOTE | 2017-05-23 14:16 | CP.PCM.PN ---
Subjective - Date & Time of Evaluation Date of Evaluation: 05/23/17 Time of Evaluation: 11:35 - Subjective Subjective: Comfortable on a chair, not in distress, afebrile. Objective - Vital Signs/Intake and Output Vital Signs (last 24 hours): Temp Pulse Resp BP Pulse Ox 98.1 F 69 20 132/68 96 05/23/17 07:34 05/23/17 07:34 05/23/17 07:34 05/23/17 07:34 05/23/17 07:34 Intake and Output: 05/23/17 05/23/17 06:59 18:59 Intake Total 360 Output Total 1600 Balance -1240 - Medications Medications: Current Medications Apixaban (Eliquis) 2.5 mg PO BID [facility] PRN Reason: Protocol Last Admin: 05/22/17 18:10 Dose: 2.5 mg Atorvastatin Calcium (Lipitor) 10 mg PO DAILY [facility] Last Admin: 05/22/17 09:55 Dose: 10 mg Betamethasone/Clotrimazole (Lotrisone) 0 ml TOP DAILY [facility] Last Admin: 05/22/17 09:57 Dose: 1 applic Diltiazem HCl (Cardizem Cd) 120 mg PO DAILY [facility] Last Admin: 05/22/17 09:56 Dose: 120 mg Furosemide (Lasix) 20 mg PO DAILY [facility] Last Admin: 05/22/17 09:56 Dose: 20 mg Gabapentin (Neurontin) 400 mg PO TID [facility] PRN Reason: Protocol Last Admin: 05/22/17 18:09 Dose: 400 mg Glipizide (Glucotrol) 10 mg PO BID [facility] Last Admin: 05/22/17 18:10 Dose: 10 mg Cefepime HCl (Maxipime 1gm) 1 gm in 100 mls @ 100 mls/hr IVPB Q8 [facility] PRN Reason: Protocol Last Admin: 05/23/17 05:18 Dose: 100 mls/hr Vancomycin HCl (Vancomycin 1gm) 1 gm in 250 mls @ 167 mls/hr IVPB Q12 [facility] PRN Reason: Protocol Last Admin: 05/22/17 22:32 Dose: 167 mls/hr Insulin Human Regular (Humulin R Med) 0 units SC ACHS [facility] PRN Reason: Protocol Last Admin: 05/23/17 08:13 Dose: 1 units Metformin HCl (Glucophage) 1,000 mg PO BID [facility] Last Admin: 05/22/17 18:10 Dose: 1,000 mg Oxycodone/Acetaminophen (Percocet 5/325 Mg Tab) 1 tab PO Q4H PRN PRN Reason: Pain, moderate (4-7) Stop: 05/24/17 10:24 Last Admin: 05/21/17 10:50 Dose: 1 tab Pantoprazole Sodium (Protonix Ec Tab) 40 mg PO 0600 [facility] Last Admin: 05/23/17 05:18 Dose: 40 mg Pioglitazone HCl (Actos) 45 mg PO DAILY [facility] Last Admin: 05/22/17 09:55 Dose: 45 mg Potassium Chloride (K-Dur 20 Meq Er Tab) 20 meq PO DAILY [facility] Last Admin: 05/22/17 09:56 Dose: 20 meq Ramipril (Altace) 10 mg PO DAILY [facility] Last Admin: 05/22/17 09:55 Dose: 10 mg - Labs Labs: 05/23/17 08:49 05/23/17 08:49 PT 11.0 Seconds (9.9-11.8) 05/20/17 09:15 INR 1.02 (0.93-1.08) 05/20/17 09:15 APTT 29.8 Seconds (23.7-30.8) 05/20/17 09:15 - Constitutional Appears: Non-toxic, No Acute Distress - Head Exam Head Exam: NORMAL INSPECTION - ENT Exam ENT Exam: Mucous Membranes Moist - Neck Exam Neck Exam: absent: Meningismus - Respiratory Exam Respiratory Exam: Decreased Breath Sounds - Cardiovascular Exam Cardiovascular Exam: +S1, +S2 - GI/Abdominal Exam GI & Abdominal Exam: Soft. absent: Tenderness - Extremities Exam Additional comments: both lower extremities with bandages in place Assessment and Plan - Assessment and Plan (Free Text) Plan: Assessment consider right leg skin and skin structure infection associated with chronic leg ulcers, growing gram positive cocci and gram negative bacilli history of sepsis secondary to right leg skin/skin structure infection with chronic leg ulcers, growing MRSA and sensitive Klebsiella history of MRSA cellulitis Jun. 2015 history of Bilateral lower extremity skin and skin structure infection ( Enterobacter, Klebsiella Oxytoca and Group B Strep, as well as MRSA) which was treated 06/2015; MRSA and Pseudomonas cellulitis of left leg in Sep 2015, January and March 2016 chronic lymphedema of the lower extremities Morbid obesity with BMI 55 HTN DM history of Strep bacteremia history of hernia surgery Learning disability Plan continue Vancomycin and Cefepime (day 3) pending identification and sensitivities of the gram positive cocci and gram negative bacilli in the wound cx will monitor clinically
--- NOTE | 2017-05-24 06:45 | PN ---
HISTORY OF PRESENT ILLNESS: The patient is a 56-year-old male, who came into the hospital because of cellulitis in the legs. He also was found to have left nephrolithiasis. He had passed his renal stone according to the patient's nurse. He has no complaints of any chest pain or shortness of breath. He has no headaches or dizziness. No nausea, no vomiting. PHYSICAL EXAMINATION: VITAL SIGNS: Temperature is 98.1, pulse is 69, blood pressure 132/60, respirations 20, and O2 saturations 96%. GENERAL: The patient is lying in bed, flat, comfortable. HEENT: No oral lesion. Anicteric sclerae. Moist mucosa. NECK: No JVD, adenopathy, or thyromegaly. CARDIOVASCULAR: S1 and S2, regular. No murmurs, rubs, or gallops. LUNGS: Clear to auscultation bilaterally. No wheeze, rales, or rhonchi. ABDOMEN: Bowel sounds are positive, soft, nontender and nondistended. EXTREMITIES: Right lower extremity, bilateral chronic skin changes. ASSESSMENT: 1. Left ureteral stone 5 mm. 2. Hypertension. 3. Morbid obesity with a BMI of 40. 4. Atrial fibrillation, on anticoagulation. 5. Dyslipidemia. 6. Diabetes type 2. PLAN: The patient is on Actos for his diabetes, this will be continued. He is on Altace for his hypertension. He is on Eliquis for his anticoagulation. The patient is on metformin for his diabetes as well. He is receiving Lasix daily. The patient is on Neurontin for neuropathy. He is on Protonix for pain. He is receiving antibiotics with vancomycin by infectious disease. We will have to see if the patient qualifies for the transitional care unit. Winston Streeter MD
--- NOTE | 2017-06-08 02:37 | DS ---
DATE OF SERVICE: 06/07/2017 NOTE: This is a 56-year-old male who had left ureteral stone. It was 5 mm. He was also found to have lower extremity cellulitis. He was treated with IV antibiotics. He had improvement of his symptoms. He had passed. Please see the note dictated on 05/24/2017 for details. Winston Streeter MD
== END 2017-05-23 16:15 | DRG 694 ==
LOC: ED 08:15 → ERH 10:28 → 5RNO 11:42
PROVIDERS: ADMIT Internal Medicine Nephrology; ATTEND Internal Medicine Nephrology
DX: N20.2 Calculus of kidney with calculus of ureter (principal); R65.10 Systemic inflammatory response syndrome (SIRS) of non-infectious origin without acute organ dysfunction; I13.0 Hypertensive heart and chronic kidney disease with heart failure and stage 1 through stage 4 chronic kidney disease, or unspecified chronic kidney disease; E11.22 Type 2 diabetes mellitus with diabetic chronic kidney disease; Z68.43 Body mass index [BMI] 50.0-59.9, adult; E11.40 Type 2 diabetes mellitus with diabetic neuropathy, unspecified; I50.9 Heart failure, unspecified; L03.115 Cellulitis of right lower limb; L03.116 Cellulitis of left lower limb; L97.829 Non-pressure chronic ulcer of other part of left lower leg with unspecified severity; L97.919 Non-pressure chronic ulcer of unspecified part of right lower leg with unspecified severity; E11.622 Type 2 diabetes mellitus with other skin ulcer; N18.9 Chronic kidney disease, unspecified; E11.65 Type 2 diabetes mellitus with hyperglycemia; I89.0 Lymphedema, not elsewhere classified; I87.8 Other specified disorders of veins; E66.01 Morbid (severe) obesity due to excess calories; F81.9 Developmental disorder of scholastic skills, unspecified; I48.2 Chronic atrial fibrillation; F79 Unspecified intellectual disabilities; F32.9 Major depressive disorder, single episode, unspecified; B95.62 Methicillin resistant Staphylococcus aureus infection as the cause of diseases classified elsewhere; B96.89 Other specified bacterial agents as the cause of diseases classified elsewhere; E78.5 Hyperlipidemia, unspecified; Z79.4 Long term (current) use of insulin; Z79.01 Long term (current) use of anticoagulants; Z87.440 Personal history of urinary (tract) infections

== ENCOUNTER 2017-05-23 16:21 | Inpatient (IN) | payer MEDICAID, OTHER ==
[2017-05-23] MEDS ORDERED: Oxycodone/Acetaminophen 5/325 mg Tab PO PRN (16:48)
[2017-05-23] MEDS: Vancomycin 1gm in NS 250ml 1 GM/250 ML BAG IVPB SCH (18:00)
[2017-05-23] MEDS: Clotrimazole/Betamethasone Cream(15 gm) TOP SCH (18:10)
[2017-05-23] MEDS: Insulin Reg-MEDIUM-Coverage SC SCH (22:22)
[2017-05-23] MEDS: Cefepime 1gm in NS 100ml 1 GM/100 ML BAG IVPB SCH (22:24)
[2017-05-23] MEDS ORDERED: Pneumococcal 23-Valent Vaccine IM ONE (22:41)
[2017-05-24] MEDS: Vancomycin 1gm in NS 250ml 1 GM/250 ML BAG IVPB SCH ×2 (04:38→17:56)
[2017-05-24] MEDS: Pantoprazole 40 mg EC Tab PO SCH (06:13)
[2017-05-24] MEDS: Cefepime 1gm in NS 100ml 1 GM/100 ML BAG IVPB SCH ×3 (06:14→22:38)
--- NOTE | 2017-05-24 06:58 | PN ---
DATE: 05/24/2017 SUBJECTIVE: The patient has no complaints of any chest pain, shortness of breath, headaches or dizziness. PHYSICAL EXAMINATION VITAL SIGNS: Temperature is 98.1, pulse is 75, blood pressure 110/60 and respirations 18. GENERAL: The patient is lying in bed, flat, comfortable. HEENT: No oral lesion. Anicteric sclerae. Moist mucosa. NECK: No JVD, adenopathy, or thyromegaly. CARDIOVASCULAR: S1 and S2, regular. No murmurs, rubs, or gallops. LUNGS: Clear to auscultation bilaterally. No wheeze, rales, or rhonchi. ABDOMEN: Bowel sounds are positive, soft, nontender and nondistended. EXTREMITIES: Chronic lower extremity skin changes. ASSESSMENT: 1. Nephrolithiasis. 2. Cellulitis. 3. Obesity with a BMI of 40. 4. Atrial fibrillation, on anticoagulation. 5. Hypertension. 6. Dyslipidemia. PLAN: The patient is currently comfortable. He has been brought into the transitional care unit for rehab as well as for IV antibiotics. He is on Actos for his diabetes. We want to continue the Eliquis for his anticoagulation. The patient is on metformin for his diabetes as well as Glucotrol. He is on Lipitor for his dyslipidemia. He is on antibiotics, cefepime and vancomycin. He is on heart-healthy diet. I did review the initial H and P and I do agree with it. Winston Streeter MD
[2017-05-24] MEDS: Insulin Reg-MEDIUM-Coverage SC SCH ×4 (07:20→22:38)
[2017-05-24] MEDS: diltiaZEM 120 mg/24 Hours CD Cap PO SCH (09:44)
[2017-05-24] MEDS: Potassium Chloride 20 mEq ER Tab PO SCH (09:46)
[2017-05-24] MEDS: Clotrimazole/Betamethasone Cream(15 gm) TOP SCH ×2 (09:47→19:00)
[2017-05-24] MEDS ORDERED: DILTIAZEM HCL 120 MG PO SCH (10:00)
[2017-05-24] MEDS: VIT C PO SCH (11:02)
[2017-05-24] MEDS: FERROUS FUM PO SCH (11:02)
[2017-05-24] MEDS: B12 PO SCH (11:02)
[2017-05-24] MEDS: [UNRECOGNIZED DRUG - OTHER] PO SCH (11:02)
--- NOTE | 2017-05-24 12:07 | CP.PCM.CON ---
History of Present Illness - History of Present Illness History of Present Illness: 56 year old male with PMH of right leg skin/skin structure infection with chronic leg ulcers, growing MRSA and sensitive Klebsiella in 2015, Bilateral lower extremity skin and skin structure infection (Enterobacter, Klebsiella Oxytoca and Group B Strep, as well as MRSA) which was treated 06/2015; MRSA and Pseudomonas cellulitis of left leg in Sep 2015, January and March 2016, and MRSA cellulitis in 2015, chronic lymphedema of the lower extremities, Morbid obesity with BMI 53, HTN, DM, history of Strep bacteremia, history of hernia surgery, Learning disability was initially admitted in [facility] because of leg swelling and oozing ulcers. He is being treated for right leg cellulitis and infected ulcers. He is doing well and is now transferred to [facility] [[email or web address] for continued medical therapy and physical rehab. Infectious Diseases consult is requested to continue his antibiotics. Review of Systems - Review of Systems Systems not reviewed;Unavailable: Other (learning disability) Past Patient History - Infectious Disease Hx of Infectious Diseases: None, MRSA - Tetanus Immunizations Tetanus Immunization: Unknown - Past Medical History & Family History Past Medical History?: Yes - Past Social History Smoking Status: Former Smoker - CARDIAC Hx Cardiac Disorders: Yes (Afib) Hx Congestive Heart Failure: Yes Hx Hypertension: Yes - PULMONARY Hx Chronic Obstructive Pulmonary Disease (COPD): No - NEUROLOGICAL Other/Comment: Epilepsy - HEENT Hx HEENT Problems: Yes Other/Comment: wears glasses - RENAL Hx Renal Failure: No - ENDOCRINE/METABOLIC Hx Diabetes Mellitus Type 2: Yes - HEMATOLOGICAL/ONCOLOGICAL Hx Blood Disorders: No Hx AIDS: No Hx Anemia: No Hx Cancer: No Hx Chemotherapy: No Hx Cirrhosis: No Hx Hepatitis A: No Hx Hepatitis B: No Hx Hepatitis C: No Hx Metastesis: No Hx Shingles: No Hx Unexplained Bleeding: No Other/Comment: blood infection - INTEGUMENTARY Hx Dermatological Problems: Yes Hx Basil Cell: No Hx Eczema: No Hx Melanoma: No Hx Psoriasis: No Hx Squamous Cell: No Other/Comment: multiple wounds on the rt leg, cellulitis in b/l extreminity. 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 - SURGICAL HISTORY Hx Amputation: No Hx Appendectomy: No Hx Cholecystectomy: No Hx Gastric Bypass Surgery: No Hx Hysterectomy: No Hx Joint Replacement: No Hx Kidney Transplant: No Hx Liver Transplant: No Hx Mastectomy: No Hx Musculoskeletal Surgery: No Hx Open Heart Surgery: No Hx Orthopedic Surgery: No Hx Splenectomy: No Hx Valve Replacement: No - ANESTHESIA Hx Anesthesia: Yes Hx Anesthesia Reactions: No Hx Malignant Hyperthermia: No Meds Allergies/Adverse Reactions: Allergies Allergy/AdvReac Type Severity Reaction Status Date / Time No Known Allergies Allergy Verified 05/23/17 16:25 - Medications Medications: Current Medications Apixaban (Eliquis) 2.5 mg PO BID [facility] PRN Reason: Protocol Last Admin: 05/23/17 18:09 Dose: 2.5 mg Atorvastatin Calcium (Lipitor) 10 mg PO DAILY [facility] PRN Reason: Protocol Betamethasone/Clotrimazole (Lotrisone) 0 gm TOP BID [facility] PRN Reason: Protocol Last Admin: 05/23/17 18:10 Dose: 1 dose Diltiazem HCl (Cardizem Cd) 120 mg PO DAILY [facility] Furosemide (Lasix) 20 mg PO DAILY [facility] PRN Reason: Protocol Gabapentin (Neurontin) 400 mg PO TID [facility] PRN Reason: Protocol Last Admin: 05/23/17 18:11 Dose: 400 mg Glipizide (Glucotrol) 10 mg PO BID [facility] PRN Reason: Protocol Last Admin: 05/23/17 18:10 Dose: 10 mg Cefepime HCl (Maxipime 1gm) 1 gm in 100 mls @ 100 mls/hr IVPB Q8 [facility] PRN Reason: Protocol Vancomycin HCl (Vancomycin 1gm) 1 gm in 250 mls @ 167 mls/hr IVPB Q12H [facility] PRN Reason: Protocol Last Admin: 05/23/17 18:00 Dose: 167 mls/hr Insulin Human Regular (Humulin R Med) 0 units SC ACHS [facility] PRN Reason: Protocol Metformin HCl (Glucophage) 1,000 mg PO BID [facility] PRN Reason: Protocol Last Admin: 05/23/17 18:09 Dose: 1,000 mg Non-Formulary Medication (Ferrous Fum/Vit C/B12/Stomc [Hematogen Softgel]) 1 cap PO DAILY [facility] Oxycodone/Acetaminophen (Percocet 5/325 Mg Tab) 1 tab PO Q4H PRN; Protocol PRN Reason: Pain, moderate (4-7) Stop: 05/26/17 16:49 Pantoprazole Sodium (Protonix Ec Tab) 40 mg PO 0600 [facility] PRN Reason: Protocol Pioglitazone HCl (Actos) 45 mg PO DAILY [facility] PRN Reason: Protocol Potassium Chloride (K-Dur 20 Meq Er Tab) 20 meq PO DAILY [facility] PRN Reason: Protocol Ramipril (Altace) 10 mg PO DAILY [facility] PRN Reason: Protocol Physical Exam - Constitutional Appears: Non-toxic, No Acute Distress - Head Exam Head Exam: NORMAL INSPECTION - ENT Exam ENT Exam: Mucous Membranes Moist - Neck Exam Neck exam: Negative for: Meningismus - Respiratory Exam Respiratory Exam: Decreased Breath Sounds. absent: Rales - Cardiovascular Exam Cardiovascular Exam: +S1, +S2 - GI/Abdominal Exam GI & Abdominal Exam: Soft. absent: Tenderness - Extremities Exam Additional comments: both legs with dressings and bandages in place Assessment & Plan - Assessment and Plan (Free Text) Plan: Assessment consider right leg skin and skin structure infection associated with chronic leg ulcers, growing gram positive cocci and gram negative bacilli history of sepsis secondary to right leg skin/skin structure infection with chronic leg ulcers, growing MRSA and sensitive Klebsiella history of MRSA cellulitis 2015 history of Bilateral lower extremity skin and skin structure infection ( Enterobacter, Klebsiella Oxytoca and Group B Strep, as well as MRSA) which was treated 06/2015; MRSA and Pseudomonas cellulitis of left leg in Sep 2015, January and March 2016 chronic lymphedema of the lower extremities Morbid obesity with BMI 55 HTN DM history of Strep bacteremia history of hernia surgery Learning disability Plan continue Vancomycin and Cefepime (day 4) pending identification and sensitivities of the gram positive cocci and gram negative bacilli in the wound cx will continue to monitor clinically
--- NOTE | 2017-05-24 13:20 | CP.PCM.PN ---
<Felipe Medrano - Last Filed: 05/24/17 13:16> Subjective - Date & Time of Evaluation Date of Evaluation: 05/24/17 Time of Evaluation: 13:16 - Subjective Subjective: 56 year old male was seen this morning concerning ulcerations to right anterior leg and chronic bilateral lower extremity edema. Patient is resting comfortably in chair. Bilateral lower extremity bandages are clean dry and intact. No new complaints at this time. Patient denies any n/v/f/c/sob/cp. Objective - Vital Signs/Intake and Output Vital Signs (last 24 hours): Temp Pulse Resp BP Pulse Ox 98.3 F 73 20 128/70 97 05/24/17 10:24 05/24/17 10:24 05/24/17 10:24 05/24/17 10:24 05/24/17 10:24 - Medications Medications: Current Medications Apixaban (Eliquis) 2.5 mg PO BID [facility] PRN Reason: Protocol Last Admin: 05/24/17 09:42 Dose: 2.5 mg Atorvastatin Calcium (Lipitor) 10 mg PO DAILY [facility] PRN Reason: Protocol Last Admin: 05/24/17 09:48 Dose: 10 mg Betamethasone/Clotrimazole (Lotrisone) 0 gm TOP BID [facility] PRN Reason: Protocol Last Admin: 05/24/17 09:47 Dose: 1 dose Diltiazem HCl (Cardizem Cd) 120 mg PO DAILY [facility] Last Admin: 05/24/17 09:44 Dose: 120 mg Furosemide (Lasix) 20 mg PO DAILY [facility] PRN Reason: Protocol Last Admin: 05/24/17 09:47 Dose: 20 mg Gabapentin (Neurontin) 400 mg PO TID [facility] PRN Reason: Protocol Last Admin: 05/24/17 09:48 Dose: 400 mg Glipizide (Glucotrol) 10 mg PO BID [facility] PRN Reason: Protocol Last Admin: 05/24/17 09:45 Dose: 10 mg Cefepime HCl (Maxipime 1gm) 1 gm in 100 mls @ 100 mls/hr IVPB Q8 [facility] PRN Reason: Protocol Last Admin: 05/24/17 06:14 Dose: 100 mls/hr Vancomycin HCl (Vancomycin 1gm) 1 gm in 250 mls @ 167 mls/hr IVPB Q12H [facility] PRN Reason: Protocol Last Admin: 05/24/17 04:38 Dose: 167 mls/hr Insulin Human Regular (Humulin R Med) 0 units SC ACHS [facility] PRN Reason: Protocol Last Admin: 05/24/17 12:49 Dose: 5 units Metformin HCl (Glucophage) 1,000 mg PO BID [facility] PRN Reason: Protocol Last Admin: 05/24/17 09:45 Dose: 1,000 mg Non-Formulary Medication (Ferrous Fum/Vit C/B12/Stomc [Hematogen Softgel]) 1 cap PO DAILY [facility] Last Admin: 05/24/17 11:02 Dose: Not Given Oxycodone/Acetaminophen (Percocet 5/325 Mg Tab) 1 tab PO Q4H PRN; Protocol PRN Reason: Pain, moderate (4-7) Stop: 05/26/17 16:49 Pantoprazole Sodium (Protonix Ec Tab) 40 mg PO 0600 [facility] PRN Reason: Protocol Last Admin: 05/24/17 06:13 Dose: 40 mg Pioglitazone HCl (Actos) 45 mg PO DAILY [facility] PRN Reason: Protocol Last Admin: 05/24/17 09:41 Dose: 45 mg Potassium Chloride (K-Dur 20 Meq Er Tab) 20 meq PO DAILY [facility] PRN Reason: Protocol Last Admin: 05/24/17 09:46 Dose: 20 meq Ramipril (Altace) 10 mg PO DAILY [facility] PRN Reason: Protocol Last Admin: 05/24/17 09:43 Dose: 10 mg - Constitutional Appears: Well, Non-toxic - Head Exam Head Exam: ATRAUMATIC - Extremities Exam Additional comments: Right Lower extremity focused exam: DERM: Open ulceration noted to right lower extremity measuring approximately 2 cm by 1.5 cm by 0.1 cm with granular base at the anterior aspect of the leg with scant amount of sanguinous drainage, no purulence, no erythema, mild malodor. No sign of acute infection is noted No open ulcerations noted to the left lower extremity. Skin is diffusely xerotic with hyperpigmentation. Skin changes of chronic edema noted. VASC: Diffuse edema of bilateral lower extremities. Pedal pulses non-palpable due to edema. Skin temperature warm to warm from proximal to distal b/l NEURO: Gross sensation diminished b/l ORTHO: No tenderness on palpation to the lower extremities - Neurological Exam Neurological Exam: Alert, Awake - Psychiatric Exam Psychiatric exam: Normal Affect, Normal Mood - Skin Skin Exam: Normal Color, Warm Assessment and Plan - Assessment and Plan (Free Text) Assessment: 56 year old diabetic male patient with right leg ulceration and chronic lower extremity lymphedema bilaterally Plan: Patient examined and evaluated at bedside Discussed with attending Dr. Guerrero chart, labs, vitals reviewed- afebrile, no leukocytosis Right leg WCX: MRSA Left leg WCX: MRSA, Klebsiella Lotrisone applied to legs b/l Right LE dressed with xeroform, 4x4, ABD, CEASAR Left LE dressed with CEASAR Patient to continue IV abx per ID Podiatry will continue to follow Pt will f/u in the wound care center after DC <Marin Guerrero - Last Filed: 05/27/17 12:06> Objective - Vital Signs/Intake and Output Vital Signs (last 24 hours): Temp Pulse Resp BP Pulse Ox 98.2 F 72 20 154/78 H 95 05/27/17 11:10 05/27/17 11:10 05/27/17 11:10 05/27/17 11:10 05/27/17 11:10 - Medications Medications: Current Medications Apixaban (Eliquis) 2.5 mg PO BID [facility] PRN Reason: Protocol Last Admin: 05/27/17 10:12 Dose: 2.5 mg Atorvastatin Calcium (Lipitor) 10 mg PO DAILY [facility] PRN Reason: Protocol Last Admin: 05/27/17 10:13 Dose: 10 mg Betamethasone/Clotrimazole (Lotrisone) 0 gm TOP BID [facility] PRN Reason: Protocol Last Admin: 05/27/17 10:13 Dose: 1 applic Diltiazem HCl (Cardizem Cd) 120 mg PO DAILY [facility] Last Admin: 05/27/17 10:11 Dose: 120 mg Furosemide (Lasix) 20 mg PO DAILY [facility] PRN Reason: Protocol Last Admin: 05/27/17 10:13 Dose: 20 mg Gabapentin (Neurontin) 400 mg PO TID [facility] PRN Reason: Protocol Last Admin: 05/27/17 10:10 Dose: 400 mg Glipizide (Glucotrol) 10 mg PO BID [facility] PRN Reason: Protocol Last Admin: 05/27/17 10:12 Dose: 10 mg Vancomycin HCl 1.5 gm/ Sodium (Chloride) 250 mls @ 167 mls/hr IVPB Q12H [facility] PRN Reason: Protocol Last Admin: 05/27/17 10:06 Dose: 167 mls/hr Cefazolin Sodium (Ancef 1gm In Ns) 1 gm in 100 mls @ 100 mls/hr IVPB Q8 [facility] PRN Reason: Protocol Last Admin: 05/27/17 05:26 Dose: 100 mls/hr Insulin Human Regular (Humulin R Med) 0 units SC ACHS [facility] PRN Reason: Protocol Last Admin: 05/27/17 07:02 Dose: 1 units Metformin HCl (Glucophage) 1,000 mg PO BID [facility] PRN Reason: Protocol Last Admin: 05/27/17 10:12 Dose: 1,000 mg Non-Formulary Medication (Ferrous Fum/Vit C/B12/Stomc [Hematogen Softgel]) 1 cap PO DAILY [facility] Last Admin: 05/27/17 10:12 Dose: Not Given Pantoprazole Sodium (Protonix Ec Tab) 40 mg PO 0600 [facility] PRN Reason: Protocol Last Admin: 05/27/17 05:27 Dose: 40 mg Pioglitazone HCl (Actos) 45 mg PO DAILY [facility] PRN Reason: Protocol Last Admin: 05/27/17 10:10 Dose: 45 mg Potassium Chloride (K-Dur 20 Meq Er Tab) 20 meq PO DAILY [facility] PRN Reason: Protocol Last Admin: 05/27/17 10:13 Dose: 20 meq Ramipril (Altace) 10 mg PO DAILY [facility] PRN Reason: Protocol Last Admin: 05/27/17 10:10 Dose: 10 mg Attending/Attestation - Attestation I have personally seen and examined this patient.: Yes I have fully participated in the care of the patient.: Yes I have reviewed all pertinent clinical information, including history, physical exam and plan: Yes
[2017-05-25] MEDS: Vancomycin 1gm in NS 250ml 1 GM/250 ML BAG IVPB SCH (05:41)
[2017-05-25] MEDS: Pantoprazole 40 mg EC Tab PO SCH (05:42)
[2017-05-25] MEDS: Cefepime 1gm in NS 100ml 1 GM/100 ML BAG IVPB SCH (06:44)
[2017-05-25] MEDS: Insulin Reg-MEDIUM-Coverage SC SCH ×4 (08:15→22:11)
[2017-05-25] MEDS: Potassium Chloride 20 mEq ER Tab PO SCH (10:30)
[2017-05-25] MEDS: Clotrimazole/Betamethasone Cream(15 gm) TOP SCH ×2 (10:32→17:22)
[2017-05-25] MEDS: diltiaZEM 120 mg/24 Hours CD Cap PO SCH (10:40)
[2017-05-25] MEDS: FERROUS FUM PO SCH (10:41)
[2017-05-25] MEDS: VIT C PO SCH (10:41)
[2017-05-25] MEDS: [UNRECOGNIZED DRUG - OTHER] PO SCH (10:41)
[2017-05-25] MEDS: B12 PO SCH (10:41)
--- NOTE | 2017-05-25 12:38 | CP.PCM.PN ---
<Felipe Medrano - Last Filed: 05/25/17 12:35> Subjective - Date & Time of Evaluation Date of Evaluation: 05/25/17 Time of Evaluation: 12:35 - Subjective Subjective: 56 year old male patient was seen this morning concerning ulcerations to right anterior leg and chronic bilateral lower extremity edema. Bilateral lower extremity bandages are clean dry and intact. Patient is resting comfortably in chair. Patient denies of any other pedal complaints at this time. Patient denies any n/v/f/c/sob/cp. Objective - Vital Signs/Intake and Output Vital Signs (last 24 hours): Temp Pulse Resp BP Pulse Ox 98.4 F 71 20 145/72 94 L 05/25/17 10:00 05/25/17 10:40 05/25/17 10:00 05/25/17 10:40 05/25/17 10:00 - Medications Medications: Current Medications Apixaban (Eliquis) 2.5 mg PO BID [facility] PRN Reason: Protocol Last Admin: 05/25/17 10:41 Dose: 2.5 mg Atorvastatin Calcium (Lipitor) 10 mg PO DAILY [facility] PRN Reason: Protocol Last Admin: 05/25/17 10:31 Dose: 10 mg Betamethasone/Clotrimazole (Lotrisone) 0 gm TOP BID [facility] PRN Reason: Protocol Last Admin: 05/25/17 10:32 Dose: 1 dose Diltiazem HCl (Cardizem Cd) 120 mg PO DAILY [facility] Last Admin: 05/25/17 10:40 Dose: 120 mg Furosemide (Lasix) 20 mg PO DAILY [facility] PRN Reason: Protocol Last Admin: 05/25/17 10:30 Dose: 20 mg Gabapentin (Neurontin) 400 mg PO TID [facility] PRN Reason: Protocol Last Admin: 05/25/17 10:30 Dose: 400 mg Glipizide (Glucotrol) 10 mg PO BID [facility] PRN Reason: Protocol Last Admin: 05/25/17 10:31 Dose: 10 mg Vancomycin HCl 1.5 gm/ Sodium (Chloride) 250 mls @ 167 mls/hr IVPB Q12H [facility] PRN Reason: Protocol Last Admin: 05/25/17 10:29 Dose: 167 mls/hr Cefazolin Sodium (Ancef 1gm In Ns) 1 gm in 100 mls @ 100 mls/hr IVPB Q8 [facility] PRN Reason: Protocol Insulin Human Regular (Humulin R Med) 0 units SC ACHS [facility] PRN Reason: Protocol Last Admin: 05/25/17 08:15 Dose: Not Given Metformin HCl (Glucophage) 1,000 mg PO BID [facility] PRN Reason: Protocol Last Admin: 05/25/17 10:31 Dose: 1,000 mg Non-Formulary Medication (Ferrous Fum/Vit C/B12/Stomc [Hematogen Softgel]) 1 cap PO DAILY [facility] Last Admin: 05/25/17 10:41 Dose: Not Given Oxycodone/Acetaminophen (Percocet 5/325 Mg Tab) 1 tab PO Q4H PRN; Protocol PRN Reason: Pain, moderate (4-7) Stop: 05/26/17 16:49 Pantoprazole Sodium (Protonix Ec Tab) 40 mg PO 0600 [facility] PRN Reason: Protocol Last Admin: 05/25/17 05:42 Dose: 40 mg Pioglitazone HCl (Actos) 45 mg PO DAILY [facility] PRN Reason: Protocol Last Admin: 05/25/17 10:33 Dose: 45 mg Potassium Chloride (K-Dur 20 Meq Er Tab) 20 meq PO DAILY [facility] PRN Reason: Protocol Last Admin: 05/25/17 10:30 Dose: 20 meq Ramipril (Altace) 10 mg PO DAILY [facility] PRN Reason: Protocol Last Admin: 05/25/17 10:33 Dose: 10 mg - Constitutional Appears: Well, Non-toxic, No Acute Distress - Head Exam Head Exam: ATRAUMATIC - Extremities Exam Additional comments: Right Lower extremity focused exam: DERM: RIGHT: Open ulceration noted to right lower extremity measuring approximately 2 cm by 1.5 cm by 0.1 cm with granular base at the anterior aspect of the leg with scant amount of sanguinous drainage, no purulence, no erythema, mild malodor. No sign of acute infection is noted LEFT: No open ulcerations noted to the left lower extremity. Skin is diffusely xerotic with hyperpigmentation. Skin changes of chronic edema noted. VASC: Diffuse edema of bilateral lower extremities. Pedal pulses non-palpable due to edema. Skin temperature warm to warm from proximal to distal b/l NEURO: Gross sensation diminished b/l ORTHO: No tenderness on palpation to the lower extremities - Neurological Exam Neurological Exam: Alert, Awake, Oriented x3 - Psychiatric Exam Psychiatric exam: Normal Affect, Normal Mood - Skin Skin Exam: Normal Color, Warm Assessment and Plan - Assessment and Plan (Free Text) Assessment: 56 year old diabetic male patient with right leg ulceration and chronic lower extremity lymphedema bilaterally Plan: Patient examined and evaluated at bedside Discussed with attending Dr. Horta chart, labs, vitals reviewed- afebrile, no leukocytosis Right leg WCX: MRSA Left leg WCX: MRSA, Klebsiella Lotrisone applied to legs b/l Right LE cleansed with sterile normal saline. Dressed with xeroform, 4x4, ABD, CEASAR Left LE dressed with CEASAR Patient to continue IV abx per ID Podiatry will continue to follow Pt will f/u in the wound care center after DC <Brittney Horta - Last Filed: 06/05/17 19:31> Objective - Vital Signs/Intake and Output Vital Signs (last 24 hours): Temp Pulse Resp BP Pulse Ox 99 F 78 18 147/83 92 L 05/27/17 14:00 05/28/17 09:27 05/27/17 14:00 05/28/17 09:30 05/27/17 14:00 Attending/Attestation - Attestation I have personally seen and examined this patient.: Yes I have fully participated in the care of the patient.: Yes I have reviewed all pertinent clinical information, including history, physical exam and plan: Yes
[2017-05-25] MEDS: ceFAZolin 1 gm in NS 1 GM/100 ML BAG IVPB SCH ×2 (13:55→21:41)
--- NOTE | 2017-05-25 15:22 | CP.PCM.PN ---
Subjective - Date & Time of Evaluation Date of Evaluation: 05/25/17 Time of Evaluation: 11:10 - Subjective Subjective: Comfortable, not in distress, afebrile, no fevers. Objective - Vital Signs/Intake and Output Vital Signs (last 24 hours): Temp Pulse Resp BP Pulse Ox 98.7 F 77 20 120/61 99 05/24/17 16:16 05/24/17 16:16 05/24/17 16:16 05/24/17 16:16 05/24/17 16:16 - Medications Medications: Current Medications Apixaban (Eliquis) 2.5 mg PO BID [facility] PRN Reason: Protocol Last Admin: 05/24/17 17:56 Dose: 2.5 mg Atorvastatin Calcium (Lipitor) 10 mg PO DAILY [facility] PRN Reason: Protocol Last Admin: 05/24/17 09:48 Dose: 10 mg Betamethasone/Clotrimazole (Lotrisone) 0 gm TOP BID [facility] PRN Reason: Protocol Last Admin: 05/24/17 19:00 Dose: 1 dose Diltiazem HCl (Cardizem Cd) 120 mg PO DAILY [facility] Last Admin: 05/24/17 09:44 Dose: 120 mg Furosemide (Lasix) 20 mg PO DAILY [facility] PRN Reason: Protocol Last Admin: 05/24/17 09:47 Dose: 20 mg Gabapentin (Neurontin) 400 mg PO TID [facility] PRN Reason: Protocol Last Admin: 05/24/17 17:55 Dose: 400 mg Glipizide (Glucotrol) 10 mg PO BID [facility] PRN Reason: Protocol Last Admin: 05/24/17 17:55 Dose: 10 mg Vancomycin HCl (Vancomycin 1gm) 1 gm in 250 mls @ 167 mls/hr IVPB Q12H [facility] PRN Reason: Protocol Last Admin: 05/25/17 05:41 Dose: 167 mls/hr Vancomycin HCl 1.5 gm/ Sodium (Chloride) 250 mls @ 167 mls/hr IVPB Q12H [facility] PRN Reason: Protocol Insulin Human Regular (Humulin R Med) 0 units SC ACHS [facility] PRN Reason: Protocol Last Admin: 05/25/17 08:15 Dose: Not Given Metformin HCl (Glucophage) 1,000 mg PO BID [facility] PRN Reason: Protocol Last Admin: 05/24/17 17:55 Dose: 1,000 mg Non-Formulary Medication (Ferrous Fum/Vit C/B12/Stomc [Hematogen Softgel]) 1 cap PO DAILY [facility] Last Admin: 05/24/17 11:02 Dose: Not Given Oxycodone/Acetaminophen (Percocet 5/325 Mg Tab) 1 tab PO Q4H PRN; Protocol PRN Reason: Pain, moderate (4-7) Stop: 05/26/17 16:49 Pantoprazole Sodium (Protonix Ec Tab) 40 mg PO 0600 [facility] PRN Reason: Protocol Last Admin: 05/25/17 05:42 Dose: 40 mg Pioglitazone HCl (Actos) 45 mg PO DAILY [facility] PRN Reason: Protocol Last Admin: 05/24/17 09:41 Dose: 45 mg Potassium Chloride (K-Dur 20 Meq Er Tab) 20 meq PO DAILY [facility] PRN Reason: Protocol Last Admin: 05/24/17 09:46 Dose: 20 meq Ramipril (Altace) 10 mg PO DAILY [facility] PRN Reason: Protocol Last Admin: 05/24/17 09:43 Dose: 10 mg - Constitutional Appears: Non-toxic, No Acute Distress - Head Exam Head Exam: NORMAL INSPECTION - Neck Exam Neck Exam: absent: Meningismus - Respiratory Exam Respiratory Exam: Decreased Breath Sounds - Cardiovascular Exam Cardiovascular Exam: +S1, +S2 - GI/Abdominal Exam GI & Abdominal Exam: Soft. absent: Tenderness - Extremities Exam Additional comments: both legs with bandages in place Assessment and Plan - Assessment and Plan (Free Text) Plan: Assessment consider right leg skin and skin structure infection associated with chronic leg ulcers, MRSA and Klebsiella oxytoca history of sepsis secondary to right leg skin/skin structure infection with chronic leg ulcers, growing MRSA and sensitive Klebsiella history of MRSA cellulitis Sept. 2015 history of Bilateral lower extremity skin and skin structure infection ( Enterobacter, Klebsiella Oxytoca and Group B Strep, as well as MRSA) which was treated 06/2015; MRSA and Pseudomonas cellulitis of left leg in Sep 2015, January and March 2016 chronic lymphedema of the lower extremities Morbid obesity with BMI 55 HTN DM history of Strep bacteremia history of hernia surgery Learning disability Plan continue Vancomycin and changed Cefepime to Cefazolin (day 5) - complete 7-10 days of therapy will continue to monitor clinically
[2017-05-26] MEDS: Pantoprazole 40 mg EC Tab PO SCH (05:15)
[2017-05-26] MEDS: ceFAZolin 1 gm in NS 1 GM/100 ML BAG IVPB SCH ×3 (05:15→21:48)
[2017-05-26] MEDS: Insulin Reg-MEDIUM-Coverage SC SCH ×4 (06:59→22:00)
[2017-05-26] MEDS: VIT C PO SCH (10:17)
[2017-05-26] MEDS: Potassium Chloride 20 mEq ER Tab PO SCH (10:17)
[2017-05-26] MEDS: [UNRECOGNIZED DRUG - OTHER] PO SCH (10:17)
[2017-05-26] MEDS: FERROUS FUM PO SCH (10:17)
[2017-05-26] MEDS: B12 PO SCH (10:17)
[2017-05-26] MEDS: Clotrimazole/Betamethasone Cream(15 gm) TOP SCH ×2 (10:18→18:21)
[2017-05-26] MEDS: diltiaZEM 120 mg/24 Hours CD Cap PO SCH (10:23)
--- NOTE | 2017-05-26 10:40 | CP.PCM.PN ---
Subjective - Date & Time of Evaluation Date of Evaluation: 05/26/17 Time of Evaluation: 10:15 - Subjective Subjective: Comfortable on a chair, not in distress, afebrile. Objective - Vital Signs/Intake and Output Vital Signs (last 24 hours): Temp Pulse Resp BP Pulse Ox 98.4 F 85 18 136/82 95 05/26/17 10:00 05/26/17 10:23 05/26/17 10:00 05/26/17 10:23 05/26/17 10:00 - Medications Medications: Current Medications Apixaban (Eliquis) 2.5 mg PO BID [facility] PRN Reason: Protocol Last Admin: 05/26/17 10:16 Dose: 2.5 mg Atorvastatin Calcium (Lipitor) 10 mg PO DAILY [facility] PRN Reason: Protocol Last Admin: 05/26/17 10:17 Dose: 10 mg Betamethasone/Clotrimazole (Lotrisone) 0 gm TOP BID [facility] PRN Reason: Protocol Last Admin: 05/26/17 10:18 Dose: 1 applic Diltiazem HCl (Cardizem Cd) 120 mg PO DAILY [facility] Last Admin: 05/26/17 10:23 Dose: 120 mg Furosemide (Lasix) 20 mg PO DAILY [facility] PRN Reason: Protocol Last Admin: 05/26/17 10:22 Dose: 20 mg Gabapentin (Neurontin) 400 mg PO TID [facility] PRN Reason: Protocol Last Admin: 05/26/17 10:15 Dose: 400 mg Glipizide (Glucotrol) 10 mg PO BID [facility] PRN Reason: Protocol Last Admin: 05/26/17 10:17 Dose: 10 mg Vancomycin HCl 1.5 gm/ Sodium (Chloride) 250 mls @ 167 mls/hr IVPB Q12H [facility] PRN Reason: Protocol Last Admin: 05/26/17 08:44 Dose: 167 mls/hr Cefazolin Sodium (Ancef 1gm In Ns) 1 gm in 100 mls @ 100 mls/hr IVPB Q8 [facility] PRN Reason: Protocol Last Admin: 05/26/17 05:15 Dose: 100 mls/hr Insulin Human Regular (Humulin R Med) 0 units SC ACHS [facility] PRN Reason: Protocol Last Admin: 05/26/17 06:59 Dose: 3 units Metformin HCl (Glucophage) 1,000 mg PO BID [facility] PRN Reason: Protocol Last Admin: 05/26/17 10:17 Dose: 1,000 mg Non-Formulary Medication (Ferrous Fum/Vit C/B12/Stomc [Hematogen Softgel]) 1 cap PO DAILY [facility] Last Admin: 05/26/17 10:17 Dose: Not Given Oxycodone/Acetaminophen (Percocet 5/325 Mg Tab) 1 tab PO Q4H PRN; Protocol PRN Reason: Pain, moderate (4-7) Stop: 05/26/17 16:49 Pantoprazole Sodium (Protonix Ec Tab) 40 mg PO 0600 [facility] PRN Reason: Protocol Last Admin: 05/26/17 05:15 Dose: 40 mg Pioglitazone HCl (Actos) 45 mg PO DAILY [facility] PRN Reason: Protocol Last Admin: 05/26/17 10:16 Dose: 45 mg Potassium Chloride (K-Dur 20 Meq Er Tab) 20 meq PO DAILY [facility] PRN Reason: Protocol Last Admin: 05/26/17 10:17 Dose: 20 meq Ramipril (Altace) 10 mg PO DAILY [facility] PRN Reason: Protocol Last Admin: 05/26/17 10:23 Dose: 10 mg - Constitutional Appears: Non-toxic, No Acute Distress - Head Exam Head Exam: NORMAL INSPECTION - Neck Exam Neck Exam: absent: Meningismus - Respiratory Exam Respiratory Exam: Decreased Breath Sounds - Cardiovascular Exam Cardiovascular Exam: +S1, +S2 - GI/Abdominal Exam GI & Abdominal Exam: Soft. absent: Tenderness - Extremities Exam Additional comments: both lower extremities with dry dressings in place Assessment and Plan - Assessment and Plan (Free Text) Plan: Assessment consider right leg skin and skin structure infection associated with chronic leg ulcers, MRSA and Klebsiella oxytoca history of sepsis secondary to right leg skin/skin structure infection with chronic leg ulcers, growing MRSA and sensitive Klebsiella history of MRSA cellulitis Jun. 2015 history of Bilateral lower extremity skin and skin structure infection ( Enterobacter, Klebsiella Oxytoca and Group B Strep, as well as MRSA) which was treated 06/2015; MRSA and Pseudomonas cellulitis of left leg in Sep 2015, January and March 2016 chronic lymphedema of the lower extremities Morbid obesity with BMI 55 HTN DM history of Strep bacteremia history of hernia surgery Learning disability Plan continue Vancomycin and changed Cefepime to Cefazolin (day 6) - complete 7-10 days of therapy will continue to follow clinically
--- NOTE | 2017-05-26 11:01 | CP.PCM.PN ---
<Felipe Medrano - Last Filed: 05/26/17 10:58> Subjective - Date & Time of Evaluation Date of Evaluation: 05/26/17 Time of Evaluation: 10:59 - Subjective Subjective: 56 year old male patient was seen this morning concerning ulcerations to right anterior leg and chronic bilateral lower extremity edema. Bilateral lower extremity dressing are clean dry and intact. Patient is resting comfortably in chair. Patient denies of any other pedal complaints at this time. Patient denies any n/v/f/c/sob/cp. Objective - Vital Signs/Intake and Output Vital Signs (last 24 hours): Temp Pulse Resp BP Pulse Ox 98.4 F 85 18 136/82 95 05/26/17 10:00 05/26/17 10:23 05/26/17 10:00 05/26/17 10:23 05/26/17 10:00 - Medications Medications: Current Medications Apixaban (Eliquis) 2.5 mg PO BID [facility] PRN Reason: Protocol Last Admin: 05/26/17 10:16 Dose: 2.5 mg Atorvastatin Calcium (Lipitor) 10 mg PO DAILY [facility] PRN Reason: Protocol Last Admin: 05/26/17 10:17 Dose: 10 mg Betamethasone/Clotrimazole (Lotrisone) 0 gm TOP BID [facility] PRN Reason: Protocol Last Admin: 05/26/17 10:18 Dose: 1 applic Diltiazem HCl (Cardizem Cd) 120 mg PO DAILY [facility] Last Admin: 05/26/17 10:23 Dose: 120 mg Furosemide (Lasix) 20 mg PO DAILY [facility] PRN Reason: Protocol Last Admin: 05/26/17 10:22 Dose: 20 mg Gabapentin (Neurontin) 400 mg PO TID [facility] PRN Reason: Protocol Last Admin: 05/26/17 10:15 Dose: 400 mg Glipizide (Glucotrol) 10 mg PO BID [facility] PRN Reason: Protocol Last Admin: 05/26/17 10:17 Dose: 10 mg Vancomycin HCl 1.5 gm/ Sodium (Chloride) 250 mls @ 167 mls/hr IVPB Q12H [facility] PRN Reason: Protocol Last Admin: 05/26/17 08:44 Dose: 167 mls/hr Cefazolin Sodium (Ancef 1gm In Ns) 1 gm in 100 mls @ 100 mls/hr IVPB Q8 [facility] PRN Reason: Protocol Last Admin: 05/26/17 05:15 Dose: 100 mls/hr Insulin Human Regular (Humulin R Med) 0 units SC ACHS [facility] PRN Reason: Protocol Last Admin: 05/26/17 06:59 Dose: 3 units Metformin HCl (Glucophage) 1,000 mg PO BID [facility] PRN Reason: Protocol Last Admin: 05/26/17 10:17 Dose: 1,000 mg Non-Formulary Medication (Ferrous Fum/Vit C/B12/Stomc [Hematogen Softgel]) 1 cap PO DAILY [facility] Last Admin: 05/26/17 10:17 Dose: Not Given Oxycodone/Acetaminophen (Percocet 5/325 Mg Tab) 1 tab PO Q4H PRN; Protocol PRN Reason: Pain, moderate (4-7) Stop: 05/26/17 16:49 Pantoprazole Sodium (Protonix Ec Tab) 40 mg PO 0600 [facility] PRN Reason: Protocol Last Admin: 05/26/17 05:15 Dose: 40 mg Pioglitazone HCl (Actos) 45 mg PO DAILY [facility] PRN Reason: Protocol Last Admin: 05/26/17 10:16 Dose: 45 mg Potassium Chloride (K-Dur 20 Meq Er Tab) 20 meq PO DAILY [facility] PRN Reason: Protocol Last Admin: 05/26/17 10:17 Dose: 20 meq Ramipril (Altace) 10 mg PO DAILY [facility] PRN Reason: Protocol Last Admin: 05/26/17 10:23 Dose: 10 mg - Constitutional Appears: Well, Non-toxic, No Acute Distress - Extremities Exam Additional comments: Right Lower extremity focused exam: DERM: RIGHT: Open ulceration noted to right lower extremity measuring approximately 2 cm by 1.5 cm by 0.1 cm with granular base at the anterior aspect of the leg with scant amount of sanguinous drainage, no purulence, no erythema, mild malodor. No sign of acute infection is noted LEFT: No open ulcerations noted to the left lower extremity. Skin is diffusely xerotic with hyperpigmentation. Skin changes of chronic edema noted. VASC: Diffuse edema of bilateral lower extremities. Pedal pulses non-palpable due to edema. Skin temperature warm to warm from proximal to distal b/l NEURO: Gross sensation diminished b/l ORTHO: No tenderness on palpation to the lower extremities Assessment and Plan - Assessment and Plan (Free Text) Assessment: 56 year old diabetic male patient with right leg ulceration and chronic lower extremity lymphedema bilaterally Plan: Patient examined and evaluated at bedside Discussed with attending Dr. Horta chart, labs, vitals reviewed Lotrisone applied to legs b/l Right LE cleansed with sterile normal saline. Dressed with Maxorb, 4x4, ABD, CEASAR Left LE dressed with CEASAR Patient to continue IV abx per ID Patient is stable from podiatry standpoint Podiatry will continue to follow <Brittney Horta - Last Filed: 06/05/17 19:39> Objective - Vital Signs/Intake and Output Vital Signs (last 24 hours): Temp Pulse Resp BP Pulse Ox 99 F 78 18 147/83 92 L 05/27/17 14:00 05/28/17 09:27 05/27/17 14:00 05/28/17 09:30 05/27/17 14:00 Attending/Attestation - Attestation I have personally seen and examined this patient.: Yes I have fully participated in the care of the patient.: Yes I have reviewed all pertinent clinical information, including history, physical exam and plan: Yes
--- NOTE | 2017-05-27 02:14 | PN ---
SUBJECTIVE: The patient has no complaints of any chest pain, no shortness of breath, no headaches or dizziness. PHYSICAL EXAMINATION: VITAL SIGNS: Temperature is 98.6, pulse is 73, blood pressure is 140/62 and respirations 18. GENERAL: The patient is lying in bed, flat, comfortable. HEENT: No oral lesion. Anicteric sclerae. Moist mucosa. NECK: No JVD, adenopathy, or thyromegaly. CARDIOVASCULAR: S1 and S2, regular. No murmurs, rubs, or gallops. LUNGS: Clear to auscultation bilaterally. No wheeze, rales, or rhonchi. ABDOMEN: Bowel sounds are positive, soft, nontender and nondistended. EXTREMITIES: No cyanosis, clubbing or edema. ASSESSMENT: 1. Nephrolithiasis. 2. Cellulitis. 3. Obesity with a BMI of 40. 4. Atrial fibrillation, on anticoagulation. 5. Hypertension. 6. Dyslipidemia. PLAN: The patient is currently comfortable. He is going to continue with his Actos for his diabetes. He is on ramipril for his hypertension. He is on Eliquis for his anticoagulation. The patient is on metformin for his diabetes as well. He is receiving Lasix and potassium. He is on Neurontin. He is on antibiotics with vancomycin. He is being followed by Dr. Gaming from infectious disease and podiatry. He will continue the antibiotics, now being his last day of antibiotics. Winston Streeter MD
[2017-05-27] MEDS: ceFAZolin 1 gm in NS 1 GM/100 ML BAG IVPB SCH ×3 (05:26→23:07)
[2017-05-27] MEDS: Pantoprazole 40 mg EC Tab PO SCH (05:27)
[2017-05-27] MEDS: Insulin Reg-MEDIUM-Coverage SC SCH ×4 (07:02→21:28)
[2017-05-27] MEDS: diltiaZEM 120 mg/24 Hours CD Cap PO SCH (10:11)
[2017-05-27] MEDS: B12 PO SCH (10:12)
[2017-05-27] MEDS: [UNRECOGNIZED DRUG - OTHER] PO SCH (10:12)
[2017-05-27] MEDS: FERROUS FUM PO SCH (10:12)
[2017-05-27] MEDS: VIT C PO SCH (10:12)
[2017-05-27] MEDS: Potassium Chloride 20 mEq ER Tab PO SCH (10:13)
[2017-05-27] MEDS: Clotrimazole/Betamethasone Cream(15 gm) TOP SCH ×2 (10:13→17:23)
--- NOTE | 2017-05-27 13:19 | CP.PCM.PN ---
<Felipe Medrano - Last Filed: 05/27/17 13:17> Subjective - Date & Time of Evaluation Date of Evaluation: 05/27/17 Time of Evaluation: 10:55 - Subjective Subjective: 56 year old male patient was seen this morning concerning ulcerations to right anterior leg and chronic bilateral lower extremity edema. Patient is resting comfortably in chair. Dressing remains cdi. Patient denies of any other pedal complaints at this time. Patient denies any n/v/f/c/sob/cp. Objective - Vital Signs/Intake and Output Vital Signs (last 24 hours): Temp Pulse Resp BP Pulse Ox 98.2 F 72 20 154/78 H 95 05/27/17 11:10 05/27/17 11:10 05/27/17 11:10 05/27/17 11:10 05/27/17 11:10 - Medications Medications: Current Medications Apixaban (Eliquis) 2.5 mg PO BID MARLIN PRN Reason: Protocol Last Admin: 05/27/17 10:12 Dose: 2.5 mg Atorvastatin Calcium (Lipitor) 10 mg PO DAILY MARLIN PRN Reason: Protocol Last Admin: 05/27/17 10:13 Dose: 10 mg Betamethasone/Clotrimazole (Lotrisone) 0 gm TOP BID MARLIN PRN Reason: Protocol Last Admin: 05/27/17 10:13 Dose: 1 applic Diltiazem HCl (Cardizem Cd) 120 mg PO DAILY MARLIN Last Admin: 05/27/17 10:11 Dose: 120 mg Furosemide (Lasix) 20 mg PO DAILY MARLIN PRN Reason: Protocol Last Admin: 05/27/17 10:13 Dose: 20 mg Gabapentin (Neurontin) 400 mg PO TID MARLIN PRN Reason: Protocol Last Admin: 05/27/17 10:10 Dose: 400 mg Glipizide (Glucotrol) 10 mg PO BID MARLIN PRN Reason: Protocol Last Admin: 05/27/17 10:12 Dose: 10 mg Vancomycin HCl 1.5 gm/ Sodium (Chloride) 250 mls @ 167 mls/hr IVPB Q12H MARLIN PRN Reason: Protocol Last Admin: 05/27/17 10:06 Dose: 167 mls/hr Cefazolin Sodium (Ancef 1gm In Ns) 1 gm in 100 mls @ 100 mls/hr IVPB Q8 [facility] PRN Reason: Protocol Last Admin: 05/27/17 05:26 Dose: 100 mls/hr Insulin Human Regular (Humulin R Med) 0 units SC ACHS MARLIN PRN Reason: Protocol Last Admin: 05/27/17 12:27 Dose: 1 units Metformin HCl (Glucophage) 1,000 mg PO BID MARLIN PRN Reason: Protocol Last Admin: 05/27/17 10:12 Dose: 1,000 mg Non-Formulary Medication (Ferrous Fum/Vit C/B12/Stomc [Hematogen Softgel]) 1 cap PO DAILY MARLIN Last Admin: 05/27/17 10:12 Dose: Not Given Pantoprazole Sodium (Protonix Ec Tab) 40 mg PO 0600 MARLIN PRN Reason: Protocol Last Admin: 05/27/17 05:27 Dose: 40 mg Pioglitazone HCl (Actos) 45 mg PO DAILY MARLIN PRN Reason: Protocol Last Admin: 05/27/17 10:10 Dose: 45 mg Potassium Chloride (K-Dur 20 Meq Er Tab) 20 meq PO DAILY MARLIN PRN Reason: Protocol Last Admin: 05/27/17 10:13 Dose: 20 meq Ramipril (Altace) 10 mg PO DAILY MARLIN PRN Reason: Protocol Last Admin: 05/27/17 10:10 Dose: 10 mg - Constitutional Appears: Well, Non-toxic, No Acute Distress - Head Exam Head Exam: ATRAUMATIC - Extremities Exam Additional comments: Right Lower extremity focused exam: DERM: RIGHT: Open ulceration noted to right lower extremity measuring approximately 2 cm by 1.5 cm by 0.1 cm with granular base at the anterior aspect of the leg with scant amount of sanguinous drainage, no purulence, no erythema, mild malodor. No sign of acute infection is noted LEFT: No open ulcerations noted to the left lower extremity. Skin is diffusely xerotic with hyperpigmentation. Skin changes of chronic edema noted. VASC: Diffuse edema of bilateral lower extremities. Pedal pulses non-palpable due to edema. Skin temperature warm to warm from proximal to distal b/l NEURO: Gross sensation diminished b/l ORTHO: No tenderness on palpation to the lower extremities - Neurological Exam Neurological Exam: Alert, Awake, Oriented x3 - Psychiatric Exam Psychiatric exam: Depressed, Normal Affect, Normal Mood - Skin Skin Exam: Normal Color, Warm Assessment and Plan - Assessment and Plan (Free Text) Assessment: 56 year old diabetic male patient with right leg ulceration and chronic lower extremity lymphedema bilaterally Plan: Patient examined and evaluated at bedside Discussed with attending Dr. Guerrero chart, labs, vitals reviewed Lotrisone applied to legs b/l Right LE cleansed with sterile normal saline. Dressed with Maxorb, 4x4, ABD, CEASAR Left LE dressed with CEASAR Patient to continue IV abx per ID Patient is stable from podiatry standpoint Podiatry will continue to follow <Marin Guerrero - Last Filed: 05/27/17 16:33> Objective - Vital Signs/Intake and Output Vital Signs (last 24 hours): Temp Pulse Resp BP Pulse Ox 98.2 F 72 20 154/78 H 95 05/27/17 11:10 05/27/17 11:10 05/27/17 11:10 05/27/17 11:10 05/27/17 11:10 - Medications Medications: Current Medications Apixaban (Eliquis) 2.5 mg PO BID MARLIN PRN Reason: Protocol Last Admin: 05/27/17 10:12 Dose: 2.5 mg Atorvastatin Calcium (Lipitor) 10 mg PO DAILY MARLIN PRN Reason: Protocol Last Admin: 05/27/17 10:13 Dose: 10 mg Betamethasone/Clotrimazole (Lotrisone) 0 gm TOP BID MARLIN PRN Reason: Protocol Last Admin: 05/27/17 10:13 Dose: 1 applic Diltiazem HCl (Cardizem Cd) 120 mg PO DAILY MARLIN Last Admin: 05/27/17 10:11 Dose: 120 mg Furosemide (Lasix) 20 mg PO DAILY MARLIN PRN Reason: Protocol Last Admin: 05/27/17 10:13 Dose: 20 mg Gabapentin (Neurontin) 400 mg PO TID MARLIN PRN Reason: Protocol Last Admin: 05/27/17 10:10 Dose: 400 mg Glipizide (Glucotrol) 10 mg PO BID MARLIN PRN Reason: Protocol Last Admin: 05/27/17 10:12 Dose: 10 mg Vancomycin HCl 1.5 gm/ Sodium (Chloride) 250 mls @ 167 mls/hr IVPB Q12H [facility] PRN Reason: Protocol Last Admin: 05/27/17 10:06 Dose: 167 mls/hr Cefazolin Sodium (Ancef 1gm In Ns) 1 gm in 100 mls @ 100 mls/hr IVPB Q8 [facility] PRN Reason: Protocol Last Admin: 05/27/17 14:30 Dose: 100 mls/hr Insulin Human Regular (Humulin R Med) 0 units SC ACHS MARLIN PRN Reason: Protocol Last Admin: 05/27/17 12:27 Dose: 1 units Metformin HCl (Glucophage) 1,000 mg PO BID MARLIN PRN Reason: Protocol Last Admin: 05/27/17 10:12 Dose: 1,000 mg Non-Formulary Medication (Ferrous Fum/Vit C/B12/Stomc [Hematogen Softgel]) 1 cap PO DAILY MARLIN Last Admin: 05/27/17 10:12 Dose: Not Given Pantoprazole Sodium (Protonix Ec Tab) 40 mg PO 0600 MARLIN PRN Reason: Protocol Last Admin: 05/27/17 05:27 Dose: 40 mg Pioglitazone HCl (Actos) 45 mg PO DAILY MARLIN PRN Reason: Protocol Last Admin: 05/27/17 10:10 Dose: 45 mg Potassium Chloride (K-Dur 20 Meq Er Tab) 20 meq PO DAILY MARLIN PRN Reason: Protocol Last Admin: 05/27/17 10:13 Dose: 20 meq Ramipril (Altace) 10 mg PO DAILY MARLIN PRN Reason: Protocol Last Admin: 05/27/17 10:10 Dose: 10 mg Attending/Attestation - Attestation I have personally seen and examined this patient.: Yes I have fully participated in the care of the patient.: Yes I have reviewed all pertinent clinical information, including history, physical exam and plan: Yes
[2017-05-27 16:54] VITALS: RESP 18; TEMP 99; O2SAT 92
[2017-05-28] MEDS: ceFAZolin 1 gm in NS 1 GM/100 ML BAG IVPB SCH (05:00)
[2017-05-28] MEDS: Pantoprazole 40 mg EC Tab PO SCH (05:00)
[2017-05-28] MEDS: Insulin Reg-MEDIUM-Coverage SC SCH ×2 (06:37→12:27)
--- NOTE | 2017-05-28 07:56 | PN ---
DATE: 05/27/2017 SUBJECTIVE: Patient seen in bed, in no acute distress. PHYSICAL EXAMINATION: VITAL SIGNS: Temperature of 99, blood pressure is 130/60 and respiratory rate of 18. HEENT: Unremarkable. NECK: Supple. LUNGS: Decreased breath sounds. HEART: Normal S1 and S2. ABDOMEN: Soft. LABORATORY DATA: Noted. Examination of leg is also noted. ASSESSMENT AND PLAN: This is a 56-year-old male with morbid obesity with body mass index of 55 with right leg skin and skin soft tissue infection associated with chronic leg ulcer, MRSA and Klebsiella oxytoca, history of sepsis, hypertension, diabetes, chronic lymphedema lower extremities, history of group B strep infection and mentally challenged. Currently, on cefazolin day #7. We will follow with you. Patient is also on IV vancomycin in addition to cefazolin. Jean-Claude Aviles MD
--- NOTE | 2017-05-28 08:31 | CP.PCM.PN ---
<Felipe Medrano - Last Filed: 05/28/17 08:30> Subjective - Date & Time of Evaluation Date of Evaluation: 05/28/17 Time of Evaluation: 08:30 - Subjective Subjective: 56 year old male patient was seen this morning concerning ulcerations to right anterior leg and chronic bilateral lower extremity edema. AAOx3. Patient is resting comfortably in chair. Dressing remains cdi. Patient denies of any other pedal complaints at this time. Patient denies any n/v/f/c/sob/cp. Objective - Vital Signs/Intake and Output Vital Signs (last 24 hours): Temp Pulse Resp BP Pulse Ox 99 F 75 18 130/68 92 L 05/27/17 14:00 05/27/17 14:00 05/27/17 14:00 05/27/17 14:00 05/27/17 14:00 - Medications Medications: Current Medications Apixaban (Eliquis) 2.5 mg PO BID MARLIN PRN Reason: Protocol Last Admin: 05/27/17 17:22 Dose: 2.5 mg Atorvastatin Calcium (Lipitor) 10 mg PO DAILY [facility]LIN PRN Reason: Protocol Last Admin: 05/27/17 10:13 Dose: 10 mg Betamethasone/Clotrimazole (Lotrisone) 0 gm TOP BID [facility] PRN Reason: Protocol Last Admin: 05/27/17 17:23 Dose: 1 applic Diltiazem HCl (Cardizem Cd) 120 mg PO DAILY [facility] Last Admin: 05/27/17 10:11 Dose: 120 mg Furosemide (Lasix) 20 mg PO DAILY [facility]LIN PRN Reason: Protocol Last Admin: 05/27/17 10:13 Dose: 20 mg Gabapentin (Neurontin) 400 mg PO TID MARLIN PRN Reason: Protocol Last Admin: 05/27/17 17:22 Dose: 400 mg Glipizide (Glucotrol) 10 mg PO BID [facility]LIN PRN Reason: Protocol Last Admin: 05/27/17 17:23 Dose: 10 mg Vancomycin HCl 1.5 gm/ Sodium (Chloride) 250 mls @ 167 mls/hr IVPB Q12H [facility] PRN Reason: Protocol Last Admin: 05/27/17 21:28 Dose: 167 mls/hr Cefazolin Sodium (Ancef 1gm In Ns) 1 gm in 100 mls @ 100 mls/hr IVPB Q8 [facility] PRN Reason: Protocol Last Admin: 05/28/17 05:00 Dose: 100 mls/hr Insulin Human Regular (Humulin R Med) 0 units SC ACHS [facility] PRN Reason: Protocol Last Admin: 05/28/17 06:37 Dose: Not Given Metformin HCl (Glucophage) 1,000 mg PO BID [facility] PRN Reason: Protocol Last Admin: 05/27/17 17:23 Dose: 1,000 mg Non-Formulary Medication (Ferrous Fum/Vit C/B12/Stomc [Hematogen Softgel]) 1 cap PO DAILY [facility] Last Admin: 05/27/17 10:12 Dose: Not Given Pantoprazole Sodium (Protonix Ec Tab) 40 mg PO 0600 [facility]LIN PRN Reason: Protocol Last Admin: 05/28/17 05:00 Dose: 40 mg Pioglitazone HCl (Actos) 45 mg PO DAILY [facility]LIN PRN Reason: Protocol Last Admin: 05/27/17 10:10 Dose: 45 mg Potassium Chloride (K-Dur 20 Meq Er Tab) 20 meq PO DAILY [facility] PRN Reason: Protocol Last Admin: 05/27/17 10:13 Dose: 20 meq Ramipril (Altace) 10 mg PO DAILY [facility] PRN Reason: Protocol Last Admin: 05/27/17 10:10 Dose: 10 mg - Constitutional Appears: Well, Non-toxic, No Acute Distress - Head Exam Head Exam: ATRAUMATIC - Extremities Exam Additional comments: Right Lower extremity focused exam: DERM: RIGHT: Open ulceration noted to right lower extremity measuring approximately 2 cm by 1.5 cm by 0.1 cm with granular base at the anterior aspect of the leg with scant amount of sanguinous drainage, no purulence, no erythema, mild malodor. No sign of acute infection is noted LEFT: No open ulcerations noted to the left lower extremity. Skin is diffusely xerotic with hyperpigmentation. Skin changes of chronic edema noted. VASC: Diffuse edema of bilateral lower extremities. Pedal pulses non-palpable due to edema. Skin temperature warm to warm from proximal to distal b/l NEURO: Gross sensation diminished b/l ORTHO: No tenderness on palpation to the lower extremities - Neurological Exam Neurological Exam: Alert, Awake, Oriented x3 - Psychiatric Exam Psychiatric exam: Normal Affect, Normal Mood - Skin Skin Exam: Normal Color, Warm Assessment and Plan - Assessment and Plan (Free Text) Assessment: 56 year old diabetic male patient with right leg ulceration and chronic lower extremity lymphedema bilaterally Plan: Patient examined and evaluated at bedside Discussed with attending Dr. Guerrero chart, labs, vitals reviewed Lotrisone applied to legs b/l Right LE cleansed with sterile normal saline. Dressed with Maxorb, 4x4, ABD, CEASAR Left LE dressed with CEASAR Patient to continue IV abx per ID Patient is stable from podiatry standpoint Podiatry will continue to follow <Marin Guerrero - Last Filed: 05/28/17 09:28> Objective - Vital Signs/Intake and Output Vital Signs (last 24 hours): Temp Pulse Resp BP Pulse Ox 99 F 75 18 130/68 92 L 05/27/17 14:00 05/27/17 14:00 05/27/17 14:00 05/27/17 14:00 05/27/17 14:00 - Medications Medications: Current Medications Apixaban (Eliquis) 2.5 mg PO BID [facility]LIN PRN Reason: Protocol Last Admin: 05/27/17 17:22 Dose: 2.5 mg Atorvastatin Calcium (Lipitor) 10 mg PO DAILY [facility] PRN Reason: Protocol Last Admin: 05/27/17 10:13 Dose: 10 mg Betamethasone/Clotrimazole (Lotrisone) 0 gm TOP BID [facility] PRN Reason: Protocol Last Admin: 05/27/17 17:23 Dose: 1 applic Diltiazem HCl (Cardizem Cd) 120 mg PO DAILY [facility] Last Admin: 05/27/17 10:11 Dose: 120 mg Furosemide (Lasix) 20 mg PO DAILY [facility]LIN PRN Reason: Protocol Last Admin: 05/27/17 10:13 Dose: 20 mg Gabapentin (Neurontin) 400 mg PO TID [facility]LIN PRN Reason: Protocol Last Admin: 05/27/17 17:22 Dose: 400 mg Glipizide (Glucotrol) 10 mg PO BID [facility]LIN PRN Reason: Protocol Last Admin: 05/27/17 17:23 Dose: 10 mg Vancomycin HCl 1.5 gm/ Sodium (Chloride) 250 mls @ 167 mls/hr IVPB Q12H [facility] PRN Reason: Protocol Last Admin: 05/27/17 21:28 Dose: 167 mls/hr Cefazolin Sodium (Ancef 1gm In Ns) 1 gm in 100 mls @ 100 mls/hr IVPB Q8 [facility] PRN Reason: Protocol Last Admin: 05/28/17 05:00 Dose: 100 mls/hr Insulin Human Regular (Humulin R Med) 0 units SC ACHS [facility] PRN Reason: Protocol Last Admin: 05/28/17 06:37 Dose: Not Given Metformin HCl (Glucophage) 1,000 mg PO BID [facility] PRN Reason: Protocol Last Admin: 05/27/17 17:23 Dose: 1,000 mg Non-Formulary Medication (Ferrous Fum/Vit C/B12/Stomc [Hematogen Softgel]) 1 cap PO DAILY [facility] Last Admin: 05/27/17 10:12 Dose: Not Given Pantoprazole Sodium (Protonix Ec Tab) 40 mg PO 0600 [facility]LIN PRN Reason: Protocol Last Admin: 05/28/17 05:00 Dose: 40 mg Pioglitazone HCl (Actos) 45 mg PO DAILY [facility]LIN PRN Reason: Protocol Last Admin: 05/27/17 10:10 Dose: 45 mg Potassium Chloride (K-Dur 20 Meq Er Tab) 20 meq PO DAILY [facility] PRN Reason: Protocol Last Admin: 05/27/17 10:13 Dose: 20 meq Ramipril (Altace) 10 mg PO DAILY [facility]LIN PRN Reason: Protocol Last Admin: 05/27/17 10:10 Dose: 10 mg Attending/Attestation - Attestation I have personally seen and examined this patient.: Yes I have fully participated in the care of the patient.: Yes I have reviewed all pertinent clinical information, including history, physical exam and plan: Yes
[2017-05-28] MEDS: diltiaZEM 120 mg/24 Hours CD Cap PO SCH (09:27)
[2017-05-28] MEDS: [UNRECOGNIZED DRUG - OTHER] PO SCH (09:30)
[2017-05-28] MEDS: B12 PO SCH (09:30)
[2017-05-28] MEDS: Potassium Chloride 20 mEq ER Tab PO SCH (09:30)
[2017-05-28] MEDS: VIT C PO SCH (09:30)
[2017-05-28] MEDS: FERROUS FUM PO SCH (09:30)
[2017-05-28 09:31] VITALS: BP 147/83; PULSE 78
[2017-05-28] MEDS: Clotrimazole/Betamethasone Cream(15 gm) TOP SCH (09:31)
--- NOTE | 2017-05-28 14:43 | DS ---
HISTORY OF PRESENT ILLNESS: This is a 56-year-old male who comes to the hospital with chronic cellulitis. He was given IV antibiotics and finished 7 days of antibiotics. He is going to be discharged home tomorrow. Follow up with his primary care doctor Dr. Saavedra. He has no complaints of any headaches or dizziness, and he is ambulating well. PHYSICAL EXAMINATION: VITAL SIGNS: He has had a temperature of 98.2, pulse of 72, blood pressure of 154/78, respiratory rate of 20, and O2 saturation 95%. GENERAL: The patient is lying in bed, flat, comfortable. HEENT: No oral lesion. Anicteric sclerae. Moist mucosa. NECK: No JVD, adenopathy, or thyromegaly. CARDIOVASCULAR: S1 and S2, regular. No murmurs, rubs, or gallops. LUNGS: Clear to auscultation bilaterally. No wheeze, rales, or rhonchi. ABDOMEN: Bowel sounds are positive, soft, nontender and nondistended. EXTREMITIES: Lower extremity, chronic skin changes. ASSESSMENT: 1. Cellulitis, x7 days of antibiotics. 2. Nephrolithiasis. 3. Obesity with a body mass index of 40. 4. Atrial fibrillation, on anticoagulation. 5. Hypertension. 6. Dyslipidemia. PLAN: The patient is currently on Actos for his diabetes. He is going to continue on Eliquis for his anticoagulation. He is on glipizide for his diabetes and metformin as well. He is receiving potassium replacement. He is on Protonix. He is otherwise comfortable. Condition is stable. Activity is increased as tolerated. Winston Streeter MD
--- NOTE | 2017-05-28 17:35 | PN ---
DATE: 05/28/2017 SUBJECTIVE: Patient is in bed, in no acute distress. Nontoxic. He was seen earlier. No fevers. No chills. PHYSICAL EXAMINATION: VITAL SIGNS: Temperature is 98, blood pressure is 120/70 and respiratory rate of 16. HEENT: Unremarkable. NECK: Supple. LUNGS: Decreased breath sounds. HEART: Normal S1 and S2. ABDOMEN: Soft and nontender. LABORATORY DATA: Reviewed. ASSESSMENT AND PLAN: This is a 56-year-old male with morbid obesity with body mass index of 55 with right leg skin and skin soft tissue infection and chronic leg ulcer, methicillin-resistant Staphylococcus aureus and Klebsiella oxytoca, history of hypertension, diabetes, chronic lymphedema lower extremities, history of group B strep infection and mentally challenged. Patient for discharge today. No further antibiotics. Legs have resolved and case discussed with Dr. Mendenhall who states will discharge the patient today. Jean-Claude Aviles MD
== END 2017-05-28 15:20 | disposition home health service (06) | DRG 603 ==
LOC: TRCU 16:21
PROVIDERS: ADMIT Internal Medicine Nephrology; ATTEND Internal Medicine Nephrology
PROC: 3E03329 Introduction of Other Anti-infective into Peripheral Vein, Percutaneous Approach (ICD-10-PCS; 2017-05-23)
PROC: F08Z4ZZ Home Management Treatment (ICD-10-PCS; 2017-05-24)
PROC: F07Z9ZZ Gait Training/Functional Ambulation Treatment (ICD-10-PCS; principal; 2017-05-25)
PROC: F07Z8ZZ Transfer Training Treatment (ICD-10-PCS; 2017-05-25)
PROC: F07L6ZZ Therapeutic Exercise Treatment of Musculoskeletal System - Lower Back / Lower Extremity (ICD-10-PCS; 2017-05-25)
DX: L03.115 Cellulitis of right lower limb (principal); E11.622 Type 2 diabetes mellitus with other skin ulcer; I11.0 Hypertensive heart disease with heart failure; I50.9 Heart failure, unspecified; L97.919 Non-pressure chronic ulcer of unspecified part of right lower leg with unspecified severity; Z68.43 Body mass index [BMI] 50.0-59.9, adult; Z79.2 Long term (current) use of antibiotics; N20.0 Calculus of kidney; I48.91 Unspecified atrial fibrillation; I89.0 Lymphedema, not elsewhere classified; B95.62 Methicillin resistant Staphylococcus aureus infection as the cause of diseases classified elsewhere; B96.1 Klebsiella pneumoniae [K. pneumoniae] as the cause of diseases classified elsewhere; E78.5 Hyperlipidemia, unspecified; E66.01 Morbid (severe) obesity due to excess calories; F81.9 Developmental disorder of scholastic skills, unspecified; Z79.01 Long term (current) use of anticoagulants; Z79.84 Long term (current) use of oral hypoglycemic drugs

== ENCOUNTER 2018-01-11 12:48 | Emergency (ER) | payer MEDICARE, MEDICAID ==
[2018-01-11 12:49] VITALS: BMI 38.4
[2018-01-11] MEDS ORDERED: Sodium Chloride 0.9% 500 ML IV STA ×2 (13:36→14:17)
[2018-01-11 13:48] LABS: VENOUS BLOOD GAS BASE EXCESS 1.1 mmol/L (0.0-2.0); VENOUS BLOOD GAS PO2 36 mm/Hg (30-55); VENOUS BLOOD PH 7.32 (7.32-7.43)
[2018-01-11 13:51] LABS: BASO # 0.03 K/mm3 (0.0-2.0); BASO % 0.3 % (0.0-3.0); EOS # 0.1 (0.0-0.7); EOS % 1.4 % (1.5-5.0); GRAN # 7.55 (1.4-6.5); GRAN % 74.7 % (50.0-68.0); HEMOGLOBIN 14.7 g/dL (14.0-18.0); LYMPH # 1.6 (1.2-3.4); LYMPH % 15.9 % (22.0-35.0); MEAN CELL VOLUME 88.1 fl (80.0-105.0); MEAN CORPUSCULAR HEMOGLOBIN 29.6 pg (25.0-35.0); MEAN CORPUSCULAR HGB CONC 33.6 g/dl (31.0-37.0); MEAN PLATELET VOLUME 10.2 fl (7.0-11.0); MONO # 0.8 (0.1-0.6); MONO % 7.7 % (1.0-6.0); RBC 4.96 10^6/uL (3.5-6.1); RED CELL DISTRIBUTION WIDTH 12.7 % (11.5-14.5); WHITE BLOOD COUNT 10.1 10^3/ul (4.5-11.0)
[2018-01-11 14:02] LABS: ARTERIAL BLOOD GAS HCO3 24.8 mmol/L (21-28); ARTERIAL BLOOD GAS O2 SAT 94.4 % (95-98); ARTERIAL BLOOD GAS PCO2 40 mm/Hg (35-45)
[2018-01-11 14:02] LABS: INR 1.04 (0.93-1.08); PARTIAL THROMBOPLASTIN TIME 33.6 Seconds (25.1-36.5); PROTHROMBIN TIME 11.9 SECONDS (9.4-12.5)
[2018-01-11 14:06] LABS: URINE BILIRUBIN NEGATIVE (NEGATIVE); URINE BLOOD NEGATIVE (NEGATIVE); URINE GLUCOSE (UA) >=1000 mg/dL (NEGATIVE); URINE LEUKOCYTE ESTERASE NEGATIVE Leu/uL (NEGATIVE); URINE PROTEIN NEGATIVE mg/dL (<30 mg/dL); URINE UROBILINOGEN 0.2 E.U./dL (<1 E.U./dL)
[2018-01-11 14:08] LABS: ALB/GLOB RATIO 1.2 (1.1-1.8); ALBUMIN 4.4 g/dL (3.0-4.8); ALT/SGPT 37 U/L (7-56); AST/SGOT 23 U/L (17-59); BLOOD UREA NITROGEN 20 mg/dL (7-21); CALCIUM 10.7 mg/dL (8.4-10.5); GFR AFRICAN-AMERICAN > 60; GFR NON-AFRICAN AMERICAN > 60
[2018-01-11 14:11] LABS: TROPONIN I < 0.01 ng/mL
[2018-01-11] MEDS ORDERED: Insulin Regular 1 UNITS/0.01 ML ML SC STA (14:16)
--- NOTE | 2018-01-11 14:21 | RAD ---
HISTORY: hyperglycemia COMPARISON: 07/15/2016. FINDINGS: LUNGS: No active pulmonary disease. PLEURA: No significant pleural effusion identified, no pneumothorax apparent. CARDIOVASCULAR: Cardiomegaly. No evidence of acute, significant cardiovascular disease. OSSEOUS STRUCTURES: No significant abnormalities. VISUALIZED UPPER ABDOMEN: Normal. OTHER FINDINGS: None. IMPRESSION: No active disease. No significant interval change compared to the prior examination(s).
--- NOTE | 2018-01-11 14:32 | ED PDOC ---
Arrival/HPI - General Historian: Patient, Parent EM Caveat: Dementia - History of Present Illness Time/Duration: < week <Jacinda Blackmon - Last Filed: 01/11/18 16:46> <Catarino Gates - Last Filed: 01/11/18 22:30> - General Chief Complaint: High Blood Sugar Time Seen by Provider: 01/11/18 13:18 - History of Present Illness Narrative History of Present Illness (Text): 01/11/18 14:25 57 yo M with PMH of insulin-dependant diabetes, epilepsy (with abscence seizures ), CAD, afib on eliquis and chronic leg ulcers who presents to [facility] with his mother, sent by his PMD for blood glucose reading in the office >500. Mom reports that for the past couple days, patient has been "listless" and urinating more than normal, but otherwise normal. No recent seizures that she's noticed, but she says she would not know. Denies cough, fever, chills, rhinorrhea, nausea, vomiting, diarrhea, constipation. Patient has wound care nurses who visit and change the dressings on his legs twice weekly, and he follows up with Dr. Arzate for wound care who he saw two weeks ago. He denies pain/ulcer/drainage from his legs. He denies dysuria, hematuria, headache, confusion. Patient has been compliant with his medications, takes 30u lantus nightly and sliding scale coverage three times daily. For the past two days, his premeal blood sugar has been consistently high, 300's-400's. (Jacinda Blackmon ) Past Medical History - Provider Review Nursing Documentation Reviewed: Yes - Travel History Have you recently traveled outside [place] w/in the past 3 mons?: No - Infectious Disease Hx of Infectious Diseases: MRSA - Tetanus Immunization Tetanus Immunization: Unknown - Cardiac Hx Cardiac Disorders: Yes Hx Atrial Fibrillation: Yes Hx Congestive Heart Failure: Yes Hx Hypertension: Yes - Pulmonary Hx Chronic Obstructive Pulmonary Disease (COPD): No - Neurological Hx Seizures: Yes Other/Comment: Epilepsy - HEENT Hx HEENT Disorder: Yes Other/Comment: wears glasses - Renal Hx Renal Failure: No - Endocrine/Metabolic Hx Diabetes Mellitus Type 2: Yes - Hematological/Oncological Hx Blood Disorders: No Other/Comment: blood infection - Integumentary Hx Dermatological Disorder: Yes Other/Comment: multiple wounds on the rt leg, cellulitis in b/l extreminity. 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 - Surgical History Hx Amputation: No Hx Appendectomy: No Hx Cholecystectomy: No Hx Gastric Bypass Surgery: No Hx Hysterectomy: No Hx Joint Replacement: No Hx Kidney Transplant: No Hx Liver Transplant: No Hx Mastectomy: No Hx Musculoskeletal Surgery: No Hx Open Heart Surgery: No Hx Orthopedic Surgery: No Hx Splenectomy: No Hx Valve Replacement: No - Anesthesia Hx Anesthesia: Yes Hx Anesthesia Reactions: No Hx Malignant Hyperthermia: No - Suicidal Assessment Feels Threatened In Home Enviroment: No <Jacinda Blackmon - Last Filed: 01/11/18 16:46> <Catarino Gates - Last Filed: 01/11/18 22:30> - Patient History Narrative Patient History: insulin-dependant diabetes, epilepsy (with abscence seizures), CAD, afib on eliquis and chronic leg ulcers (Jacinda Blackmon) Family/Social History - Physician Review Nursing Documentation Reviewed: Yes Family/Social History: Unknown Family HX Smoking Status: Former Smoker Hx Alcohol Use: No Hx Substance Use: No Hx Substance Use Treatment: No <Jacinda Blackmon - Last Filed: 01/11/18 16:46> Allergies/Home Meds <Jacinda Blackmon - Last Filed: 01/11/18 16:46> <Catarino Gates - Last Filed: 01/11/18 22:30> Allergies/Adverse Reactions: Allergies No Known Allergies Allergy (Verified 01/11/18 13:02) Home Medications: Home Meds Medication Instructions Recorded Confirmed Apixaban [Eliquis] 2.5 mg PO BID 05/20/17 05/23/17 Atorvastatin [Lipitor] 10 mg PO DAILY 05/20/17 05/23/17 Diltiazem HCl [Diltiazem ER] 120 mg PO DAILY 05/20/17 05/23/17 Ferrous Fum/Vit C/B12/Stomc [Ziks 1 cap PO DAILY 05/20/17 05/23/17 Hematogen] Furosemide [Lasix] 20 mg PO DAILY 05/20/17 05/23/17 Gabapentin [Neurontin] 400 mg PO TID 05/20/17 05/23/17 GlipiZIDE [Glipizide] 10 mg PO BID 05/20/17 05/23/17 Insulin Lispro [Humalog Kwikpen 1 unit SQ ACHS 05/20/17 05/23/17 U-100] Metformin HCl [Glucophage] 1,000 mg PO BID 05/20/17 05/23/17 Omeprazole 20 mg PO DAILY 05/20/17 05/23/17 Pioglitazone HCl 45 mg PO DAILY 05/20/17 05/23/17 Potassium Chloride [Klor-Con M20] 20 meq PO DAILY 05/20/17 05/23/17 Ramipril [Altace] 10 mg PO DAILY 05/20/17 05/23/17 Review of Systems - Review of Systems Systems not reviewed;Unavailable: Dementia Constitutional: Normal Eyes: Normal ENT: Normal Respiratory: Normal Cardiovascular: Normal Gastrointestinal: Normal Genitourinary Male: Frequency Musculoskeletal: Normal Skin: Normal Neurological: Normal Endocrine: Normal Hemo/Lymphatic: Normal Psychiatric: Normal <Jacinda Blackmon - Last Filed: 01/11/18 16:46> Physical Exam Vital Signs Reviewed: Yes Temperature: Afebrile Blood Pressure: Hypertensive Pulse: Regular Respiratory Rate: Normal Appearance: Positive for: Non-Toxic, Comfortable, Other (chronically ill) Pain Distress: None Mental Status: Positive for: Alert and Oriented X 3 Finger Stick Blood Glucose: 385 - Systems Exam Head: Present: Atraumatic, Normocephalic Pupils: Present: PERRL Extroacular Muscles: Present: EOMI Conjunctiva: Present: Normal Mouth: Present: Other (Large tongue. Poor dentition. Dry mucous membranes) Neck: Present: Normal Range of Motion Respiratory/Chest: Present: Clear to Auscultation, Decreased Breath Sounds. No : Good Air Exchange, Accessory Muscle Use Cardiovascular: Present: Regular Rate and Rhythm, Normal S1, S2 Abdomen: Present: Normal Bowel Sounds, Other (Large ventral hernia). No: Tenderness, Distention, Peritoneal Signs Upper Extremity: Present: Normal Inspection. No: Cyanosis, Edema Lower Extremity: Present: Other (Pressure dressing CDI toes to knees. Bilateral gross lymphedema posterior thighs) Neurological: Present: GCS=15, CN II-XII Intact Skin: Present: Warm, Dry, Normal Color Psychiatric: Present: Alert, Oriented x 3 <Jacinda Blackmon - Last Filed: 01/11/18 16:46> Vital Signs Temp Pulse Resp BP Pulse Ox 01/11/18 17:05 98.1 F 78 16 160/80 H 99 01/11/18 13:27 98.4 F 95 H 17 142/87 97 Medical Decision Making - Lab Interpretations I have reviewed the lab results: Yes <Jacinda Blackmon - Last Filed: 01/11/18 16:46> - EKG Interpretation Interpreted by ED Physician: Yes Type: 12 lead EKG <YajairaCatarino - Last Filed: 01/11/18 22:30> ED Course and Treatment: 01/11/18 14:38 Patient is hyperglycemic, with urinary frequency without dysuria. Ordered CBC, CMP, PT/PTT, Cardiac ISO, VBG with lactate, CXR, EKG, and UA Ordered 500cc IVF bolus 01/11/18 16:07 Labs remarkable for persistent hyperglycemia. Ordered 500cc IVF bolus and 10u regular insulin Chest X-ray shows cardiomegaly, no inteval disease. VBG lactate elevated, but ABG lactate WNL. Urinalysis normal. EKG normal. Remainder of labs WNL Accucheck after insulin and IVF improved to 300. Will discuss with PMD 01/11/18 16:[address] with patient's PMD Dr. Saavedra, who instructed patient to continue accucheck Q4 at home, and patient will follow up with him in two days, this Tuesday. Patient agreeable to go home. Discussed sliding scale and frequent accucheck at home. Instructed patient to return to Emergency department for any new or worsening concerns. (LorriButchchely) 01/11/18 22:28 Patient seen and evaluated with medical science liaison. Patient denies chest pain or shortness of breath. No abdominal pain, no nausea or vomiting. Patient with history of wound care to legs, on exam there is no acute cellulitis noted. NO respiratory symptoms. No vomiting. No diarrhea. Abdomen nontender. Tolerating po. IV fluids given and insulin given. Blood sugar improving. Currently exam not consistent with DKA. Case reviewed with PMD. As patient with no fever, no signs of sepsis, no change in mental status, no pain or discomfort, no dka, will d/c with instructions for blood sugar management discussed with mother, follow-up with Dr. Saavedra. ([facility]) - Lab Interpretations Lab Results: 01/11/18 13:10 01/11/18 13:10 Lab Results 01/11/18 15:53: POC Glucose (mg/dL) 301 H 01/11/18 15:25: POC Glucose (mg/dL) 285 H 01/11/18 13:55: pCO2 40, pO2 64.0 L, HCO3 24.8, ABG pH 7.40, ABG Total CO2 26.0 , ABG O2 Saturation 94.4 L, ABG Base Excess 0.0, ABG Potassium 3.9, Sodium 132.0 , Chloride 103.0, Glucose 467 H*, Lactate 1.7, FiO2 21.0, Arterial Blood Potassium 3.9 01/11/18 13:50: Urine Color Light yellow, Urine Appearance Clear, Urine pH 6.0, Ur Specific [place] 1.010, Urine Protein Negative, Urine Glucose (UA) >=1000, Urine Ketones Negative, Urine Blood Negative, Urine Nitrate Negative, Urine Bilirubin Negative, Urine Urobilinogen 0.2, Ur Leukocyte Esterase Negative 01/11/18 13:10: Sodium 137, Chloride 96 L, Potassium 4.6, Carbon Dioxide 28, Anion Gap 17, BUN 20, Creatinine 0.8, Est GFR ( Amer) > 60, Est GFR (Non- Af Amer) > 60, Random Glucose 540 H* D, Calcium 10.7 H, Total Bilirubin 0.8, AST 23, ALT 37, Alkaline Phosphatase 131 H, Lactate Dehydrogenase 429, Total Creatine Kinase 50, Troponin I < 0.01, Total Protein 8.1, Albumin 4.4, Globulin 3.7, Albumin/Globulin Ratio 1.2 01/11/18 13:10: pO2 36, VBG pH 7.32, VBG pCO2 55.0, VBG HCO3 28.3 H, VBG Total CO2 30.0 H, VBG O2 Sat (Calc) 72.5 H, VBG Base Excess 1.1, VBG Potassium 4.4, Sodium 132.0, Chloride 99.0, Glucose 540 H* D, Lactate 2.4 H, FiO2 21.0, Venous Blood Potassium 4.4 01/11/18 13:10: PT 11.9, INR 1.04, APTT 33.6 01/11/18 13:10: WBC 10.1, RBC 4.96, Hgb 14.7, Hct 43.7, MCV 88.1, MCH 29.6, MCHC 33.6, RDW 12.7, Plt Count 280, MPV 10.2, Gran % 74.7 H, Lymph % (Auto) 15.9 L, [place] % (Auto) 7.7 H, Eos % (Auto) 1.4 L, Baso % (Auto) 0.3, Gran # 7.55 H, Lymph # (Auto) 1.6, [place] # (Auto) 0.8 H, Eos # (Auto) 0.1, Baso # (Auto) 0.03 01/11/18 13:06: POC Glucose (mg/dL) 385 H - RAD Interpretation Radiology Orders: 01/11/18 13:34 CHEST PORTABLE [RAD] Stat - EKG Interpretation EKG Interpretation (Text): EKG at 15:48 normal sinus rhythm rate of [address] elevations (Catarino Gates) - Medication Orders Current Medication Orders: Discontinued Medications Sodium Chloride (Sodium Chloride 0.9%) 500 mls @ 1,000 mls/hr IV .Q30M STA Stop: 01/11/18 14:05 Last Admin: 01/11/18 13:48 Dose: 1,000 mls/hr eMAR Start Stop Document 01/11/18 13:48 [facility] (Rec: 01/11/18 13:48 [facility] [id number]) Intravenous Solution Start Date 01/11/18 Start Time 13:48 End Date 01/11/18 End time 14:20 Total Infusion Time 32 Sodium Chloride (Sodium Chloride 0.9%) 500 mls @ 999 mls/hr IV .Q31M STA Stop: 01/11/18 14:47 Last Admin: 01/11/18 14:25 Dose: 999 mls/hr eMAR Start Stop Document 01/11/18 14:25 [facility] (Rec: 01/11/18 14:25 [facility] [id number]) Intravenous Solution Start Date 01/11/18 Start Time 14:25 End Date 01/11/18 End time 15:00 Total Infusion Time 35 Insulin Human Regular (Humulin R) 10 units SC STAT STA Stop: 01/11/18 14:17 Last Admin: 01/11/18 14:25 Dose: 10 units MAR Blood Glucose Document 01/11/18 14:25 [facility] (Rec: 01/11/18 14:25 [facility] [id number]) Blood Glucose Finger Stick Blood Glucose (70-120) 385 Subcutaneous Administrations Document 01/11/18 14:25 [facility] (Rec: 01/11/18 14:25 [facility] [id number]) Injection Site MAR Injection Site Left Arm Charges for Administration # of Subcutaneous Administrations 1 Disposition/Present on Arrival - Present on Arrival Any Indicators Present on Arrival: Yes History of DVT/PE: No History of Uncontrolled Diabetes: Yes Urinary Catheter: No History of Decub. Ulcer: No History Surgical Site Infection Following: None - Disposition Have Diagnosis and Disposition been Completed?: Yes Disposition Time: 16:51 Patient Plan: Discharge <Jacinda Blackmon - Last Filed: 01/11/18 16:46> <Catarino Gates - Last Filed: 01/11/18 22:30> - Disposition Diagnosis: Hyperglycemia Disposition: HOME/ ROUTINE Condition: GUARDED Discharge Instructions (ExitCare): Hyperglycemia, Adult Referrals: Lg Saavedra MD [Primary Care Provider] - Follow up with primary Forms: [employer] (Danish)
[2018-01-11 14:36] LABS: URINE APPEARANCE CLEAR (CLEAR); URINE COLOR LIGHT YELLOW (YELLOW)
[2018-01-11 17:06] VITALS: BP 160/80; PULSE 78; RESP 16; TEMP 98.1; O2SAT 99
--- NOTE | 2018-01-12 09:55 | CARD ---
APPROVED REPORT EKG Measurement Heart [id number] <Conclusion> Normal sinus rhythm Normal ECG No change
== END 2018-01-11 17:05 | disposition home or self-care (01) ==
LOC: ED 12:48
DX: E11.65 Type 2 diabetes mellitus with hyperglycemia (principal); Z79.4 Long term (current) use of insulin; I48.91 Unspecified atrial fibrillation; I10 Essential (primary) hypertension; Z79.01 Long term (current) use of anticoagulants; Z87.891 Personal history of nicotine dependence
CPT/HCPCS: 71045; 80053; 81003; 82550; 82803; 82948; 83615; 84484; 85025; 85610; 85730; 93005; 96360; 96361; 99283; J7040

== ENCOUNTER 2018-02-07 01:51 | Inpatient (IN) | payer MEDICARE, MEDICAID ==
[2018-02-07] MEDS ORDERED: Piperacillin/Tazobact 3.375 gm 100 ML IV STA (02:18)
[2018-02-07] MEDS ORDERED: Vancomycin 1gm in NS 250ml 1 GM/250 ML BAG IVPB STA (02:21)
--- NOTE | 2018-02-07 02:23 | ED PDOC ---
Arrival/HPI - General Chief Complaint: Lower Extremity Problem/Injury Time Seen by Provider: 02/07/18 01:57 Historian: Patient, Spouse - History of Present Illness Narrative History of Present Illness (Text): 02/07/18 02:15 Patient is a 57 year old male who presents to the Emergency department complaining of right leg pain with associated leg infection. Patient is present with who speaks for him. She reports that patients right lower extremity has erythema and feels hot. Patient is awake and alert. Symptom Onset: Gradual Context: Home Past Medical History - Provider Review Nursing Documentation Reviewed: Yes - Infectious Disease Hx of Infectious Diseases: None - Tetanus Immunization Tetanus Immunization: Unknown - Cardiac Hx Cardiac Disorders: Yes Hx Atrial Fibrillation: Yes Hx Congestive Heart Failure: Yes Hx Hypertension: Yes - Pulmonary Hx Respiratory Disorders: No - Neurological Hx Neurological Disorder: Yes Hx Seizures: Yes Other/Comment: Epilepsy - HEENT Hx HEENT Disorder: Yes Other/Comment: wears glasses - Renal Hx Renal Disorder: No - Endocrine/Metabolic Hx Endocrine Disorders: Yes Hx Diabetes Mellitus Type 2: Yes - Hematological/Oncological Hx Blood Disorders: No Other/Comment: blood infection - Integumentary Hx Dermatological Disorder: Yes Other/Comment: multiple wounds on the rt leg, cellulitis in b/l extreminity. 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 - Surgical History Hx Amputation: No Hx Appendectomy: No Hx Cholecystectomy: No Hx Gastric Bypass Surgery: No Hx Hysterectomy: No Hx Joint Replacement: No Hx Kidney Transplant: No Hx Liver Transplant: No Hx Mastectomy: No Hx Musculoskeletal Surgery: No Hx Open Heart Surgery: No Hx Orthopedic Surgery: No Hx Splenectomy: No Hx Valve Replacement: No - Anesthesia Hx Anesthesia: Yes Hx Anesthesia Reactions: No Hx Malignant Hyperthermia: No - Suicidal Assessment Feels Threatened In Home Enviroment: No Family/Social History - Physician Review Nursing Documentation Reviewed: Yes Family/Social History: No Known Family HX Smoking Status: Former Smoker Hx Alcohol Use: No Hx Substance Use: No Hx Substance Use Treatment: No Allergies/Home Meds Allergies/Adverse Reactions: Allergies No Known Allergies Allergy (Verified 02/07/18 11:42) Home Medications: Home Meds Medication Instructions Recorded Confirmed Apixaban [Eliquis] 2.5 mg PO BID 05/20/17 02/07/18 Atorvastatin [Lipitor] 10 mg PO DAILY 05/20/17 02/07/18 Diltiazem HCl [Diltiazem ER] 120 mg PO DAILY 05/20/17 02/07/18 Ferrous Fum/Vit C/B12/Stomc [Ziks 1 cap PO DAILY 05/20/17 02/07/18 Hematogen] Furosemide [Lasix] 20 mg PO DAILY 05/20/17 02/07/18 Gabapentin [Neurontin] 400 mg PO TID 05/20/17 02/07/18 GlipiZIDE [Glipizide] 10 mg PO BID 05/20/17 02/07/18 Insulin Lispro [Humalog Kwikpen 1 unit SQ ACHS 05/20/17 02/07/18 U-100] Metformin HCl [Glucophage] 1,000 mg PO BID 05/20/17 02/07/18 Omeprazole 20 mg PO DAILY 05/20/17 02/07/18 Pioglitazone HCl 45 mg PO DAILY 05/20/17 02/07/18 Potassium Chloride [Klor-Con M20] 20 meq PO DAILY 05/20/17 02/07/18 Ramipril [Altace] 10 mg PO DAILY 05/20/17 02/07/18 Review of Systems - Physician Review All systems were reviewed & negative as marked: Yes - Review of Systems Respiratory: absent: SOB Cardiovascular: absent: Chest Pain Musculoskeletal: Other (Right leg pain and erythema.) Physical Exam Vital Signs Temp Pulse Resp BP Pulse Ox 02/07/18 11:15 96 H 133/66 02/07/18 11:13 133/66 02/07/18 10:50 98.9 F 98 H 20 133/66 94 L 02/07/18 07:05 98.9 F 107 H 20 107/39 L 95 02/07/18 06:53 98.9 F 110 H 18 103/50 L 95 02/07/18 06:14 116 H 18 109/47 L 92 L 02/07/18 03:31 102.1 F H 02/07/18 02:04 102.2 F H 107 H 19 134/53 L 95 Temperature: Febrile Blood Pressure: Normal Pulse: Tachycardic Mental Status: Positive for: Alert and Oriented X 3 - Systems Exam Head: Present: Atraumatic, Normocephalic Pupils: Present: PERRL Extroacular Muscles: Present: EOMI Conjunctiva: Present: Normal Mouth: Present: Moist Mucous Membranes Neck: Present: Normal Range of Motion Respiratory/Chest: Present: Clear to Auscultation, Good Air Exchange. No: Respiratory Distress, Accessory Muscle Use Cardiovascular: Present: Regular Rate and Rhythm, Normal S1, S2. No: Murmurs Abdomen: No: Tenderness, Distention, Peritoneal Signs Back: Present: Normal Inspection Upper Extremity: Present: Normal Inspection. No: Cyanosis, Edema Lower Extremity: Present: Normal Inspection, Erythema (erythema of right upper thigh.). No: Edema Neurological: Present: GCS=15, CN II-XII Intact, Speech Normal Skin: Present: Warm, Dry, Normal Color. No: Rashes Psychiatric: Present: Alert, Oriented x 3, Normal Insight, Normal Concentration Medical Decision Making ED Course and Treatment: 02/07/18 02:15 Impression: Patient is a 57 year old male with right leg pain and possible infection. Differential Diagnosis included but are not limited to: Cellulitis vs. skin abscess vs. DVT Plan: --lab works --blood culture --Wound culture --Lower extremity US --Chest X-ray --Tylenol --Vancomycin --Zosyn -- Reassess and disposition Prior Visits: Notes and results from previous visits were reviewed. Progress Notes: 02/07/18 03:42 Notified by nursing staff that patient became diaphoretic and short of breath during administration of IV antibiotic. Patient given 100% O2 by non-rebreather face mask and nebulizer treatment. 02/07/18 03:42 Lower extremity US report reviewed and was negative. 02/07/18 05:08 Chest X-ray shows no acute changes. Interpreted by me. 02/07/18 05:47 On reevaluation patient status has improved s/p bowel movement. 02/07/18 5:50 Case discussed with who accepts patient to his service, and requests , , and on consult. 02/07/18 05:57 - Lab Interpretations Lab Results: 02/07/18 02:35 02/07/18 02:35 Lab Results 02/07/18 04:25: pO2 74 H, VBG pH 7.40, VBG pCO2 42.0, VBG HCO3 26.0, VBG Total CO2 27.3, VBG O2 Sat (Calc) 96.2 H, VBG Base Excess 1.0, VBG Potassium 5.0, Glucose 363 H, Lactate 2.0, FiO2 21.0, Sodium 131.0 L, Chloride 99.0, Venous Blood Potassium 5.0 02/07/18 02:35: Lactate Dehydrogenase 483, Total Creatine Kinase 39, Troponin I < 0.01, NT-Pro-B Natriuret Pep 105 02/07/18 02:35: WBC 24.1 H D, RBC 4.59, Hgb 13.7 L, Hct 40.5 L, MCV 88.2, MCH 29.8, MCHC 33.8, RDW 12.7, Plt Count 271, MPV 10.4 02/07/18 02:35: Sodium 136, Potassium 4.5, Chloride 99, Carbon Dioxide 24, Anion Gap 18, BUN 17, Creatinine 0.8, Est GFR ( Amer) > 60, Est GFR (Non- Af Amer) > 60, Random Glucose 334 H* D, Calcium 9.6, Total Bilirubin 0.7, AST 30 , ALT 34, Alkaline Phosphatase 107, Total Protein 7.3, Albumin 4.1, Globulin 3.2 , Albumin/Globulin Ratio 1.3 I have reviewed the lab results: Yes - RAD Interpretation Radiology Orders: 02/07/18 02:15 DUPLEX LOWER EXTRM VEIN BILAT [US] Stat 02/07/18 04:05 CHEST PORTABLE [RAD] Stat - Medication Orders Current Medication Orders: Apixaban (Eliquis) 2.5 mg PO BID [facility] PRN Reason: Protocol Last Admin: 02/07/18 17:14 Dose: 2.5 mg Atorvastatin Calcium (Lipitor) 10 mg PO HS [facility] Last Admin: 02/07/18 22:11 Dose: 10 mg Diltiazem HCl (Cardizem Cd) 120 mg PO DAILY [facility] Last Admin: 02/07/18 11:15 Dose: 120 mg MAR Pulse and Blood Pressure Document 02/07/18 11:15 SRE (Rec: 02/07/18 11:15 SRE [id number]) Pulse Pulse Rate (60-90) 96 Blood Pressure Blood Pressure (100/60-150/90) 133/66 Furosemide (Lasix) 20 mg PO DAILY [facility] Last Admin: 02/07/18 11:13 Dose: 20 mg MAR Blood Pressure Document 02/07/18 11:13 SRE (Rec: 02/07/18 11:13 SRE [id number]) Blood Pressure Blood Pressure (100/60-150/90) 133/66 Gabapentin (Neurontin) 400 mg PO TID [facility] PRN Reason: Protocol Last Admin: 02/07/18 17:15 Dose: 400 mg Behavioural Document 02/07/18 17:15 EP (Rec: 02/07/18 17:15 [place] [facility] [id number] Maintenance Maintenance Dose Yes Nonmedicinal Nonmedicinal Interventions Redirect Behavior Behavior for Medication: Anxiety Re-Assess: Reassess Psych Meds Document 02/07/18 18:15 EP (Rec: 02/07/18 18:30 EP [id number]) Reassess Psych Med Effective Glipizide (Glucotrol) 10 mg PO BID [facility] Last Admin: 02/07/18 17:14 Dose: 10 mg Ceftaroline Fosamil 400 mg/ (Sodium Chloride) 100 mls @ 100 mls/hr IVPB Q12 [facility] PRN Reason: Protocol Stop: 02/14/18 07:26 Last Admin: 02/07/18 21:44 Dose: 100 mls/hr eMAR Start Stop Document 02/07/18 21:44 JK (Rec: 02/07/18 21:45 [id number]) Intravenous Solution Start Date 02/07/18 Start Time 21:44 End Date 02/07/18 End time 22:45 Total Infusion Time 61 Sodium Chloride (Sodium Chloride 0.9%) 1,000 mls @ 100 mls/hr IV .Q10H [facility] Last Admin: 02/07/18 21:45 Dose: 100 mls/hr eMAR Start Stop Document 02/07/18 21:45 LILIANA (Rec: 02/07/18 21:47 [id number]) Intravenous Solution Start Date 02/07/18 Start Time 21:45 End Date 02/07/18 End time 08:45 Total Infusion Time -780 Insulin Human Lispro (Humalog) 10 units SC AC [facility] Insulin Human Regular (Humulin R High) 0 units SC ACHS [facility] PRN Reason: Protocol Last Admin: 02/07/18 22:19 Dose: 5 units MAR Blood Glucose Document 02/07/18 22:19 LILIANA (Rec: 02/07/18 22:25 [facility] [facility] [id number] Blood Glucose Finger Stick Blood Glucose (70-120) 276 Subcutaneous Administrations Document 02/07/18 22:19 LILIANA (Rec: 02/07/18 22:25 [place]IA[place] [facility] [id number] Injection Site MAR Injection Site Right Arm Charges for Administration # of Subcutaneous Administrations 1 Pioglitazone HCl (Actos) 30 mg PO DAILY [facility] Pioglitazone HCl (Actos) 15 mg PO DAILY [facility] Ramipril (Altace) 10 mg PO DAILY [facility] Last Admin: 02/07/18 11:16 Dose: 10 mg Discontinued Medications Acetaminophen (Tylenol 325mg Tab) 975 mg PO STAT [facility] Stop: 02/07/18 02:16 Last Admin: 02/07/18 03:31 Dose: 975 mg MAR Pain/Vitals Document 02/07/18 03:31 IT (Rec: 02/07/18 03:31 IT [id number]) Vitals Temperature (97.6 F-99.6 F) 102.1 F Temperature Source Oral Acetaminophen (Tylenol 325mg Tab) 650 mg PO Q4H PRN PRN Reason: Fever >100.4 F Stop: 02/07/18 12:00 Vancomycin HCl (Vancomycin 1gm) 1 gm in 250 mls @ 167 mls/hr IVPB STAT [facility] PRN Reason: Protocol Stop: 02/07/18 03:50 Last Admin: 02/07/18 06:39 Dose: 167 mls/hr eMAR Start Stop Document 02/07/18 06:39 IT (Rec: 02/07/18 06:39 IT [id number]) Intravenous Solution Start Date 02/07/18 Start Time 06:39 Piperacillin Sod/Tazobactam Sod (Zosyn 3.375 In Ns 100ml) 100 mls @ 200 mls/hr IV STAT [facility] PRN Reason: Protocol Stop: 02/07/18 02:47 Last Admin: 02/07/18 03:31 Dose: 200 mls/hr eMAR Start Stop Document 02/07/18 03:31 IT (Rec: 02/07/18 03:31 IT [id number]) Intravenous Solution Start Date 02/07/18 Start Time 03:31 End Date 02/07/18 Sodium Chloride (Sodium Chloride 0.9%) 1,000 mls @ 999 mls/hr IV .Q1H1M STA Stop: 02/07/18 13:34 Last Admin: 02/07/18 12:45 Dose: 999 mls/hr eMAR Start Stop Document 02/07/18 12:45 EP (Rec: 02/07/18 12:45 EP [id number]) Intravenous Solution Start Date 02/07/18 Start Time 12:45 Insulin Human Regular (Humulin R Med) 0 units SC ACHS [facility] PRN Reason: Protocol Last Admin: 02/07/18 11:16 Dose: 10 units MAR Blood Glucose Document 02/07/18 11:16 SRE (Rec: 02/07/18 11:17 SRE [id number]) Blood Glucose Finger Stick Blood Glucose (70-120) 500 Subcutaneous Administrations Document 02/07/18 11:16 SRE (Rec: 02/07/18 11:17 SRE [id number]) Injection Site MAR Injection Site Left Arm Charges for Administration # of Subcutaneous Administrations 1 Insulin Human Regular (Humulin R) 15 units SC STAT [facility] Stop: 02/07/18 12:35 Last Admin: 02/07/18 13:52 Dose: 15 units Comments: per MD, give after BS recheck. MAR Blood Glucose Document 02/07/18 13:52 EP (Rec: 02/07/18 13:53 EP [id number]) Blood Glucose Finger Stick Blood Glucose (70-120) 500 Subcutaneous Administrations Document 02/07/18 13:52 EP (Rec: 02/07/18 13:53 EP [id number]) Charges for Administration # of Subcutaneous Administrations 1 Pioglitazone HCl (Actos) 45 mg PO DAILY [facility] Pneumococcal Polyvalent Vaccine (Pneumovax 23 Vaccine) 0.5 ml IM .ONCE ONE Stop: 02/07/18 16:25 - Scribe Statement The provider has reviewed the documentation as recorded by the Scriberika Edmondson Provider Scribe Attestation: All medical record entries made by the Scribe were at my direction and personally dictated by me. I have reviewed the chart and agree that the record accurately reflects my personal performance of the history, physical exam, medical decision making, and the department course for this patient. I have also personally directed, reviewed, and agree with the discharge instructions and disposition Disposition/Present on Arrival - Present on Arrival Any Indicators Present on Arrival: No History of DVT/PE: No History of Uncontrolled Diabetes: Yes Urinary Catheter: No History of Decub. Ulcer: Yes (Right Leg) History Surgical Site Infection Following: None - Disposition Have Diagnosis and Disposition been Completed?: Yes Diagnosis: Cellulitis Disposition: HOME/ ROUTINE Disposition Time: 05:55 Condition: STABLE
[2018-02-07 03:11] LABS: HEMOGLOBIN 13.7 g/dL (14.0-18.0); MEAN CELL VOLUME 88.2 fl (80.0-105.0); MEAN CORPUSCULAR HEMOGLOBIN 29.8 pg (25.0-35.0); MEAN CORPUSCULAR HGB CONC 33.8 g/dl (31.0-37.0); MEAN PLATELET VOLUME 10.4 fl (7.0-11.0); RBC 4.59 10^6/uL (3.5-6.1); RED CELL DISTRIBUTION WIDTH 12.7 % (11.5-14.5); WHITE BLOOD COUNT 24.1 10^3/ul (4.5-11.0)
[2018-02-07 03:36] LABS: ALB/GLOB RATIO 1.3 (1.1-1.8); ALBUMIN 4.1 g/dL (3.0-4.8); ALT/SGPT 34 U/L (7-56); AST/SGOT 30 U/L (17-59); BLOOD UREA NITROGEN 17 mg/dL (7-21); CALCIUM 9.6 mg/dL (8.4-10.5); GFR AFRICAN-AMERICAN > 60; GFR NON-AFRICAN AMERICAN > 60
[2018-02-07] MEDS ORDERED: Albuterol-Ipratrop 3 mg / 0.5 (3 ml) UD ONE (03:51)
[2018-02-07 04:35] LABS: B-TYPE NATRIURETIC PEPTIDE 105 pg/mL (0-450); TROPONIN I < 0.01 ng/mL
[2018-02-07 04:41] LABS: VENOUS BLOOD GAS PO2 74 mm/Hg (30-55)
[2018-02-07] MEDS ORDERED: Insulin Regular 1 UNITS/0.01 ML ML ONE ×2 (07:57→11:00)
[2018-02-07] MEDS: Insulin Reg-MEDIUM-Coverage SC SCH ×2 (07:58→11:16)
[2018-02-07 08:19] LABS: VENOUS BLOOD GAS BASE EXCESS -7.3 mmol/L (0.0-2.0); VENOUS BLOOD GAS PO2 186 mm/Hg (30-55); VENOUS BLOOD PH 7.32 (7.32-7.43)
--- NOTE | 2018-02-07 08:30 | CP.PCM.CON ---
History of Present Illness - History of Present Illness History of Present Illness: Surgical consult note for Dr. Mondragon 57 yo M with PMH of CAD, HTN, CHF, IDDM, epilepsy, chronic lower extremity edema and elephantiasis presented to the ER complaining of fever, right leg pain , and foul odor from the legs. He presents with his mother at bedside, who is providing some of the history. He denies any chest pain, shortness of breath, abdominal pain, nausea, vomiting. Mother reports that after he came to the ER, he had one episode of diarrhea. He has a history of chronic leg ulcers with recurrent MRSA infections. He is followed by Dr. Horta for his chronic lower extremity edema and leg ulcers. PMH: See above PMD: Dr. Saavedra PSHx: Inguinal hernia repair Past Patient History - Infectious Disease Hx of Infectious Diseases: None - Tetanus Immunizations Tetanus Immunization: Unknown - Past Medical History & Family History Past Medical History?: Yes - Past Social History Smoking Status: Former Smoker - CARDIAC Hx Cardiac Disorders: Yes Hx Atrial Fibrillation: Yes Hx Congestive Heart Failure: Yes Hx Hypertension: Yes - PULMONARY Hx Respiratory Disorders: No - NEUROLOGICAL Hx Neurological Disorder: Yes Hx Seizures: Yes Other/Comment: Epilepsy - HEENT Hx HEENT Problems: Yes Other/Comment: wears glasses - RENAL Hx Chronic Kidney Disease: No - ENDOCRINE/METABOLIC Hx Endocrine Disorders: Yes Hx Diabetes Mellitus Type 2: Yes - HEMATOLOGICAL/ONCOLOGICAL Hx Blood Disorders: No Other/Comment: blood infection - INTEGUMENTARY Hx Dermatological Problems: Yes Other/Comment: multiple wounds on the rt leg, cellulitis in b/l extreminity. 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 - SURGICAL HISTORY Hx Amputation: No Hx Appendectomy: No Hx Cholecystectomy: No Hx Gastric Bypass Surgery: No Hx Hysterectomy: No Hx Joint Replacement: No Hx Kidney Transplant: No Hx Liver Transplant: No Hx Mastectomy: No Hx Musculoskeletal Surgery: No Hx Open Heart Surgery: No Hx Orthopedic Surgery: No Hx Splenectomy: No Hx Valve Replacement: No - ANESTHESIA Hx Anesthesia: Yes Hx Anesthesia Reactions: No Hx Malignant Hyperthermia: No Meds Allergies/Adverse Reactions: Allergies Allergy/AdvReac Type Severity Reaction Status Date / Time No Known Allergies Allergy Verified 02/07/18 02:12 - Medications Medications: Current Medications Acetaminophen (Tylenol 325mg Tab) 650 mg PO Q4H PRN PRN Reason: Fever >100.4 F Stop: 02/07/18 12:00 Apixaban (Eliquis) 2.5 mg PO BID [facility] PRN Reason: Protocol Atorvastatin Calcium (Lipitor) 10 mg PO HS [facility] Diltiazem HCl (Cardizem Cd) 120 mg PO DAILY [facility] Furosemide (Lasix) 20 mg PO DAILY [facility] Gabapentin (Neurontin) 400 mg PO TID [facility] PRN Reason: Protocol Glipizide (Glucotrol) 10 mg PO BID [facility] Ceftaroline Fosamil 400 mg/ (Sodium Chloride) 100 mls @ 100 mls/hr IVPB Q12 [facility] PRN Reason: Protocol Stop: 02/14/18 07:26 Last Admin: 02/07/18 08:28 Dose: 100 mls/hr Insulin Human Regular (Humulin R Med) 0 units SC ACHS [facility] PRN Reason: Protocol Last Admin: 02/07/18 07:58 Dose: 10 units Pioglitazone HCl (Actos) 45 mg PO DAILY [facility] Ramipril (Altace) 10 mg PO DAILY [facility] Physical Exam - Constitutional Appears: Toxic, No Acute Distress, Older Than Stated Age, Chronically Ill - Head Exam Head Exam: ATRAUMATIC, NORMOCEPHALIC - Eye Exam Eye Exam: EOMI, Normal appearance - ENT Exam ENT Exam: Mucous Membranes Moist - Neck Exam Neck exam: Positive for: Normal Inspection - Respiratory Exam Respiratory Exam: NORMAL BREATHING PATTERN - Cardiovascular Exam Cardiovascular Exam: Tachycardia, REGULAR RHYTHM - GI/Abdominal Exam GI & Abdominal Exam: Soft. absent: Distended, Guarding, Rigid, Tenderness - Extremities Exam Additional comments: Bilateral lower extremities dressed with compression wraps to ankles to knees. Unwrapped; chronic venous stasis changes. Small (3-4mm) excoriation, without bleeding or drainage on anterior aspect of right warren. No areas of erythema, fluctuance, drainage, or bleeding. Bilateral feet/toes with hyperkeratosis and acanthosis. Bilateral thigh swelling and lymphedema, chronic appearing, with mild erythema and warmth over right medial thigh. No crepitus, induration, or fluctuance over thighs or scrotum. - Neurological Exam Additional comments: Sleepy, easily arousable, responding to questions appropriately - Skin Additional comments: Diaphoretic Normal, except for leg exam. Results - Vital Signs Recent Vital Signs: Last Vital Signs Temp 98.9 F 02/07/18 07:05 Pulse 107 H 02/07/18 07:05 Resp 20 02/07/18 07:05 BP 107/39 L 02/07/18 07:05 Pulse Ox 95 02/07/18 07:05 - Labs Result Diagrams: 02/07/18 02:35 02/07/18 02:35 Labs: Laboratory Results - last 24 hr 02/07/18 02/07/18 07:53 08:13 pO2 186 H VBG pH 7.32 VBG pCO2 35.0 L VBG HCO3 18.0 L VBG Total CO2 19.1 L VBG O2 Sat (Calc) 98.2 H VBG Base Excess -7.3 L VBG Potassium 5.4 H Sodium 129.0 L Chloride 97.0 L Glucose 590 H* D Lactate 2.8 H FiO2 21.0 POC Glucose (mg/dL) 466 H* Venous Blood Potassium 5.4 H Assessment & Plan - Assessment and Plan (Free Text) Assessment: 57 yo M with chronic lower extremity lymphedema and history of chronic ulcerations but no active ulcerations at this time, presenting with fever and leg pain; SIRS/Sepsis with unknown source Plan: - No signs of abscess or focal infection in the legs, does not appear to be source of sepsis; no indication for surgical intervention at this time - Follow up septic workup; ordered UA and UCx - Recommend continuous leg elevation for chronic lower extremity edema - Will continue to follow - Discussed with Dr. Alexandru Monaco Amine PGY1
--- NOTE | 2018-02-07 09:07 | US ---
HISTORY: Leg pain and swelling. Evaluate for DVT PHYSICIAN(S): Link Owens MD. TECHNIQUE: Duplex sonography and color-flow Doppler with graded compression were used to evaluate the deep venous systems of both lower extremities. The exam is very limited by body habitus edema and bandages below the knees. The tibial veins are not evaluated FINDINGS: The visualized deep venous systems of both lower extremities are sonographically normal and compressible. Normal wave forms and augmentation are seen. There is no sonographic evidence for deep venous thrombosis in the visualized segments of both lower extremities. IMPRESSION: No sonographic evidence for deep venous thrombosis in the visualized segments of both lower extremities. Very limited study
--- NOTE | 2018-02-07 09:08 | RAD ---
HISTORY: sob COMPARISON: 01/11/2018 FINDINGS: LUNGS: No active pulmonary disease. PLEURA: No significant pleural effusion identified, no pneumothorax apparent. CARDIOVASCULAR: Moderate cardiomegaly OSSEOUS STRUCTURES: No significant abnormalities. VISUALIZED UPPER ABDOMEN: Normal. OTHER FINDINGS: None. IMPRESSION: No active disease.
[2018-02-07] MEDS: Sodium Chloride 0.9% 1,000 ML IV SCH ×2 (09:37→21:45)
[2018-02-07] MEDS: diltiaZEM 120 mg/24 Hours CD Cap PO SCH (11:15)
[2018-02-07 11:39] LABS: CALCIUM 8.8 mg/dL (8.4-10.5)
[2018-02-07] MEDS ORDERED: Insulin Regular 1 UNITS/0.01 ML ML SC STA (12:34)
[2018-02-07] MEDS ORDERED: Sodium Chloride 0.9% 1,000 ML IV STA (12:34)
[2018-02-07 14:36] LABS: URINE BILIRUBIN NEGATIVE (NEGATIVE); URINE BLOOD NEGATIVE (NEGATIVE); URINE GLUCOSE (UA) >=1000 mg/dL (NEGATIVE); URINE LEUKOCYTE ESTERASE NEGATIVE Leu/uL (NEGATIVE); URINE PROTEIN TRACE mg/dL (<30 mg/dL); URINE UROBILINOGEN 0.2 E.U./dL (<1 E.U./dL)
[2018-02-07 14:42] LABS: URINE APPEARANCE CLEAR (CLEAR); URINE COLOR LIGHT YELLOW (YELLOW)
[2018-02-07 14:58] LABS: URINE BACTERIA FEW (NEG); URINE RBC NEGATIVE /hpf (0-2); URINE WBC 0 - 2 /hpf (0-6)
--- NOTE | 2018-02-07 15:52 | CP.PCM.CON ---
<Karley Sommers - Last Filed: 02/07/18 15:54> History of Present Illness - History of Present Illness History of Present Illness: 57 y/o male seen at bedside after consultation for bilateral lower extremity edema with cellulitic skin changes. Pt is known to the [facility] by Dr. Horta and Dr. Guerrero. At present, pt's legs wrapped in bilateral leg dressings with compression. Pt is nonverbal. Pt denies pain to the lower extremities. Denies F/C/N/V/CP/SOB Review of Systems - Review of Systems All systems: reviewed and no additional remarkable complaints except (per HPI) Past Patient History - Infectious Disease Hx of Infectious Diseases: None - Tetanus Immunizations Tetanus Immunization: Unknown - Past Medical History & Family History Past Medical History?: Yes - Past Social History Smoking Status: Former Smoker - CARDIAC Hx Cardiac Disorders: Yes Hx Atrial Fibrillation: Yes Hx Congestive Heart Failure: Yes Hx Hypertension: Yes - PULMONARY Hx Respiratory Disorders: No - NEUROLOGICAL Hx Neurological Disorder: Yes Hx Seizures: Yes Other/Comment: Epilepsy - HEENT Hx HEENT Problems: Yes Other/Comment: wears glasses - RENAL Hx Chronic Kidney Disease: No - ENDOCRINE/METABOLIC Hx Endocrine Disorders: Yes Hx Diabetes Mellitus Type 2: Yes - HEMATOLOGICAL/ONCOLOGICAL Hx Blood Disorders: No Other/Comment: blood infection - INTEGUMENTARY Hx Dermatological Problems: Yes Other/Comment: multiple wounds on the rt leg, cellulitis in b/l extreminity. 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 - SURGICAL HISTORY Hx Amputation: No Hx Appendectomy: No Hx Cholecystectomy: No Hx Gastric Bypass Surgery: No Hx Hysterectomy: No Hx Joint Replacement: No Hx Kidney Transplant: No Hx Liver Transplant: No Hx Mastectomy: No Hx Musculoskeletal Surgery: No Hx Open Heart Surgery: No Hx Orthopedic Surgery: No Hx Splenectomy: No Hx Valve Replacement: No - ANESTHESIA Hx Anesthesia: Yes Hx Anesthesia Reactions: No Hx Malignant Hyperthermia: No Meds Allergies/Adverse Reactions: Allergies Allergy/AdvReac Type Severity Reaction Status Date / Time No Known Allergies Allergy Verified 02/07/18 11:42 - Medications Medications: Current Medications Apixaban (Eliquis) 2.5 mg PO BID [facility] PRN Reason: Protocol Last Admin: 02/07/18 11:15 Dose: 2.5 mg Atorvastatin Calcium (Lipitor) 10 mg PO HS [facility] Diltiazem HCl (Cardizem Cd) 120 mg PO DAILY [facility] Last Admin: 02/07/18 11:15 Dose: 120 mg Furosemide (Lasix) 20 mg PO DAILY [facility] Last Admin: 02/07/18 11:13 Dose: 20 mg Gabapentin (Neurontin) 400 mg PO TID [facility] PRN Reason: Protocol Last Admin: 02/07/18 13:53 Dose: 400 mg Glipizide (Glucotrol) 10 mg PO BID [facility] Last Admin: 02/07/18 11:15 Dose: 10 mg Ceftaroline Fosamil 400 mg/ (Sodium Chloride) 100 mls @ 100 mls/hr IVPB Q12 [facility] PRN Reason: Protocol Stop: 02/14/18 07:26 Last Admin: 02/07/18 08:28 Dose: 100 mls/hr Sodium Chloride (Sodium Chloride 0.9%) 1,000 mls @ 100 mls/hr IV .Q10H [facility] Last Admin: 02/07/18 09:37 Dose: 100 mls/hr Insulin Human Regular (Humulin R High) 0 units SC ACHS [facility] PRN Reason: Protocol Pioglitazone HCl (Actos) 30 mg PO DAILY [facility] Pioglitazone HCl (Actos) 15 mg PO DAILY [facility] Ramipril (Altace) 10 mg PO DAILY [facility] Last Admin: 02/07/18 11:16 Dose: 10 mg Physical Exam - Constitutional Appears: Well, Non-toxic, No Acute Distress - Extremities Exam Additional comments: Lower extremity focused exam: Vasc: DP/PT pulses non palpable secondary to edema. Temperature gradient warm to cool. CFT < 3 sec to all digits. Diffuse non pitting pedal edema noted B/L from tibial tuberosity to digits Derm: Diffuse elephantiasis skin changes noted to dorsum of foot B/L. Mild preulcerative lesion noted to anterior mid right leg with minimal dry sanguinous drainage - no purulence, no malodor, no fluctuance. No other open lesions or clinical suspicion for infection Neuro: Protective sensation grossly intact Ortho: No tenderness to posterior calf B/L. No tenderness to palpation of B/L lower extremities - Neurological Exam Neurological exam: Alert, Oriented x3 - Psychiatric Exam Psychiatric exam: Normal Affect, Normal Mood Results - Vital Signs Recent Vital Signs: Last Vital Signs Temp 98.9 F 02/07/18 10:50 Pulse 96 H 02/07/18 11:15 Resp 20 02/07/18 10:50 BP 133/66 02/07/18 11:15 Pulse Ox 94 L 02/07/18 10:50 - Labs Result Diagrams: 02/07/18 02:35 02/07/18 11:15 Labs: Laboratory Results - last 24 hr 02/07/18 02/07/18 02/07/18 07:53 08:13 10:52 pO2 186 H VBG pH 7.32 VBG pCO2 35.0 L VBG HCO3 18.0 L VBG Total CO2 19.1 L VBG O2 Sat (Calc) 98.2 H VBG Base Excess -7.3 L VBG Potassium 5.4 H Sodium 129.0 L Chloride 97.0 L Glucose 590 H* D Lactate 2.8 H FiO2 21.0 Potassium Carbon Dioxide Anion Gap BUN Creatinine Est GFR ( Amer) Est GFR (Non-Af Amer) POC Glucose (mg/dL) 466 H* > 500 H* Random Glucose Calcium Venous Blood Potassium 5.4 H Urine Color Urine Appearance Urine pH Ur Specific [place] Urine Protein Urine Glucose (UA) Urine Ketones Urine Blood Urine Nitrate Urine Bilirubin Urine Urobilinogen Ur Leukocyte Esterase Urine RBC Urine WBC Ur Epithelial Cells Urine Bacteria 02/07/18 02/07/18 02/07/18 11:15 12:16 13:26 pO2 VBG pH VBG pCO2 VBG HCO3 VBG Total CO2 VBG O2 Sat (Calc) VBG Base Excess VBG Potassium Sodium 136 Chloride 103 Glucose Lactate FiO2 Potassium 4.5 Carbon Dioxide 18 L Anion Gap 19 BUN 26 H Creatinine 1.5 Est GFR ( Amer) 59 Est GFR (Non-Af Amer) 48 POC Glucose (mg/dL) 458 H* > 500 H* Random Glucose 599 H* D Calcium 8.8 Venous Blood Potassium Urine Color Urine Appearance Urine pH Ur Specific [place] Urine Protein Urine Glucose (UA) Urine Ketones Urine Blood Urine Nitrate Urine Bilirubin Urine Urobilinogen Ur Leukocyte Esterase Urine RBC Urine WBC Ur Epithelial Cells Urine Bacteria 02/07/18 02/07/18 14:15 15:46 pO2 VBG pH VBG pCO2 VBG HCO3 VBG Total CO2 VBG O2 Sat (Calc) VBG Base Excess VBG Potassium Sodium Chloride Glucose Lactate FiO2 Potassium Carbon Dioxide Anion Gap BUN Creatinine Est GFR ( Amer) Est GFR (Non-Af Amer) POC Glucose (mg/dL) 441 H* Random Glucose Calcium Venous Blood Potassium Urine Color Light yellow Urine Appearance Clear Urine pH 6.0 Ur Specific [place] 1.010 Urine Protein Trace H Urine Glucose (UA) >=1000 Urine Ketones Negative Urine Blood Negative Urine Nitrate Negative Urine Bilirubin Negative Urine Urobilinogen 0.2 Ur Leukocyte Esterase Negative Urine RBC Negative Urine WBC 0 - 2 Ur Epithelial Cells None Urine Bacteria Few Assessment & Plan - Assessment and Plan (Free Text) Assessment: 57M with bilateral chronic lower extremity edema with elephantiasis to B/L feet Plan: Pt seen and evaluated at bedside with attending Dr. Guerrero Labs and vitals reviewed- afebrile, WBC 24.1 Legs cleaned with saline and RLE preulcerative lesion dressed with xeroform DSD B/L CEASAR compression applied Will continue to follow pt while in house and perform routine care <Marin Guerrero - Last Filed: 02/08/18 13:16> Meds - Medications Medications: Current Medications Apixaban (Eliquis) 2.5 mg PO BID [facility] PRN Reason: Protocol Last Admin: 02/08/18 10:06 Dose: 2.5 mg Atorvastatin Calcium (Lipitor) 10 mg PO [facility] Last Admin: 02/07/18 22:11 Dose: 10 mg Betamethasone/Clotrimazole (Lotrisone) 0 ml TOP BID [facility] Diltiazem HCl (Cardizem Cd) 120 mg PO DAILY [facility] Last Admin: 02/08/18 10:07 Dose: 120 mg Furosemide (Lasix) 20 mg PO DAILY [facility] Last Admin: 02/08/18 10:07 Dose: 20 mg Gabapentin (Neurontin) 400 mg PO TID [facility] PRN Reason: Protocol Last Admin: 02/08/18 10:06 Dose: 400 mg Glipizide (Glucotrol) 10 mg PO BID [facility] Last Admin: 02/08/18 10:06 Dose: 10 mg Ceftaroline Fosamil 400 mg/ (Sodium Chloride) 100 mls @ 100 mls/hr IVPB Q12 [facility] PRN Reason: Protocol Stop: 02/14/18 07:26 Last Admin: 02/08/18 10:05 Dose: 100 mls/hr Sodium Chloride (Sodium Chloride 0.9%) 1,000 mls @ 100 mls/hr IV .Q10H [facility] Last Admin: 02/07/18 21:45 Dose: 100 mls/hr Insulin Human Lispro (Humalog) 10 units SC AC [facility] Last Admin: 02/08/18 12:11 Dose: 10 units Insulin Human Regular (Humulin R High) 0 units SC ACHS [facility] PRN Reason: Protocol Last Admin: 02/08/18 12:10 Dose: 7 units Nystatin (Nystop Topical Powder) 0 gm TOP BID [facility] Pioglitazone HCl (Actos) 30 mg PO DAILY [facility] Last Admin: 02/08/18 10:05 Dose: 30 mg Pioglitazone HCl (Actos) 15 mg PO DAILY [facility] Last Admin: 02/08/18 10:06 Dose: 15 mg Ramipril (Altace) 10 mg PO DAILY [facility] Last Admin: 02/08/18 10:07 Dose: 10 mg Results - Vital Signs Recent Vital Signs: Last Vital Signs Temp 100 F H 02/08/18 08:20 Pulse 88 02/08/18 08:20 Resp 20 02/08/18 08:20 BP 127/70 02/08/18 10:07 Pulse Ox 96 02/08/18 08:20 - Labs Result Diagrams: 02/08/18 06:30 02/08/18 06:30 Labs: Laboratory Results - last 24 hr 02/07/18 02/07/18 02/07/18 13:26 14:15 15:46 WBC RBC Hgb Hct MCV MCH MCHC RDW Plt Count MPV Sodium Potassium Chloride Carbon Dioxide Anion Gap BUN Creatinine Est GFR ( Amer) Est GFR (Non-Af Amer) POC Glucose (mg/dL) > 500 H* 441 H* Random Glucose Calcium Total Bilirubin AST ALT Alkaline Phosphatase Total Protein Albumin Globulin Albumin/Globulin Ratio Urine Color Light yellow Urine Appearance Clear Urine pH 6.0 Ur Specific [place] 1.010 Urine Protein Trace H Urine Glucose (UA) >=1000 Urine Ketones Negative Urine Blood Negative Urine Nitrate Negative Urine Bilirubin Negative Urine Urobilinogen 0.2 Ur Leukocyte Esterase Negative Urine RBC Negative Urine WBC 0 - 2 Ur Epithelial Cells None Urine Bacteria Few 02/07/18 02/08/18 02/08/18 22:07 06:30 06:30 WBC 11.7 H D RBC 4.43 Hgb 12.8 L Hct 39.1 L MCV 88.3 MCH 28.9 MCHC 32.7 RDW 13.0 Plt Count 230 MPV 10.1 Sodium 141 Potassium 3.9 Chloride 107 Carbon Dioxide 21 Anion Gap 17 BUN 28 H Creatinine 0.9 Est GFR ( Amer) > 60 Est GFR (Non-Af Amer) > 60 POC Glucose (mg/dL) 276 H Random Glucose 254 H Calcium 8.6 Total Bilirubin 0.5 AST 21 ALT 28 Alkaline Phosphatase 79 Total Protein 6.3 Albumin 3.4 Globulin 2.9 Albumin/Globulin Ratio 1.2 Urine Color Urine Appearance Urine pH Ur Specific [place] Urine Protein Urine Glucose (UA) Urine Ketones Urine Blood Urine Nitrate Urine Bilirubin Urine Urobilinogen Ur Leukocyte Esterase Urine RBC Urine WBC Ur Epithelial Cells Urine Bacteria Attending/Attestation - Attestation I have personally seen and examined this patient.: Yes I have fully participated in the care of the patient.: Yes I have reviewed all pertinent clinical information: Yes
--- NOTE | 2018-02-07 16:03 | CP.PCM.CON ---
History of Present Illness - History of Present Illness History of Present Illness: 57 year old male with PMH of ight leg skin/skin structure infection with chronic leg ulcers, growing MRSA and sensitive Klebsiella in 2016, Bilateral lower extremity skin and skin structure infection (Enterobacter, Klebsiella Oxytoca and Group B Strep, as well as MRSA) which was treated 06/2015; MRSA and Pseudomonas cellulitis of left leg in Sep 2015, January and March 2016, and MRSA cellulitis in 2015, chronic lymphedema of the lower extremities, Morbid obesity with BMI 40, HTN, DM, history of Strep bacteremia, history of hernia surgery, Learning disability was brought in to [facility] by his mother because of increasing right leg pain and swelling. The patient also was noted to have fever and was looking a little lethargic. There was no note of vomiting, no diarrhea, no convulsions, no loss of consciousness. Full ROS is unobtainable because of the patient's learning ability. Infectious diseases consult is requested to further evaluate and manage. Review of Systems - Review of Systems All systems: reviewed and no additional remarkable complaints except (as per HPI ) Past Patient History - Infectious Disease Hx of Infectious Diseases: None - Tetanus Immunizations Tetanus Immunization: Unknown - Past Medical History & Family History Past Medical History?: Yes - Past Social History Smoking Status: Former Smoker - CARDIAC Hx Cardiac Disorders: Yes Hx Atrial Fibrillation: Yes Hx Congestive Heart Failure: Yes Hx Hypertension: Yes - PULMONARY Hx Respiratory Disorders: No - NEUROLOGICAL Hx Neurological Disorder: Yes Hx Seizures: Yes Other/Comment: Epilepsy - HEENT Hx HEENT Problems: Yes Other/Comment: wears glasses - RENAL Hx Chronic Kidney Disease: No - ENDOCRINE/METABOLIC Hx Endocrine Disorders: Yes Hx Diabetes Mellitus Type 2: Yes - HEMATOLOGICAL/ONCOLOGICAL Hx Blood Disorders: No Other/Comment: blood infection - INTEGUMENTARY Hx Dermatological Problems: Yes Other/Comment: multiple wounds on the rt leg, cellulitis in b/l extreminity. 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 - SURGICAL HISTORY Hx Amputation: No Hx Appendectomy: No Hx Cholecystectomy: No Hx Gastric Bypass Surgery: No Hx Hysterectomy: No Hx Joint Replacement: No Hx Kidney Transplant: No Hx Liver Transplant: No Hx Mastectomy: No Hx Musculoskeletal Surgery: No Hx Open Heart Surgery: No Hx Orthopedic Surgery: No Hx Splenectomy: No Hx Valve Replacement: No - ANESTHESIA Hx Anesthesia: Yes Hx Anesthesia Reactions: No Hx Malignant Hyperthermia: No Meds Allergies/Adverse Reactions: Allergies Allergy/AdvReac Type Severity Reaction Status Date / Time No Known Allergies Allergy Verified 02/07/18 11:42 - Medications Medications: Current Medications Acetaminophen (Tylenol 325mg Tab) 650 mg PO Q4H PRN PRN Reason: Fever >100.4 F Stop: 02/07/18 12:00 Apixaban (Eliquis) 2.5 mg PO BID [facility] PRN Reason: Protocol Atorvastatin Calcium (Lipitor) 10 mg PO HS [facility] Diltiazem HCl (Cardizem Cd) 120 mg PO DAILY [facility] Furosemide (Lasix) 20 mg PO DAILY [facility] Gabapentin (Neurontin) 400 mg PO TID [facility] PRN Reason: Protocol Glipizide (Glucotrol) 10 mg PO BID [facility] Insulin Human Regular (Humulin R Med) 0 units SC ACHS [facility] PRN Reason: Protocol Pioglitazone HCl (Actos) 45 mg PO DAILY [facility] Ramipril (Altace) 10 mg PO DAILY [facility] Physical Exam - Constitutional Appears: Chronically Ill - Head Exam Head Exam: NORMAL INSPECTION - ENT Exam ENT Exam: Mucous Membranes Moist - Neck Exam Neck exam: Negative for: Meningismus - Respiratory Exam Respiratory Exam: Decreased Breath Sounds - Cardiovascular Exam Cardiovascular Exam: +S1, +S2 - GI/Abdominal Exam GI & Abdominal Exam: Soft. absent: Tenderness - Extremities Exam Additional comments: both legs with dressings in place Results - Vital Signs Recent Vital Signs: Last Vital Signs Temp 102.1 F H 02/07/18 03:31 Pulse 107 H 02/07/18 02:04 Resp 19 02/07/18 02:04 BP 134/53 L 02/07/18 02:04 Pulse Ox 95 02/07/18 02:04 - Labs Result Diagrams: 02/07/18 02:35 02/07/18 11:15 Assessment & Plan - Assessment and Plan (Free Text) Plan: Assessment consider sepsis due to right leg skin and skin structure infection associated with chronic leg ulcers history of MRSA and Klebsiella oxytoca right leg cellulitis history of sepsis secondary to right leg skin/skin structure infection with chronic leg ulcers, growing MRSA and sensitive Klebsiella history of MRSA cellulitis 2015 history of Bilateral lower extremity skin and skin structure infection ( Enterobacter, Klebsiella Oxytoca and Group B Strep, as well as MRSA) which was treated 06/2015; MRSA and Pseudomonas cellulitis of left leg in Sep 2015, January and March 2016 chronic lymphedema of the lower extremities Morbid obesity with BMI 55 HTN DM history of Strep bacteremia history of hernia surgery Learning disability Plan started Teflaro pending blood cx, wound cx; follow up Podiatry evaluation and recommendations will monitor clinical response, trend WBC count and fever curve
--- NOTE | 2018-02-07 16:14 | HP ---
HISTORY OF PRESENT ILLNESS: This is a 57-year-old male, who is coming to the hospital complaining of leg pain. The patient's mom is at the bedside. She says that he is not being feeling well, he had decrease in his appetite, was not watching TV, which is unlike him. He does have cognitive issues since . The patient does not answer much questions, although he does not talk much from my previous experience with him. The patient is alert and awake. He does have a history of chronic lower extremity cellulitis with chronic lymphedema. He has been getting this wrapped. He follows with Dr. Horta and Dr. Mondragon. He has had chronic wounds in his life in the past and so this is what brought him to the hospital. She was worried that he might have another infection. The patient was seen by Surgery. I did speak to them. REVIEW OF SYMPTOMS: Limited, because of the patient's underlying cognitive issues, not able to give a full history and full review of symptoms. PAST MEDICAL HISTORY: Morbid obesity, chronic cellulitis of the legs, atrial fibrillation on anticoagulation, hypertension, dyslipidemia, nephrolithiasis. SOCIAL HISTORY: The patient does not smoke, drink or use drugs. He lives with his mother. He is unemployed. FAMILY HISTORY: Noncontributory. PHYSICAL EXAMINATION: VITAL SIGNS: T-max is 102.2, pulse of 107, blood pressure 134/53, respirations 19, O2 saturation 95%, height is 5 feet 6, weight is 249 pounds, BMI is 40.2. GENERAL: The patient lying in bed, uncomfortable, and in no acute distress. HEENT: Atraumatic and normocephalic. Anicteric sclerae. Moist mucosa. [place] conjunctivae. No oral lesions. NECK: No JVD, anterior and posterior adenopathy, thyromegaly, or bruits. CARDIOVASCULAR: S1 and S2 regular. No murmur, rubs, or gallop. LUNGS: Clear to auscultation bilaterally. No wheezes, rales, or rhonchi. ABDOMEN: Bowel sounds are positive. Soft, nontender and nondistended. No hepatosplenomegaly. No rebound and no guarding EXTREMITIES: There are chronic skin changes of the legs. Chronic lymphedema with chronic changes in the feet as well as the legs after the thighs bilaterally, 1 to 2 cm small ulcer in the right leg. NEUROLOGIC: The patient is not able to speak, but able to follow commands and direction during this exam. He is essentially normal from compared to his previous exam. PSYCHIATRIC: He is awake, alert and oriented x3. No anxiety or depression. He has normal affect. GENITOURINARY: No CVA tenderness. VASCULAR: 2+ pulses in the carotid pulses and pedal pulses. SKIN: No erythema or nodules SPINE: Shows normal curvature. LABORATORY DATA: Have been reviewed. White count 24.1. Chemistry shows sodium 136, potassium 4.5, troponin 0.01, sugar is 334. ABG done shows a pH of 7.32, PaO2 of 186. His chest x-ray shows no infiltrates. ASSESSMENT: 1. Sepsis. 2. Nephrolithiasis. 3. Obesity with the body mass index of 40. 4. Atrial fibrillation on Eliquis. 5. Hypertension. 6. Dyslipidemia. 7. Diabetes type 2. PLAN: The patient is currently admitted to the hospital. He is going to be continuing. He has elevated white count. He has chronic skin changes with possible underlying ulcer in his right leg. The patient is going to be on his Cardizem for his atrial fibrillation. He is going to be on Eliquis. I will get Dr. Aviles for consultation. The patient was given Zosyn, but he became tachycardic. He has had penicillin in the past and has not had any reactions. Not sure if this from his underlying infections. The patient is on Glucotrol for his diabetes, I will place him on insulin sliding scale. He is going to be on Lipitor for his dyslipidemia. He is on Neurontin for his peripheral neuropathy. The patient is going to need evaluation by Dr. Mondragon and Dr. Horta. Wound cultures and blood cultures have been ordered. I will place him on carbohydrate consistent diet. We will continue to follow closely but admit him to the medical floor. Winston Streeter MD
[2018-02-07 16:24] VITALS: BMI 35.3
[2018-02-07] MEDS ORDERED: Pneumococcal 23-Valent Vaccine IM ONE (16:24)
--- NOTE | 2018-02-07 16:29 | CARD ---
APPROVED REPORT EKG Measurement Heart [id number] <Conclusion> SVT at 150 BPM, possible sinus tacycardia STTW changes c/w ischemia. Prolonged QTc.
[2018-02-07] MEDS: Insulin Reg-HIGH-Coverage SC SCH ×2 (17:14→22:19)
[2018-02-08 07:05] LABS: HEMOGLOBIN 12.8 g/dL (14.0-18.0); MEAN CELL VOLUME 88.3 fl (80.0-105.0); MEAN CORPUSCULAR HEMOGLOBIN 28.9 pg (25.0-35.0); MEAN CORPUSCULAR HGB CONC 32.7 g/dl (31.0-37.0); MEAN PLATELET VOLUME 10.1 fl (7.0-11.0); RBC 4.43 10^6/uL (3.5-6.1); WHITE BLOOD COUNT 11.7 10^3/ul (4.5-11.0)
[2018-02-08 07:47] LABS: ALB/GLOB RATIO 1.2 (1.1-1.8); ALBUMIN 3.4 g/dL (3.0-4.8); ALT/SGPT 28 U/L (7-56); AST/SGOT 21 U/L (17-59); BLOOD UREA NITROGEN 28 mg/dL (7-21); CALCIUM 8.6 mg/dL (8.4-10.5); GFR AFRICAN-AMERICAN > 60; GFR NON-AFRICAN AMERICAN > 60
[2018-02-08] MEDS: Insulin Reg-HIGH-Coverage SC SCH ×4 (08:32→23:24)
[2018-02-08] MEDS: Insulin Lispro 1 UNITS/0.01 ML SC SCH ×3 (08:33→17:37)
[2018-02-08] MEDS: diltiaZEM 120 mg/24 Hours CD Cap PO SCH (10:07)
--- NOTE | 2018-02-08 12:04 | CP.PCM.PN ---
Subjective - Date & Time of Evaluation Date of Evaluation: 02/08/18 Time of Evaluation: 09:30 - Subjective Subjective: Surgery: Mondragon Patient seen and examined at bedside. Per nursing staff, no acute events overnight. Patient reports feeling slightly better than yesterday. No longer complaining of leg pain. Denies fevers, chills, chest pain, abdominal pain, cough. ROS limited by patient's baseline mental status. Objective - Vital Signs/Intake and Output Vital Signs (last 24 hours): Temp Pulse Resp BP Pulse Ox 100 F H 88 20 127/70 96 02/08/18 08:20 02/08/18 08:20 02/08/18 08:20 02/08/18 10:07 02/08/18 08:20 Intake and Output: 02/08/18 02/08/18 06:59 18:59 Intake Total 780 Output Total 801 Balance -21 - Medications Medications: Current Medications Apixaban (Eliquis) 2.5 mg PO BID [facility] PRN Reason: Protocol Last Admin: 02/08/18 10:06 Dose: 2.5 mg Atorvastatin Calcium (Lipitor) 10 mg PO HS [facility] Last Admin: 02/07/18 22:11 Dose: 10 mg Diltiazem HCl (Cardizem Cd) 120 mg PO DAILY [facility] Last Admin: 02/08/18 10:07 Dose: 120 mg Furosemide (Lasix) 20 mg PO DAILY [facility] Last Admin: 02/08/18 10:07 Dose: 20 mg Gabapentin (Neurontin) 400 mg PO TID [facility] PRN Reason: Protocol Last Admin: 02/08/18 10:06 Dose: 400 mg Glipizide (Glucotrol) 10 mg PO BID [facility] Last Admin: 02/08/18 10:06 Dose: 10 mg Ceftaroline Fosamil 400 mg/ (Sodium Chloride) 100 mls @ 100 mls/hr IVPB Q12 [facility] PRN Reason: Protocol Stop: 02/14/18 07:26 Last Admin: 02/08/18 10:05 Dose: 100 mls/hr Sodium Chloride (Sodium Chloride 0.9%) 1,000 mls @ 100 mls/hr IV .Q10H [facility] Last Admin: 02/07/18 21:45 Dose: 100 mls/hr Insulin Human Lispro (Humalog) 10 units SC AC [facility] Last Admin: 02/08/18 08:33 Dose: 10 units Insulin Human Regular (Humulin R High) 0 units SC ACHS [facility] PRN Reason: Protocol Last Admin: 02/08/18 08:32 Dose: 4 units Pioglitazone HCl (Actos) 30 mg PO DAILY [facility] Last Admin: 02/08/18 10:05 Dose: 30 mg Pioglitazone HCl (Actos) 15 mg PO DAILY [facility] Last Admin: 02/08/18 10:06 Dose: 15 mg Ramipril (Altace) 10 mg PO DAILY [facility] Last Admin: 02/08/18 10:07 Dose: 10 mg - Labs Labs: 02/08/18 06:30 02/08/18 06:30 - Constitutional Appears: Non-toxic, No Acute Distress, Chronically Ill - Head Exam Head Exam: ATRAUMATIC, NORMOCEPHALIC - Eye Exam Eye Exam: Normal appearance - ENT Exam ENT Exam: Mucous Membranes Moist - Neck Exam Neck Exam: Normal Inspection - Respiratory Exam Respiratory Exam: NORMAL BREATHING PATTERN - Cardiovascular Exam Cardiovascular Exam: REGULAR RHYTHM - GI/Abdominal Exam GI & Abdominal Exam: Soft. absent: Distended, Firm, Guarding, Rigid, Tenderness - Extremities Exam Additional comments: Bilateral legs with serg compression wraps toes to knees. Bilateral thighs with swelling, lymphedema. No focal induration, ulceration, or drainage. - Neurological Exam Neurological Exam: Alert, Awake Assessment and Plan - Assessment and Plan (Free Text) Assessment: 57 yo M with chronic lower extremity lymphedema and history of chronic ulcerations but no active ulcerations at this time, presenting with fever and leg pain; SIRS/Sepsis with unknown source Plan: - f/u septic workup; leukocytosis improving; preliminary cultures negative, pending final results - Continue with leg elevation - Continue with compression wraps - Ordered air mattress - Will discuss with Dr. Giancarlo Blackmon PGY1
--- NOTE | 2018-02-08 12:14 | CP.PCM.PN ---
Subjective - Date & Time of Evaluation Date of Evaluation: 02/08/18 Time of Evaluation: 11:30 - Subjective Subjective: Patient is looking better, but still with low grade fevers (but temperatures are lower compared to on admission). Objective - Vital Signs/Intake and Output Vital Signs (last 24 hours): Temp Pulse Resp BP Pulse Ox 100 F H 88 20 127/70 96 02/08/18 08:20 02/08/18 08:20 02/08/18 08:20 02/08/18 08:20 02/08/18 08:20 Intake and Output: 02/08/18 02/08/18 06:59 18:59 Intake Total 780 Output Total 801 Balance -21 - Medications Medications: Current Medications Apixaban (Eliquis) 2.5 mg PO BID [facility] PRN Reason: Protocol Last Admin: 02/07/18 17:14 Dose: 2.5 mg Atorvastatin Calcium (Lipitor) 10 mg PO HS [facility] Last Admin: 02/07/18 22:11 Dose: 10 mg Diltiazem HCl (Cardizem Cd) 120 mg PO DAILY [facility] Last Admin: 02/07/18 11:15 Dose: 120 mg Furosemide (Lasix) 20 mg PO DAILY [facility] Last Admin: 02/07/18 11:13 Dose: 20 mg Gabapentin (Neurontin) 400 mg PO TID [facility] PRN Reason: Protocol Last Admin: 02/07/18 17:15 Dose: 400 mg Glipizide (Glucotrol) 10 mg PO BID [facility] Last Admin: 02/07/18 17:14 Dose: 10 mg Ceftaroline Fosamil 400 mg/ (Sodium Chloride) 100 mls @ 100 mls/hr IVPB Q12 [facility] PRN Reason: Protocol Stop: 02/14/18 07:26 Last Admin: 02/07/18 21:44 Dose: 100 mls/hr Sodium Chloride (Sodium Chloride 0.9%) 1,000 mls @ 100 mls/hr IV .Q10H [facility] Last Admin: 02/07/18 21:45 Dose: 100 mls/hr Insulin Human Lispro (Humalog) 10 units SC AC [facility] Last Admin: 02/08/18 08:33 Dose: 10 units Insulin Human Regular (Humulin R High) 0 units SC ACHS [facility] PRN Reason: Protocol Last Admin: 02/08/18 08:32 Dose: 4 units Pioglitazone HCl (Actos) 30 mg PO DAILY [facility] Pioglitazone HCl (Actos) 15 mg PO DAILY [facility] Ramipril (Altace) 10 mg PO DAILY [facility] Last Admin: 02/07/18 11:16 Dose: 10 mg - Labs Labs: 02/08/18 06:30 02/08/18 06:30 - Constitutional Appears: Non-toxic, Chronically Ill - Head Exam Head Exam: NORMAL INSPECTION - ENT Exam ENT Exam: Mucous Membranes Moist - Neck Exam Neck Exam: absent: Meningismus - Respiratory Exam Respiratory Exam: Decreased Breath Sounds - Cardiovascular Exam Cardiovascular Exam: +S1, +S2 - GI/Abdominal Exam GI & Abdominal Exam: Soft. absent: Tenderness - Extremities Exam Additional comments: both lower extremities with dry dressings in place Assessment and Plan - Assessment and Plan (Free Text) Plan: Assessment consider sepsis due to right leg skin and skin structure infection associated with chronic leg ulcers,. slowly improving history of MRSA and Klebsiella oxytoca right leg cellulitis history of sepsis secondary to right leg skin/skin structure infection with chronic leg ulcers, growing MRSA and sensitive Klebsiella history of MRSA cellulitis Jun. 2015 history of Bilateral lower extremity skin and skin structure infection ( Enterobacter, Klebsiella Oxytoca and Group B Strep, as well as MRSA) which was treated 06/2015; MRSA and Pseudomonas cellulitis of left leg in Sep 2015, January and March 2016 chronic lymphedema of the lower extremities Morbid obesity with BMI 55 HTN DM history of Strep bacteremia history of hernia surgery Learning disability Plan continue Teflaro day 2; pending wound cx; blood cx are negative; follow up further Podiatry evaluation and recommendations will continue monitor clinical response, trend WBC count and fever curve (both improving)
--- NOTE | 2018-02-08 13:11 | CP.PCM.PN ---
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 and on and torsten ulcers to the legs - seen at bedside - pt is aphasic but understands when you speak to him; pt was seen last week in the wound care center for a healed ulcer to the right LE -- we keep the legs wrapped to control the severe edema which in turns controls the ulcerations pt gets; apparently according to the ER note pt presented with fever and pain in the right LE Objective - Vital Signs/Intake and Output Vital Signs (last 24 hours): Temp Pulse Resp BP Pulse Ox 100 F H 88 20 127/70 96 02/08/18 08:20 02/08/18 08:20 02/08/18 08:20 02/08/18 10:07 02/08/18 08:20 Intake and Output: 02/08/18 02/08/18 06:59 18:59 Intake Total 780 360 Output Total 801 700 Balance -21 -340 - Medications Medications: Current Medications Apixaban (Eliquis) 2.5 mg PO BID [facility] PRN Reason: Protocol Last Admin: 02/08/18 10:06 Dose: 2.5 mg Atorvastatin Calcium (Lipitor) 10 mg PO HS [facility] Last Admin: 02/07/18 22:11 Dose: 10 mg Diltiazem HCl (Cardizem Cd) 120 mg PO DAILY [facility] Last Admin: 02/08/18 10:07 Dose: 120 mg Furosemide (Lasix) 20 mg PO DAILY [facility] Last Admin: 02/08/18 10:07 Dose: 20 mg Gabapentin (Neurontin) 400 mg PO TID [facility] PRN Reason: Protocol Last Admin: 02/08/18 10:06 Dose: 400 mg Glipizide (Glucotrol) 10 mg PO BID [facility] Last Admin: 02/08/18 10:06 Dose: 10 mg Ceftaroline Fosamil 400 mg/ (Sodium Chloride) 100 mls @ 100 mls/hr IVPB Q12 [facility] PRN Reason: Protocol Stop: 02/14/18 07:26 Last Admin: 02/08/18 10:05 Dose: 100 mls/hr Sodium Chloride (Sodium Chloride 0.9%) 1,000 mls @ 100 mls/hr IV .Q10H [facility] Last Admin: 02/07/18 21:45 Dose: 100 mls/hr Insulin Human Lispro (Humalog) 10 units SC AC [facility] Last Admin: 02/08/18 12:11 Dose: 10 units Insulin Human Regular (Humulin R High) 0 units SC ACHS [facility] PRN Reason: Protocol Last Admin: 02/08/18 12:10 Dose: 7 units Pioglitazone HCl (Actos) 30 mg PO DAILY [facility] Last Admin: 02/08/18 10:05 Dose: 30 mg Pioglitazone HCl (Actos) 15 mg PO DAILY [facility] Last Admin: 02/08/18 10:06 Dose: 15 mg Ramipril (Altace) 10 mg PO DAILY [facility] Last Admin: 02/08/18 10:07 Dose: 10 mg - Labs Labs: 02/08/18 06:30 02/08/18 06:30 - Constitutional Appears: No Acute Distress - Extremities Exam Extremities Exam: Normal Capillary Refill, Pedal Edema. absent: Calf Tenderness Additional comments: VASCULAR: [employer] pedal pulses - CFT 3 sec x 10 - TG reversed NEUROLOGICAL LE - sensation intact to both feet and legs SKIN EXAM: both LE with chronic skin changes from chronic edema; there is brawny discoloration secondary scaling and verricoformis lesions; acanthosis noted on the feet and toes bilateral; the right leg has a healed wound with no signs of infection; Right thigh is with mild calor and redness - the fold of the right thigh is macerated with some malodor but no openings - mild pain on palpation of the right thigh medial aspect Assessment and Plan - Assessment and Plan (Free Text) Assessment: Diabetes Lymphedema Cellulitis to the right thigh Plan: lotrisone cream to feet and legs bilateral bid nystatin powder between folds of legs bid may leave dressings off legs at present time since his legs are wrapped 25/04 - this will give them some time to air out discuss with pt the importance of leg elevation
--- NOTE | 2018-02-08 13:21 | PN ---
DATE: 02/08/2018 SUBJECTIVE: The patient has no complaints of any chest pain, shortness of breath. No headaches or dizziness. OBJECTIVE: VITAL SIGNS: Temperature is 100, pulse of 88, blood pressure 127/70, respirations 20. GENERAL: The patient is lying in bed, flat, comfortable. HEENT: No oral lesion. Anicteric sclerae. Moist mucosa. NECK: No JVD, adenopathy, or thyromegaly. CARDIOVASCULAR: S1 and S2, regular. No murmurs, rubs, or gallops. LUNGS: Clear to auscultation bilaterally. No wheeze, rales, or rhonchi. ABDOMEN: Bowel sounds are positive. Soft, nontender and nondistended. EXTREMITIES: No cyanosis, clubbing, chronic skin changes DATA: White count of 11.7, hemoglobin 12.8, creatinine 0.9. ASSESSMENT: 1. Sepsis. 2. Nephrolithiasis. 3. Lymphedema of the legs. 4. Obesity with a body mass index of 40. 5. Atrial fibrillation, on Eliquis. 6. Hypertension. 7. Dyslipidemia. 8. Diabetes type 2, uncontrolled. PLAN: The patient is on Actos. He is going to continue on Altace. Blood cultures have been negative. The patient's white count has improved, it is 11.7 this morning. The patient had sugars that were uncontrolled, he is currently on insulin. He is on Glucotrol for his diabetes. The patient is on Lasix daily. He is on Lipitor for dyslipidemia, is on Neurontin for his neuropathy. He is going to continue with Teflaro for antibiotics. He is currently comfortable. He is on fingersticks. He is being followed by ID and Surgery. Winston Streeter MD MTDRavi
[2018-02-08] MEDS: Nystatin 100,000 Units/gm Topical Pow(15 gm) TOP SCH (17:38)
[2018-02-08] MEDS: Clotrimazole/Betamethasone Lotion(30 ml) TOP SCH (17:38)
[2018-02-08] MEDS: Sodium Chloride 0.9% 1,000 ML IV SCH (17:39)
--- NOTE | 2018-02-09 08:18 | CP.PCM.PN ---
Subjective - Date & Time of Evaluation Date of Evaluation: 02/09/18 Time of Evaluation: 07:30 - Subjective Subjective: Surgery: Mondragon Patient seen and examined at bedside. Per nursing staff, no acute events overnight. Patient has legs partially wrapped. Denies any pain. Denies any further fever or chills since admission. Feels better overall. ROS limited by patient's baseline mental status. Objective - Vital Signs/Intake and Output Vital Signs (last 24 hours): Temp Pulse Resp BP Pulse Ox 97.7 F 84 18 139/58 L 97 02/08/18 22:00 02/08/18 22:00 02/08/18 22:00 02/08/18 22:00 02/08/18 22:00 Intake and Output: 02/09/18 02/09/18 06:59 18:59 Intake Total 180 Output Total 500 Balance -320 - Medications Medications: Current Medications Apixaban (Eliquis) 2.5 mg PO BID [facility] PRN Reason: Protocol Last Admin: 02/08/18 17:38 Dose: 2.5 mg Atorvastatin Calcium (Lipitor) 10 mg PO HS [facility] Last Admin: 02/08/18 21:35 Dose: 10 mg Betamethasone/Clotrimazole (Lotrisone) 0 ml TOP BID [facility] Last Admin: 02/08/18 17:38 Dose: 1 gm Diltiazem HCl (Cardizem Cd) 120 mg PO DAILY [facility] Last Admin: 02/08/18 10:07 Dose: 120 mg Furosemide (Lasix) 20 mg PO DAILY [facility] Last Admin: 02/08/18 10:07 Dose: 20 mg Gabapentin (Neurontin) 400 mg PO TID [facility] PRN Reason: Protocol Last Admin: 02/08/18 17:38 Dose: 400 mg Glipizide (Glucotrol) 10 mg PO BID [facility] Last Admin: 02/08/18 17:38 Dose: 10 mg Ceftaroline Fosamil 400 mg/ (Sodium Chloride) 100 mls @ 100 mls/hr IVPB Q12 [facility] PRN Reason: Protocol Stop: 02/14/18 07:26 Last Admin: 02/08/18 21:35 Dose: 100 mls/hr Sodium Chloride (Sodium Chloride 0.9%) 1,000 mls @ 100 mls/hr IV .Q10H [facility] Last Admin: 02/08/18 17:39 Dose: 100 mls/hr Insulin Human Lispro (Humalog) 10 units SC AC [facility] Last Admin: 02/08/18 17:37 Dose: 10 units Insulin Human Regular (Humulin R High) 0 units SC ACHS [facility] PRN Reason: Protocol Last Admin: 02/08/18 23:24 Dose: Not Given Nystatin (Nystop Topical Powder) 0 gm TOP BID [facility] Last Admin: 02/08/18 17:38 Dose: 1 gm Pioglitazone HCl (Actos) 30 mg PO DAILY [facility] Last Admin: 02/08/18 10:05 Dose: 30 mg Pioglitazone HCl (Actos) 15 mg PO DAILY [facility] Last Admin: 02/08/18 10:06 Dose: 15 mg Ramipril (Altace) 10 mg PO DAILY [facility] Last Admin: 02/08/18 10:07 Dose: 10 mg - Labs Labs: 02/08/18 06:30 02/08/18 06:30 - Constitutional Appears: Non-toxic, No Acute Distress, Chronically Ill - Head Exam Head Exam: ATRAUMATIC, NORMOCEPHALIC - Eye Exam Eye Exam: Normal appearance - ENT Exam ENT Exam: Mucous Membranes Moist - Respiratory Exam Respiratory Exam: NORMAL BREATHING PATTERN - Extremities Exam Additional comments: Bilateral legs wrapped to thighs with serg wraps and abdominal binders over both thighs. Upon unwrapping, bilateral legs with chronic venous stasis changes. No active ulceration noted; no drainage or bleeding. - Neurological Exam Neurological Exam: Alert, Awake Assessment and Plan - Assessment and Plan (Free Text) Assessment: 57 yo M with chronic lower extremity lymphedema and history of chronic ulcerations but no active ulcerations at this time, presenting with fever and leg pain; SIRS/Sepsis with unknown source Plan: - f/u septic workup; ID recs - Rewrapped legs; abdominal binders to each thigh and serg compression wraps from feet, to thighs, overlapping with abdominal binders - Continue with leg elevation - No surgical intervention indicated at this time - Will discuss with Dr. Giancarlo Blackmon PGY1
[2018-02-09] MEDS: Insulin Reg-HIGH-Coverage SC SCH ×4 (08:24→22:48)
[2018-02-09] MEDS: Insulin Lispro 1 UNITS/0.01 ML SC SCH ×3 (08:24→17:28)
[2018-02-09] MEDS: Nystatin 100,000 Units/gm Topical Pow(15 gm) TOP SCH ×2 (10:03→17:29)
[2018-02-09] MEDS: diltiaZEM 120 mg/24 Hours CD Cap PO SCH (10:03)
[2018-02-09] MEDS: Clotrimazole/Betamethasone Lotion(30 ml) TOP SCH ×2 (10:04→17:29)
--- NOTE | 2018-02-09 11:47 | PN ---
DATE: 02/09/2018 SUBJECTIVE: The patient has no complaints of any chest pain, no shortness of breath. No headaches or dizziness. PHYSICAL EXAMINATION: VITAL SIGNS: Temperature is 97.7, pulse of 84, blood pressure 139/58, respirations 18. GENERAL: The patient is lying in bed, flat, comfortable. HEENT: No oral lesion. Anicteric sclerae. Moist mucosa. NECK: No JVD, adenopathy, or thyromegaly. CARDIOVASCULAR: S1 and S2, regular. No murmurs, rubs, or gallops. LUNGS: Clear to auscultation bilaterally. No wheeze, rales, or rhonchi. ABDOMEN: Bowel sounds are positive, soft, nontender and nondistended. EXTREMITIES: In lower extremities, there are chronic skin changes, lymphedema. ASSESSMENT: 1. Sepsis. 2. Nephrolithiasis. 3. Lymphedema of the legs. 4. Obesity with a body mass index of 40. 5. Atrial fibrillation on Eliquis. 6. Hypertension. 7. Dyslipidemia. 8. Diabetes type 2. PLAN: The patient is currently comfortable. His temperature, he is afebrile. He is on Teflaro. He is on Glucotrol for his diabetes. He is going to continue with ramipril for his hypertension. The patient is going to be on Actos for his diabetes. He is on Cardizem for his atrial fibrillation. He is going to continue with Neurontin for his neuropathy. The patient is on a carbohydrate consistent diet. His glucose has improved significantly. His elevated fingersticks were mostly likely secondary to sepsis. We will see if the patient qualifies for the Transitional Care Unit. Winston Streeter MD
--- NOTE | 2018-02-09 15:32 | CP.PCM.PN ---
Subjective - Date & Time of Evaluation Date of Evaluation: 02/09/18 Time of Evaluation: 11:05 - Subjective Subjective: Comfortable in bed, no fevers, not in distress. Objective - Vital Signs/Intake and Output Vital Signs (last 24 hours): Temp Pulse Resp BP Pulse Ox 98.7 F 83 20 153/84 H 96 02/09/18 08:15 02/09/18 08:15 02/09/18 08:15 02/09/18 08:15 02/09/18 08:15 Intake and Output: 02/09/18 02/09/18 06:59 18:59 Intake Total 180 Output Total 500 Balance -320 - Medications Medications: Current Medications Apixaban (Eliquis) 2.5 mg PO BID [facility] PRN Reason: Protocol Last Admin: 02/08/18 17:38 Dose: 2.5 mg Atorvastatin Calcium (Lipitor) 10 mg PO HS [facility] Last Admin: 02/08/18 21:35 Dose: 10 mg Betamethasone/Clotrimazole (Lotrisone) 0 ml TOP BID [facility] Last Admin: 02/08/18 17:38 Dose: 1 gm Diltiazem HCl (Cardizem Cd) 120 mg PO DAILY [facility] Last Admin: 02/08/18 10:07 Dose: 120 mg Furosemide (Lasix) 20 mg PO DAILY [facility] Last Admin: 02/08/18 10:07 Dose: 20 mg Gabapentin (Neurontin) 400 mg PO TID [facility] PRN Reason: Protocol Last Admin: 02/08/18 17:38 Dose: 400 mg Glipizide (Glucotrol) 10 mg PO BID [facility] Last Admin: 02/08/18 17:38 Dose: 10 mg Ceftaroline Fosamil 400 mg/ (Sodium Chloride) 100 mls @ 100 mls/hr IVPB Q12 [facility] PRN Reason: Protocol Stop: 02/14/18 07:26 Last Admin: 02/08/18 21:35 Dose: 100 mls/hr Sodium Chloride (Sodium Chloride 0.9%) 1,000 mls @ 100 mls/hr IV .Q10H [facility] Last Admin: 02/08/18 17:39 Dose: 100 mls/hr Insulin Human Lispro (Humalog) 10 units SC AC [facility] Last Admin: 02/09/18 08:24 Dose: 10 units Insulin Human Regular (Humulin R High) 0 units SC ACHS [facility] PRN Reason: Protocol Last Admin: 02/09/18 08:24 Dose: 2 units Nystatin (Nystop Topical Powder) 0 gm TOP BID [facility] Last Admin: 02/08/18 17:38 Dose: 1 gm Pioglitazone HCl (Actos) 30 mg PO DAILY [facility] Last Admin: 02/08/18 10:05 Dose: 30 mg Pioglitazone HCl (Actos) 15 mg PO DAILY [facility] Last Admin: 02/08/18 10:06 Dose: 15 mg Ramipril (Altace) 10 mg PO DAILY [facility] Last Admin: 02/08/18 10:07 Dose: 10 mg - Labs Labs: 02/08/18 06:30 02/08/18 06:30 - Constitutional Appears: Chronically Ill - Head Exam Head Exam: NORMAL INSPECTION - Neck Exam Neck Exam: absent: Meningismus - Respiratory Exam Respiratory Exam: Decreased Breath Sounds - Cardiovascular Exam Cardiovascular Exam: +S1, +S2 - GI/Abdominal Exam GI & Abdominal Exam: Soft. absent: Tenderness - Extremities Exam Additional comments: both lower extremities with dry dressings in place Assessment and Plan - Assessment and Plan (Free Text) Plan: Assessment consider sepsis due to right leg skin and skin structure infection associated with chronic leg ulcers, slowly improving history of MRSA and Klebsiella oxytoca right leg cellulitis history of sepsis secondary to right leg skin/skin structure infection with chronic leg ulcers, growing MRSA and sensitive Klebsiella history of MRSA cellulitis Sept. 2015 history of Bilateral lower extremity skin and skin structure infection ( Enterobacter, Klebsiella Oxytoca and Group B Strep, as well as MRSA) which was treated 06/2015; MRSA and Pseudomonas cellulitis of left leg in Sep 2015, January and March 2016 chronic lymphedema of the lower extremities Morbid obesity with BMI 55 HTN DM history of Strep bacteremia history of hernia surgery Learning disability Plan continue Teflaro day 3, may switch to Zyvox and Rocephin to complete 7-10 days of therapy; cultures have been negative
[2018-02-09] MEDS: Sodium Chloride 0.9% 1,000 ML IV SCH (17:27)
--- NOTE | 2018-02-09 22:04 | CP.PCM.PN ---
Subjective - Date & Time of Evaluation Date of Evaluation: 02/09/18 Time of Evaluation: 22:02 - Subjective Subjective: 57 y/o non verbal male seen at bedside for chronic elephantitis and lower extremity edema with intermittent ulcerations to B/L lower extremities. Pt aphasic but understands when you speak to him. Pt denies any events overnight and denies any pain to his LE. Denies F/C/N/V/CP/SOB Objective - Vital Signs/Intake and Output Vital Signs (last 24 hours): Temp Pulse Resp BP Pulse Ox 97.7 F 70 20 132/67 97 02/09/18 14:35 02/09/18 14:35 02/09/18 14:35 02/09/18 14:35 02/09/18 14:35 - Medications Medications: Current Medications Apixaban (Eliquis) 2.5 mg PO BID [facility] PRN Reason: Protocol Last Admin: 02/09/18 17:28 Dose: 2.5 mg Atorvastatin Calcium (Lipitor) 10 mg PO HS [facility] Last Admin: 02/08/18 21:35 Dose: 10 mg Betamethasone/Clotrimazole (Lotrisone) 0 ml TOP BID [facility] Last Admin: 02/09/18 17:29 Dose: 1 gm Diltiazem HCl (Cardizem Cd) 120 mg PO DAILY [facility] Last Admin: 02/09/18 10:03 Dose: 120 mg Furosemide (Lasix) 20 mg PO DAILY [facility] Last Admin: 02/09/18 10:03 Dose: 20 mg Gabapentin (Neurontin) 400 mg PO TID [facility] PRN Reason: Protocol Last Admin: 02/09/18 17:28 Dose: 400 mg Glipizide (Glucotrol) 10 mg PO BID [facility] Last Admin: 02/09/18 17:28 Dose: 10 mg Ceftaroline Fosamil 400 mg/ (Sodium Chloride) 100 mls @ 100 mls/hr IVPB Q12 [facility] PRN Reason: Protocol Stop: 02/14/18 07:26 Last Admin: 02/09/18 10:02 Dose: 100 mls/hr Sodium Chloride (Sodium Chloride 0.9%) 1,000 mls @ 100 mls/hr IV .Q10H [facility] Last Admin: 02/09/18 17:27 Dose: 100 mls/hr Insulin Human Lispro (Humalog) 10 units SC AC [facility] Last Admin: 02/09/18 17:28 Dose: 10 units Insulin Human Regular (Humulin R High) 0 units SC ACHS [facility] PRN Reason: Protocol Last Admin: 02/09/18 17:23 Dose: Not Given Nystatin (Nystop Topical Powder) 0 gm TOP BID [facility] Last Admin: 02/09/18 17:29 Dose: 1 gm Pioglitazone HCl (Actos) 45 mg PO DAILY [facility] Last Admin: 02/09/18 10:08 Dose: 45 mg Ramipril (Altace) 10 mg PO DAILY [facility] Last Admin: 02/09/18 10:03 Dose: 10 mg - Labs Labs: 02/08/18 06:30 02/08/18 06:30 - Constitutional Appears: Well, Non-toxic, No Acute Distress - Extremities Exam Additional comments: Lower extremity focused exam: Vasc: DP/PT pulses non palpable secondary to edema. Temperature gradient reversed. CFT < 3 sec to all digits. Diffuse non pitting pedal edema noted B/L from tibial tuberosity to digits Derm: Diffuse elephantiasis skin changes noted to dorsum of foot with secondary scaling B/L. Healed ulcerative lesion noted to anterior mid right leg with dry sanguinous drainage - no purulence, no malodor, no fluctuance. No other open lesions or clinical suspicion for infection. Mild calor and rubor noted to right thigh. Right thigh folds are macerated with no fissures or breaks in skin. Neuro: Protective sensation grossly intact Ortho: No tenderness to posterior calf B/L. No tenderness to palpation of B/L lower extremities - Neurological Exam Neurological Exam: Alert, Awake, Oriented x3 - Psychiatric Exam Psychiatric exam: Normal Affect, Normal Mood Assessment and Plan - Assessment and Plan (Free Text) Assessment: 57 y/o diabetic male with 1) bilateral lower extremity lymphedema and 2) cellulitis to right thigh Plan: Pt seen and evaluated at bedside Labs and vitals reviewed- afebrile, leukocytosis resolving (WBC 11.7 from 24.1) Continue IV abx per ID Lotrisone cream to feet and legs bilateral BID Nystatin powder between folds of legs BID CEASAR compression dressings to B/L lower extremities Will continue to follow while in house
--- NOTE | 2018-02-09 22:14 | CON ---
DATE: HISTORY OF PRESENT ILLNESS: I saw Mr. Patel on 02/08/2018 having seen him multiple times over multiple years. He was admitted for cellulitis in both legs, mostly in the right, being treated appropriately with antibiotics covered by Dr. Aviles. PHYSICAL EXAMINATION: VITAL SIGNS: His vital signs are normal. Blood pressure is a little bit high, 150/80. His weight is reported as 219 pounds, I doubt that. GENERAL: He is morbidly obese. CHEST: Unremarkable. HEART: Unremarkable. EXTREMITIES: The swelling in his legs is marked with lymphedema bilaterally, right greater than left, with marked changes below the legs. However, in the last several months and years, both legs were markedly smaller than before. I would estimate the size were about 50% of what they were a year ago and below the knees are well controlled with very little swelling, but there is lymphedema and chronic changes in the feet. There are no open ulcers at the moment. Cardiovascular is otherwise intact. PLAN: The plan will be to continue conservative compression measures, antibiotics and I will periodically see Leonardo. Right now, I have ordered elevation, Yeison bandages, and thigh abdominal binders. Plan will be continue with the antibiotics, followed by both myself and Dr. Horta. Nnamdi Mondragon MD
[2018-02-10 07:35] VITALS: RESP 20
[2018-02-10] MEDS: Insulin Reg-HIGH-Coverage SC SCH ×2 (08:23→12:11)
[2018-02-10] MEDS: diltiaZEM 120 mg/24 Hours CD Cap PO SCH (09:29)
[2018-02-10] MEDS: Clotrimazole/Betamethasone Lotion(30 ml) TOP SCH (09:30)
[2018-02-10] MEDS: Nystatin 100,000 Units/gm Topical Pow(15 gm) TOP SCH (09:30)
[2018-02-10] MEDS ORDERED: cefTRIAXone 1 gm 1 GM/100 ML BAG IVPB SCH (10:00)
--- NOTE | 2018-02-10 10:41 | CP.PCM.PN ---
Subjective - Date & Time of Evaluation Date of Evaluation: 02/10/18 Time of Evaluation: 07:30 - Subjective Subjective: Surgery: [place] Patient seen and examined at bedside. Per nursing staff, no acute events overnight. Patient denies pain in his legs, fever, chills, nausea. Objective - Vital Signs/Intake and Output Vital Signs (last 24 hours): Temp Pulse Resp BP Pulse Ox 98.4 F 66 20 155/82 H 95 02/10/18 07:00 02/10/18 09:29 02/10/18 07:00 02/10/18 09:29 02/10/18 07:00 Intake and Output: 02/10/18 02/10/18 06:59 18:59 Intake Total 240 Output Total 1550 500 Balance -1550 -260 - Medications Medications: Current Medications Apixaban (Eliquis) 2.5 mg PO BID [facility] PRN Reason: Protocol Last Admin: 02/10/18 09:29 Dose: 2.5 mg Atorvastatin Calcium (Lipitor) 10 mg PO HS [facility] Last Admin: 02/09/18 22:25 Dose: 10 mg Betamethasone/Clotrimazole (Lotrisone) 0 ml TOP BID [facility] Last Admin: 02/10/18 09:30 Dose: 1 gm Diltiazem HCl (Cardizem Cd) 120 mg PO DAILY [facility] Last Admin: 02/10/18 09:29 Dose: 120 mg Furosemide (Lasix) 20 mg PO DAILY [facility] Last Admin: 02/10/18 09:29 Dose: 20 mg Gabapentin (Neurontin) 400 mg PO TID [facility] PRN Reason: Protocol Last Admin: 02/10/18 09:30 Dose: 400 mg Glipizide (Glucotrol) 10 mg PO BID [facility] Last Admin: 02/10/18 09:29 Dose: 10 mg Ceftriaxone Sodium (Rocephin 1 Gram Ivpb) 1 gm in 100 mls @ 100 mls/hr IVPB DAILY [facility] PRN Reason: Protocol Last Admin: 02/10/18 10:06 Dose: 100 mls/hr Insulin Human Regular (Humulin R High) 0 units SC ACHS [facility] PRN Reason: Protocol Last Admin: 02/10/18 08:23 Dose: 4 units Linezolid (Zyvox) 600 mg PO BID [facility] PRN Reason: Protocol Last Admin: 02/10/18 10:06 Dose: 600 mg Metformin HCl (Glucophage) 1,000 mg PO BID [facility] Last Admin: 02/10/18 09:30 Dose: 1,000 mg Nystatin (Nystop Topical Powder) 0 gm TOP BID [facility] Last Admin: 02/10/18 09:30 Dose: 1 gm Pioglitazone HCl (Actos) 45 mg PO DAILY [facility] Last Admin: 02/10/18 09:29 Dose: 45 mg Ramipril (Altace) 10 mg PO DAILY [facility] Last Admin: 02/10/18 09:29 Dose: 10 mg - Labs Labs: 02/08/18 06:30 02/08/18 06:30 - Constitutional Appears: Non-toxic, No Acute Distress, Chronically Ill - Eye Exam Eye Exam: Normal appearance - ENT Exam ENT Exam: Mucous Membranes Moist - Respiratory Exam Respiratory Exam: NORMAL BREATHING PATTERN - GI/Abdominal Exam GI & Abdominal Exam: Soft. absent: Tenderness - Extremities Exam Additional comments: Bilateral legs with compression serg wraps to knees and abdominal binders on bilateral thighs. Upon unwrapping, no active ulceration, bleeding, or drainage. - Neurological Exam Neurological Exam: Alert, Awake Assessment and Plan - Assessment and Plan (Free Text) Assessment: 57 yo M with chronic lower extremity lymphedema and history of chronic ulcerations but no active ulcerations at this time; Presenting with sepsis, SIRS resolved on IV Abx Plan: - Continue IV antibiotics; follow up ID recs - Continue compression wraps; abdominal binders to each thigh and serg compression wraps from feet, to thighs, overlapping with abdominal binders - Continue with leg elevation - No surgical intervention indicated at this time - Will discuss with Dr. Giancarlo Blackmon PGY1
--- NOTE | 2018-02-10 12:35 | CP.PCM.PN ---
<Karley Sommers - Last Filed: 02/10/18 12:33> Subjective - Date & Time of Evaluation Date of Evaluation: 02/10/18 Time of Evaluation: 12:33 - Subjective Subjective: 57 y/o non verbal male seen at bedside this morning with attending Dr. Guerrero for chronic lower extremity edema with intermittent ulcerations to B/L lower extremities. Pt aphasic but understands when you speak to him. Pt denies any events overnight and denies any pain to his LE. Denies F/C/N/V/CP/SOB Objective - Vital Signs/Intake and Output Vital Signs (last 24 hours): Temp Pulse Resp BP Pulse Ox 98.4 F 66 20 155/82 H 95 02/10/18 07:00 02/10/18 09:29 02/10/18 07:00 02/10/18 09:29 02/10/18 07:00 Intake and Output: 02/10/18 02/10/18 06:59 18:59 Intake Total 240 Output Total 1550 500 Balance -1550 -260 - Medications Medications: Current Medications Apixaban (Eliquis) 2.5 mg PO BID [facility] PRN Reason: Protocol Last Admin: 02/10/18 09:29 Dose: 2.5 mg Atorvastatin Calcium (Lipitor) 10 mg PO HS [facility] Last Admin: 02/09/18 22:25 Dose: 10 mg Betamethasone/Clotrimazole (Lotrisone) 0 ml TOP BID [facility] Last Admin: 02/10/18 09:30 Dose: 1 gm Diltiazem HCl (Cardizem Cd) 120 mg PO DAILY [facility] Last Admin: 02/10/18 09:29 Dose: 120 mg Furosemide (Lasix) 20 mg PO DAILY [facility] Last Admin: 02/10/18 09:29 Dose: 20 mg Gabapentin (Neurontin) 400 mg PO TID [facility] PRN Reason: Protocol Last Admin: 02/10/18 09:30 Dose: 400 mg Glipizide (Glucotrol) 10 mg PO BID [facility] Last Admin: 02/10/18 09:29 Dose: 10 mg Ceftriaxone Sodium (Rocephin 1 Gram Ivpb) 1 gm in 100 mls @ 100 mls/hr IVPB DAILY [facility] PRN Reason: Protocol Last Admin: 02/10/18 10:06 Dose: 100 mls/hr Insulin Human Regular (Humulin R High) 0 units SC ACHS [facility] PRN Reason: Protocol Last Admin: 02/10/18 12:11 Dose: 1 units Linezolid (Zyvox) 600 mg PO BID [facility] PRN Reason: Protocol Last Admin: 02/10/18 10:06 Dose: 600 mg Metformin HCl (Glucophage) 1,000 mg PO BID [facility] Last Admin: 02/10/18 09:30 Dose: 1,000 mg Nystatin (Nystop Topical Powder) 0 gm TOP BID [facility] Last Admin: 02/10/18 09:30 Dose: 1 gm Pioglitazone HCl (Actos) 45 mg PO DAILY [facility] Last Admin: 02/10/18 09:29 Dose: 45 mg Ramipril (Altace) 10 mg PO DAILY [facility] Last Admin: 02/10/18 09:29 Dose: 10 mg - Labs Labs: 02/08/18 06:30 02/08/18 06:30 - Constitutional Appears: Well, Non-toxic, No Acute Distress - Extremities Exam Additional comments: Lower extremity focused exam: Vasc: DP/PT pulses non palpable secondary to edema. Temperature gradient reversed. CFT < 3 sec to all digits. Diffuse non pitting pedal edema noted B/L from tibial tuberosity to digits, significantly improving Derm: Diffuse elephantiasis skin changes noted to dorsum of foot with secondary scaling B/L. Healed ulcerative lesion noted to anterior mid right leg with dry sanguinous drainage - no purulence, no malodor, no fluctuance. No other open lesions or clinical suspicion for infection. Mild calor and rubor noted to right thigh. Right thigh folds are macerated with no fissures or breaks in skin. Neuro: Protective sensation grossly intact Ortho: No tenderness to posterior calf B/L. No tenderness to palpation of B/L lower extremities - Neurological Exam Neurological Exam: Alert, Awake, Oriented x3 - Psychiatric Exam Psychiatric exam: Normal Affect, Normal Mood Assessment and Plan - Assessment and Plan (Free Text) Assessment: 57 y/o diabetic male with 1) bilateral lower extremity lymphedema and 2) cellulitis to right thigh Plan: Pt seen and evaluated at bedside with Dr. Guerrero Labs and vitals reviewed- afebrile, leukocytosis resolving (WBC 11.7 from 24.1) Continue IV abx per ID Lotrisone cream applied to feet and legs bilateral BID Nystatin powder between folds of legs BID CEASAR compression dressings to B/L lower extremities left off at this time due to good edema control - leave open to air Will continue to follow while in house <Marin Guerrero - Last Filed: 02/11/18 07:19> Objective - Vital Signs/Intake and Output Vital Signs (last 24 hours): Temp Pulse Resp BP Pulse Ox 98 F 74 20 128/68 96 02/10/18 15:24 02/10/18 15:24 02/10/18 15:24 02/10/18 15:24 02/10/18 15:24 - Labs Labs: 02/08/18 06:30 02/08/18 06:30 Attending/Attestation - Attestation I have personally seen and examined this patient.: Yes I have fully participated in the care of the patient.: Yes I have reviewed all pertinent clinical information, including history, physical exam and plan: Yes
--- NOTE | 2018-02-10 13:16 | CP.PCM.PN ---
Subjective - Date & Time of Evaluation Date of Evaluation: 02/10/18 Time of Evaluation: 11:10 - Subjective Subjective: Patient is resting comfortably in bed, no fevers, no diarrhea. No vomiting. Objective - Vital Signs/Intake and Output Vital Signs (last 24 hours): Temp Pulse Resp BP Pulse Ox 98.4 F 66 20 155/82 H 95 02/10/18 07:00 02/10/18 07:00 02/10/18 07:00 02/10/18 07:00 02/10/18 07:00 Intake and Output: 02/10/18 02/10/18 06:59 18:59 Intake Total 240 Output Total 1550 500 Balance -1550 -260 - Medications Medications: Current Medications Apixaban (Eliquis) 2.5 mg PO BID [facility] PRN Reason: Protocol Last Admin: 02/09/18 17:28 Dose: 2.5 mg Atorvastatin Calcium (Lipitor) 10 mg PO HS [facility] Last Admin: 02/09/18 22:25 Dose: 10 mg Betamethasone/Clotrimazole (Lotrisone) 0 ml TOP BID [facility] Last Admin: 02/09/18 17:29 Dose: 1 gm Diltiazem HCl (Cardizem Cd) 120 mg PO DAILY [facility] Last Admin: 02/09/18 10:03 Dose: 120 mg Furosemide (Lasix) 20 mg PO DAILY [facility] Last Admin: 02/09/18 10:03 Dose: 20 mg Gabapentin (Neurontin) 400 mg PO TID [facility] PRN Reason: Protocol Last Admin: 02/09/18 17:28 Dose: 400 mg Glipizide (Glucotrol) 10 mg PO BID [facility] Last Admin: 02/09/18 17:28 Dose: 10 mg Ceftaroline Fosamil 400 mg/ (Sodium Chloride) 100 mls @ 100 mls/hr IVPB Q12 [facility] PRN Reason: Protocol Stop: 02/14/18 07:26 Last Admin: 02/09/18 22:25 Dose: 100 mls/hr Insulin Human Regular (Humulin R High) 0 units SC ACHS [facility] PRN Reason: Protocol Last Admin: 02/10/18 08:23 Dose: 4 units Metformin HCl (Glucophage) 1,000 mg PO BID [facility] Nystatin (Nystop Topical Powder) 0 gm TOP BID [facility] Last Admin: 02/09/18 17:29 Dose: 1 gm Pioglitazone HCl (Actos) 45 mg PO DAILY [facility] Last Admin: 02/09/18 10:08 Dose: 45 mg Ramipril (Altace) 10 mg PO DAILY [facility] Last Admin: 02/09/18 10:03 Dose: 10 mg - Labs Labs: 02/08/18 06:30 02/08/18 06:30 - Constitutional Appears: Non-toxic, Chronically Ill - Head Exam Head Exam: NORMAL INSPECTION - Neck Exam Neck Exam: absent: Meningismus - Respiratory Exam Respiratory Exam: Decreased Breath Sounds - Cardiovascular Exam Cardiovascular Exam: +S1, +S2 - GI/Abdominal Exam GI & Abdominal Exam: Soft. absent: Tenderness Assessment and Plan - Assessment and Plan (Free Text) Plan: Assessment consider sepsis due to right leg skin and skin structure infection associated with chronic leg ulcers, slowly improving history of MRSA and Klebsiella oxytoca right leg cellulitis history of sepsis secondary to right leg skin/skin structure infection with chronic leg ulcers, growing MRSA and sensitive Klebsiella history of MRSA cellulitis Jun. 2015 history of Bilateral lower extremity skin and skin structure infection ( Enterobacter, Klebsiella Oxytoca and Group B Strep, as well as MRSA) which was treated 06/2015; MRSA and Pseudomonas cellulitis of left leg in Sep 2015, January and March 2016 chronic lymphedema of the lower extremities Morbid obesity with BMI 55 HTN DM history of Strep bacteremia history of hernia surgery Learning disability Plan switched Teflaro to switch to Zyvox and Rocephin (day 4 total today) to complete 7-10 days of therapy; cultures have been negative
[2018-02-10 15:25] VITALS: BP 128/68; PULSE 74; TEMP 98; O2SAT 96
--- NOTE | 2018-02-11 04:00 | DS ---
HISTORY OF PRESENT ILLNESS: This is a 57-year-old male who had come in to the hospital. He was found to be septic. The patient has a long history of chronic skin infections from his lymphedema in the leg. He was started on Teflaro for antibiotics. He has cultures that have been negative. The patient was seen by physical therapy and it was recommended that the patient may go to transitional care unit for rehab. He is going to be evaluated by TCU and discharged if he is accepted. PHYSICAL EXAMINATION: VITAL SIGNS: Temperature is 99.4, pulse is 71, blood pressure is 122/62, respirations 19. GENERAL: The patient is lying in bed, flat, comfortable. HEENT: No oral lesion. Anicteric sclerae. Moist mucosa. NECK: No JVD, adenopathy, or thyromegaly. CARDIOVASCULAR: S1 and S2, regular. No murmurs, rubs, or gallops. LUNGS: Clear to auscultation bilaterally. No wheeze, rales, or rhonchi. ABDOMEN: Bowel sounds are positive, soft, nontender and nondistended. EXTREMITIES: No cyanosis, clubbing or edema. ASSESSMENT: 1. Sepsis. 2. Nephrolithiasis. 3. Lymphedema of the legs. 4. Obesity with a body mass index of 40. 5. Atrial fibrillation, on Eliquis. 6. Hypertension. 7. Dyslipidemia. 8. Diabetes type 2. PLAN: The patient is currently comfortable. He is on his Actos for his diabetes. His sugars have been better controlled. He is on Altace for his hypertension. The patient is going to continue with glipizide for his diabetes. He is on Eliquis and Cardizem for his atrial fibrillation. The patient is on Lipitor for dyslipidemia. He is on IV fluids. I will discontinue his IV fluids at this point. I had held his metformin. I will continue his metformin this morning as he is not for any contrast. I had initially placed him on insulin because his sugars were significantly elevated due to his sepsis. I will discontinue his insulin because he has had a hard time in using insulin at home. Winston Streeter MD
== END 2018-02-10 15:02 | DRG 872 ==
LOC: ED 01:51 → ERH 05:53 → 5RSO 11:56
PROVIDERS: ADMIT Internal Medicine Nephrology; ATTEND Internal Medicine Nephrology
DX: A41.9 Sepsis, unspecified organism (principal); L03.115 Cellulitis of right lower limb; L03.116 Cellulitis of left lower limb; Z68.41 Body mass index [BMI] 40.0-44.9, adult; N20.0 Calculus of kidney; I89.0 Lymphedema, not elsewhere classified; E66.01 Morbid (severe) obesity due to excess calories; E11.42 Type 2 diabetes mellitus with diabetic polyneuropathy; E11.65 Type 2 diabetes mellitus with hyperglycemia; I48.91 Unspecified atrial fibrillation; I11.0 Hypertensive heart disease with heart failure; I50.9 Heart failure, unspecified; E78.5 Hyperlipidemia, unspecified; F79 Unspecified intellectual disabilities; Z79.01 Long term (current) use of anticoagulants; Z79.4 Long term (current) use of insulin

== ENCOUNTER 2018-02-10 15:02 | Inpatient (IN) | payer OTHER, MEDICAID ==
[2018-02-10] MEDS: Insulin Reg-HIGH-Coverage SC SCH ×2 (17:20→21:50)
[2018-02-10] MEDS: Clotrimazole/Betamethasone Cream(15 gm) TOP SCH (17:56)
[2018-02-10] MEDS: Nystatin 100,000 Units/gm Topical Pow(15 gm) TOP SCH (17:56)
[2018-02-11] MEDS ORDERED: Pneumococcal 23-Valent Vaccine IM ONE (00:58)
[2018-02-11] MEDS: cefTRIAXone 1 gm 1 GM/100 ML BAG IVPB SCH (05:46)
[2018-02-11] MEDS: Insulin Reg-HIGH-Coverage SC SCH ×4 (07:41→21:48)
--- NOTE | 2018-02-11 09:35 | CP.PCM.CON ---
<Harman Alvarez - Last Filed: 02/11/18 09:32> History of Present Illness - History of Present Illness History of Present Illness: Podiatry Consult Note- Dr. Guerrero 57 y/o non verbal male seen at bedside this morning with attending Dr. Guerrero for chronic lower extremity edema with intermittent ulcerations to B/L lower extremities. Seen and evaluated patient while on floors prior to transfer. Pt aphasic but understands when you speak to him. Pt denies any events overnight and denies any pain to his LE. Denies F/C/N/V/CP/SOB. Past Patient History - Infectious Disease Hx of Infectious Diseases: None - Tetanus Immunizations Tetanus Immunization: Unknown - Past Medical History & Family History Past Medical History?: Yes - Past Social History Smoking Status: Former Smoker - CARDIAC Hx Cardiac Disorders: Yes Hx Congestive Heart Failure: Yes Hx Hypertension: Yes - PULMONARY Hx Respiratory Disorders: No - NEUROLOGICAL Hx Neurological Disorder: Yes Hx Seizures: Yes Other/Comment: Epilepsy - HEENT Hx HEENT Problems: Yes Other/Comment: wears glasses - RENAL Hx Chronic Kidney Disease: No - ENDOCRINE/METABOLIC Hx Diabetes Mellitus Type 2: Yes - HEMATOLOGICAL/ONCOLOGICAL Hx Blood Disorders: No Other/Comment: blood infection - INTEGUMENTARY Hx Dermatological Problems: Yes Other/Comment: multiple wounds on the rt leg, cellulitis in b/l extreminity. 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 - SURGICAL HISTORY Hx Amputation: No Hx Appendectomy: No Hx Cholecystectomy: No Hx Gastric Bypass Surgery: No Hx Hysterectomy: No Hx Joint Replacement: No Hx Kidney Transplant: No Hx Liver Transplant: No Hx Mastectomy: No Hx Musculoskeletal Surgery: No Hx Open Heart Surgery: No Hx Orthopedic Surgery: No Hx Splenectomy: No Hx Valve Replacement: No - ANESTHESIA Hx Anesthesia: Yes Hx Anesthesia Reactions: No Hx Malignant Hyperthermia: No Meds Allergies/Adverse Reactions: Allergies Allergy/AdvReac Type Severity Reaction Status Date / Time No Known Allergies Allergy Verified 02/10/18 17:34 - Medications Medications: Current Medications Apixaban (Eliquis) 2.5 mg PO BID [facility] PRN Reason: Protocol Last Admin: 02/10/18 17:55 Dose: 2.5 mg Atorvastatin Calcium (Lipitor) 10 mg PO HS [facility] Last Admin: 02/10/18 21:50 Dose: 10 mg Betamethasone/Clotrimazole (Lotrisone) 1 gm TOP BID [facility] Last Admin: 02/10/18 17:56 Dose: 1 applic Diltiazem HCl (Cardizem Cd) 120 mg PO DAILY [facility] Furosemide (Lasix) 20 mg PO DAILY [facility] Gabapentin (Neurontin) 400 mg PO TID [facility] PRN Reason: Protocol Last Admin: 02/10/18 17:56 Dose: 400 mg Glipizide (Glucotrol) 10 mg PO BID [facility] Last Admin: 02/10/18 17:55 Dose: 10 mg Ceftriaxone Sodium (Rocephin 1 Gram Ivpb) 1 gm in 100 mls @ 100 mls/hr IVPB 0630 [facility] PRN Reason: Protocol Last Admin: 02/11/18 05:46 Dose: 100 mls/hr Insulin Human Regular (Humulin R High) 0 units SC ACHS [facility] PRN Reason: Protocol Last Admin: 02/11/18 07:41 Dose: 2 units Linezolid (Zyvox) 600 mg PO BID [facility] PRN Reason: Protocol Last Admin: 02/10/18 17:57 Dose: 600 mg Metformin HCl (Glucophage) 1,000 mg PO BID [facility] Last Admin: 02/10/18 17:55 Dose: 1,000 mg Nystatin (Nystop Topical Powder) 1 gm TOP BID [facility] Last Admin: 02/10/18 17:56 Dose: 1 applic Pioglitazone HCl (Actos) 45 mg PO DAILY [facility] Ramipril (Altace) 10 mg PO DAILY [facility] Physical Exam - Constitutional Appears: Well, Non-toxic, No Acute Distress - Extremities Exam Extremities exam: Negative for: calf tenderness Additional comments: Dressing c/d/i without strikethrough Dressing changed today No calf pain or tenderness, no pain with palpation to the entire LE Diffuse elephantiasis skin changes noted to dorsum of foot with secondary scaling B/L. Results - Vital Signs Recent Vital Signs: Last Vital Signs Temp 98.6 F 02/11/18 00:44 Pulse 63 02/11/18 00:44 Resp 20 02/11/18 00:44 BP 115/69 02/11/18 00:44 Pulse Ox 96 02/10/18 16:00 - Labs Labs: Laboratory Results - last 24 hr 02/10/18 02/11/18 21:47 05:52 POC Glucose (mg/dL) 192 H 188 H Assessment & Plan - Assessment and Plan (Free Text) Assessment: 57 y/o diabetic male with 1) bilateral lower extremity lymphedema and 2) cellulitis to right thigh Plan: Pt seen and evaluated at bedside with Dr. Guerrero Labs and vitals reviewed- afebrile, leukocytosis resolving (WBC 11.7 from 24.1) Continue IV abx per ID Lotrisone cream to be applied to feet and legs bilateral BID Nystatin powder between folds of legs BID CEASAR compression Will continue to follow while in house <Marin Guerrero - Last Filed: 02/14/18 11:54> Meds - Medications Medications: Current Medications Apixaban (Eliquis) 2.5 mg PO BID [facility] PRN Reason: Protocol Last Admin: 02/14/18 11:46 Dose: 2.5 mg Atorvastatin Calcium (Lipitor) 10 mg PO HS [facility] Last Admin: 02/13/18 21:28 Dose: 10 mg Betamethasone/Clotrimazole (Lotrisone) 1 gm TOP BID [facility] Last Admin: 02/13/18 17:08 Dose: 1 applic Diltiazem HCl (Cardizem Cd) 120 mg PO DAILY [facility] Last Admin: 02/14/18 11:45 Dose: 120 mg Furosemide (Lasix) 20 mg PO DAILY [facility] Last Admin: 02/14/18 11:47 Dose: 20 mg Gabapentin (Neurontin) 400 mg PO TID [facility] PRN Reason: Protocol Last Admin: 02/14/18 11:48 Dose: 400 mg Glipizide (Glucotrol) 10 mg PO BID [facility] Last Admin: 02/14/18 11:47 Dose: 10 mg Ceftriaxone Sodium (Rocephin 1 Gram Ivpb) 1 gm in 100 mls @ 100 mls/hr IVPB DAILY [facility] PRN Reason: Protocol Insulin Human Regular (Humulin R High) 0 units SC ACHS [facility] PRN Reason: Protocol Last Admin: 02/14/18 07:07 Dose: Not Given Lactic Acid (Lac-Hydrin 12% Cream (140 G)) 0 ea TOP DAILY [facility] Linezolid (Zyvox) 600 mg PO BID [facility] PRN Reason: Protocol Last Admin: 02/14/18 11:48 Dose: 600 mg Metformin HCl (Glucophage) 1,000 mg PO BID [facility] Last Admin: 02/14/18 11:46 Dose: 1,000 mg Nystatin (Nystop Topical Powder) 1 gm TOP BID [facility] Last Admin: 02/14/18 11:48 Dose: 1 applic Pioglitazone HCl (Actos) 45 mg PO DAILY [facility] Last Admin: 02/14/18 11:45 Dose: 45 mg Ramipril (Altace) 10 mg PO DAILY [facility] Last Admin: 02/14/18 11:45 Dose: 10 mg Results - Vital Signs Recent Vital Signs: Last Vital Signs Temp 98.8 F 02/13/18 16:00 Pulse 63 02/14/18 11:45 Resp 20 02/13/18 16:00 BP 147/73 02/14/18 11:47 Pulse Ox 95 02/13/18 16:00 - Labs Labs: Laboratory Results - last 24 hr 02/13/18 02/13/18 02/14/18 16:32 21:35 05:49 POC Glucose (mg/dL) 159 H 134 H 150 H Attending/Attestation - Attestation I have personally seen and examined this patient.: Yes I have fully participated in the care of the patient.: Yes I have reviewed all pertinent clinical information: Yes
[2018-02-11] MEDS: Nystatin 100,000 Units/gm Topical Pow(15 gm) TOP SCH ×2 (09:54→17:07)
[2018-02-11] MEDS: diltiaZEM 120 mg/24 Hours CD Cap PO SCH (09:54)
[2018-02-11] MEDS: Clotrimazole/Betamethasone Cream(15 gm) TOP SCH ×2 (09:55→17:07)
--- NOTE | 2018-02-11 14:03 | CP.PCM.CON ---
History of Present Illness - History of Present Illness History of Present Illness: 57 year old male with PMH of ight leg skin/skin structure infection with chronic leg ulcers, growing MRSA and sensitive Klebsiella in 2016, Bilateral lower extremity skin and skin structure infection (Enterobacter, Klebsiella Oxytoca and Group B Strep, as well as MRSA) which was treated 06/2015; MRSA and Pseudomonas cellulitis of left leg in Sep 2015, January and March 2016, and MRSA cellulitis in 2015, chronic lymphedema of the lower extremities, Morbid obesity with BMI 35, HTN, DM, history of Strep bacteremia, history of hernia surgery, Learning disability was initially admitted for fevers and right leg cellulitis. He has been on antibiotics and local wound care and has done well and is now transferred to [facility] for continued medical therapy and physical rehab. Infectious Diseases consult is requested to continue his antibiotic therapy. Patient has no fever, no diarrhea, no vomiting. Review of Systems - Review of Systems Systems not reviewed;Unavailable: Other (learning disability) Past Patient History - Infectious Disease Hx of Infectious Diseases: None - Tetanus Immunizations Tetanus Immunization: Unknown - Past Medical History & Family History Past Medical History?: Yes - Past Social History Smoking Status: Former Smoker - CARDIAC Hx Cardiac Disorders: Yes Hx Congestive Heart Failure: Yes Hx Hypertension: Yes - PULMONARY Hx Respiratory Disorders: No - NEUROLOGICAL Hx Neurological Disorder: Yes Hx Seizures: Yes Other/Comment: Epilepsy - HEENT Hx HEENT Problems: Yes Other/Comment: wears glasses - RENAL Hx Chronic Kidney Disease: No - ENDOCRINE/METABOLIC Hx Diabetes Mellitus Type 2: Yes - HEMATOLOGICAL/ONCOLOGICAL Hx Blood Disorders: No Other/Comment: blood infection - INTEGUMENTARY Hx Dermatological Problems: Yes Other/Comment: multiple wounds on the rt leg, cellulitis in b/l extreminity. 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 - SURGICAL HISTORY Hx Amputation: No Hx Appendectomy: No Hx Cholecystectomy: No Hx Gastric Bypass Surgery: No Hx Hysterectomy: No Hx Joint Replacement: No Hx Kidney Transplant: No Hx Liver Transplant: No Hx Mastectomy: No Hx Musculoskeletal Surgery: No Hx Open Heart Surgery: No Hx Orthopedic Surgery: No Hx Splenectomy: No Hx Valve Replacement: No - ANESTHESIA Hx Anesthesia: Yes Hx Anesthesia Reactions: No Hx Malignant Hyperthermia: No Meds Allergies/Adverse Reactions: Allergies Allergy/AdvReac Type Severity Reaction Status Date / Time No Known Allergies Allergy Verified 02/10/18 17:34 - Medications Medications: Current Medications Apixaban (Eliquis) 2.5 mg PO BID [facility] PRN Reason: Protocol Last Admin: 02/10/18 17:55 Dose: 2.5 mg Atorvastatin Calcium (Lipitor) 10 mg PO HS [facility] Last Admin: 02/10/18 21:50 Dose: 10 mg Betamethasone/Clotrimazole (Lotrisone) 1 gm TOP BID [facility] Last Admin: 02/10/18 17:56 Dose: 1 applic Diltiazem HCl (Cardizem Cd) 120 mg PO DAILY [facility] Furosemide (Lasix) 20 mg PO DAILY [facility] Gabapentin (Neurontin) 400 mg PO TID [facility] PRN Reason: Protocol Last Admin: 02/10/18 17:56 Dose: 400 mg Glipizide (Glucotrol) 10 mg PO BID [facility] Last Admin: 02/10/18 17:55 Dose: 10 mg Ceftriaxone Sodium (Rocephin 1 Gram Ivpb) 1 gm in 100 mls @ 100 mls/hr IVPB 0630 [facility] PRN Reason: Protocol Insulin Human Regular (Humulin R High) 0 units SC ACHS [facility] PRN Reason: Protocol Last Admin: 02/10/18 21:50 Dose: Not Given Linezolid (Zyvox) 600 mg PO BID [facility] PRN Reason: Protocol Last Admin: 02/10/18 17:57 Dose: 600 mg Metformin HCl (Glucophage) 1,000 mg PO BID [facility] Last Admin: 02/10/18 17:55 Dose: 1,000 mg Nystatin (Nystop Topical Powder) 1 gm TOP BID [facility] Last Admin: 02/10/18 17:56 Dose: 1 applic Pioglitazone HCl (Actos) 45 mg PO DAILY [facility] Ramipril (Altace) 10 mg PO DAILY [facility] Physical Exam - Constitutional Appears: Non-toxic, Chronically Ill - Head Exam Head Exam: NORMAL INSPECTION - ENT Exam ENT Exam: Mucous Membranes Moist - Neck Exam Neck exam: Negative for: Lymphadenopathy, Meningismus - Respiratory Exam Respiratory Exam: Decreased Breath Sounds. absent: Rales - Cardiovascular Exam Cardiovascular Exam: +S1, +S2 - GI/Abdominal Exam GI & Abdominal Exam: Soft. absent: Tenderness - Extremities Exam Additional comments: both legs with dressings in place Results - Vital Signs Recent Vital Signs: Last Vital Signs Temp 98.6 F 02/10/18 16:00 Pulse 63 02/10/18 16:00 Resp 20 02/10/18 16:00 BP 115/69 02/10/18 16:00 Pulse Ox 96 02/10/18 16:00 - Labs Labs: Laboratory Results - last 24 hr 02/10/18 21:47 POC Glucose (mg/dL) 192 H Assessment & Plan - Assessment and Plan (Free Text) Plan: Assessment consider sepsis due to right leg skin and skin structure infection associated with chronic leg ulcers, slowly improving history of MRSA and Klebsiella oxytoca right leg cellulitis history of sepsis secondary to right leg skin/skin structure infection with chronic leg ulcers, growing MRSA and sensitive Klebsiella history of MRSA cellulitis 2015 history of Bilateral lower extremity skin and skin structure infection ( Enterobacter, Klebsiella Oxytoca and Group B Strep, as well as MRSA) which was treated 06/2015; MRSA and Pseudomonas cellulitis of left leg in Sep 2015, January and March 2016 chronic lymphedema of the lower extremities Morbid obesity with BMI 35 HTN DM history of Strep bacteremia history of hernia surgery Learning disability Plan continue Zyvox and Rocephin (day 5 total today) to complete 7-10 days of therapy ; cultures have been negative will monitor clinically
--- NOTE | 2018-02-11 21:56 | HP ---
HISTORY OF PRESENT ILLNESS: The patient is 57 years old, mentally challenged, has multiple admission because of bilateral leg cellulitis, lymphedema, elephantiasis. The patient has multiple admissions with similar episode, so he came to emergency room because of the fever and increasing leg swelling. He has been getting IV antibiotic and local wound treatment, transferred to TCU to continue antibiotic and wound care and physical therapy. PAST MEDICAL HISTORY: He has past medical history significant for : 1. Moderate obesity. 2. Mentally challenged. 3. Chronic venous stasis with recurrent bilateral leg cellulitis. 4. Hypertension. 5. Congestive heart failure. 6. Non-insulin dependent diabetes. ALLERGIES: HE IS NOT ALLERGIC TO ANY MEDICATIONS. MEDICATION AT HOME: He is on Humalog, ramipril 10 mg daily, potassium supplementation. He is on Actos, omeprazole 20 mg daily, metformin, glipizide 10 mg twice a day, Neurontin 400 three times a day, Lasix 20 mg daily, diltiazem 120 daily, atorvastatin 10 mg daily, and Eliquis. SOCIAL HISTORY: History of smoker in the past, quit few years ago. Does not drink. PHYSICAL EXAMINATION: GENERAL: He is lying in bed, seems to be comfortable, both legs are wrapped in the Yeison bandage. VITAL SIGNS: He is afebrile, pulse 70, respiration 20, blood pressure 141/81. LUNGS: Bilateral fair airflow. No rhonchi or crackle. HEART: S1 and S2 audible. ABDOMEN: Soft, obese, nontender. No rebound. No guarding. NEUROLOGICAL: He is awake, alert, oriented, communicative. LABORATORY DATA: Blood sugar is 136. ASSESSMENT AND PLAN: 1. Bilateral leg cellulitis. 2. Moderate obesity. 3. Non-insulin dependent diabetes. 4. Hypertension. 5. Chronic stasis dermatitis. PLAN: The patient is currently on Actos, metformin and glipizide. Blood sugar seems to be under decent control. Continue him on diltiazem and ramipril for control of blood pressure and heart rate. He is on Eliquis 2.5 twice a day and he is getting Lasix intermittently. Local wound care is done by the Podiatry team and he is also getting Rocephin. Maria Hunt MD [facility] # [id number]
[2018-02-12] MEDS: cefTRIAXone 1 gm 1 GM/100 ML BAG IVPB SCH (05:34)
[2018-02-12] MEDS: Insulin Reg-HIGH-Coverage SC SCH ×4 (07:38→22:28)
[2018-02-12] MEDS: Nystatin 100,000 Units/gm Topical Pow(15 gm) TOP SCH ×2 (10:40→17:32)
[2018-02-12] MEDS: Clotrimazole/Betamethasone Cream(15 gm) TOP SCH ×2 (10:40→17:32)
[2018-02-12] MEDS: diltiaZEM 120 mg/24 Hours CD Cap PO SCH (10:41)
--- NOTE | 2018-02-12 12:18 | CP.PCM.PN ---
Subjective - Date & Time of Evaluation Date of Evaluation: 02/12/18 Time of Evaluation: 12:13 - Subjective Subjective: Podiatry Progress Note- Dr. Horta 57 y/o non verbal male seen and evaluated for lower extremity lymphedema and cellulitis- improving. Patient is seen resting comfortably out of bed, in chair. Dressing is clean, dry, and intact without strikethrough. Patient just returned from physical therapy. Reports feeling okay. Patient denies any events overnight and denies any pain to his LE. Denies F/C/N/V/CP/SOB. No new complaints. Objective - Vital Signs/Intake and Output Vital Signs (last 24 hours): Temp Pulse Resp BP Pulse Ox 98.4 F 70 20 130/79 96 02/11/18 17:08 02/11/18 17:08 02/11/18 17:08 02/12/18 10:39 02/11/18 17:08 - Medications Medications: Current Medications Apixaban (Eliquis) 2.5 mg PO BID [facility]N Reason: Protocol Last Admin: 02/12/18 10:41 Dose: 2.5 mg Atorvastatin Calcium (Lipitor) 10 mg PO HS [facility] Last Admin: 02/11/18 21:49 Dose: 10 mg Betamethasone/Clotrimazole (Lotrisone) 1 gm TOP BID [facility] Last Admin: 02/12/18 10:40 Dose: 1 applic Diltiazem HCl (Cardizem Cd) 120 mg PO DAILY [facility] Last Admin: 02/12/18 10:41 Dose: 120 mg Furosemide (Lasix) 20 mg PO DAILY [facility] Last Admin: 02/12/18 10:39 Dose: 20 mg Gabapentin (Neurontin) 400 mg PO TID [facility]N Reason: Protocol Last Admin: 02/12/18 10:40 Dose: 400 mg Glipizide (Glucotrol) 10 mg PO BID [facility] Last Admin: 02/12/18 10:41 Dose: 10 mg Ceftriaxone Sodium (Rocephin 1 Gram Ivpb) 1 gm in 100 mls @ 100 mls/hr IVPB 0630 [facility] PRN Reason: Protocol Last Admin: 02/12/18 05:34 Dose: 100 mls/hr Insulin Human Regular (Humulin R High) 0 units SC ACHS [facility] PRN Reason: Protocol Last Admin: 02/12/18 07:38 Dose: Not Given Metformin HCl (Glucophage) 1,000 mg PO BID [facility] Last Admin: 02/12/18 10:41 Dose: 1,000 mg Nystatin (Nystop Topical Powder) 1 gm TOP BID [facility] Last Admin: 02/12/18 10:40 Dose: 1 applic Pioglitazone HCl (Actos) 45 mg PO DAILY [facility] Last Admin: 02/12/18 10:41 Dose: 45 mg Ramipril (Altace) 10 mg PO DAILY [facility] Last Admin: 02/12/18 10:41 Dose: 10 mg - Constitutional Appears: Well, Non-toxic, No Acute Distress - Extremities Exam Extremities Exam: absent: Calf Tenderness Additional comments: Lower extremity focused exam: Vasc: DP/PT pulses non palpable secondary to edema. Temperature gradient reversed. CFT < 3 sec to all digits. Diffuse non pitting pedal edema noted B/L from tibial tuberosity to digits Derm: Diffuse elephantiasis skin changes noted to dorsum of foot with secondary scaling B/L. Healed ulcerative lesion noted to anterior mid right leg with dry sanguinous drainage - no purulence, no malodor, no fluctuance. No other open lesions or clinical suspicion for infection. Mild calor and rubor noted to right thigh. Right thigh folds are macerated with no fissures or breaks in skin. Neuro: Protective sensation grossly intact Ortho: No tenderness to posterior calf B/L. No tenderness to palpation of B/L lower extremities - Neurological Exam Neurological Exam: Alert, Awake Assessment and Plan - Assessment and Plan (Free Text) Assessment: 57 y/o diabetic male with 1) bilateral lower extremity lymphedema and 2) cellulitis to right thigh Plan: Pt seen and evaluated at bedside Labs and vitals reviewed- afebrile, leukocytosis resolving\ Continue IV abx per ID Lotrisone cream to feet and legs bilateral BID Nystatin powder between folds of legs BID CEASAR compression dressings to B/L lower extremities Will continue to follow while in house
--- NOTE | 2018-02-12 12:24 | PN ---
DATE: 02/12/2018 SUBJECTIVE: Leonardo Patel is being followed in the TCU. The compression stockings on the legs are doing well. I will follow peripherally and periodically. Please recall as necessary. Nnamdi Mondragon MD
--- NOTE | 2018-02-12 13:52 | CP.PCM.PN ---
Subjective - Date & Time of Evaluation Date of Evaluation: 02/12/18 Time of Evaluation: 10:15 - Subjective Subjective: Resting comfortably on a chair, no fevers, not in distress. No diarrhea. Objective - Vital Signs/Intake and Output Vital Signs (last 24 hours): Temp Pulse Resp BP Pulse Ox 98.4 F 70 20 141/81 96 02/11/18 17:08 02/11/18 17:08 02/11/18 17:08 02/11/18 17:08 02/11/18 17:08 Intake and Output: 02/11/18 02/12/18 18:59 06:59 Output Total 900 Balance -900 - Medications Medications: Current Medications Apixaban (Eliquis) 2.5 mg PO BID [facility] Reason: Protocol Last Admin: 02/11/18 17:07 Dose: 2.5 mg Atorvastatin Calcium (Lipitor) 10 mg PO HS [facility] Last Admin: 02/11/18 21:49 Dose: 10 mg Betamethasone/Clotrimazole (Lotrisone) 1 gm TOP BID [facility] Last Admin: 02/11/18 17:07 Dose: 1 applic Diltiazem HCl (Cardizem Cd) 120 mg PO DAILY [facility] Last Admin: 02/11/18 09:54 Dose: 120 mg Furosemide (Lasix) 20 mg PO DAILY [facility] Last Admin: 02/11/18 09:54 Dose: 20 mg Gabapentin (Neurontin) 400 mg PO TID [facility] Reason: Protocol Last Admin: 02/11/18 17:06 Dose: 400 mg Glipizide (Glucotrol) 10 mg PO BID [facility] Last Admin: 02/11/18 17:07 Dose: 10 mg Ceftriaxone Sodium (Rocephin 1 Gram Ivpb) 1 gm in 100 mls @ 100 mls/hr IVPB 0630 [facility] PRN Reason: Protocol Last Admin: 02/12/18 05:34 Dose: 100 mls/hr Insulin Human Regular (Humulin R High) 0 units SC ACHS [facility] PRN Reason: Protocol Last Admin: 02/11/18 21:48 Dose: Not Given Metformin HCl (Glucophage) 1,000 mg PO BID [facility] Last Admin: 02/11/18 17:07 Dose: 1,000 mg Nystatin (Nystop Topical Powder) 1 gm TOP BID [facility] Last Admin: 05/12/18 17:07 Dose: 1 applic Pioglitazone HCl (Actos) 45 mg PO DAILY [facility] Last Admin: 02/11/18 09:53 Dose: 45 mg Ramipril (Altace) 10 mg PO DAILY [facility] Last Admin: 02/11/18 09:54 Dose: 10 mg - Constitutional Appears: Non-toxic, Chronically Ill - Head Exam Head Exam: NORMAL INSPECTION - Respiratory Exam Respiratory Exam: Decreased Breath Sounds - Cardiovascular Exam Cardiovascular Exam: +S1, +S2 - GI/Abdominal Exam GI & Abdominal Exam: Soft. absent: Tenderness - Extremities Exam Additional comments: both legs with dressings and bandages in place Assessment and Plan - Assessment and Plan (Free Text) Plan: Assessment consider sepsis due to right leg skin and skin structure infection associated with chronic leg ulcers, slowly improving history of MRSA and Klebsiella oxytoca right leg cellulitis history of sepsis secondary to right leg skin/skin structure infection with chronic leg ulcers, growing MRSA and sensitive Klebsiella history of MRSA cellulitis Jun. 2015 history of Bilateral lower extremity skin and skin structure infection ( Enterobacter, Klebsiella Oxytoca and Group B Strep, as well as MRSA) which was treated 06/2015; MRSA and Pseudomonas cellulitis of left leg in Sep 2015, January and March 2016 chronic lymphedema of the lower extremities Morbid obesity with BMI 35 HTN DM history of Strep bacteremia history of hernia surgery Learning disability Plan continue Zyvox and Rocephin (day 6 total today) to complete 7-10 days of therapy ; cultures have been negative will continue to monitor clinically
--- NOTE | 2018-02-12 17:41 | PN ---
DATE: 02/12/2018 SUBJECTIVE: The patient is 57 years old, seen and examined, sitting in chair, seems to be comfortable. Offers no complaint. The surgical team just had his leg dressing changed. No active ulcer; however, he has chronic stasis dermatitis. PHYSICAL EXAMINATION: VITAL SIGNS: He is afebrile, pulse 66, respirations 16, blood pressure 130/79. LUNGS: Bilateral fair airflow. No rhonchi or crackle. HEART: S1 and S2 audible. ABDOMEN: Soft, obese, nontender. No rebound. No guarding. NEUROLOGIC: He is awake, alert, oriented. EXTREMITIES: Bilateral leg in dressing. LABORATORY EXAM: Blood sugar is 132. ASSESSMENT: 1. Morbid obesity. 2. Chronic stasis dermatitis. 3. Agm-vqrdahr-ahkktmtil diabetes. 4. History of hypertension. 5. Deconditioning and difficulty walking. 6. Mentally challenged. 7. History of congestive heart failure. 8. Bilateral leg cellulitis, worsening. PLAN: We will continue the patient on current medications. Local wound care is being done. Currently, he is on Rocephin. Surgical team is taking care of the patient's bilateral leg wounds. Maria Hunt MD
[2018-02-13] MEDS: cefTRIAXone 1 gm 1 GM/100 ML BAG IVPB SCH (06:09)
--- NOTE | 2018-02-13 07:04 | PN ---
DATE: 02/13/2018 SUBJECTIVE: The patient has no complaints of any chest pain. No shortness of breath. No headaches or dizziness. PHYSICAL EXAMINATION: VITAL SIGNS: Temperature is 98.4, pulse of 66, blood pressure 130/79, respirations 18. GENERAL: The patient is lying in bed, flat, comfortable. HEENT: No oral lesion. Anicteric sclerae. Moist mucosa. NECK: No JVD, adenopathy, or thyromegaly. CARDIOVASCULAR: S1 and S2, regular. No murmurs, rubs, or gallops. LUNGS: Clear to auscultation bilaterally. No wheeze, rales, or rhonchi. ABDOMEN: Bowel sounds are positive, soft, nontender and nondistended. EXTREMITIES: Lower extremities, there are chronic skin changes. ASSESSMENT: 1. Sepsis, resolved. 2. Nephrolithiasis. 3. Lymphedema of the legs. 4. Obesity with a body mass index of 40. 5. Atrial fibrillation, on Eliquis. 6. Hypertension. 7. Dyslipidemia. 8. Diabetes type 2. PLAN: The patient is currently comfortable. He is getting physical therapy. He is on Actos for his diabetes. He is going to continue with ramipril for his hypertension. He is on Cardizem for his atrial fibrillation. He is going to continue with Eliquis for anticoagulation for his atrial fibrillation. He is on metformin for his diabetes and Glucotrol for his diabetes as well. He is going to continue with Lasix daily. He is on Lipitor for dyslipidemia. He is on Neurontin for neuropathy. The patient is being followed by Dr. Gaming from [place]. Patient has finished 7 days of antibiotics. Today, he is on carbohydrate consistent diet. His sugars have been controlled. The patient's mother is also admitted to the hospital. Winston Streeter MD
[2018-02-13] MEDS: Insulin Reg-HIGH-Coverage SC SCH ×4 (07:31→21:37)
--- NOTE | 2018-02-13 08:13 | CP.PCM.PN ---
Subjective - Date & Time of Evaluation Date of Evaluation: 02/13/18 Time of Evaluation: 08:09 - Subjective Subjective: Surgery Progress note. Dr. Mondragon Pt seen and examined at bedside. Bilateral lower extermities with improving swelling. Denies fevers or chills. No new complaints. Objective - Vital Signs/Intake and Output Vital Signs (last 24 hours): Temp Pulse Resp BP Pulse Ox 98.5 F 66 16 149/80 97 02/13/18 06:00 02/13/18 06:00 02/13/18 06:00 02/13/18 06:00 02/13/18 06:00 Intake and Output: 02/13/18 02/13/18 06:59 18:59 Intake Total 420 Output Total 550 Balance -130 - Medications Medications: Current Medications Apixaban (Eliquis) 2.5 mg PO BID [facility] PRN Reason: Protocol Last Admin: 02/12/18 17:30 Dose: 2.5 mg Atorvastatin Calcium (Lipitor) 10 mg PO HS [facility] Last Admin: 02/12/18 21:49 Dose: 10 mg Betamethasone/Clotrimazole (Lotrisone) 1 gm TOP BID [facility] Last Admin: 02/12/18 17:32 Dose: 1 applic Diltiazem HCl (Cardizem Cd) 120 mg PO DAILY [facility] Last Admin: 02/12/18 10:41 Dose: 120 mg Furosemide (Lasix) 20 mg PO DAILY [facility] Last Admin: 02/12/18 10:39 Dose: 20 mg Gabapentin (Neurontin) 400 mg PO TID [facility] PRN Reason: Protocol Last Admin: 02/12/18 17:32 Dose: 400 mg Glipizide (Glucotrol) 10 mg PO BID [facility] Last Admin: 02/12/18 17:31 Dose: 10 mg Ceftriaxone Sodium (Rocephin 1 Gram Ivpb) 1 gm in 100 mls @ 100 mls/hr IVPB 0630 [facility] PRN Reason: Protocol Last Admin: 02/13/18 06:09 Dose: 100 mls/hr Insulin Human Regular (Humulin R High) 0 units SC ACHS [facility] Reason: Protocol Last Admin: 02/13/18 07:31 Dose: 2 units Metformin HCl (Glucophage) 1,000 mg PO BID [facility] Last Admin: 02/12/18 17:31 Dose: 1,000 mg Nystatin (Nystop Topical Powder) 1 gm TOP BID [facility] Last Admin: 02/12/18 17:32 Dose: 1 applic Pioglitazone HCl (Actos) 45 mg PO DAILY [facility] Last Admin: 02/12/18 10:41 Dose: 45 mg Ramipril (Altace) 10 mg PO DAILY [facility] Last Admin: 02/12/18 10:41 Dose: 10 mg - Constitutional Appears: Non-toxic, No Acute Distress, Chronically Ill - Head Exam Head Exam: ATRAUMATIC, NORMAL INSPECTION, NORMOCEPHALIC - Eye Exam Eye Exam: EOMI, Normal appearance - ENT Exam ENT Exam: Mucous Membranes Moist - Respiratory Exam Respiratory Exam: NORMAL BREATHING PATTERN. absent: Accessory Muscle Use, Respiratory Distress - Cardiovascular Exam Cardiovascular Exam: absent: JVD - GI/Abdominal Exam GI & Abdominal Exam: Soft. absent: Distended, Firm, Guarding, Rigid, Tenderness , Rebound - Extremities Exam Extremities Exam: absent: Calf Tenderness Additional comments: bilateral lower extremity swelling. Improving. Abd binders and yeison bandage in place - Neurological Exam Neurological Exam: Alert, Awake, Oriented x3 Assessment and Plan - Assessment and Plan (Free Text) Assessment: 57yo M with chronic lower extremity lymphedema. Here for SIRS, improved. Now in TCU for deconditioning. Plan: - Continue Abx as per ID - Continue lower extremity compression therapy: Abdominal binders to each thigh and Yeison wraps from foot up to thigh - Leg elevation - No surgical intervention indicated at this time Further recs as per Giancarlo Zhang PGY1 surgery pager: [phone]
[2018-02-13] MEDS: Nystatin 100,000 Units/gm Topical Pow(15 gm) TOP SCH ×2 (10:22→17:07)
[2018-02-13] MEDS: diltiaZEM 120 mg/24 Hours CD Cap PO SCH (10:23)
[2018-02-13] MEDS: Clotrimazole/Betamethasone Cream(15 gm) TOP SCH ×2 (10:24→17:08)
--- NOTE | 2018-02-13 11:18 | CP.PCM.PN ---
Subjective - Date & Time of Evaluation Date of Evaluation: 02/13/18 Time of Evaluation: 10:10 - Subjective Subjective: Patient is not complaining of pain in his legs, able to do his physical therapy well and walking in the hallways well. Objective - Vital Signs/Intake and Output Vital Signs (last 24 hours): Temp Pulse Resp BP Pulse Ox 98.5 F 66 16 149/80 97 02/13/18 06:00 02/13/18 06:00 02/13/18 06:00 02/13/18 06:00 02/13/18 06:00 Intake and Output: 02/13/18 02/13/18 06:59 18:59 Intake Total 420 Output Total 550 Balance -130 - Medications Medications: Current Medications Apixaban (Eliquis) 2.5 mg PO BID [facility] PRN Reason: Protocol Last Admin: 02/12/18 17:30 Dose: 2.5 mg Atorvastatin Calcium (Lipitor) 10 mg PO HS [facility] Last Admin: 02/12/18 21:49 Dose: 10 mg Betamethasone/Clotrimazole (Lotrisone) 1 gm TOP BID [facility] Last Admin: 02/12/18 17:32 Dose: 1 applic Diltiazem HCl (Cardizem Cd) 120 mg PO DAILY [facility] Last Admin: 02/12/18 10:41 Dose: 120 mg Furosemide (Lasix) 20 mg PO DAILY [facility] Last Admin: 02/12/18 10:39 Dose: 20 mg Gabapentin (Neurontin) 400 mg PO TID [facility] PRN Reason: Protocol Last Admin: 02/12/18 17:32 Dose: 400 mg Glipizide (Glucotrol) 10 mg PO BID [facility] Last Admin: 02/12/18 17:31 Dose: 10 mg Ceftriaxone Sodium (Rocephin 1 Gram Ivpb) 1 gm in 100 mls @ 100 mls/hr IVPB 0630 [facility] PRN Reason: Protocol Last Admin: 02/13/18 06:09 Dose: 100 mls/hr Insulin Human Regular (Humulin R High) 0 units SC ACHS [facility] PRN Reason: Protocol Last Admin: 02/13/18 07:31 Dose: 2 units Metformin HCl (Glucophage) 1,000 mg PO BID [facility] Last Admin: 02/12/18 17:31 Dose: 1,000 mg Nystatin (Nystop Topical Powder) 1 gm TOP BID [facility] Last Admin: 02/12/18 17:32 Dose: 1 applic Pioglitazone HCl (Actos) 45 mg PO DAILY [facility] Last Admin: 02/12/18 10:41 Dose: 45 mg Ramipril (Altace) 10 mg PO DAILY [facility] Last Admin: 02/12/18 10:41 Dose: 10 mg - Constitutional Appears: No Acute Distress, Chronically Ill - Head Exam Head Exam: NORMAL INSPECTION - ENT Exam ENT Exam: Mucous Membranes Moist - Neck Exam Neck Exam: absent: Lymphadenopathy, Meningismus - Respiratory Exam Respiratory Exam: Decreased Breath Sounds - Cardiovascular Exam Cardiovascular Exam: +S1, +S2 - GI/Abdominal Exam GI & Abdominal Exam: Soft. absent: Tenderness - Extremities Exam Additional comments: both legs with dressings in place Assessment and Plan - Assessment and Plan (Free Text) Plan: Assessment consider sepsis due to right leg skin and skin structure infection associated with chronic leg ulcers, clinically improving history of MRSA and Klebsiella oxytoca right leg cellulitis history of sepsis secondary to right leg skin/skin structure infection with chronic leg ulcers, growing MRSA and sensitive Klebsiella history of MRSA cellulitis Jun. 2015 history of Bilateral lower extremity skin and skin structure infection ( Enterobacter, Klebsiella Oxytoca and Group B Strep, as well as MRSA) which was treated 06/2015; MRSA and Pseudomonas cellulitis of left leg in Sep 2015, January and March 2016 chronic lymphedema of the lower extremities Morbid obesity with BMI 35 HTN DM history of Strep bacteremia history of hernia surgery Learning disability Plan continue Zyvox and Rocephin (day 7 total today) to complete 7-10 days of therapy ; cultures have been negative will continue to monitor clinically
--- NOTE | 2018-02-13 12:08 | CP.PCM.PN ---
Subjective - Date & Time of Evaluation Date of Evaluation: 02/13/18 Time of Evaluation: 12:07 - Subjective Subjective: Podiatry Progress Note - Dr. Horta 57 y/o male seen and examined at bedside this morning regarding bilateral lymphedema with elephantiasis as well as right thigh cellulitis. Pt resting comfortably in bedside chair at time of visit. Denies any events overnight. Pt is aphasic but understands questions and can respond in yes/no fashion. Denies F /C/N/V/CP/SOB. Denies pain to his lower extremities. States dressings have remained clean dry and intact. Objective - Vital Signs/Intake and Output Vital Signs (last 24 hours): Temp Pulse Resp BP Pulse Ox 98.5 F 100 H 16 161/78 H 97 02/13/18 06:00 02/13/18 10:23 02/13/18 06:00 02/13/18 10:24 02/13/18 06:00 Intake and Output: 02/13/18 02/13/18 06:59 18:59 Intake Total 420 420 Output Total 550 Balance -130 420 - Medications Medications: Current Medications Apixaban (Eliquis) 2.5 mg PO BID [facility] PRN Reason: Protocol Last Admin: 02/13/18 10:24 Dose: 2.5 mg Atorvastatin Calcium (Lipitor) 10 mg PO HS [facility] Last Admin: 02/12/18 21:49 Dose: 10 mg Betamethasone/Clotrimazole (Lotrisone) 1 gm TOP BID [facility] Last Admin: 02/13/18 10:24 Dose: 1 applic Diltiazem HCl (Cardizem Cd) 120 mg PO DAILY [facility] Last Admin: 02/13/18 10:23 Dose: 120 mg Furosemide (Lasix) 20 mg PO DAILY [facility] Last Admin: 02/13/18 10:24 Dose: 20 mg Gabapentin (Neurontin) 400 mg PO TID [facility] PRN Reason: Protocol Last Admin: 02/13/18 10:23 Dose: 400 mg Glipizide (Glucotrol) 10 mg PO BID [facility] Last Admin: 02/13/18 10:24 Dose: 10 mg Ceftriaxone Sodium (Rocephin 1 Gram Ivpb) 1 gm in 100 mls @ 100 mls/hr IVPB 0630 [facility] PRN Reason: Protocol Last Admin: 02/13/18 06:09 Dose: 100 mls/hr Insulin Human Regular (Humulin R High) 0 units SC ACHS [facility] PRN Reason: Protocol Last Admin: 02/13/18 07:31 Dose: 2 units Linezolid (Zyvox) 600 mg PO BID [facility] PRN Reason: Protocol Metformin HCl (Glucophage) 1,000 mg PO BID [facility] Last Admin: 02/13/18 10:23 Dose: 1,000 mg Nystatin (Nystop Topical Powder) 1 gm TOP BID [facility] Last Admin: 02/13/18 10:22 Dose: 1 applic Pioglitazone HCl (Actos) 45 mg PO DAILY [facility] Last Admin: 02/13/18 10:23 Dose: 45 mg Ramipril (Altace) 10 mg PO DAILY [facility] Last Admin: 02/13/18 10:23 Dose: 10 mg - Constitutional Appears: Well, Non-toxic, No Acute Distress - Extremities Exam Additional comments: Lower extremity focused exam: Vasc: DP/PT pulses non palpable secondary to edema. Temperature gradient reversed. CFT < 3 sec to all digits. Diffuse non pitting pedal edema noted B/L from tibial tuberosity to digits Derm: Diffuse elephantiasis skin changes noted to dorsum of foot with secondary scaling B/L. Healed ulcerative lesion noted to anterior mid right leg with dry sanguinous drainage, with no purulence, no malodor, no fluctuance. No open lesions or clinical suspicion for infection. Slight calor and rubor noted to right thigh, resolving. Maceration to right thigh skin folds noted to be resolving, with no fissures or breaks in skin noted . Neuro: Protective sensation grossly intact Ortho: No tenderness to posterior calf B/L. No tenderness to palpation of B/L lower extremities - Neurological Exam Neurological Exam: Alert, Awake, Oriented x3 - Psychiatric Exam Psychiatric exam: Normal Affect, Normal Mood Assessment and Plan - Assessment and Plan (Free Text) Assessment: 57 y/o diabetic male with 1) bilateral lower extremity lymphedema and 2) cellulitis to right thigh Plan: Pt seen and evaluated at bedside Discussed with attending Dr. Horta Labs and vitals reviewed- afebrile, absent leukocytosis Continue IV abx per ID Lotrisone cream to feet and legs bilateral BID Nystatin powder between folds of legs BID CEASAR compression dressings to B/L lower extremities Will continue to follow while in house
[2018-02-14] MEDS: Insulin Reg-HIGH-Coverage SC SCH ×4 (07:07→21:33)
--- NOTE | 2018-02-14 11:27 | CP.PCM.PN ---
Subjective - Date & Time of Evaluation Date of Evaluation: 02/14/18 Time of Evaluation: 09:55 - Subjective Subjective: Patient is doing physical therapy well in the gym, no fevers, no pain in the legs currently. Objective - Vital Signs/Intake and Output Vital Signs (last 24 hours): Temp Pulse Resp BP Pulse Ox 98.8 F 71 20 130/69 95 02/13/18 16:00 02/13/18 16:00 02/13/18 16:00 02/13/18 16:00 02/13/18 16:00 Intake and Output: 02/13/18 02/14/18 18:59 06:59 Intake Total 420 Balance 420 - Medications Medications: Current Medications Apixaban (Eliquis) 2.5 mg PO BID [facility] PRN Reason: Protocol Last Admin: 02/13/18 17:06 Dose: 2.5 mg Atorvastatin Calcium (Lipitor) 10 mg PO HS [facility] Last Admin: 02/13/18 21:28 Dose: 10 mg Betamethasone/Clotrimazole (Lotrisone) 1 gm TOP BID [facility] Last Admin: 02/13/18 17:08 Dose: 1 applic Diltiazem HCl (Cardizem Cd) 120 mg PO DAILY [facility] Last Admin: 02/13/18 10:23 Dose: 120 mg Furosemide (Lasix) 20 mg PO DAILY [facility] Last Admin: 02/13/18 10:24 Dose: 20 mg Gabapentin (Neurontin) 400 mg PO TID [facility] PRN Reason: Protocol Last Admin: 02/13/18 17:09 Dose: 400 mg Glipizide (Glucotrol) 10 mg PO BID [facility] Last Admin: 02/13/18 17:07 Dose: 10 mg Insulin Human Regular (Humulin R High) 0 units SC ACHS [facility] PRN Reason: Protocol Last Admin: 02/13/18 21:37 Dose: Not Given Lactic Acid (Lac-Hydrin 12% Cream (140 G)) 0 ea TOP DAILY [facility] Linezolid (Zyvox) 600 mg PO BID [facility] PRN Reason: Protocol Last Admin: 02/13/18 17:09 Dose: 600 mg Metformin HCl (Glucophage) 1,000 mg PO BID [facility] Last Admin: 02/13/18 17:07 Dose: 1,000 mg Nystatin (Nystop Topical Powder) 1 gm TOP BID [facility] Last Admin: 02/13/18 17:07 Dose: 1 applic Pioglitazone HCl (Actos) 45 mg PO DAILY [facility] Last Admin: 02/13/18 10:23 Dose: 45 mg Ramipril (Altace) 10 mg PO DAILY [facility] Last Admin: 02/13/18 10:23 Dose: 10 mg - Constitutional Appears: Non-toxic, Chronically Ill - ENT Exam ENT Exam: Mucous Membranes Moist - Neck Exam Neck Exam: absent: Lymphadenopathy, Meningismus - Respiratory Exam Respiratory Exam: Decreased Breath Sounds - Cardiovascular Exam Cardiovascular Exam: +S1, +S2 - GI/Abdominal Exam GI & Abdominal Exam: Soft. absent: Tenderness - Extremities Exam Additional comments: both legs with dressings in place Assessment and Plan - Assessment and Plan (Free Text) Plan: Assessment consider sepsis due to right leg skin and skin structure infection associated with chronic leg ulcers, clinically improving history of MRSA and Klebsiella oxytoca right leg cellulitis history of sepsis secondary to right leg skin/skin structure infection with chronic leg ulcers, growing MRSA and sensitive Klebsiella history of MRSA cellulitis Jun. 2015 history of Bilateral lower extremity skin and skin structure infection ( Enterobacter, Klebsiella Oxytoca and Group B Strep, as well as MRSA) which was treated 06/2015; MRSA and Pseudomonas cellulitis of left leg in Sep 2015, January and March 2016 chronic lymphedema of the lower extremities Morbid obesity with BMI 35 HTN DM history of Strep bacteremia history of hernia surgery Learning disability Plan continue Zyvox and Rocephin (day 8 total today) to complete 7-10 days of therapy ; cultures have been negative will continue to monitor clinically
[2018-02-14] MEDS ORDERED: cefTRIAXone 1 gm 1 GM/100 ML BAG IVPB SCH (11:30)
[2018-02-14] MEDS: diltiaZEM 120 mg/24 Hours CD Cap PO SCH (11:45)
[2018-02-14] MEDS: Nystatin 100,000 Units/gm Topical Pow(15 gm) TOP SCH ×2 (11:48→17:17)
--- NOTE | 2018-02-14 13:18 | CP.PCM.PN ---
<Karley Sommers - Last Filed: 02/14/18 13:15> Subjective - Date & Time of Evaluation Date of Evaluation: 02/14/18 Time of Evaluation: 13:15 - Subjective Subjective: Podiatry Progress Note - Dr. Horta/Yolanda 57 y/o male seen and examined at bedside in TCU this afternoon regarding bilateral lymphedema with elephantiasis as well as right thigh cellulitis. Pt resting comfortably in bedside chair at time of visit. Denies any events overnight. Pt is aphasic but understands questions and can respond in yes/no fashion. Denies F/C/N/V/CP/SOB. Denies pain to his lower extremities. Objective - Vital Signs/Intake and Output Vital Signs (last 24 hours): Temp Pulse Resp BP Pulse Ox 98.8 F 63 20 147/73 95 02/13/18 16:00 02/14/18 11:45 02/13/18 16:00 02/14/18 11:47 02/13/18 16:00 Intake and Output: 02/14/18 02/14/18 06:59 18:59 Intake Total 420 Balance 420 - Medications Medications: Current Medications Apixaban (Eliquis) 2.5 mg PO BID [facility] PRN Reason: Protocol Last Admin: 02/14/18 11:46 Dose: 2.5 mg Atorvastatin Calcium (Lipitor) 10 mg PO HS [facility] Last Admin: 02/13/18 21:28 Dose: 10 mg Betamethasone/Clotrimazole (Lotrisone) 1 gm TOP BID [facility] Last Admin: 02/13/18 17:08 Dose: 1 applic Diltiazem HCl (Cardizem Cd) 120 mg PO DAILY [facility] Last Admin: 02/14/18 11:45 Dose: 120 mg Furosemide (Lasix) 20 mg PO DAILY [facility] Last Admin: 02/14/18 11:47 Dose: 20 mg Gabapentin (Neurontin) 400 mg PO TID [facility] PRN Reason: Protocol Last Admin: 02/14/18 11:48 Dose: 400 mg Glipizide (Glucotrol) 10 mg PO BID [facility] Last Admin: 02/14/18 11:47 Dose: 10 mg Ceftriaxone Sodium (Rocephin 1 Gram Ivpb) 1 gm in 100 mls @ 100 mls/hr IVPB DAILY [facility] PRN Reason: Protocol Last Admin: 02/14/18 11:59 Dose: 100 mls/hr Insulin Human Regular (Humulin R High) 0 units SC ACHS [facility] PRN Reason: Protocol Last Admin: 02/14/18 07:07 Dose: Not Given Lactic Acid (Lac-Hydrin 12% Cream (140 G)) 0 ea TOP DAILY [facility] Linezolid (Zyvox) 600 mg PO BID [facility] PRN Reason: Protocol Last Admin: 02/14/18 11:48 Dose: 600 mg Metformin HCl (Glucophage) 1,000 mg PO BID [facility] Last Admin: 02/14/18 11:46 Dose: 1,000 mg Nystatin (Nystop Topical Powder) 1 gm TOP BID [facility] Last Admin: 02/14/18 11:48 Dose: 1 applic Pioglitazone HCl (Actos) 45 mg PO DAILY [facility] Last Admin: 02/14/18 11:45 Dose: 45 mg Ramipril (Altace) 10 mg PO DAILY [facility] Last Admin: 02/14/18 11:45 Dose: 10 mg - Constitutional Appears: Well, Non-toxic, No Acute Distress - Extremities Exam Additional comments: Lower extremity focused exam: Vasc: DP/PT pulses non palpable secondary to edema. Temperature gradient reversed. CFT < 3 sec to all digits. Diffuse non pitting pedal edema noted B/L from tibial tuberosity to digits Derm: Diffuse elephantiasis skin changes noted to dorsum of foot with secondary scaling B/L. Healed ulcerative lesion noted to anterior mid right leg with dry sanguinous drainage, with no purulence, no malodor, no fluctuance. No open lesions or clinical suspicion for infection. Slight calor and rubor noted to right thigh, resolving. Maceration to right thigh skin folds noted to be resolving, with no fissures or breaks in skin noted . Neuro: Protective sensation grossly intact Ortho: No tenderness to posterior calf B/L. No tenderness to palpation of B/L lower extremities - Neurological Exam Neurological Exam: Alert, Awake, Oriented x3 - Psychiatric Exam Psychiatric exam: Normal Affect, Normal Mood Assessment and Plan - Assessment and Plan (Free Text) Assessment: 57 y/o diabetic male with 1) bilateral lower extremity lymphedema and 2) cellulitis to right thigh Plan: Pt seen and evaluated at bedside Discussed with attending Dr. Guerrero Continue IV abx per ID Lotrisone cream to feet and legs bilateral BID Nystatin powder between folds of legs BID CEASAR compression dressings to B/L lower extremities Will continue to follow while in house <Marin Guerrero - Last Filed: 02/14/18 14:06> Objective - Vital Signs/Intake and Output Vital Signs (last 24 hours): Temp Pulse Resp BP Pulse Ox 98.8 F 63 20 147/73 95 02/13/18 16:00 02/14/18 11:45 02/13/18 16:00 02/14/18 11:47 02/13/18 16:00 Intake and Output: 02/14/18 02/14/18 06:59 18:59 Intake Total 420 Balance 420 - Medications Medications: Current Medications Apixaban (Eliquis) 2.5 mg PO BID [facility]N Reason: Protocol Last Admin: 02/14/18 11:46 Dose: 2.5 mg Atorvastatin Calcium (Lipitor) 10 mg PO HS [facility] Last Admin: 02/13/18 21:28 Dose: 10 mg Betamethasone/Clotrimazole (Lotrisone) 1 gm TOP BID [facility] Last Admin: 02/14/18 13:50 Dose: 1 applic Diltiazem HCl (Cardizem Cd) 120 mg PO DAILY [facility] Last Admin: 02/14/18 11:45 Dose: 120 mg Furosemide (Lasix) 20 mg PO DAILY [facility] Last Admin: 02/14/18 11:47 Dose: 20 mg Gabapentin (Neurontin) 400 mg PO TID [facility]N Reason: Protocol Last Admin: 02/14/18 11:48 Dose: 400 mg Glipizide (Glucotrol) 10 mg PO BID [facility] Last Admin: 02/14/18 11:47 Dose: 10 mg Ceftriaxone Sodium (Rocephin 1 Gram Ivpb) 1 gm in 100 mls @ 100 mls/hr IVPB DAILY [facility]N Reason: Protocol Last Admin: 02/14/18 11:59 Dose: 100 mls/hr Insulin Human Regular (Humulin R High) 0 units SC ACHS [facility] PRN Reason: Protocol Last Admin: 02/14/18 13:49 Dose: Not Given Lactic Acid (Lac-Hydrin 12% Cream (140 G)) 0 ea TOP DAILY [facility] Last Admin: 02/14/18 13:50 Dose: 1 cre Linezolid (Zyvox) 600 mg PO BID [facility] Reason: Protocol Last Admin: 02/14/18 11:48 Dose: 600 mg Metformin HCl (Glucophage) 1,000 mg PO BID [facility] Last Admin: 02/14/18 11:46 Dose: 1,000 mg Nystatin (Nystop Topical Powder) 1 gm TOP BID [facility] Last Admin: 02/14/18 11:48 Dose: 1 applic Pioglitazone HCl (Actos) 45 mg PO DAILY [facility] Last Admin: 02/14/18 11:45 Dose: 45 mg Ramipril (Altace) 10 mg PO DAILY [facility] Last Admin: 02/14/18 11:45 Dose: 10 mg Attending/Attestation - Attestation I have personally seen and examined this patient.: Yes I have fully participated in the care of the patient.: Yes I have reviewed all pertinent clinical information, including history, physical exam and plan: Yes
[2018-02-14] MEDS: Clotrimazole/Betamethasone Cream(15 gm) TOP SCH ×2 (13:50→17:15)
[2018-02-14] MEDS: Ammonium Lactate 12% Cream (140 g) TOP SCH (13:50)
[2018-02-15] MEDS ORDERED: cefTRIAXone 1 gm 1 GM/100 ML BAG IVPB SCH (06:00)
[2018-02-15] MEDS: Insulin Reg-HIGH-Coverage SC SCH ×4 (06:38→22:02)
--- NOTE | 2018-02-15 10:23 | PN ---
DATE: 02/15/2018 SUBJECTIVE: The patient has no complaints of any chest pain. No shortness of breath. No headaches or dizziness. PHYSICAL EXAMINATION: VITAL SIGNS: Temperature is 98.6, pulse of 70, blood pressure 96/55, respirations 16. GENERAL: The patient is lying in bed, flat, comfortable. HEENT: No oral lesion. Anicteric sclerae. Moist mucosa. NECK: No JVD, adenopathy, or thyromegaly. CARDIOVASCULAR: S1 and S2, regular. No murmurs, rubs, or gallops. LUNGS: Clear to auscultation bilaterally. No wheeze, rales, or rhonchi. ABDOMEN: Bowel sounds are positive, soft, nontender and nondistended. EXTREMITIES: No cyanosis, clubbing or edema. Lower extremity, the patient has chronic changes in his legs. ASSESSMENT: 1. Sepsis, resolved. 2. Nephrolithiasis. 3. Lymphedema of the legs. 4. Obesity with a body mass index of 40. 5. Atrial fibrillation, on Eliquis. 6. Hypertension. 7. Dyslipidemia. 8. Diabetes type 2. PLAN: The patient is currently comfortable. He is continuing with physical therapy on the Transitional Care Unit. His mother is also on the Transitional Care Unit. He is on Actos for his diabetes. His diabetes is under control. He finished his antibiotics. The patient's cultures have been negative. I will discontinue his IV antibiotics at this point. He is on Lipitor for dyslipidemia. The patient is on metformin for his diabetes. He is on Cardizem for his atrial fibrillation. He is on Neurontin for his neuropathy. Winston Streeter MD
[2018-02-15] MEDS: diltiaZEM 120 mg/24 Hours CD Cap PO SCH (10:54)
[2018-02-15] MEDS: Ammonium Lactate 12% Cream (140 g) TOP SCH (10:54)
[2018-02-15] MEDS: Clotrimazole/Betamethasone Cream(15 gm) TOP SCH ×2 (10:55→17:18)
[2018-02-15] MEDS: Nystatin 100,000 Units/gm Topical Pow(15 gm) TOP SCH ×2 (10:55→17:18)
--- NOTE | 2018-02-15 11:00 | CP.PCM.PN ---
Subjective - Date & Time of Evaluation Date of Evaluation: 02/15/18 Time of Evaluation: 10:56 - Subjective Subjective: Podiatry Progress Note - Dr. Horta/Yolanda 57 y/o male seen and examined at bedside in TCU this morning regarding bilateral lymphedema with elephantiasis as well as right thigh cellulitis. Pt resting comfortably in bedside chair at time of visit. Denies any events overnight. Occupational therapy at bedside at time of visit, stating patient is starting to perform more and more activities on his own without assistance. Pt is aphasic but understands questions and can respond in yes/no fashion. Denies F /C/N/V/CP/SOB. Denies pain to his lower extremities. Denies any new pedal complaints. Objective - Vital Signs/Intake and Output Vital Signs (last 24 hours): Temp Pulse Resp BP Pulse Ox 98.6 F 70 16 96/55 L 93 L 02/14/18 16:00 02/14/18 16:00 02/14/18 16:00 02/14/18 16:00 02/14/18 16:00 - Medications Medications: Current Medications Apixaban (Eliquis) 2.5 mg PO BID [facility]N Reason: Protocol Last Admin: 02/14/18 17:14 Dose: 2.5 mg Atorvastatin Calcium (Lipitor) 10 mg PO HS [facility] Last Admin: 02/14/18 21:33 Dose: 10 mg Betamethasone/Clotrimazole (Lotrisone) 1 gm TOP BID [facility] Last Admin: 02/14/18 17:15 Dose: Not Given Diltiazem HCl (Cardizem Cd) 120 mg PO DAILY [facility] Last Admin: 02/14/18 11:45 Dose: 120 mg Furosemide (Lasix) 20 mg PO DAILY [facility] Last Admin: 02/14/18 11:47 Dose: 20 mg Gabapentin (Neurontin) 400 mg PO TID [facility]N Reason: Protocol Last Admin: 02/14/18 17:16 Dose: 400 mg Glipizide (Glucotrol) 10 mg PO BID [facility] Last Admin: 02/14/18 17:14 Dose: 10 mg Insulin Human Regular (Humulin R High) 0 units SC ACHS [facility] PRN Reason: Protocol Last Admin: 02/15/18 06:38 Dose: 2 units Lactic Acid (Lac-Hydrin 12% Cream (140 G)) 0 ea TOP DAILY [facility] Last Admin: 02/14/18 13:50 Dose: 1 cre Metformin HCl (Glucophage) 1,000 mg PO BID [facility] Last Admin: 02/14/18 17:14 Dose: 1,000 mg Nystatin (Nystop Topical Powder) 1 gm TOP BID [facility] Last Admin: 02/14/18 17:17 Dose: Not Given Pioglitazone HCl (Actos) 45 mg PO DAILY [facility] Last Admin: 02/14/18 11:45 Dose: 45 mg Ramipril (Altace) 10 mg PO DAILY [facility] Last Admin: 02/14/18 11:45 Dose: 10 mg - Constitutional Appears: Well, Non-toxic, No Acute Distress - Extremities Exam Additional comments: Lower extremity focused exam: Vasc: DP/PT pulses non palpable secondary to edema. Temperature gradient warm to cool. CFT < 3 sec to all digits. Diffuse non pitting pedal edema noted B/L from tibial tuberosity to digits Derm: Diffuse elephantiasis skin changes noted to dorsum of foot with secondary scaling B/L. Healed ulcerative lesion noted to anterior mid right leg with dry sanguinous drainage, with no purulence, no malodor, no fluctuance. No open lesions or clinical suspicion for infection. Slight calor and rubor noted to right thigh, resolving. Maceration to right thigh skin folds noted to be resolving, with no fissures or breaks in skin noted . Neuro: Protective sensation grossly intact Ortho: No tenderness to posterior calf B/L. No tenderness to palpation of B/L lower extremities - Neurological Exam Neurological Exam: Alert, Awake, Oriented x3 - Psychiatric Exam Psychiatric exam: Normal Affect, Normal Mood Assessment and Plan - Assessment and Plan (Free Text) Assessment: 57 y/o diabetic male with 1) bilateral lower extremity lymphedema and 2) cellulitis to right thigh Plan: Pt seen and evaluated at bedside Discussed with attending Dr. Horta Continue IV abx per ID Lotrisone cream to feet and legs bilateral BID Nystatin powder between folds of legs BID CEASAR compression dressings to B/L lower extremities Pt is stable for discharge from podiatry standpoint Upon D/C, pt to follow up in [facility] with Dr. Horta/Yolanda Will continue to follow while in house
--- NOTE | 2018-02-15 12:58 | PN ---
DATE: 02/15/2018 SUBJECTIVE: The patient is in bed, in no acute distress, nontoxic. PHYSICAL EXAMINATION: VITAL SIGNS: Temperature of 98, blood pressure is 96/50, respiratory rate of 18, heart rate of 70. HEENT: Unremarkable. NECK: Supple. LUNGS: Have decreased breath sounds. HEART: Normal S1, S2. ABDOMEN: Soft, nontender. LABORATORY DATA: Reviewed. The patient's legs are also examined, appears to be improving. ASSESSMENT AND PLAN: This is a 57-year-old with sepsis with right leg skin and skin structure infection associated with chronic leg ulcers in a patient with morbid obesity, hypertension, diabetes. On Zyvox and ceftriaxone, today is day #9, would complete 7-10 days of antibiotics. Review of orders reveals now the patient is off of antibiotics, afebrile, has completed adequate therapy. Jean-Claude Aviles MD
[2018-02-16] MEDS: Insulin Reg-HIGH-Coverage SC SCH ×4 (06:42→22:33)
[2018-02-16] MEDS: diltiaZEM 120 mg/24 Hours CD Cap PO SCH (10:25)
[2018-02-16] MEDS: Ammonium Lactate 12% Cream (140 g) TOP SCH (10:26)
[2018-02-16] MEDS: Nystatin 100,000 Units/gm Topical Pow(15 gm) TOP SCH ×2 (10:27→18:23)
[2018-02-16] MEDS: Clotrimazole/Betamethasone Cream(15 gm) TOP SCH ×2 (10:27→18:23)
[2018-02-16] MEDS ORDERED: Unna Boot TOP ONE (11:00)
[2018-02-16 17:06] VITALS: RESP 18
--- NOTE | 2018-02-16 17:06 | PN ---
DATE: 02/16/2018 SUBJECTIVE: The patient seen in room 303. No fevers, no chills. No nausea, comfortable. He is off of antibiotics. PHYSICAL EXAMINATION: VITAL SIGNS: Temperature is 98, blood pressure is 138/70, respiratory rate 20, heart rate of 71. HEENT: Unremarkable. NECK: Supple. LUNGS: Have decreased breath sounds. HEART: Normal S1, S2. ABDOMEN: Soft, nontender. No rebound, no guarding, no masses. LABORATORY DATA: Reviewed. ASSESSMENT AND PLAN: A 57-year-old morbidly obese male with a body mass index of 35, seen earlier this morning in room 303 with a history of skin and skin structure infection associated with a chronic leg ulcer and morbid obesity, diabetes, hypertension. He has completed his antibiotic therapy of Zyvox and ceftriaxone 10 days and now off of antibiotics, afebrile. No Hep-Lock. He is at risk for developing nosocomial infection. Jean-Claude Aviles MD
[2018-02-17] MEDS: Insulin Reg-HIGH-Coverage SC SCH ×4 (06:57→21:50)
[2018-02-17] MEDS ORDERED: Unna Boot TOP ONE ×2 (09:00→11:20)
[2018-02-17] MEDS: diltiaZEM 120 mg/24 Hours CD Cap PO SCH (09:09)
[2018-02-17] MEDS: Ammonium Lactate 12% Cream (140 g) TOP SCH (09:10)
[2018-02-17] MEDS: Clotrimazole/Betamethasone Cream(15 gm) TOP SCH ×2 (09:11→17:51)
[2018-02-17] MEDS: Nystatin 100,000 Units/gm Topical Pow(15 gm) TOP SCH ×2 (09:11→17:51)
--- NOTE | 2018-02-17 11:52 | CP.PCM.PN ---
Subjective - Date & Time of Evaluation Date of Evaluation: 02/17/18 Time of Evaluation: 11:30 - Subjective Subjective: Comfortable in bed, no fevers. Objective - Vital Signs/Intake and Output Vital Signs (last 24 hours): Temp Pulse Resp BP Pulse Ox 98.6 F 68 18 116/63 98 02/16/18 16:00 02/16/18 16:00 02/16/18 16:00 02/16/18 16:00 02/16/18 16:00 Intake and Output: 02/17/18 02/17/18 06:59 18:59 Intake Total 480 Output Total 750 Balance -270 - Medications Medications: Current Medications Apixaban (Eliquis) 2.5 mg PO BID [facility] PRN Reason: Protocol Last Admin: 02/16/18 18:22 Dose: 2.5 mg Atorvastatin Calcium (Lipitor) 10 mg PO HS [facility] Last Admin: 02/16/18 21:12 Dose: 10 mg Betamethasone/Clotrimazole (Lotrisone) 1 gm TOP BID [facility] Last Admin: 02/16/18 18:23 Dose: 1 applic Diltiazem HCl (Cardizem Cd) 120 mg PO DAILY [facility] Last Admin: 02/16/18 10:25 Dose: 120 mg Furosemide (Lasix) 20 mg PO DAILY [facility] Last Admin: 02/16/18 10:27 Dose: 20 mg Gabapentin (Neurontin) 400 mg PO TID [facility] PRN Reason: Protocol Last Admin: 02/16/18 18:23 Dose: 400 mg Glipizide (Glucotrol) 10 mg PO BID [facility] Last Admin: 02/16/18 18:22 Dose: 10 mg Insulin Human Regular (Humulin R High) 0 units SC ACHS [facility] PRN Reason: Protocol Last Admin: 02/17/18 06:57 Dose: Not Given Lactic Acid (Lac-Hydrin 12% Cream (140 G)) 0 ea TOP DAILY [facility] Last Admin: 02/16/18 10:26 Dose: 1 applic Metformin HCl (Glucophage) 1,000 mg PO BID [facility] Last Admin: 02/16/18 18:22 Dose: 1,000 mg Nystatin (Nystop Topical Powder) 1 gm TOP BID [facility] Last Admin: 02/16/18 18:23 Dose: 1 applic Pioglitazone HCl (Actos) 45 mg PO DAILY [facility] Last Admin: 02/16/18 10:25 Dose: 45 mg Ramipril (Altace) 10 mg PO DAILY [facility] Last Admin: 02/16/18 10:25 Dose: 10 mg - Constitutional Appears: Non-toxic, Chronically Ill - Head Exam Head Exam: NORMAL INSPECTION - ENT Exam ENT Exam: Mucous Membranes Moist - Neck Exam Neck Exam: absent: Lymphadenopathy, Meningismus - Respiratory Exam Respiratory Exam: Decreased Breath Sounds - Cardiovascular Exam Cardiovascular Exam: +S1, +S2 - GI/Abdominal Exam GI & Abdominal Exam: Soft. absent: Tenderness - Extremities Exam Additional comments: both legs with dressings in place Assessment and Plan - Assessment and Plan (Free Text) Plan: Assessment S/P sepsis due to right leg skin and skin structure infection associated with chronic leg ulcers, clinically improved and S/P treatment history of MRSA and Klebsiella oxytoca right leg cellulitis history of sepsis secondary to right leg skin/skin structure infection with chronic leg ulcers, growing MRSA and sensitive Klebsiella history of MRSA cellulitis Jun. 2015 history of Bilateral lower extremity skin and skin structure infection ( Enterobacter, Klebsiella Oxytoca and Group B Strep, as well as MRSA) which was treated 06/2015; MRSA and Pseudomonas cellulitis of left leg in Sep 2015, January and March 2016 chronic lymphedema of the lower extremities Morbid obesity with BMI 35 HTN DM history of Strep bacteremia history of hernia surgery Learning disability Plan continue monitor the patient off antibiotics while the patient is in the hospital since he is at risk for nosocomial infections
--- NOTE | 2018-02-17 15:03 | CP.PCM.PN ---
Subjective - Date & Time of Evaluation Date of Evaluation: 02/17/18 Time of Evaluation: 11:45 - Subjective Subjective: Podiatry Progress Note - Dr. Horta/Yolanda 57 y/o male seen and examined at bedside in TCU this morning regarding bilateral lymphedema with elephantiasis as well as right thigh cellulitis. Pt resting comfortably in bedside chair at time of visit, in NAD. Denies any events overnight. Patient doing well in physical therapy. Reports has been ambuating around in socks. Pt is aphasic but understands questions and can respond in yes/no fashion. Denies F/C/N/V/CP/SOB. Denies pain to his lower extremities. Denies any new pedal complaints. Objective - Vital Signs/Intake and Output Vital Signs (last 24 hours): Temp Pulse Resp BP Pulse Ox 98.6 F 68 18 139/69 98 02/16/18 16:00 02/17/18 09:09 02/16/18 16:00 02/17/18 09:09 02/16/18 16:00 Intake and Output: 02/17/18 02/17/18 06:59 18:59 Intake Total 480 Output Total 750 Balance -270 - Medications Medications: Current Medications Apixaban (Eliquis) 2.5 mg PO BID [facility] PRN Reason: Protocol Last Admin: 02/17/18 09:09 Dose: 2.5 mg Atorvastatin Calcium (Lipitor) 10 mg PO HS [facility] Last Admin: 02/16/18 21:12 Dose: 10 mg Betamethasone/Clotrimazole (Lotrisone) 1 gm TOP BID [facility] Last Admin: 02/17/18 09:11 Dose: 1 applic Diltiazem HCl (Cardizem Cd) 120 mg PO DAILY [facility] Last Admin: 02/17/18 09:09 Dose: 120 mg Furosemide (Lasix) 20 mg PO DAILY [facility] Last Admin: 02/17/18 09:09 Dose: 20 mg Gabapentin (Neurontin) 400 mg PO TID [facility] PRN Reason: Protocol Last Admin: 02/17/18 13:09 Dose: 400 mg Glipizide (Glucotrol) 10 mg PO BID [facility] Last Admin: 02/17/18 09:08 Dose: 10 mg Insulin Human Regular (Humulin R High) 0 units SC ACHS [facility] PRN Reason: Protocol Last Admin: 02/17/18 12:29 Dose: 2 units Lactic Acid (Lac-Hydrin 12% Cream (140 G)) 0 ea TOP DAILY [facility] Last Admin: 02/17/18 09:10 Dose: 1 applic Metformin HCl (Glucophage) 1,000 mg PO BID [facility] Last Admin: 02/17/18 09:09 Dose: 1,000 mg Nystatin (Nystop Topical Powder) 1 gm TOP BID [facility] Last Admin: 02/17/18 09:11 Dose: 1 applic Pioglitazone HCl (Actos) 45 mg PO DAILY [facility] Last Admin: 02/17/18 09:09 Dose: 45 mg Ramipril (Altace) 10 mg PO DAILY [facility] Last Admin: 02/17/18 09:08 Dose: 10 mg - Constitutional Appears: Well, Non-toxic, No Acute Distress - Extremities Exam Extremities Exam: absent: Calf Tenderness Additional comments: Lower extremity focused exam: Vasc: DP/PT pulses non palpable secondary to edema. Temperature gradient warm to cool. CFT < 3 sec to all digits. Diffuse non pitting pedal edema noted B/L from tibial tuberosity to digits Derm: Diffuse elephantiasis skin changes noted to dorsum of foot with secondary scaling B/L. Healed ulcerative lesion noted to anterior mid right leg with dry sanguinous drainage, with no purulence, no malodor, no fluctuance. No open lesions or clinical suspicion for infection. Slight calor and rubor noted to right thigh, resolving. Maceration to right thigh skin folds noted to be resolving, with no fissures or breaks in skin noted . Neuro: Protective sensation grossly intact Ortho: No tenderness to posterior calf B/L. No tenderness to palpation of B/L lower extremities Assessment and Plan - Assessment and Plan (Free Text) Assessment: 57 y/o diabetic male with 1) bilateral lower extremity lymphedema and 2) cellulitis to right thigh resolving Plan: Pt seen and evaluated at bedside Discussed with attending Dr. Guerrero Lotrisone cream to feet and legs bilateral BID Nystatin powder between folds of legs BID CEASAR compression dressings to B/L lower extremities Surgical shoe ordered. Patient to WBAT in surgical shoe UNNA boots ordered Pt is stable for discharge from podiatry standpoint Prior to d/c tomorrow patient to be wrapped in UNNA boots Pt to follow up in [facility] [facility] with Dr. Horta/Yolanda Will continue to follow while in house
[2018-02-17 16:31] VITALS: PULSE 65; TEMP 98.2; O2SAT 96
[2018-02-18] MEDS: Insulin Reg-HIGH-Coverage SC SCH (07:26)
[2018-02-18] MEDS: diltiaZEM 120 mg/24 Hours CD Cap PO SCH (09:07)
[2018-02-18] MEDS: Clotrimazole/Betamethasone Cream(15 gm) TOP SCH (09:08)
[2018-02-18] MEDS: Nystatin 100,000 Units/gm Topical Pow(15 gm) TOP SCH (09:08)
[2018-02-18] MEDS: Ammonium Lactate 12% Cream (140 g) TOP SCH (09:08)
[2018-02-18 09:09] VITALS: BP 125/67
--- NOTE | 2018-02-18 09:57 | CP.PCM.PN ---
Subjective - Date & Time of Evaluation Date of Evaluation: 02/18/18 Time of Evaluation: 09:54 - Subjective Subjective: Podiatry Progress Note - Dr. Guerrero 57 y/o male seen and examined at bedside in TCU this morning with attending, Dr. Guerrero, regarding bilateral lymphedema with elephantiasis as well as right thigh cellulitis. Pt resting comfortably in bedside chair at time of visit, in NAD. Denies any events overnight. Denies F/C/N/V/CP/SOB. Denies pain to his lower extremities. Denies any new pedal complaints. Objective - Vital Signs/Intake and Output Vital Signs (last 24 hours): Temp Pulse Resp BP Pulse Ox 98.2 F 65 18 125/67 96 02/17/18 16:30 02/17/18 16:30 02/17/18 16:30 02/18/18 09:07 02/17/18 16:30 Intake and Output: 02/18/18 02/18/18 06:59 18:59 Intake Total 420 Output Total 800 Balance -380 - Medications Medications: Current Medications Apixaban (Eliquis) 2.5 mg PO BID [facility] PRN Reason: Protocol Last Admin: 02/18/18 09:08 Dose: 2.5 mg Atorvastatin Calcium (Lipitor) 10 mg PO HS [facility] Last Admin: 02/17/18 21:50 Dose: 10 mg Betamethasone/Clotrimazole (Lotrisone) 1 gm TOP BID [facility] Last Admin: 02/18/18 09:08 Dose: 1 applic Diltiazem HCl (Cardizem Cd) 120 mg PO DAILY [facility] Last Admin: 02/18/18 09:07 Dose: 120 mg Furosemide (Lasix) 20 mg PO DAILY [facility] Last Admin: 02/18/18 09:07 Dose: 20 mg Gabapentin (Neurontin) 400 mg PO TID [facility] PRN Reason: Protocol Last Admin: 02/18/18 09:08 Dose: 400 mg Glipizide (Glucotrol) 10 mg PO BID [facility] Last Admin: 02/18/18 09:08 Dose: 10 mg Insulin Human Regular (Humulin R High) 0 units SC ACHS [facility] PRN Reason: Protocol Last Admin: 02/18/18 07:26 Dose: Not Given Lactic Acid (Lac-Hydrin 12% Cream (140 G)) 0 ea TOP DAILY [facility] Last Admin: 02/18/18 09:08 Dose: 1 applic Metformin HCl (Glucophage) 1,000 mg PO BID [facility] Last Admin: 02/18/18 09:07 Dose: 1,000 mg Nystatin (Nystop Topical Powder) 1 gm TOP BID [facility] Last Admin: 02/18/18 09:08 Dose: 1 applic Pioglitazone HCl (Actos) 45 mg PO DAILY [facility] Last Admin: 02/18/18 09:07 Dose: 45 mg Ramipril (Altace) 10 mg PO DAILY [facility] Last Admin: 02/18/18 09:07 Dose: 10 mg - Constitutional Appears: Well, Non-toxic, No Acute Distress - Extremities Exam Additional comments: Lower extremity focused exam: Vasc: DP and PT pulses non-palpable secondary to edema. Temperature gradient warm to cool. CFT < 3 sec to all digits. Diffuse non-pitting pedal edema noted B /L from tibial tuberosity to digits Derm: Diffuse elephantiasis skin changes noted to dorsum of foot with secondary scaling B/L. Healed ulcerative lesion noted to anterior mid right leg with dry sanguinous drainage, with no purulence, no malodor, no fluctuance. No open lesions or clinical suspicion for infection. Slight calor and rubor noted to right thigh, resolving. Maceration to right thigh skin folds noted to be resolving, with no fissures or breaks in skin noted Neuro: Protective sensation grossly intact Ortho: No tenderness to posterior calf B/L. No tenderness to palpation of B/L lower extremities - Neurological Exam Neurological Exam: Alert, Awake - Psychiatric Exam Psychiatric exam: Normal Affect, Normal Mood Assessment and Plan - Assessment and Plan (Free Text) Assessment: 57 y/o diabetic male with 1) bilateral lower extremity lymphedema and 2) cellulitis to right thigh resolving Plan: Pt seen and evaluated at bedside with attending Dr. Guerrero labs, chart, vitals reviewed Surgical shoe ordered. Patient to WBAT in surgical shoe 3 layer compression dressing applied to bilateral lower extremties Pt is stable for discharge from podiatry standpoint Pt to [place] [facility] [place] [facility] [place]. Horta/Yolanda Patient stable for d/c from podiatry standpoint
--- NOTE | 2018-02-18 11:19 | PN ---
DATE: 02/18/2018 SUBJECTIVE: The patient is in bed. The patient was seen earlier today in room 303. No fevers and no chills. OBJECTIVE: VITAL SIGNS: On exam, temperature is 98, blood pressure is 117/60, respiratory rate of 18. HEENT: Examination is unremarkable. NECK: Supple. LUNGS: Have decreased breath sounds. HEART: Normal S1, S2. ABDOMEN: Soft, nontender. DATA: Laboratory examination are reviewed. ASSESSMENT AND PLAN: This is a 57-year-old male with obesity with body mass index of 35 and status post sepsis with a right leg skin and skin structure infection associated with chronic leg ulcers, history of MRSA, and Klebsiella oxytocin or right leg cellulitis, history of sepsis secondary right leg skin and skin structure and chronic leg ulcers, growing MRSA and sensitive Klebsiella, currently off of antibiotic in a patient with a chronic lymphedema. The patient is at risk for developing nosocomial infections. Jean-Claude Aviles MD
--- NOTE | 2018-02-18 20:37 | DS ---
HISTORY OF PRESENT ILLNESS: The patient has no complaint of any chest pain. No shortness of breath or headaches or dizziness. He is going to be discharged home today to follow up as an outpatient. PHYSICAL EXAMINATION: VITAL SIGNS: Temperature is 98.2, pulse is 65, blood pressure is 125/67, respirations 18. GENERAL: The patient is lying in bed, flat, comfortable. HEENT: No oral lesion. Anicteric sclerae. Moist mucosa. NECK: No JVD, adenopathy, or thyromegaly. CARDIOVASCULAR: S1 and S2, regular. No murmurs, rubs, or gallops. LUNGS: Clear to auscultation bilaterally. No wheeze, rales, or rhonchi. ABDOMEN: Bowel sounds are positive, soft, nontender and nondistended. EXTREMITIES: Lower extremities, there is chronic skin changes in the legs. ASSESSMENT: 1. Sepsis, resolved. 2. Nephrolithiasis. 3. Lymphedema of the legs. 4. Obesity with a body mass index of 40. 5. Atrial fibrillation, on Eliquis. 6. Hypertension. 7. Dyslipidemia. 8. Diabetes type 2. PLAN: The patient is currently comfortable. He is going to continue his Actos for his diabetes. He is on ramipril for his hypertension. The patient is on metformin for his diabetes as well. He is on Eliquis for his atrial fibrillation. He is on Lasix daily. The patient is on Lipitor for dyslipidemia. He is going to be discharged home today and follow up Dr. Saavedra. CONDITION: Stable. ACTIVITIES: Increase as tolerated. Winston Streeter MD
== END 2018-02-18 12:50 | disposition home health service (06) | DRG 872 ==
LOC: TRCU 15:02
PROVIDERS: ADMIT Internal Medicine Nephrology; ATTEND Internal Medicine Nephrology
PROC: F07Z9FZ Gait Training/Functional Ambulation Treatment using Assistive, Adaptive, Supportive or Protective Equipment (ICD-10-PCS; principal; 2018-02-11)
PROC: F07M6ZZ Therapeutic Exercise Treatment of Musculoskeletal System - Whole Body (ICD-10-PCS; 2018-02-11)
PROC: F08Z2ZZ Grooming/Personal Hygiene Treatment (ICD-10-PCS; 2018-02-11)
PROC: F08Z1ZZ Dressing Techniques Treatment (ICD-10-PCS; 2018-02-11)
DX: A41.9 Sepsis, unspecified organism (principal); Z68.41 Body mass index [BMI] 40.0-44.9, adult; L03.115 Cellulitis of right lower limb; L03.116 Cellulitis of left lower limb; L97.919 Non-pressure chronic ulcer of unspecified part of right lower leg with unspecified severity; R47.01 Aphasia; E11.622 Type 2 diabetes mellitus with other skin ulcer; E66.01 Morbid (severe) obesity due to excess calories; E78.5 Hyperlipidemia, unspecified; F79 Unspecified intellectual disabilities; F81.9 Developmental disorder of scholastic skills, unspecified; G40.909 Epilepsy, unspecified, not intractable, without status epilepticus; I11.0 Hypertensive heart disease with heart failure; I50.9 Heart failure, unspecified; I48.91 Unspecified atrial fibrillation; I87.2 Venous insufficiency (chronic) (peripheral); I87.8 Other specified disorders of veins; I89.0 Lymphedema, not elsewhere classified; N20.0 Calculus of kidney; Z86.14 Personal history of Methicillin resistant Staphylococcus aureus infection; Z87.891 Personal history of nicotine dependence

== ENCOUNTER 2018-08-11 17:24 | Inpatient (IN) | payer MEDICARE, MEDICAID ==
[2018-08-11 17:24] VITALS: BMI 35.3
--- NOTE | 2018-08-11 19:25 | ED PDOC ---
Arrival/HPI - General Chief Complaint: Lower Extremity Problem/Injury Time Seen by Provider: 08/11/18 17:39 Historian: Patient - History of Present Illness Narrative History of Present Illness (Text): 08/11/18 19:28 57yr old male presents today with a 3 day history of ulcer to the left dorsal foot. pt states he gets unna boot changed weekly and noticed pain and wound to the foot. pt denies fever/chills. denies cp or sob. no abdominal pain. no n/v/d/.c no other complaints. Past Medical History - Provider Review Nursing Documentation Reviewed: Yes - Travel History Have you recently traveled outside [place] w/in the past 3 mons?: No - Infectious Disease Hx of Infectious Diseases: None - Tetanus Immunization Tetanus Immunization: Unknown - Cardiac Hx Cardiac Disorders: Yes Hx Congestive Heart Failure: Yes Hx Hypertension: Yes - Pulmonary Hx Respiratory Disorders: No - Neurological Hx Neurological Disorder: Yes Hx Seizures: Yes Other/Comment: Epilepsy - HEENT Hx HEENT Disorder: Yes Other/Comment: wears glasses - Renal Hx Renal Disorder: No - Endocrine/Metabolic Hx Diabetes Mellitus Type 2: Yes - Hematological/Oncological Hx Blood Disorders: No Other/Comment: blood infection - Integumentary Hx Dermatological Disorder: Yes Other/Comment: multiple wounds on the rt leg, cellulitis in b/l extreminity. 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 - Surgical History Hx Amputation: No Hx Appendectomy: No Hx Cholecystectomy: No Hx Gastric Bypass Surgery: No Hx Hysterectomy: No Hx Joint Replacement: No Hx Kidney Transplant: No Hx Liver Transplant: No Hx Mastectomy: No Hx Musculoskeletal Surgery: No Hx Open Heart Surgery: No Hx Orthopedic Surgery: No Hx Splenectomy: No Hx Valve Replacement: No - Anesthesia Hx Anesthesia: Yes Hx Anesthesia Reactions: No Hx Malignant Hyperthermia: No - Suicidal Assessment Feels Threatened In Home Enviroment: No Family/Social History - Physician Review Nursing Documentation Reviewed: Yes Family/Social History: Unknown Family HX Smoking Status: Former Smoker Hx Alcohol Use: No Hx Substance Use: No Hx Substance Use Treatment: No Allergies/Home Meds Allergies/Adverse Reactions: Allergies piperacillin Allergy (Verified 08/11/18 23:26) ANAPHYLAXIS Home Medications: Home Meds Medication Instructions Recorded Confirmed Apixaban [Eliquis] 2.5 mg PO BID 05/20/17 08/11/18 Atorvastatin [Lipitor] 10 mg PO DAILY 05/20/17 08/11/18 Diltiazem HCl [Diltiazem 24Hr ER] 120 mg PO DAILY 05/20/17 08/11/18 Ferrous Fum/Vit C/B12/Stomc 1 cap PO DAILY 05/20/17 08/11/18 [Hematogen Softgel] Furosemide [Lasix] 20 mg PO DAILY 05/20/17 08/11/18 Gabapentin [Neurontin] 400 mg PO TID 05/20/17 08/11/18 GlipiZIDE [Glucotrol] 10 mg PO BID 05/20/17 08/11/18 Insulin Lispro [Humalog Kwikpen 1 unit SQ ACHS 05/20/17 08/11/18 U-100] Metformin HCl [Glucophage] 1,000 mg PO BID 05/20/17 08/11/18 Omeprazole 20 mg PO DAILY 05/20/17 08/11/18 Pioglitazone HCl 45 mg PO DAILY 05/20/17 08/11/18 Potassium Chloride [Klor-Con M20] 20 meq PO DAILY 05/20/17 08/11/18 Ramipril [Altace] 10 mg PO DAILY 05/20/17 08/11/18 Review of Systems - Review of Systems Constitutional: absent: Fatigue, Fevers Respiratory: absent: SOB, Cough Cardiovascular: absent: Chest Pain, Palpitations Gastrointestinal: absent: Abdominal Pain, Vomiting Musculoskeletal: Arthralgias Skin: Skin Lesions Neurological: absent: Headache, Dizziness Psychiatric: absent: Anxiety Physical Exam Vital Signs Reviewed: Yes Vital Signs Temp Pulse Resp BP Pulse Ox 08/11/18 17:57 99.8 F H 88 16 150/80 97 Temperature: Afebrile Blood Pressure: Normal Pulse: Regular Respiratory Rate: Normal Appearance: Positive for: Well-Appearing, Non-Toxic, Comfortable Pain Distress: None Mental Status: Positive for: Alert and Oriented X 3 - Systems Exam Head: Present: Atraumatic Mouth: Present: Moist Mucous Membranes Neck: Present: Normal Range of Motion Respiratory/Chest: Present: Clear to Auscultation, Good Air Exchange. No: Respiratory Distress, Accessory Muscle Use Cardiovascular: Present: Regular Rate and Rhythm, Normal S1, S2. No: Murmurs Lower Extremity: Present: Other Skin: Present: Warm, Dry Psychiatric: Present: Alert, Oriented x 3 (there is a dime sized ulcer noted with purulent discharge to dorsal aspect of foot.) Medical Decision Making ED Course and Treatment: 08/11/18 19:29 pt is non toxic well appearing; no distress. stable vitals. cbc: wnl cmp: glucose:330 blood cultures pending. unna boot removed; pt with dime sized ulcer to left foot. + edema with verruca noted. case discussed with dr. cadena; accepts admission. impression; ulcer, foot admit. 08/11/18 20:10 i was called to bedside for possible allergic reaction to zosyn, per RN, without minutes of administration of zosyn patient started to complain of burning sensation in chest and became tachycardic and diaphoretic. lungs were CTA bilaterally. no erythema or hives noted. solumedrol and benadryl were verbally ordered. Dr. dozier at bedside. Prior to administration of those medications, patient was found to clench right hand and urinate. Ativan was verbally ordered, but was cancelled as patient was immediately alert an oriented within moments. Prior to the administration of ALL medications, symptoms improved. fingerstick; 255.pt became alert and denied any complaints. EKG: sinus tachycardia at 111 bpm. Shortly after, the patient started to complain of pruritis and patient was noted to have erythematous skin; benadryl 25mg iv given solumedrol 125mg IV given. pt remains without any complaints; vitals stable. will admit to [facility] for tachycardia and further monitoring. Disposition/Present on Arrival - Present on Arrival Any Indicators Present on Arrival: No History of DVT/PE: No History of Uncontrolled Diabetes: No Urinary Catheter: No History of Decub. Ulcer: No History Surgical Site Infection Following: None - Disposition Have Diagnosis and Disposition been Completed?: Yes Diagnosis: Ulcer, Cellulitis, Tachycardia Disposition: HOSPITALIZED Disposition Time: 19:25 Patient Plan: Admission Patient Problems: Current Active Problems Problem Status Onset Cellulitis Acute Tachycardia Acute Ulcer Acute Condition: FAIR
[2018-08-11] MEDS ORDERED: Vancomycin 1gm in NS 250ml 1 GM/250 ML BAG IVPB STA (19:31)
[2018-08-11] MEDS ORDERED: Piperacillin/Tazobact 3.375 gm 100 ML IVPB STA (19:31)
[2018-08-11 20:05] LABS: BASO # 0.02 K/mm3 (0.0-2.0); BASO % 0.2 % (0.0-3.0); EOS # 0.1 (0.0-0.7); GRAN # 7.55 (1.4-6.5); GRAN % 76.6 % (50.0-68.0); HEMOGLOBIN 14.7 g/dL (14.0-18.0); LYMPH # 1.5 (1.2-3.4); LYMPH % 14.9 % (22.0-35.0); MEAN CELL VOLUME 88.2 fl (80.0-105.0); MEAN CORPUSCULAR HEMOGLOBIN 29.9 pg (25.0-35.0); MEAN CORPUSCULAR HGB CONC 33.9 g/dl (31.0-37.0); MEAN PLATELET VOLUME 10.3 fl (7.0-11.0); MONO # 0.7 (0.1-0.6); MONO % 7.3 % (1.0-6.0); RBC 4.91 10^6/uL (3.5-6.1); RED CELL DISTRIBUTION WIDTH 12.6 % (11.5-14.5); WHITE BLOOD COUNT 9.9 10^3/uL (4.5-11.0)
[2018-08-11] MEDS ORDERED: DiphenhydrAMINE 50 mg/ml Inj ONE (20:06)
[2018-08-11 20:22] LABS: ALB/GLOB RATIO 1.3 (1.1-1.8); ALBUMIN 4.2 g/dL (3.0-4.8); ALT/SGPT 37 U/L (7-56); AST/SGOT 23 U/L (17-59); BLOOD UREA NITROGEN 10 mg/dL (7-21); CALCIUM 9.7 mg/dL (8.4-10.5); GFR NON-AFRICAN AMERICAN > 60
[2018-08-11] MEDS ORDERED: DiphenhydrAMINE 50 mg/ml Inj IVP STA (20:28)
[2018-08-11 21:44] LABS: INR 1.03; PARTIAL THROMBOPLASTIN TIME 46.2 Seconds (25.1-36.5); PROTHROMBIN TIME 11.8 SECONDS (9.4-12.5)
[2018-08-11 21:58] LABS: TROPONIN I < 0.01 ng/mL
[2018-08-11] MEDS: Sodium Chloride 0.9% 500 ML IV SCH (23:04)
--- NOTE | 2018-08-12 04:36 | CP.PCM.CON ---
History of Present Illness - History of Present Illness History of Present Illness: General Surgery Consult Note for Dr. Mondragon 57 year old male, past medical history of chronic lower extremity lymphedema w/ ulcerations, MRSA infection, HTN, IDDM, CAD, CHF, and epilepsy, consulted for lower extremity wounds. Patient states since 2 days ago the left dorsal aspect of the foot draining pus and became tender. He has dressings in place. Patient has significant swelling of the lower extremities bilaterally. Patient is wheelchair bound and has difficulty elevating his legs for long periods of time. Currently states he is not in any pain. Patient does not speak much. Denies fever, chills, nausea, vomiting, diarrhea, abdominal pain, SOB, chest pain, or urinary symptoms. PMH: see above PSH: inguinal hernia repair FH: noncontributory Soc: denies tobacco, alcohol, drugs ALL: zosyn Meds: see [facility] Podiatry: Dr. Horta Review of Systems - Constitutional Constitutional: absent: Chills, Fever - Cardiovascular Cardiovascular: absent: Chest Pain, Dyspnea - Respiratory Respiratory: absent: Cough, Dyspnea - Gastrointestinal Gastrointestinal: absent: Abdominal Pain, Diarrhea, Nausea, Vomiting - Genitourinary Genitourinary: absent: Difficulty Urinating, Dysuria - Musculoskeletal Musculoskeletal: absent: Back Pain, Neck Pain - Integumentary Integumentary: Change in Nails, Changing Lesions, Dry Skin, New Lesions, Skin Pain, Swelling, Wounds - Neurological Neurological: absent: Dizziness, Headaches Past Patient History - Infectious Disease Hx of Infectious Diseases: None - Tetanus Immunizations Tetanus Immunization: Unknown - Past Medical History & Family History Past Medical History?: Yes - Past Social History Smoking Status: Former Smoker - CARDIAC Hx Cardiac Disorders: Yes Hx Angina: No Hx Cardia Arrhythmia: Yes Hx Circulatory Problems: No Hx Congestive Heart Failure: Yes Hx Heart Murmur: No Hx Heart Transplant: No Hx Hypercholesterolemia: Yes Hx Hypertension: Yes Hx Pacemaker: No Hx Peripheral Edema: Yes Hx Peripheral Vascular Disease: Yes - PULMONARY Hx Respiratory Disorders: No Hx Asthma: No Hx Bronchitis: No Hx Chronic Obstructive Pulmonary Disease (COPD): No Hx Emphysema: No Hx Pneumonia: No Hx Respiratory Aspiration: No Hx Respiratory Tract Infection: No Hx Sleep Apnea: No Hx Tuberculosis: No - NEUROLOGICAL Hx Neurological Disorder: Yes Hx Alzheimer's Disease: No HX Cerebrovascular Accident: No Hx Dementia: No Hx Dizziness: No Hx Meningitis: No Hx Migraine: No Hx Parkinson's Disease: No Hx Seizures: Yes Hx Transient Ischemic Attacks (TIA): No - HEENT Hx HEENT Problems: Yes (wears reading glasses) Hx Blind: No Hx Cataracts: No Hx Deafness: No Hx Difficulty Chewing: No Hx Epistaxis: No Hx Glaucoma: No Hx Macular Degeneration: No - RENAL Hx Chronic Kidney Disease: No Hx Dialysis: No Hx Kidney Stones: No Hx Neurogenic Bladder: No Hx Pyelonephritis: No Hx Renal (Kidney) Cancer: No Hx Renal Failure: No - ENDOCRINE/METABOLIC Hx Endocrine Disorders: Yes Hx Adrenal Cancer: No Hx Diabetes Insipidus: No Hx Diabetes Mellitus Type 1: No Hx Diabetes Mellitus Type 2: Yes Hx Hyperthyroidism: No Hx Hypothyroidism: No Hx Systemic Lupus Erythematosus: No - HEMATOLOGICAL/ONCOLOGICAL Hx Blood Disorders: No Hx AIDS: No Hx Anemia: No Hx Cancer: No Hx Chemotherapy: No Hx Cirrhosis: No Hx Hemophilia: No Hx Hepatitis A: No Hx Hepatitis B: No Hx Hepatitis C: No Hx Human Immunodeficiency Virus (HIV): No Hx Metastesis: No Hx Shingles: No Hx Sickle Cell Disease: No Hx Unexplained Bleeding: No - INTEGUMENTARY Hx Dermatological Problems: No Hx Basil Cell: No Hx Eczema: No Hx Melanoma: No Hx Psoriasis: No Hx Squamous Cell: No - MUSCULOSKELETAL/RHEUMATOLOGICAL Hx Musculoskeletal Disorders: Yes Hx Arthritis: No Hx Back Pain: No Hx Degenerative Joint Disease: No Hx Falls: No Hx Fractures: No Hx Gout: No Hx Herniated Disk: No Hx Myasthenia Gravis: No Hx Osteoarthritis: No Hx Osteomyelitis: No Hx Osteoporosis: No Hx Rhabdomyolysis: No Hx Spinal Stenosis: No Hx Unsteady Gait: Yes - GASTROINTESTINAL Hx Gastrointestinal Disorders: Yes Hx Colostomy: No Hx Crohn's Disease: No Hx Diverticulitis: No Hx Gall Bladder Disease: No Hx Gastroesophageal Reflux: Yes Hx Ileostomy: No Hx Liver Failure: No Hx Pancreatitis: No HX Swallowing Problems: No Hx Ulcer: No - GENITOURINARY/GYNECOLOGICAL Hx Genitourinary Disorders: No Hx Hematuria: No Hx Incontinence: No Hx Prostate Problems: No Hx Sexually Transmitted Disorders: No Hx Urinary Tract Infection: No - PSYCHIATRIC Hx Psychophysiologic Disorder: No Hx Anxiety: No Hx Bipolar Disorder: No Hx Depression: No Hx Emotional Abuse: No Hx Hallucinations: No Hx Panic Symptoms: No Hx Paranoia: No Hx Post Traumatic Stress Disorder: No Hx Psychosis: No Hx Physical Abuse: No Hx Schizophrenia: No Hx Sexual Abuse: No Hx Substance Use: No - SURGICAL HISTORY Hx Surgeries: Yes Hx Amputation: No Hx Appendectomy: No Hx Cardiac Catheterization: No Hx Cholecystectomy: No Hx Coronary Stent: No Hx Gastric Bypass Surgery: No Hx Hysterectomy: No Hx Joint Replacement: No Hx Kidney Transplant: No Hx Liver Transplant: No Hx Mastectomy: No Hx Musculoskeletal Surgery: No Hx Open Heart Surgery: No Hx Orthopedic Surgery: No Hx Splenectomy: No Hx Valve Replacement: No - ANESTHESIA Hx Anesthesia: Yes Hx Anesthesia Reactions: No Hx Malignant Hyperthermia: No Meds Allergies/Adverse Reactions: Allergies Allergy/AdvReac Type Severity Reaction Status Date / Time piperacillin Allergy ANAPHYLAXIS Verified 08/11/18 23:26 tazobactam [From Zosyn] Allergy ANAPHYLAXIS Verified 08/12/18 04:15 - Medications Medications: Current Medications Sodium Chloride (Sodium Chloride 0.9%) 500 mls @ 100 mls/hr IV .Q5H [facility] Last Admin: 08/11/18 23:04 Dose: 100 mls/hr Vancomycin HCl (Vancomycin 1gm) 1 gm in 250 mls @ 167 mls/hr IVPB Q12 [facility]; Protocol Cefepime HCl (Maxipime 1gm) 1 gm in 100 mls @ 100 mls/hr IVPB Q8 [facility]; Protocol Multivitamins/Minerals (Therapeutic-M Tab) 1 tab PO 0800 [facility]LIN Physical Exam - Constitutional Appears: Well, Non-toxic, No Acute Distress - Head Exam Head Exam: ATRAUMATIC, NORMAL INSPECTION, NORMOCEPHALIC - Eye Exam Eye Exam: EOMI - ENT Exam ENT Exam: Mucous Membranes Moist - Cardiovascular Exam Cardiovascular Exam: REGULAR RHYTHM - GI/Abdominal Exam GI & Abdominal Exam: Normal Bowel Sounds, Soft. absent: Tenderness - Neurological Exam Neurological exam: Alert - Psychiatric Exam Psychiatric exam: Flat Affect - Skin Skin Exam: Dry Additional comments: lower extremity edema, chronic venous stasis dermatitis bilaterally dressings changed c/d/i Results - Vital Signs Recent Vital Signs: Last Vital Signs Temp 98.2 F 08/12/18 02:40 Pulse 94 H 08/12/18 02:54 Resp 18 08/12/18 02:54 BP 112/73 08/12/18 02:40 Pulse Ox 98 08/12/18 02:40 - Labs Result Diagrams: 08/11/18 19:50 08/11/18 19:50 Labs: Laboratory Results - last 24 hr 08/11/18 08/11/18 08/11/18 19:50 19:50 19:50 WBC 9.9 RBC 4.91 Hgb 14.7 Hct 43.3 MCV 88.2 MCH 29.9 MCHC 33.9 RDW 12.6 Plt Count 269 MPV 10.3 Gran % 76.6 H Lymph % (Auto) 14.9 L Cole % (Auto) 7.3 H Eos % (Auto) 1.0 L Baso % (Auto) 0.2 Gran # 7.55 H Lymph # (Auto) 1.5 Cole # (Auto) 0.7 H Eos # (Auto) 0.1 Baso # (Auto) 0.02 PT INR APTT Sodium 136 Potassium 4.5 Chloride 99 Carbon Dioxide 29 Anion Gap 12 BUN 10 Creatinine 0.7 L Est GFR ( Amer) > 60 Est GFR (Non-Af Amer) > 60 POC Glucose (mg/dL) Random Glucose 330 H* D Calcium 9.7 Total Bilirubin 0.8 AST 23 ALT 37 Alkaline Phosphatase 121 Lactate Dehydrogenase 419 Total Creatine Kinase 55 Troponin I < 0.01 Total Protein 7.5 Albumin 4.2 Globulin 3.3 Albumin/Globulin Ratio 1.3 08/11/18 08/11/18 19:50 20:10 WBC RBC Hgb Hct MCV MCH MCHC RDW Plt Count MPV Gran % Lymph % (Auto) Cole % (Auto) Eos % (Auto) Baso % (Auto) Gran # Lymph # (Auto) Cole # (Auto) Eos # (Auto) Baso # (Auto) PT 11.8 INR 1.03 APTT 46.2 H Sodium Potassium Chloride Carbon Dioxide Anion Gap BUN Creatinine Est GFR ( Amer) Est GFR (Non-Af Amer) POC Glucose (mg/dL) 255 H Random Glucose Calcium Total Bilirubin AST ALT Alkaline Phosphatase Lactate Dehydrogenase Total Creatine Kinase Troponin I Total Protein Albumin Globulin Albumin/Globulin Ratio Assessment & Plan - Assessment and Plan (Free Text) Assessment: 57M w/ chronic lower extremity lymphedema and venous stasis with ulcerations Plan: Elevation of the lower extremities to 30 degrees Air mattress ordered Compression wrap of LE with CEASAR bandages and abdominal binders Multivitamin to optimize nutritional status Regular diet as tolerated IV Antibiotics per ID No surgical intervention at this present time Further recommendations per Podiatry Further recommendations per Dr. Giancarlo Tipton PGY1
[2018-08-12] MEDS: Sodium Chloride 0.9% 500 ML IV SCH (05:09)
[2018-08-12] MEDS ORDERED: Cefepime 1gm in NS 100ml 1 GM/100 ML BAG IVPB SCH (06:00)
--- NOTE | 2018-08-12 09:39 | CARD ---
APPROVED REPORT Date of service: 08/11/2018 EKG Measurement Heart [id number] SD [id number] <Conclusion> Sinus tachycardia Nonspecific ST abnormality Abnormal ECG
[2018-08-12] MEDS: Multivitamin With Minerals Tab PO SCH (10:02)
[2018-08-12] MEDS: Vancomycin 1gm in NS 250ml 1 GM/250 ML BAG IVPB SCH ×2 (10:02→21:40)
--- NOTE | 2018-08-12 10:32 | RAD ---
Date of service: 08/11/2018 HISTORY: leg infection COMPARISON: 02/07/2018. FINDINGS: LUNGS: The lungs are well inflated. There is mild pulmonary venous congestion. PLEURA: No pleural effusions or pneumothorax. CARDIOVASCULAR: There is mild cardiomegaly. Atherosclerotic aortic arch calcifications are present. OSSEOUS STRUCTURES: Within normal limits for the patient's age. VISUALIZED UPPER ABDOMEN: Normal. OTHER FINDINGS: None. IMPRESSION: No active pulmonary disease. Mild cardiomegaly and pulmonary venous congestion.
--- NOTE | 2018-08-12 11:23 | CP.PCM.CON ---
History of Present Illness - History of Present Illness History of Present Illness: Podiatry Consult Note for attending Dr. Horta 57 year old male, PMH of chronic lower extremity lymphedema w/ ulcerations, MRSA infection, HTN, IDDM, CAD, CHF, and epilepsy, steve nd evaluated for lower extremity stasis edema and ulcerations. patient is mentally callenging and most of his history obtained through his mother. mother states that her son is living with aid and she lives in the same building in another apartment. She states that he is following up with Dr. Horta for his b/l leg edema which started 15 years ago. She states that last time he swe Dr. Horta was 3 months ago. She states that his wound care nurse comes once every week to change his UNNA boot. She states that 2 days ago the nurse changed it but later it was noticed bad smell and pus coming from his left foot. Mother states that her son banged his left foot yesterday. Patient mother states that currently he doesn't have any pain. She denies fever, chills, nausea, vomiting, diarrhea or SOB. She denies any other pedal complaint at this time. PMH: chronic lower extremity lymphedema w/ ulcerations, MRSA infection, HTN, IDDM, CAD, CHF, and epilepsy. PSH: inguinal hernia repair. B/l Varicose vein surgery. Allergies: Zosyn Social Hx: denies tobacco, EtOH or illicit drugs use Review of Systems - Review of Systems Review of Systems: As per HPI - Constitutional Constitutional: As Per HPI Past Patient History - Infectious Disease Hx of Infectious Diseases: None - Tetanus Immunizations Tetanus Immunization: Unknown - Past Medical History & Family History Past Medical History?: Yes - Past Social History Smoking Status: Former Smoker - CARDIAC Hx Cardiac Disorders: Yes Hx Angina: No Hx Cardia Arrhythmia: Yes Hx Circulatory Problems: No Hx Congestive Heart Failure: Yes Hx Heart Murmur: No Hx Heart Transplant: No Hx Hypercholesterolemia: Yes Hx Hypertension: Yes Hx Pacemaker: No Hx Peripheral Edema: Yes Hx Peripheral Vascular Disease: Yes - PULMONARY Hx Respiratory Disorders: No Hx Asthma: No Hx Bronchitis: No Hx Chronic Obstructive Pulmonary Disease (COPD): No Hx Emphysema: No Hx Pneumonia: No Hx Respiratory Aspiration: No Hx Respiratory Tract Infection: No Hx Sleep Apnea: No Hx Tuberculosis: No - NEUROLOGICAL Hx Neurological Disorder: Yes Hx Alzheimer's Disease: No HX Cerebrovascular Accident: No Hx Dementia: No Hx Dizziness: No Hx Meningitis: No Hx Migraine: No Hx Parkinson's Disease: No Hx Seizures: Yes Hx Transient Ischemic Attacks (TIA): No - HEENT Hx HEENT Problems: Yes (wears reading glasses) Hx Blind: No Hx Cataracts: No Hx Deafness: No Hx Difficulty Chewing: No Hx Epistaxis: No Hx Glaucoma: No Hx Macular Degeneration: No - RENAL Hx Chronic Kidney Disease: No Hx Dialysis: No Hx Kidney Stones: No Hx Neurogenic Bladder: No Hx Pyelonephritis: No Hx Renal (Kidney) Cancer: No Hx Renal Failure: No - ENDOCRINE/METABOLIC Hx Endocrine Disorders: Yes Hx Adrenal Cancer: No Hx Diabetes Insipidus: No Hx Diabetes Mellitus Type 1: No Hx Diabetes Mellitus Type 2: Yes Hx Hyperthyroidism: No Hx Hypothyroidism: No Hx Systemic Lupus Erythematosus: No - HEMATOLOGICAL/ONCOLOGICAL Hx Blood Disorders: No Hx AIDS: No Hx Anemia: No Hx Cancer: No Hx Chemotherapy: No Hx Cirrhosis: No Hx Hemophilia: No Hx Hepatitis A: No Hx Hepatitis B: No Hx Hepatitis C: No Hx Human Immunodeficiency Virus (HIV): No Hx Metastesis: No Hx Shingles: No Hx Sickle Cell Disease: No Hx Unexplained Bleeding: No - INTEGUMENTARY Hx Dermatological Problems: No Hx Basil Cell: No Hx Eczema: No Hx Melanoma: No Hx Psoriasis: No Hx Squamous Cell: No - MUSCULOSKELETAL/RHEUMATOLOGICAL Hx Musculoskeletal Disorders: Yes Hx Arthritis: No Hx Back Pain: No Hx Degenerative Joint Disease: No Hx Falls: No Hx Fractures: No Hx Gout: No Hx Herniated Disk: No Hx Myasthenia Gravis: No Hx Osteoarthritis: No Hx Osteomyelitis: No Hx Osteoporosis: No Hx Rhabdomyolysis: No Hx Spinal Stenosis: No Hx Unsteady Gait: Yes - GASTROINTESTINAL Hx Gastrointestinal Disorders: Yes Hx Colostomy: No Hx Crohn's Disease: No Hx Diverticulitis: No Hx Gall Bladder Disease: No Hx Gastroesophageal Reflux: Yes Hx Ileostomy: No Hx Liver Failure: No Hx Pancreatitis: No HX Swallowing Problems: No Hx Ulcer: No - GENITOURINARY/GYNECOLOGICAL Hx Genitourinary Disorders: No Hx Hematuria: No Hx Incontinence: No Hx Prostate Problems: No Hx Sexually Transmitted Disorders: No Hx Urinary Tract Infection: No - PSYCHIATRIC Hx Psychophysiologic Disorder: No Hx Anxiety: No Hx Bipolar Disorder: No Hx Depression: No Hx Emotional Abuse: No Hx Hallucinations: No Hx Panic Symptoms: No Hx Paranoia: No Hx Post Traumatic Stress Disorder: No Hx Psychosis: No Hx Physical Abuse: No Hx Schizophrenia: No Hx Sexual Abuse: No Hx Substance Use: No - SURGICAL HISTORY Hx Surgeries: Yes Hx Amputation: No Hx Appendectomy: No Hx Cardiac Catheterization: No Hx Cholecystectomy: No Hx Coronary Stent: No Hx Gastric Bypass Surgery: No Hx Hysterectomy: No Hx Joint Replacement: No Hx Kidney Transplant: No Hx Liver Transplant: No Hx Mastectomy: No Hx Musculoskeletal Surgery: No Hx Open Heart Surgery: No Hx Orthopedic Surgery: No Hx Splenectomy: No Hx Valve Replacement: No - ANESTHESIA Hx Anesthesia: Yes Hx Anesthesia Reactions: No Hx Malignant Hyperthermia: No Meds Allergies/Adverse Reactions: Allergies Allergy/AdvReac Type Severity Reaction Status Date / Time piperacillin Allergy ANAPHYLAXIS Verified 08/11/18 23:26 tazobactam [From Zosyn] Allergy ANAPHYLAXIS Verified 08/12/18 04:15 - Medications Medications: Current Medications Apixaban (Eliquis) 2.5 mg PO BID [facility]; Protocol Last Admin: 08/12/18 10:10 Dose: 2.5 mg Atorvastatin Calcium (Lipitor) 40 mg PO HS [facility]LIN Furosemide (Lasix) 20 mg PO DAILY [facility] Last Admin: 08/12/18 10:07 Dose: 20 mg Gabapentin (Neurontin) 400 mg PO TID [facility]; Protocol Last Admin: 08/12/18 10:07 Dose: 400 mg Vancomycin HCl (Vancomycin 1gm) 1 gm in 250 mls @ 167 mls/hr IVPB Q12 [facility]; Protocol Last Admin: 08/12/18 10:02 Dose: 167 mls/hr Cefepime HCl (Maxipime 1gm) 1 gm in 100 mls @ 100 mls/hr IVPB Q8 [facility]; Protocol Insulin Human Regular (Humulin R Med) 0 units SC ACBD [facility]; Protocol Multivitamins/Minerals (Therapeutic-M Tab) 1 tab PO 0800 [facility] Last Admin: 08/12/18 10:02 Dose: 1 tab Ramipril (Altace) 10 mg PO DAILY [facility] Last Admin: 08/12/18 10:11 Dose: 10 mg Physical Exam - Constitutional Appears: Well, Non-toxic, No Acute Distress - Head Exam Head Exam: ATRAUMATIC, NORMOCEPHALIC - Extremities Exam Additional comments: Left Lower extremity focused exam: (UNNA boot left intact to the R LE) Vasc: DP 2/4, PT pulse is non palpable 2ry to edema . Temperature gradient warm to warm from proximal to distal. Cap refill < 3 sec to all digits. Diffuse non pitting pedal edema noted from tibial tuberosity to digits Neuro: Protective and gross sensations are grossly intact Derm: Diffuse elephantiasis skin changes with lichnification and wart like skin lesions secondary scaling noted to the foot and leg up to the level of the tibial tuberosity. a superficial ulceration (1.5cm X 1.2cm) noted at the level of the medial malleolous that is covered with dry serous drainage. No purulence, Mild malodor, no fluctuance. No clinical suspicion for infection. Slight erythema noted. Ortho: No tenderness to posterior calf. No tenderness to palpation. Muscle power intact 5/5 in all groups. - Neurological Exam Neurological exam: Alert, Oriented x3 Results - Vital Signs Recent Vital Signs: Last Vital Signs Temp 97.9 F 08/12/18 05:54 Pulse 98 H 08/12/18 06:00 Resp 20 08/12/18 05:54 BP 130/80 08/12/18 10:07 Pulse Ox 93 L 08/12/18 05:54 - Labs Result Diagrams: 08/11/18 19:50 08/11/18 19:50 Labs: Laboratory Results - last 24 hr 08/11/18 08/11/18 08/11/18 19:50 19:50 19:50 WBC 9.9 RBC 4.91 Hgb 14.7 Hct 43.3 MCV 88.2 MCH 29.9 MCHC 33.9 RDW 12.6 Plt Count 269 MPV 10.3 Gran % 76.6 H Lymph % (Auto) 14.9 L Irion % (Auto) 7.3 H Eos % (Auto) 1.0 L Baso % (Auto) 0.2 Gran # 7.55 H Lymph # (Auto) 1.5 Irion # (Auto) 0.7 H Eos # (Auto) 0.1 Baso # (Auto) 0.02 PT INR APTT Sodium 136 Potassium 4.5 Chloride 99 Carbon Dioxide 29 Anion Gap 12 BUN 10 Creatinine 0.7 L Est GFR ( Amer) > 60 Est GFR (Non-Af Amer) > 60 POC Glucose (mg/dL) Random Glucose 330 H* D Calcium 9.7 Total Bilirubin 0.8 AST 23 ALT 37 Alkaline Phosphatase 121 Lactate Dehydrogenase 419 Total Creatine Kinase 55 Troponin I < 0.01 Total Protein 7.5 Albumin 4.2 Globulin 3.3 Albumin/Globulin Ratio 1.3 08/11/18 08/11/18 19:50 20:10 WBC RBC Hgb Hct MCV MCH MCHC RDW Plt Count MPV Gran % Lymph % (Auto) Irion % (Auto) Eos % (Auto) Baso % (Auto) Gran # Lymph # (Auto) Irion # (Auto) Eos # (Auto) Baso # (Auto) PT 11.8 INR 1.03 APTT 46.2 H Sodium Potassium Chloride Carbon Dioxide Anion Gap BUN Creatinine Est GFR ( Amer) Est GFR (Non-Af Amer) POC Glucose (mg/dL) 255 H Random Glucose Calcium Total Bilirubin AST ALT Alkaline Phosphatase Lactate Dehydrogenase Total Creatine Kinase Troponin I Total Protein Albumin Globulin Albumin/Globulin Ratio Assessment & Plan - Assessment and Plan (Free Text) Assessment: 57 y/o diabetic male with bilateral lower extremity lymphedema, Left leg ce llulitis and stasis ulceration Plan: Pt seen and evaluated at bedside Discussed plan with attending Dr. Horta Labs and vitals reviewed- afebrile, WBCs 9.9 ID on board: Recommendations appreciated Lotrisone lotion ordered BID ordered Nystatin powder between folds of legs BID DSD and CEASAR compression dressings to the L LE Podiatry will follow up the patient while in house - Date & Time Date: 08/12/18 Time: 11:48
--- NOTE | 2018-08-12 11:58 | CP.PCM.CON ---
History of Present Illness - History of Present Illness History of Present Illness: 57 year old male with PMH of ight leg skin/skin structure infection with chronic leg ulcers, growing MRSA and sensitive Klebsiella in 2016, Bilateral lower extremity skin and skin structure infection (Enterobacter, Klebsiella Oxytoca an d Group B Strep, as well as MRSA) which was treated 06/2015; MRSA and Pseudomonas cellulitis of left leg in Sep 2015, January and March 2016, and MRSA cellulitis in 2015, chronic lymphedema of the lower extremities, Morbid obesity with BMI 35, HTN, DM, history of Strep bacteremia, history of hernia surgery, Learning disability was brought in by his mother because of apparently having convulsions. Patient also has chronic lower extremity wounds and Infectious Diseases consult is requested to further evaluate and manage. The patient is seen at a wound center and gets an unna boot weekly. There is no note of fevers but there is note of some drainage from the right leg. Full ROS is difficult to obtain because of the patient's learning disability. Review of Systems - Review of Systems All systems: reviewed and no additional remarkable complaints except (as per HPI) Past Patient History - Infectious Disease Hx of Infectious Diseases: None - Tetanus Immunizations Tetanus Immunization: Unknown - Past Medical History & Family History Past Medical History?: Yes - Past Social History Smoking Status: Former Smoker - CARDIAC Hx Cardiac Disorders: Yes Hx Congestive Heart Failure: Yes Hx Hypertension: Yes - PULMONARY Hx Respiratory Disorders: No - NEUROLOGICAL Hx Neurological Disorder: Yes Hx Seizures: Yes Other/Comment: Epilepsy - HEENT Hx HEENT Problems: Yes Other/Comment: wears glasses - RENAL Hx Chronic Kidney Disease: No - ENDOCRINE/METABOLIC Hx Diabetes Mellitus Type 2: Yes - HEMATOLOGICAL/ONCOLOGICAL Hx Blood Disorders: No Other/Comment: blood infection - INTEGUMENTARY Hx Dermatological Problems: Yes Other/Comment: multiple wounds on the rt leg, cellulitis in b/l extreminity. 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 - SURGICAL HISTORY Hx Amputation: No Hx Appendectomy: No Hx Cholecystectomy: No Hx Gastric Bypass Surgery: No Hx Hysterectomy: No Hx Joint Replacement: No Hx Kidney Transplant: No Hx Liver Transplant: No Hx Mastectomy: No Hx Musculoskeletal Surgery: No Hx Open Heart Surgery: No Hx Orthopedic Surgery: No Hx Splenectomy: No Hx Valve Replacement: No - ANESTHESIA Hx Anesthesia: Yes Hx Anesthesia Reactions: No Hx Malignant Hyperthermia: No Meds Allergies/Adverse Reactions: Allergies Allergy/AdvReac Type Severity Reaction Status Date / Time piperacillin Allergy ANAPHYLAXIS Verified 08/11/18 23:26 tazobactam [From Zosyn] Allergy ANAPHYLAXIS Verified 08/12/18 04:15 - Medications Medications: Current Medications Sodium Chloride (Sodium Chloride 0.9%) 500 mls @ 100 mls/hr IV .Q5H [facility] Vancomycin HCl (Vancomycin 1gm) 1 gm in 250 mls @ 167 mls/hr IVPB Q12 [facility]; Protocol Cefepime HCl (Maxipime 1gm) 1 gm in 100 mls @ 100 mls/hr IVPB Q8 [facility]; Protocol Physical Exam - Constitutional Appears: No Acute Distress, Chronically Ill - Head Exam Head Exam: NORMAL INSPECTION - Neck Exam Neck exam: Negative for: Meningismus - Respiratory Exam Respiratory Exam: Decreased Breath Sounds - Cardiovascular Exam Cardiovascular Exam: +S1, +S2 - GI/Abdominal Exam GI & Abdominal Exam: Soft. absent: Tenderness - Extremities Exam Additional comments: both legs with dressings in place Results - Vital Signs Recent Vital Signs: Last Vital Signs Temp 98.2 F 08/11/18 21:25 Pulse 101 H 08/11/18 21:25 Resp 18 08/11/18 21:25 BP 138/67 08/11/18 21:25 Pulse Ox 95 08/11/18 21:25 - Labs Result Diagrams: 08/11/18 19:50 08/11/18 19:50 Labs: Laboratory Results - last 24 hr 08/11/18 08/11/18 08/11/18 19:50 19:50 19:50 WBC 9.9 RBC 4.91 Hgb 14.7 Hct 43.3 MCV 88.2 MCH 29.9 MCHC 33.9 RDW 12.6 Plt Count 269 MPV 10.3 Gran % 76.6 H Lymph % (Auto) 14.9 L Forest % (Auto) 7.3 H Eos % (Auto) 1.0 L Baso % (Auto) 0.2 Gran # 7.55 H Lymph # (Auto) 1.5 Forest # (Auto) 0.7 H Eos # (Auto) 0.1 Baso # (Auto) 0.02 PT INR APTT Sodium 136 Potassium 4.5 Chloride 99 Carbon Dioxide 29 Anion Gap 12 BUN 10 Creatinine 0.7 L Est GFR ( Amer) > 60 Est GFR (Non-Af Amer) > 60 POC Glucose (mg/dL) Random Glucose 330 H* D Calcium 9.7 Total Bilirubin 0.8 AST 23 ALT 37 Alkaline Phosphatase 121 Lactate Dehydrogenase 419 Total Creatine Kinase 55 Troponin I < 0.01 Total Protein 7.5 Albumin 4.2 Globulin 3.3 Albumin/Globulin Ratio 1.3 08/11/18 08/11/18 19:50 20:10 WBC RBC Hgb Hct MCV MCH MCHC RDW Plt Count MPV Gran % Lymph % (Auto) Forest % (Auto) Eos % (Auto) Baso % (Auto) Gran # Lymph # (Auto) Forest # (Auto) Eos # (Auto) Baso # (Auto) PT 11.8 INR 1.03 APTT 46.2 H Sodium Potassium Chloride Carbon Dioxide Anion Gap BUN Creatinine Est GFR ( Amer) Est GFR (Non-Af Amer) POC Glucose (mg/dL) 255 H Random Glucose Calcium Total Bilirubin AST ALT Alkaline Phosphatase Lactate Dehydrogenase Total Creatine Kinase Troponin I Total Protein Albumin Globulin Albumin/Globulin Ratio Assessment & Plan - Assessment and Plan (Free Text) Plan: Assessment consider right lower extremity infected chronic wounds R/O seizure episode history of sepsis due to right leg skin and skin structure infection associated with chronic leg ulcers, clinically improved and S/P treatment history of MRSA and Klebsiella oxytoca right leg cellulitis history of sepsis secondary to right leg skin/skin structure infection with chronic leg ulcers, growing MRSA and sensitive Klebsiella history of MRSA cellulitis Jun. 2015 history of Bilateral lower extremity skin and skin structure infection (Enterobacter, Klebsiella Oxytoca and Group B Strep, as well as MRSA) which was treated 06/2015; MRSA and Pseudomonas cellulitis of left leg in Sep 2015, January and March 2016 chronic lymphedema of the lower extremities Morbid obesity with BMI 35 HTN DM history of Strep bacteremia history of hernia surgery Learning disability Plan started Vancomycin and Cefepime pending blood, wound cx; follow up surgery evaluation and plans follow up plan to check if the patient had seizure episode - may need Neuro evaluation will monitor clinically discussed with mother of patient
--- NOTE | 2018-08-12 12:30 | HP ---
DATE OF EXAM: 08/12/2018 CHIEF COMPLAINT AND HISTORY OF PRESENT ILLNESS: This is a 57-year-old male who is coming in to the hospital. He was having worsening of his infection in his left foot. The patient says that 2 days ago, he started developing pain as well as discharge. He has been wearing his Unna boots. He has a history of chronic leg ulcers as well as chronic skin changes from his lymphedema. The patient is able to ambulate. He was brought in for further management. The patient has no complaints of any headaches or dizziness. The patient is mute and so he is not able to give a full review of symptoms. He is able to get his needs met and can communicate his mother at the bedside. I was able to talk to her and get information, limited review of symptoms. PAST MEDICAL HISTORY: 1. Morbid obesity. 2. Chronic cellulitis of the legs with skin changes. 3. Atrial fibrillation, on anticoagulation. 4. Hypertension. 5. Dyslipidemia. 6. Nephrolithiasis. SOCIAL HISTORY: The patient does not smoke, drinks or use drugs. He lives with his mother. He does have an aide at home. FAMILY HISTORY: Noncontributory. MEDICATIONS: Has been reviewed on the DEC. ALLERGIES: PENICILLIN AND TAZOBACTAM. PHYSICAL EXAMINATION: VITAL SIGNS: Temperature is 97.9, pulse of 90, blood pressure 116/60, respirations 20, O2 saturation 93%. Height is 5 feet 7 inches, weight is 310 pounds. BMI is 48.6. GENERAL: The patient lying in bed, uncomfortable, and in no acute distress. HEENT: Atraumatic and normocephalic. Anicteric sclerae. Moist mucosa. Amasa conjunctivae. No oral lesions. NECK: No JVD, anterior and posterior adenopathy, thyromegaly, or bruits. CARDIOVASCULAR: S1 and S2 regular. No murmur, rubs, or gallop. LUNGS: Clear to auscultation bilaterally. No wheezes, rales, or rhonchi. ABDOMEN: Bowel sounds are positive. Soft, nontender and nondistended. No hepatosplenomegaly. No rebound and no guarding. EXTREMITIES: In the lower extremities there are chronic skin changes. There is an area in the base of the left toe that is open and may have an infection deep within the skin area. NEUROLOGIC: No facial asymmetry. Tongue is midline. No uvula deviation. Power is 5/5 upper extremity and lower extremity. Sensation intact in upper extremity and lower extremity. He has normal affect. GENITOURINARY: No CVA tenderness. VASCULAR: 2+ pulses in the carotid pulses and pedal pulses. SKIN: No erythema or nodules. SPINE: Shows normal curvature. LABORATORY DATA: White count of 9.9, hemoglobin is 14.7. INR is 1.03. Sodium is 136, potassium is 4.5, creatinine is 0.7. Troponin is 0.01. Albumin is 4.2. DIAGNOSTICS: An EKG shows sinus tachycardia, nonspecific ST changes., QTc is 481. ASSESSMENT: 1. Left foot infection. 2. Diabetes type 2. 3. Atrial fibrillation, on Eliquis. 4. Hypertension. 5. Dyslipidemia. 6. Obesity with body mass index of 48. PLAN: The patient is admitted to the hospital because of the wound infection. He will need to be seen by Surgery and by Podiatry. The patient is on IV fluids. I will discontinue the patient's IV fluids at this point. He is going to continue on his vitamin C. He is on vancomycin for antibiotics by ID. The patient will need to continue his ramipril for his hypertension. He is on apixaban, this will be continued as well. He is on Lasix daily as well as Lipitor for his dyslipidemia. I will increase his Lipitor. The patient is on Neurontin for his neuropathy. I will place him on insulin sliding scale. I will continue to follow closely. I will discontinue the telemetry, place him on diabetic diet. Winston Streeter MD
[2018-08-12] MEDS: Insulin Reg-MEDIUM-Coverage SC SCH ×3 (13:25→21:47)
[2018-08-12] MEDS: Cefepime 1gm in NS 100ml 1 GM/100 ML BAG IVPB SCH ×3 (13:27→21:39)
[2018-08-12] MEDS ORDERED: Insulin Reg-MEDIUM-Coverage SC SCH (16:30)
[2018-08-12] MEDS: Nystatin 100,000 Units/gm Topical Pow(15 gm) TOP SCH (18:27)
[2018-08-12] MEDS: Clotrimazole/Betamethasone Lotion(30 ml) TOP SCH (18:37)
[2018-08-13] MEDS: Cefepime 1gm in NS 100ml 1 GM/100 ML BAG IVPB SCH ×3 (05:43→21:46)
[2018-08-13] MEDS: Insulin Reg-MEDIUM-Coverage SC SCH ×2 (08:21→11:52)
[2018-08-13] MEDS: Multivitamin With Minerals Tab PO SCH (08:21)
[2018-08-13] MEDS: Vancomycin 1gm in NS 250ml 1 GM/250 ML BAG IVPB SCH ×2 (09:36→21:47)
[2018-08-13] MEDS: Nystatin 100,000 Units/gm Topical Pow(15 gm) TOP SCH ×2 (09:37→17:44)
[2018-08-13] MEDS: Clotrimazole/Betamethasone Lotion(30 ml) TOP SCH ×2 (09:37→17:44)
--- NOTE | 2018-08-13 11:02 | CP.PCM.PN ---
Subjective - Date & Time of Evaluation Date of Evaluation: 08/13/18 Time of Evaluation: 10:20 - Subjective Subjective: Comfortable in bed, no fevers, not in distress. Objective - Vital Signs/Intake and Output Vital Signs (last 24 hours): Temp Pulse Resp BP Pulse Ox 97.9 F 89 20 130/80 93 L 08/12/18 05:54 08/12/18 10:00 08/12/18 05:54 08/12/18 10:07 08/12/18 05:54 Intake and Output: 08/12/18 08/12/18 06:59 18:59 Intake Total 500 Output Total 850 Balance -350 - Medications Medications: Current Medications Apixaban (Eliquis) 2.5 mg PO BID [facility]; Protocol Last Admin: 08/12/18 10:10 Dose: 2.5 mg Atorvastatin Calcium (Lipitor) 40 mg PO HS [facility] Betamethasone/Clotrimazole (Lotrisone) 1 ml TOP BID [facility] Furosemide (Lasix) 20 mg PO DAILY [facility] Last Admin: 08/12/18 10:07 Dose: 20 mg Gabapentin (Neurontin) 400 mg PO TID [facility]; Protocol Last Admin: 08/12/18 10:07 Dose: 400 mg Vancomycin HCl (Vancomycin 1gm) 1 gm in 250 mls @ 167 mls/hr IVPB Q12 [facility]; Protocol Last Admin: 08/12/18 10:02 Dose: 167 mls/hr Cefepime HCl (Maxipime 1gm) 1 gm in 100 mls @ 100 mls/hr IVPB Q8 [facility]; Protocol Insulin Human Regular (Humulin R Med) 0 units SC ACBD [facility]; Protocol Multivitamins/Minerals (Therapeutic-M Tab) 1 tab PO 0800 [facility] Last Admin: 08/12/18 10:02 Dose: 1 tab Nystatin (Nystop Topical Powder) 1 gm TOP BID [facility] Ramipril (Altace) 10 mg PO DAILY [facility] Last Admin: 08/12/18 10:11 Dose: 10 mg - Labs Labs: 08/11/18 19:50 08/11/18 19:50 PT 11.8 SECONDS (9.4-12.5) 08/11/18 19:50 INR 1.03 08/11/18 19:50 APTT 46.2 Seconds (25.1-36.5) H 08/11/18 19:50 - Constitutional Appears: Chronically Ill - Head Exam Head Exam: NORMAL INSPECTION - Neck Exam Neck Exam: absent: Meningismus - Respiratory Exam Respiratory Exam: Decreased Breath Sounds - Cardiovascular Exam Cardiovascular Exam: +S1, +S2 - GI/Abdominal Exam GI & Abdominal Exam: Soft. absent: Tenderness - Extremities Exam Additional comments: both lower extremities with dressings in place Assessment and Plan - Assessment and Plan (Free Text) Plan: Assessment consider right lower extremity infected chronic wounds R/O seizure episode history of sepsis due to right leg skin and skin structure infection associated with chronic leg ulcers, clinically improved and S/P treatment history of MRSA and Klebsiella oxytoca right leg cellulitis history of sepsis secondary to right leg skin/skin structure infection with chronic leg ulcers, growing MRSA and sensitive Klebsiella history of MRSA cellulitis Jun. 2015 history of Bilateral lower extremity skin and skin structure infection (Enterobacter, Klebsiella Oxytoca and Group B Strep, as well as MRSA) which was treated 06/2015; MRSA and Pseudomonas cellulitis of left leg in Sep 2015, January and March 2016 chronic lymphedema of the lower extremities Morbid obesity with BMI 35 HTN DM history of Strep bacteremia history of hernia surgery Learning disability Plan continue Vancomycin and Cefepime (patient is tolerating Cefepime without rash, no respiratory distress, no hives) pending final blood, wound cx results; follow up surgery evaluation and plans follow up plan to check if the patient had seizure episode - may need Neuro evaluation will continue to monitor clinically
--- NOTE | 2018-08-13 11:56 | CP.PCM.PN ---
Subjective - Date & Time of Evaluation Date of Evaluation: 08/13/18 Time of Evaluation: 11:51 - Subjective Subjective: Podiatry progress Note for attending Dr. Horta 57 year old male patient seen and evaluated at the bedside for lower extremity stasis edema and ulcerations. patient is mentally challenging and most of his history obtained through his medical chart. Patient states that he didn't have any pain at his left leg since yesterday. Patient denies any overnight fever, chills, nausea, vomiting, diarrhea or SOB. He denies any other pedal complaint at this time. Objective - Vital Signs/Intake and Output Vital Signs (last 24 hours): Temp Pulse Resp BP Pulse Ox 98.0 F 73 20 130/80 97 08/13/18 06:00 08/13/18 06:00 08/13/18 06:00 08/13/18 09:36 08/13/18 06:00 Intake and Output: 08/13/18 08/13/18 06:59 18:59 Intake Total 2290 Output Total 1100 Balance 1190 - Medications Medications: Current Medications Apixaban (Eliquis) 2.5 mg PO BID [facility]; Protocol Last Admin: 08/13/18 09:37 Dose: 2.5 mg Atorvastatin Calcium (Lipitor) 40 mg PO HS [facility] Last Admin: 08/12/18 21:41 Dose: 40 mg Betamethasone/Clotrimazole (Lotrisone) 1 ml TOP BID [facility] Last Admin: 08/13/18 09:37 Dose: 1 applic Furosemide (Lasix) 20 mg PO DAILY [facility] Last Admin: 08/13/18 09:36 Dose: 20 mg Gabapentin (Neurontin) 400 mg PO TID [facility]; Protocol Last Admin: 08/13/18 09:37 Dose: 400 mg Vancomycin HCl (Vancomycin 1gm) 1 gm in 250 mls @ 167 mls/hr IVPB Q12 [facility]; Protocol Last Admin: 08/13/18 09:36 Dose: 167 mls/hr Cefepime HCl (Maxipime 1gm) 1 gm in 100 mls @ 100 mls/hr IVPB Q8 [facility]; Protocol Last Admin: 08/13/18 05:43 Dose: 100 mls/hr Insulin Human Regular (Humulin R Med) 0 units SC ACHS [facility]; Protocol Last Admin: 08/13/18 08:21 Dose: 10 units Multivitamins/Minerals (Therapeutic-M Tab) 1 tab PO 0800 [facility] Last Admin: 08/13/18 08:21 Dose: 1 tab Nystatin (Nystop Topical Powder) 1 gm TOP BID [facility] Last Admin: 08/13/18 09:37 Dose: 1 applic Ramipril (Altace) 10 mg PO DAILY [facility] Last Admin: 08/13/18 09:37 Dose: 10 mg - Labs Labs: 08/11/18 19:50 08/11/18 19:50 PT 11.8 SECONDS (9.4-12.5) 08/11/18 19:50 INR 1.03 08/11/18 19:50 APTT 46.2 Seconds (25.1-36.5) H 08/11/18 19:50 - Constitutional Appears: Well, Non-toxic, No Acute Distress - Head Exam Head Exam: ATRAUMATIC, NORMOCEPHALIC - Extremities Exam Additional comments: Left Lower extremity focused exam: (UNNA boot left intact to the R LE) Vasc: DP 2/4, PT pulse is non palpable 2ry to edema . Temperature gradient warm to warm from proximal to distal. Cap refill < 3 sec to all digits. Diffuse non pitting pedal edema noted from tibial tuberosity to digits Neuro: Protective and gross sensations are grossly intact Derm: Diffuse elephantiasis skin changes with lichnification and wart like skin lesions secondary scaling noted to the foot and leg up to the level of the tibial tuberosity. a superficial ulceration (1.5cm X 1.2cm) noted at the level of the medial malleolous that is covered with dry serous drainage. No purulence, Mild malodor, no fluctuance. No clinical suspicion for infection. Slight erythema noted. MSK: No tenderness to posterior calf. No tenderness to palpation. Muscle power intact 5/5 in all groups. - Neurological Exam Neurological Exam: Alert, Awake Assessment and Plan - Assessment and Plan (Free Text) Assessment: 57 y/o diabetic male with bilateral lower extremity lymphedema, Left leg cellulitis and stasis ulceration Plan: Pt seen and evaluated at bedside Discussed plan with attending Dr. Horta Labs and vitals reviewed- afebrile, WBCs 9.9 (08/11) ID on board: Recommendations appreciated Lotrisone lotion applied to the LLE. Nystatin powder applied between folds of legs and behind the left knee No dressing applied to the LLE Podiatry will follow up the patient while in house
--- NOTE | 2018-08-13 12:51 | PN ---
DATE: 08/13/2018 SUBJECTIVE: The patient has no complaints of any chest pain. No shortness of breath. No headaches or dizziness. PHYSICAL EXAMINATION: VITAL SIGNS: Temperature is 98, pulse is 73, blood pressure 130/80 and respirations 20. GENERAL: The patient is lying in bed, flat and comfortable. HEENT: No oral lesion. Anicteric sclerae. Moist mucosa. NECK: No JVD, adenopathy or thyromegaly. CARDIOVASCULAR: S1 and S2, regular. No murmurs, rubs, or gallops. LUNGS: Clear to auscultation bilaterally. No wheeze, rales, or rhonchi. ABDOMEN: Bowel sounds are positive, soft, nontender and nondistended. EXTREMITIES: No cyanosis, clubbing or edema. LABORATORY DATA: White count 9.9 and hemoglobin 14.7. Creatinine 0.7. This is labs from . ASSESSMENT: 1. Left foot infection. 2. Diabetes type 2. 3. Atrial fibrillation, on Eliquis. 4. Hypertension. 5. Dyslipidemia. 6. Obesity with body mass index of 48. 7. PENICILLIN ALLERGIES. PLAN: The patient is getting IV antibiotics. He is on Altace for his hypertension. He is going to continue with Lasix daily. He is on Lipitor for dyslipidemia. The patient is on Neurontin for neuropathy. The patient is going to be on vancomycin. He is on a heart healthy diet. He has been followed by ID, Surgery and Podiatry. Winston Streeter MD
[2018-08-13] MEDS: Insulin Reg-HIGH-Coverage SC SCH ×2 (17:41→21:49)
[2018-08-14] MEDS: Cefepime 1gm in NS 100ml 1 GM/100 ML BAG IVPB SCH ×3 (05:05→21:39)
[2018-08-14] MEDS: Insulin Reg-HIGH-Coverage SC SCH ×4 (09:57→22:55)
[2018-08-14] MEDS: Vancomycin 1gm in NS 250ml 1 GM/250 ML BAG IVPB SCH ×2 (09:58→21:42)
[2018-08-14] MEDS: Multivitamin With Minerals Tab PO SCH (09:58)
[2018-08-14] MEDS: Nystatin 100,000 Units/gm Topical Pow(15 gm) TOP SCH ×2 (10:04→18:27)
[2018-08-14] MEDS: Clotrimazole/Betamethasone Lotion(30 ml) TOP SCH ×2 (10:05→18:27)
--- NOTE | 2018-08-14 12:13 | CP.PCM.PN ---
Subjective - Date & Time of Evaluation Date of Evaluation: 08/14/18 Time of Evaluation: 08:45 - Subjective Subjective: No fevers, not in distress. Objective - Vital Signs/Intake and Output Vital Signs (last 24 hours): Temp Pulse Resp BP Pulse Ox 98.0 F 73 20 130/80 97 08/13/18 06:00 08/13/18 06:00 08/13/18 06:00 08/13/18 09:36 08/13/18 06:00 Intake and Output: 08/13/18 08/13/18 06:59 18:59 Intake Total 2290 Output Total 1100 Balance 1190 - Medications Medications: Current Medications Apixaban (Eliquis) 2.5 mg PO BID [facility]; Protocol Last Admin: 08/13/18 09:37 Dose: 2.5 mg Atorvastatin Calcium (Lipitor) 40 mg PO HS [facility] Last Admin: 08/12/18 21:41 Dose: 40 mg Betamethasone/Clotrimazole (Lotrisone) 1 ml TOP BID [facility] Last Admin: 08/13/18 09:37 Dose: 1 applic Furosemide (Lasix) 20 mg PO DAILY [facility] Last Admin: 08/13/18 09:36 Dose: 20 mg Gabapentin (Neurontin) 400 mg PO TID [facility]; Protocol Last Admin: 08/13/18 09:37 Dose: 400 mg Vancomycin HCl (Vancomycin 1gm) 1 gm in 250 mls @ 167 mls/hr IVPB Q12 [facility]; Protocol Last Admin: 08/13/18 09:36 Dose: 167 mls/hr Cefepime HCl (Maxipime 1gm) 1 gm in 100 mls @ 100 mls/hr IVPB Q8 [facility]; Protocol Last Admin: 08/13/18 05:43 Dose: 100 mls/hr Insulin Human Regular (Humulin R Med) 0 units SC ACHS [facility]; Protocol Last Admin: 08/13/18 08:21 Dose: 10 units Multivitamins/Minerals (Therapeutic-M Tab) 1 tab PO 0800 [facility] Last Admin: 08/13/18 08:21 Dose: 1 tab Nystatin (Nystop Topical Powder) 1 gm TOP BID [facility] Last Admin: 08/13/18 09:37 Dose: 1 applic Ramipril (Altace) 10 mg PO DAILY [facility] Last Admin: 08/13/18 09:37 Dose: 10 mg - Labs Labs: 08/11/18 19:50 08/11/18 19:50 PT 11.8 SECONDS (9.4-12.5) 08/11/18 19:50 INR 1.03 08/11/18 19:50 APTT 46.2 Seconds (25.1-36.5) H 08/11/18 19:50 - Constitutional Appears: No Acute Distress, Chronically Ill - Head Exam Head Exam: NORMAL INSPECTION - Respiratory Exam Respiratory Exam: Decreased Breath Sounds - Cardiovascular Exam Cardiovascular Exam: +S1, +S2 - GI/Abdominal Exam GI & Abdominal Exam: Soft. absent: Tenderness - Extremities Exam Additional comments: right leg with dressings in place Assessment and Plan - Assessment and Plan (Free Text) Plan: Assessment consider right lower extremity infected chronic wounds history of sepsis due to right leg skin and skin structure infection associated with chronic leg ulcers, clinically improved and S/P treatment history of MRSA and Klebsiella oxytoca right leg cellulitis history of sepsis secondary to right leg skin/skin structure infection with chronic leg ulcers, growing MRSA and sensitive Klebsiella history of MRSA cellulitis 2015 history of Bilateral lower extremity skin and skin structure infection (Enterobacter, Klebsiella Oxytoca and Group B Strep, as well as MRSA) which was treated 06/2015; MRSA and Pseudomonas cellulitis of left leg in Sep 2015, January and March 2016 chronic lymphedema of the lower extremities Morbid obesity with BMI 35 HTN DM history of Strep bacteremia history of hernia surgery Learning disability Plan continue Vancomycin and Cefepime (patient is tolerating Cefepime without rash, no respiratory distress, no hives) day 3 for 7-10 days pending final blood, wound cx results; follow up surgery evaluation and plans will continue to monitor clinically
--- NOTE | 2018-08-14 13:37 | CP.PCM.PN ---
Subjective - Date & Time of Evaluation Date of Evaluation: 08/14/18 Time of Evaluation: 13:33 - Subjective Subjective: Podiatry progress Note for Dr. Horta 57 yo male seen and evaluated at bedside with Dr. Horta. Patient is mentally disabled. States he does not have any pain in his legs today. Patient denies any overnight fever, chills, nausea, vomiting, diarrhea or SOB. He denies any other pedal complaints at this time. Objective - Vital Signs/Intake and Output Vital Signs (last 24 hours): Temp Pulse Resp BP Pulse Ox 97.6 F 67 19 131/67 98 08/14/18 12:00 08/14/18 12:00 08/14/18 12:00 08/14/18 12:00 08/14/18 06:00 Intake and Output: 08/14/18 08/14/18 06:59 18:59 Intake Total 1770 Output Total 2200 Balance -430 - Medications Medications: Current Medications Apixaban (Eliquis) 2.5 mg PO BID [facility]; Protocol Last Admin: 08/14/18 09:58 Dose: 2.5 mg Atorvastatin Calcium (Lipitor) 40 mg PO HS [facility] Last Admin: 08/13/18 21:46 Dose: 40 mg Betamethasone/Clotrimazole (Lotrisone) 1 ml TOP BID [facility] Last Admin: 08/14/18 10:05 Dose: 1 applic Furosemide (Lasix) 20 mg PO DAILY [facility] Last Admin: 08/14/18 09:58 Dose: 20 mg Gabapentin (Neurontin) 400 mg PO TID [facility]; Protocol Last Admin: 08/14/18 09:57 Dose: 400 mg Glipizide (Glucotrol) 10 mg PO BID [facility] Last Admin: 08/14/18 09:57 Dose: 10 mg Vancomycin HCl (Vancomycin 1gm) 1 gm in 250 mls @ 167 mls/hr IVPB Q12 [facility]; Protocol Last Admin: 08/14/18 09:58 Dose: 167 mls/hr Cefepime HCl (Maxipime 1gm) 1 gm in 100 mls @ 100 mls/hr IVPB Q8 [facility]; Protocol Last Admin: 08/14/18 05:05 Dose: 100 mls/hr Insulin Human Regular (Humulin R High) 0 units SC ACHS [facility]; Protocol Last Admin: 08/14/18 09:57 Dose: 7 units Multivitamins/Minerals (Therapeutic-M Tab) 1 tab PO 0800 [facility] Last Admin: 08/14/18 09:58 Dose: 1 tab Nystatin (Nystop Topical Powder) 1 gm TOP BID [facility] Last Admin: 08/14/18 10:04 Dose: 1 applic Ramipril (Altace) 10 mg PO DAILY [facility] Last Admin: 08/14/18 09:57 Dose: 10 mg - Labs Labs: 08/11/18 19:50 08/11/18 19:50 PT 11.8 SECONDS (9.4-12.5) 08/11/18 19:50 INR 1.03 08/11/18 19:50 APTT 46.2 Seconds (25.1-36.5) H 08/11/18 19:50 - Constitutional Appears: Well, Non-toxic, No Acute Distress - Head Exam Head Exam: ATRAUMATIC, NORMOCEPHALIC - Extremities Exam Additional comments: Vasc: DP 2/4, PT pulse is non palpable 2ry to edema . Temperature gradient warm to warm from proximal to distal. Cap refill < 3 sec to all digits. Diffuse non pitting pedal edema noted from tibial tuberosity to digits Neuro: Protective and gross sensations are grossly intact Derm: Diffuse elephantiasis skin changes with lichnification and wart like skin lesions secondary scaling noted to the foot and leg up to the level of the tibial tuberosity. Superficial ulceration improved on LLE superior to the medial malleolus, no purulence, Mild malodor, no fluctuance. No clinical suspicion for infection. Slight erythema noted. MSK: No tenderness to posterior calf. No tenderness to palpation. Muscle power intact 5/5 in all groups. - Neurological Exam Neurological Exam: Alert, Awake - Psychiatric Exam Psychiatric exam: Normal Affect, Normal Mood Assessment and Plan - Assessment and Plan (Free Text) Assessment: 57 y/o diabetic male with bilateral lower extremity lymphedema, Left leg cellulitis and stasis ulceration Plan: Patient seen and evaluated at bedside with Dr. Horta Labs and vitals reviewed- afebrile, WBC 9.9 (08/11) ID on board: Recommendations appreciated Lotrisone lotion applied to the LLE. Nystatin powder applied between folds of legs and behind the left knee No dressing applied to lower extremities Podiatry will follow up the patient while in house
[2018-08-14] MEDS ORDERED: Unna Boot TOP ONE (13:48)
[2018-08-15 02:48] VITALS: O2SAT 95
[2018-08-15] MEDS: Cefepime 1gm in NS 100ml 1 GM/100 ML BAG IVPB SCH ×2 (05:15→13:03)
[2018-08-15] MEDS: Insulin Reg-HIGH-Coverage SC SCH ×3 (08:14→17:28)
[2018-08-15] MEDS: Multivitamin With Minerals Tab PO SCH (08:15)
[2018-08-15] MEDS: Vancomycin 1gm in NS 250ml 1 GM/250 ML BAG IVPB SCH (09:55)
[2018-08-15] MEDS: Nystatin 100,000 Units/gm Topical Pow(15 gm) TOP SCH ×2 (09:57→17:29)
[2018-08-15] MEDS: Clotrimazole/Betamethasone Lotion(30 ml) TOP SCH ×2 (09:58→17:29)
--- NOTE | 2018-08-15 13:01 | CP.PCM.PN ---
Subjective - Date & Time of Evaluation Date of Evaluation: 08/15/18 Time of Evaluation: 07:00 Objective - Vital Signs/Intake and Output Vital Signs (last 24 hours): Temp Pulse Resp BP Pulse Ox 98.4 F 62 19 138/74 95 08/15/18 12:00 08/15/18 12:00 08/15/18 12:00 08/15/18 12:00 08/15/18 06:00 Intake and Output: 08/15/18 08/15/18 06:59 18:59 Intake Total 570 Output Total 700 Balance -130 - Medications Medications: Current Medications Apixaban (Eliquis) 2.5 mg PO BID [facility]; Protocol Last Admin: 08/15/18 09:57 Dose: 2.5 mg Atorvastatin Calcium (Lipitor) 40 mg PO HS [facility] Last Admin: 08/14/18 21:36 Dose: 40 mg Betamethasone/Clotrimazole (Lotrisone) 1 ml TOP BID [facility] Last Admin: 08/15/18 09:58 Dose: Not Given Furosemide (Lasix) 20 mg PO DAILY [facility] Last Admin: 08/15/18 09:57 Dose: 20 mg Gabapentin (Neurontin) 400 mg PO TID [facility]; Protocol Last Admin: 08/15/18 09:57 Dose: 400 mg Glipizide (Glucotrol) 10 mg PO BID [facility] Last Admin: 08/15/18 09:57 Dose: 10 mg Vancomycin HCl (Vancomycin 1gm) 1 gm in 250 mls @ 167 mls/hr IVPB Q12 [facility]; Protocol Last Admin: 08/15/18 09:55 Dose: 167 mls/hr Cefepime HCl (Maxipime 1gm) 1 gm in 100 mls @ 100 mls/hr IVPB Q8 [facility]; Protocol Last Admin: 08/15/18 05:15 Dose: 100 mls/hr Insulin Human Regular (Humulin R High) 0 units SC ACHS [facility]; Protocol Last Admin: 08/15/18 08:14 Dose: 7 units Multivitamins/Minerals (Therapeutic-M Tab) 1 tab PO 0800 [facility] Last Admin: 08/15/18 08:15 Dose: 1 tab Nystatin (Nystop Topical Powder) 1 gm TOP BID [facility] Last Admin: 08/15/18 09:57 Dose: Not Given Ramipril (Altace) 10 mg PO DAILY [facility] Last Admin: 08/15/18 09:56 Dose: 10 mg - Labs Labs: 08/11/18 19:50 08/11/18 19:50 PT 11.8 SECONDS (9.4-12.5) 08/11/18 19:50 INR 1.03 08/11/18 19:50 APTT 46.2 Seconds (25.1-36.5) H 08/11/18 19:50
--- NOTE | 2018-08-15 14:55 | CP.PCM.DIS ---
<Shivam Carrasco - Last Filed: 08/15/18 17:38> Provider - Provider Date of Admission: 08/11/18 19:31 Attending physician: Winston Streeter MD Consults: Dr. Mekhi Mondragon Time Spent in preparation of Discharge (in minutes): 35 Hospital Course - Lab Results Lab Results: Micro Results 08/12/18 00:09 Foot - Left Gram Stain - Final 08/12/18 00:09 Foot - Left Wound Culture - Final No growth. 08/11/18 19:50 Blood Blood Culture - Preliminary NO GROWTH AFTER 3 DAYS 08/11/18 19:20 Blood Blood Culture - Preliminary NO GROWTH AFTER 3 DAYS Most Recent Lab Values WBC 9.9 10^3/uL (4.5-11.0) 08/11/18 19:50 RBC 4.91 10^6/uL (3.5-6.1) 08/11/18 19:50 Hgb 14.7 g/dL (14.0-18.0) 08/11/18 19:50 Hct 43.3 % (42.0-52.0) 08/11/18 19:50 MCV 88.2 fl (80.0-105.0) 08/11/18 19:50 MCH 29.9 pg (25.0-35.0) 08/11/18 19:50 MCHC 33.9 g/dl (31.0-37.0) 08/11/18 19:50 RDW 12.6 % (11.5-14.5) 08/11/18 19:50 Plt Count 269 10^3/uL (120.0-450.0) 08/11/18 19:50 MPV 10.3 fl (7.0-11.0) 08/11/18 19:50 Gran % 76.6 % (50.0-68.0) H 08/11/18 19:50 Lymph % (Auto) 14.9 % (22.0-35.0) L 08/11/18 19:50 [place] % (Auto) 7.3 % (1.0-6.0) H 08/11/18 19:50 Eos % (Auto) 1.0 % (1.5-5.0) L 08/11/18 19:50 Baso % (Auto) 0.2 % (0.0-3.0) 08/11/18 19:50 Gran # 7.55 (1.4-6.5) H 08/11/18 19:50 Lymph # (Auto) 1.5 (1.2-3.4) 08/11/18 19:50 [place] # (Auto) 0.7 (0.1-0.6) H 08/11/18 19:50 Eos # (Auto) 0.1 (0.0-0.7) 08/11/18 19:50 Baso # (Auto) 0.02 K/mm3 (0.0-2.0) 08/11/18 19:50 PT 11.8 SECONDS (9.4-12.5) 08/11/18 19:50 INR 1.03 08/11/18 19:50 APTT 46.2 Seconds (25.1-36.5) H 08/11/18 19:50 Sodium 136 mmol/L (132-148) 08/11/18 19:50 Potassium 4.5 mmol/L (3.6-5.0) 08/11/18 19:50 Chloride 99 mmol/L (98-107) 08/11/18 19:50 Carbon Dioxide 29 mmol/L (21-33) 08/11/18 19:50 Anion Gap 12 (10-20) 08/11/18 19:50 BUN 10 mg/dL (7-21) 08/11/18 19:50 Creatinine 0.7 mg/dl (0.8-1.5) L 08/11/18 19:50 Est GFR ( Amer) > 60 08/11/18 19:50 Est GFR (Non-Af Amer) > 60 08/11/18 19:50 POC Glucose (mg/dL) 234 mg/dL (65-110) H 08/15/18 11:29 Random Glucose 330 mg/dL (70-110) H* D 08/11/18 19:50 Calcium 9.7 mg/dL (8.4-10.5) 08/11/18 19:50 Total Bilirubin 0.8 mg/dL (0.2-1.3) 08/11/18 19:50 AST 23 U/L (17-59) 08/11/18 19:50 ALT 37 U/L (7-56) 08/11/18 19:50 Alkaline Phosphatase 121 U/L (38-126) 08/11/18 19:50 Lactate Dehydrogenase 419 U/L (333-699) 08/11/18 19:50 Total Creatine Kinase 55 U/L (35-230) 08/11/18 19:50 Troponin I < 0.01 ng/mL 08/11/18 19:50 Total Protein 7.5 g/dL (5.8-8.3) 08/11/18 19:50 Albumin 4.2 g/dL (3.0-4.8) 08/11/18 19:50 Globulin 3.3 gm/dL 08/11/18 19:50 Albumin/Globulin Ratio 1.3 (1.1-1.8) 08/11/18 19:50 Vancomycin Trough 7.7 ug/mL (5.0-10.0) 08/14/18 07:00 - Hospital Course Hospital Course: 57 year old male with a past medical history of morbid obesity, chronic lower extremity cellulitis of the legs with skin changes, atrial fibrillation on anticoagulation, hypertension, dyslipidemia, mute, and nephrloithiasis [place] [facility] [place]. ID, Surgery, and podiatry were consulted. Patient has been getting wound care from podiatry on a daily basis. He is on IV antibiotics, Cefepime and Vancomycin. His blood and wound cultures grew no bacteria. Patient will be admitted to the TCU for physical therapy and continued meidcal care of his bilateral lower extremities, including wound care and IV antibiotics. PMH: see above PSH: inguinal hernia repair FH: noncontributory Soc: denies tobacco, alcohol, drugs ALL: zosyn - Date & Time of H&P Date of H&P: 08/15/18 Time of H&P: 17:46 Discharge Exam - Head Exam Head Exam: ATRAUMATIC, NORMOCEPHALIC - Eye Exam Eye Exam: EOMI, Normal appearance - ENT Exam ENT Exam: Mucous Membranes Moist, Normal Oropharynx - Neck Exam Neck exam: Normal Inspection - Respiratory Exam Respiratory Exam: Clear to PA & Lateral, NORMAL BREATHING PATTERN. absent: Accessory Muscle Use - Cardiovascular Exam Cardiovascular Exam: RRR, +S1, +S2 - GI/Abdominal Exam GI & Abdominal Exam: Normal Bowel Sounds. absent: Guarding - Extremities Exam Extremities exam: normal capillary refill, pedal edema Additional comments: elephantiasis with superficial warts - Psychiatric Exam Psychiatric exam: Normal Affect, Normal Mood - Skin Skin Exam: Dry, Intact, Normal Color, Warm Discharge Plan - Follow Up Plan Condition: FAIR Disposition: REHAB FACILITY/REHAB UNIT Instructions: Cellulitis (ED), Cellulitis (DC), Cellulitis (GEN) Additional Instructions: 1) Patient to be transferred to TCU and all medications to be resumed as they were while patient was in hospital. He will need 4 more days of antibiotics, or as indicated by infectious disease, Dr. Gaming. 2) Re-consult ID, Dr. Gaming and Dr. Horta once TCU chart opens up. Thank you <Winston Streeter - Last Filed: 08/15/18 18:04> Provider - Provider Date of Admission: 08/11/18 19:31 Attending physician: Winston Streeter MD Hospital Course - Lab Results Lab Results: Micro Results 08/12/18 00:09 Foot - Left Gram Stain - Final 08/12/18 00:09 Foot - Left Wound Culture - Final No growth. 08/11/18 19:50 Blood Blood Culture - Preliminary NO GROWTH AFTER 3 DAYS 08/11/18 19:20 Blood Blood Culture - Preliminary NO GROWTH AFTER 3 DAYS Most Recent Lab Values WBC 9.9 10^3/uL (4.5-11.0) 08/11/18 19:50 RBC 4.91 10^6/uL (3.5-6.1) 08/11/18 19:50 Hgb 14.7 g/dL (14.0-18.0) 08/11/18 19:50 Hct 43.3 % (42.0-52.0) 08/11/18 19:50 MCV 88.2 fl (80.0-105.0) 08/11/18 19:50 MCH 29.9 pg (25.0-35.0) 08/11/18 19:50 MCHC 33.9 g/dl (31.0-37.0) 08/11/18 19:50 RDW 12.6 % (11.5-14.5) 08/11/18 19:50 Plt Count 269 10^3/uL (120.0-450.0) 08/11/18 19:50 MPV 10.3 fl (7.0-11.0) 08/11/18 19:50 Gran % 76.6 % (50.0-68.0) H 08/11/18 19:50 Lymph % (Auto) 14.9 % (22.0-35.0) L 08/11/18 19:50 [place] % (Auto) 7.3 % (1.0-6.0) H 08/11/18 19:50 Eos % (Auto) 1.0 % (1.5-5.0) L 08/11/18 19:50 Baso % (Auto) 0.2 % (0.0-3.0) 08/11/18 19:50 Gran # 7.55 (1.4-6.5) H 08/11/18 19:50 Lymph # (Auto) 1.5 (1.2-3.4) 08/11/18 19:50 [place] # (Auto) 0.7 (0.1-0.6) H 08/11/18 19:50 Eos # (Auto) 0.1 (0.0-0.7) 08/11/18 19:50 Baso # (Auto) 0.02 K/mm3 (0.0-2.0) 08/11/18 19:50 PT 11.8 SECONDS (9.4-12.5) 08/11/18 19:50 INR 1.03 08/11/18 19:50 APTT 46.2 Seconds (25.1-36.5) H 08/11/18 19:50 Sodium 136 mmol/L (132-148) 08/11/18 19:50 Potassium 4.5 mmol/L (3.6-5.0) 08/11/18 19:50 Chloride 99 mmol/L (98-107) 08/11/18 19:50 Carbon Dioxide 29 mmol/L (21-33) 08/11/18 19:50 Anion Gap 12 (10-20) 08/11/18 19:50 BUN 10 mg/dL (7-21) 08/11/18 19:50 Creatinine 0.7 mg/dl (0.8-1.5) L 08/11/18 19:50 Est GFR ( Amer) > 60 08/11/18 19:50 Est GFR (Non-Af Amer) > 60 08/11/18 19:50 POC Glucose (mg/dL) 218 mg/dL (65-110) H 08/15/18 16:04 Random Glucose 330 mg/dL (70-110) H* D 08/11/18 19:50 Calcium 9.7 mg/dL (8.4-10.5) 08/11/18 19:50 Total Bilirubin 0.8 mg/dL (0.2-1.3) 08/11/18 19:50 AST 23 U/L (17-59) 08/11/18 19:50 ALT 37 U/L (7-56) 08/11/18 19:50 Alkaline Phosphatase 121 U/L (38-126) 08/11/18 19:50 Lactate Dehydrogenase 419 U/L (333-699) 08/11/18 19:50 Total Creatine Kinase 55 U/L (35-230) 08/11/18 19:50 Troponin I < 0.01 ng/mL 08/11/18 19:50 Total Protein 7.5 g/dL (5.8-8.3) 08/11/18 19:50 Albumin 4.2 g/dL (3.0-4.8) 08/11/18 19:50 Globulin 3.3 gm/dL 08/11/18 19:50 Albumin/Globulin Ratio 1.3 (1.1-1.8) 08/11/18 19:50 Vancomycin Trough 7.7 ug/mL (5.0-10.0) 08/14/18 07:00 - Hospital Course Hospital Course: Pt seen and examined. I have reviewed the note of the director of medical services and agree with it. I have discussed the assessment and plan with the resident. I have reviewed the patient's labs and medications. Pt with foot wound that is improving. Pt will need to continue with IV Abx. He will go to TCU to continue his Abx. His Afib is controlled. He is on anticoagulation. HTN is controlled on meds.
--- NOTE | 2018-08-15 17:38 | CP.PCM.PN ---
Subjective - Date & Time of Evaluation Date of Evaluation: 08/15/18 Time of Evaluation: 09:35 - Subjective Subjective: Comfortable, non-toxic. Objective - Vital Signs/Intake and Output Vital Signs (last 24 hours): Temp Pulse Resp BP Pulse Ox 97.6 F 67 19 131/67 98 08/14/18 12:00 08/14/18 12:00 08/14/18 12:00 08/14/18 12:00 08/14/18 06:00 Intake and Output: 08/14/18 08/14/18 06:59 18:59 Intake Total 1770 Output Total 2200 Balance -430 - Medications Medications: Current Medications Apixaban (Eliquis) 2.5 mg PO BID [facility]; Protocol Last Admin: 08/14/18 09:58 Dose: 2.5 mg Atorvastatin Calcium (Lipitor) 40 mg PO HS [facility] Last Admin: 08/13/18 21:46 Dose: 40 mg Betamethasone/Clotrimazole (Lotrisone) 1 ml TOP BID [facility] Last Admin: 08/14/18 10:05 Dose: 1 applic Furosemide (Lasix) 20 mg PO DAILY [facility] Last Admin: 08/14/18 09:58 Dose: 20 mg Gabapentin (Neurontin) 400 mg PO TID [facility]; Protocol Last Admin: 08/14/18 09:57 Dose: 400 mg Glipizide (Glucotrol) 10 mg PO BID [facility] Last Admin: 08/14/18 09:57 Dose: 10 mg Vancomycin HCl (Vancomycin 1gm) 1 gm in 250 mls @ 167 mls/hr IVPB Q12 [facility]; Protocol Last Admin: 08/14/18 09:58 Dose: 167 mls/hr Cefepime HCl (Maxipime 1gm) 1 gm in 100 mls @ 100 mls/hr IVPB Q8 [facility]; Protocol Last Admin: 08/14/18 05:05 Dose: 100 mls/hr Insulin Human Regular (Humulin R High) 0 units SC ACHS [facility]; Protocol Last Admin: 08/14/18 09:57 Dose: 7 units Multivitamins/Minerals (Therapeutic-M Tab) 1 tab PO 0800 [facility] Last Admin: 08/14/18 09:58 Dose: 1 tab Nystatin (Nystop Topical Powder) 1 gm TOP BID [facility] Last Admin: 08/14/18 10:04 Dose: 1 applic Ramipril (Altace) 10 mg PO DAILY [facility] Last Admin: 08/14/18 09:57 Dose: 10 mg - Labs Labs: 08/11/18 19:50 08/11/18 19:50 PT 11.8 SECONDS (9.4-12.5) 08/11/18 19:50 INR 1.03 08/11/18 19:50 APTT 46.2 Seconds (25.1-36.5) H 08/11/18 19:50 - Constitutional Appears: Chronically Ill - Head Exam Head Exam: NORMAL INSPECTION - Respiratory Exam Respiratory Exam: Decreased Breath Sounds - Cardiovascular Exam Cardiovascular Exam: +S1, +S2 - GI/Abdominal Exam GI & Abdominal Exam: Soft. absent: Tenderness - Extremities Exam Additional comments: right leg with dressings in place Assessment and Plan - Assessment and Plan (Free Text) Plan: Assessment consider right lower extremity infected chronic wounds history of sepsis due to right leg skin and skin structure infection associated with chronic leg ulcers, clinically improved and S/P treatment history of MRSA and Klebsiella oxytoca right leg cellulitis history of sepsis secondary to right leg skin/skin structure infection with chronic leg ulcers, growing MRSA and sensitive Klebsiella history of MRSA cellulitis 2015 history of Bilateral lower extremity skin and skin structure infection (Enterobacter, Klebsiella Oxytoca and Group B Strep, as well as MRSA) which was treated 06/2015; MRSA and Pseudomonas cellulitis of left leg in Sep 2015, January and March 2016 chronic lymphedema of the lower extremities Morbid obesity with BMI 35 HTN DM history of Strep bacteremia history of hernia surgery Learning disability Plan continue Vancomycin and Cefepime (patient is tolerating Cefepime without rash, no respiratory distress, no hives) day 4 for 7-10 days pending final blood, wound cx results; follow up surgery evaluation and plans will continue to monitor clinically
[2018-08-15 18:25] VITALS: BP 132/73; PULSE 64; RESP 18; TEMP 99.2
== END 2018-08-15 20:34 | DRG 603 ==
LOC: ED 17:24 → ERH 19:31 → 2RNO 08-12 02:21
PROVIDERS: ADMIT Internal Medicine Nephrology; ATTEND Internal Medicine Nephrology
DX: L03.116 Cellulitis of left lower limb (principal); Z68.42 Body mass index [BMI] 45.0-49.9, adult; E11.51 Type 2 diabetes mellitus with diabetic peripheral angiopathy without gangrene; E11.622 Type 2 diabetes mellitus with other skin ulcer; L98.499 Non-pressure chronic ulcer of skin of other sites with unspecified severity; E66.01 Morbid (severe) obesity due to excess calories; I87.2 Venous insufficiency (chronic) (peripheral); I48.91 Unspecified atrial fibrillation; I11.0 Hypertensive heart disease with heart failure; I50.9 Heart failure, unspecified; I25.10 Atherosclerotic heart disease of native coronary artery without angina pectoris; E78.5 Hyperlipidemia, unspecified; G40.909 Epilepsy, unspecified, not intractable, without status epilepticus; F81.9 Developmental disorder of scholastic skills, unspecified; F79 Unspecified intellectual disabilities; Z79.01 Long term (current) use of anticoagulants; Z79.84 Long term (current) use of oral hypoglycemic drugs; Z86.14 Personal history of Methicillin resistant Staphylococcus aureus infection; Z79.4 Long term (current) use of insulin; Z87.891 Personal history of nicotine dependence; Z88.0 Allergy status to penicillin; Z99.3 Dependence on wheelchair

== ENCOUNTER 2018-08-15 20:42 | Inpatient (IN) | payer OTHER, MEDICAID ==
[2018-08-15] MEDS: Cefepime 1gm in NS 100ml 1 GM/100 ML BAG IVPB SCH (22:12)
[2018-08-15] MEDS: Vancomycin 1gm in NS 250ml 1 GM/250 ML BAG IVPB SCH (22:13)
[2018-08-15] MEDS: Insulin Reg-HIGH-Coverage SC SCH (22:18)
[2018-08-15 22:57] VITALS: BMI 49.2
[2018-08-16] MEDS: Cefepime 1gm in NS 100ml 1 GM/100 ML BAG IVPB SCH ×3 (04:59→21:37)
[2018-08-16] MEDS: Vancomycin 1gm in NS 250ml 1 GM/250 ML BAG IVPB SCH ×2 (05:00→17:45)
[2018-08-16] MEDS: Insulin Reg-HIGH-Coverage SC SCH ×4 (06:35→21:37)
--- NOTE | 2018-08-16 07:38 | CP.PCM.HP ---
<Shivam Carrasco - Last Filed: 08/16/18 12:14> History of Present Illness - History of Present Illness History of Present Illness: HPI for Dr. Streeter 57 year old male with a past medical history of morbid obesity, chronic lower extremity cellulitis of the legs with skin changes, atrial fibrillation on anticoagulation, hypertension, dyslipidemia, mute, and nephrloithiasis [place] [facility] [place]. ID, Surgery, and podiatry were consulted. Patient has been getting wound care from podiatry on a daily basis. He is on IV antibiotics, Cefepime and Vancomycin. His blood and wound cultures grew no bacteria. Patient will be admitted to the TCU for physical therapy and continued medcal care of his bilateral lower extremities, including wound care and IV antibiotics. Patient denies chest pain, nausea, vomiting, dyspnea, visual changes, diarrhea, constipation, blood in stool, history or exposure to TB, fever, chills, rigors, easy bruising or bleeding, unilateral weakness or numbness. PMH: morbid obesity, chronic lower extremity cellulitis of the legs with skin changes, atrial fibrillation on anticoagulation, hypertension, dyslipidemia, mute, and nephrolithiasis PSH: inguinal hernia repair FH: noncontributory Soc: denies tobacco, alcohol, drugs ALL: zosyn Present on Admission - Present on Admission Any Indicators Present on Admission: No Review of Systems - Review of Systems All systems: reviewed and no additional remarkable complaints except (as per HPI) Past Patient History - Infectious Disease Hx of Infectious Diseases: None - Tetanus Immunizations Tetanus Immunization: Unknown - Past Medical History & Family History Past Medical History?: Yes - Past Social History Smoking Status: Former Smoker - CARDIAC Hx Cardiac Disorders: Yes (A fib) Hx Hypertension: Yes - PULMONARY Hx Respiratory Disorders: No - NEUROLOGICAL Hx Neurological Disorder: Yes Hx Seizures: Yes Other/Comment: Epilepsy - HEENT Hx HEENT Problems: Yes Other/Comment: wears glasses - RENAL Hx Chronic Kidney Disease: No - ENDOCRINE/METABOLIC Hx Diabetes Mellitus Type 2: Yes - HEMATOLOGICAL/ONCOLOGICAL Hx Blood Disorders: No Other/Comment: blood infection - INTEGUMENTARY Hx Dermatological Problems: Yes Other/Comment: multiple wounds on the rt leg, cellulitis in b/l extreminity. 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 - SURGICAL HISTORY Hx Amputation: No Hx Appendectomy: No Hx Cholecystectomy: No Hx Gastric Bypass Surgery: No Hx Hysterectomy: No Hx Joint Replacement: No Hx Kidney Transplant: No Hx Liver Transplant: No Hx Mastectomy: No Hx Musculoskeletal Surgery: No Hx Open Heart Surgery: No Hx Orthopedic Surgery: No Hx Splenectomy: No Hx Valve Replacement: No - ANESTHESIA Hx Anesthesia: Yes Hx Anesthesia Reactions: No Hx Malignant Hyperthermia: No Meds Allergies/Adverse Reactions: Allergies Allergy/AdvReac Type Severity Reaction Status Date / Time piperacillin Allergy ANAPHYLAXIS Verified 08/11/18 23:26 tazobactam [From Zosyn] Allergy ANAPHYLAXIS Verified 08/12/18 04:15 Physical Exam - Constitutional Appears: Well, Non-toxic - Head Exam Head Exam: ATRAUMATIC, NORMOCEPHALIC - Eye Exam Eye Exam: EOMI, Normal appearance - ENT Exam ENT Exam: Mucous Membranes Moist - Neck Exam Neck exam: Positive for: Normal Inspection - Respiratory Exam Respiratory Exam: Clear to Auscultation Bilateral, NORMAL BREATHING PATTERN. absent: Accessory Muscle Use - Cardiovascular Exam Cardiovascular Exam: RRR, +S1, +S2 - GI/Abdominal Exam GI & Abdominal Exam: Normal Bowel Sounds, Soft - Extremities Exam Extremities exam: Negative for: calf tenderness Additional comments: elephantiasis with superficial warts - Neurological Exam Neurological exam: Alert, CN II-XII Intact, Oriented x3 - Psychiatric Exam Psychiatric exam: Normal Affect, Normal Mood Results - Vital Signs Recent Vital Signs: Last Vital Signs Temp 97.9 F 08/16/18 05:54 Pulse 56 L 08/16/18 05:54 Resp 20 08/16/18 05:54 BP 151/87 H 08/16/18 05:54 Pulse Ox 96 08/16/18 05:54 - Labs Labs: Laboratory Results - last 24 hr 08/16/18 05:20 POC Glucose (mg/dL) 218 H Assessment & Plan - Assessment and Plan (Free Text) Assessment: 57 year old male with a past medical history of morbid obesity, chronic lower extremity cellulitis of the legs with skin changes, atrial fibrillation on anticoagulation, hypertension, dyslipidemia, mute, and nephrloithiasis who presented with left foot and leg ulceration and cellulitis who is now admitted to the TCU for physical therapy for his gait instability and deconditioning as well and IV antibiotics 1) Cellulitis of left foot/leg in a patient with chronic lower extremity lymphedema - Cefepime 1 gram q8h sherita - Vancomycin 1 gram q12h - ID is following, appreciate recommendations - Podiatry for wound care - Lasix 20 mg PO daily - Lotrisone cream BID - Multivitamin daily 2) Atrial Fibrillation - Eliquis 2.5 mg BID 3) Hypertension - Ramipiril 10 mg daily 4) DM II - Humulin ISS high with FSBG ACHS - Glipizide 10 mg BID 5) Dyslipidemia - Atorvastatin 40 mg HS 6) Fungal infection of leg and groin - - Lotrisone cream BID - Nystatin topical powder BID 7) Peripheral Neuropathy - Gabapentin 400 mg TID 8) DVT/GI prophylaxis - not indicated as patient is ambulating and no at risk for stomach ulcers Case reviewed and discussed with attending physician, Dr. Streeter - Date & Time Date: 08/16/18 Time: 12:24 <Winston Streeter S - Last Filed: 08/16/18 19:19> Results - Vital Signs Recent Vital Signs: Last Vital Signs Temp 98.5 F 08/16/18 16:00 Pulse 65 08/16/18 16:00 Resp 18 08/16/18 16:00 BP 132/79 08/16/18 16:00 Pulse Ox 97 08/16/18 16:00 - Labs Labs: Laboratory Results - last 24 hr 08/16/18 08/16/18 08/16/18 05:20 11:09 17:03 POC Glucose (mg/dL) 218 H 256 H 192 H Assessment & Plan - Assessment and Plan (Free Text) Assessment: Pt seen and examined. I have reviewed the note of the biomedical engineering director and agree with it. I have discussed the assessment and plan with the resident. I have reviewed the patient's labs and medications. Pt with cellulits of the L foot. He is on IV Abx, Cefepime and Vanco. No pain. On Glipizide and Humulin for DM-2. On Eliquis for A fib. On Atorvastatin for Dyslipidemia.
[2018-08-16] MEDS: Multivitamin With Minerals Tab PO SCH (07:52)
[2018-08-16] MEDS: Clotrimazole/Betamethasone Lotion(30 ml) TOP SCH ×2 (10:29→17:46)
[2018-08-16] MEDS: Nystatin 100,000 Units/gm Topical Pow(15 gm) TOP SCH ×2 (10:29→17:45)
--- NOTE | 2018-08-16 16:37 | CP.PCM.CON ---
History of Present Illness - History of Present Illness History of Present Illness: 57 year old male with PMH of right leg skin/skin structure infection with chronic leg ulcers, growing MRSA and sensitive Klebsiella in 2015, Bilateral lower extremity skin and skin structure infection (Enterobacter, Klebsiella Oxytoca and Group B Strep, as well as MRSA) which was treated 06/2015; MRSA and Pseudomonas cellulitis of left leg in Sep 2015, January and March 2016, and MRSA cellulitis in 2015, chronic lymphedema of the lower extremities, Morbid obesity with BMI 35, HTN, DM, history of Strep bacteremia, history of hernia surgery, Learning disability [place] [facility] [place]. He is being treated for leg infection with local wound care and antibiotics. He is now transferred to [facility] for continued medical therapy and physical rehab. Infectious Diseases consult is requested to continue his antibiotic therapy. He has no fevers, no nausea, no diarrhea, no dysuria, no increased pain in the legs. Review of Systems - Review of Systems All systems: reviewed and no additional remarkable complaints except (as per HPI) Past Patient History - Infectious Disease Hx of Infectious Diseases: None - Tetanus Immunizations Tetanus Immunization: Unknown - Past Medical History & Family History Past Medical History?: Yes - Past Social History Smoking Status: Former Smoker - CARDIAC Hx Cardiac Disorders: Yes (A fib) Hx Hypertension: Yes - PULMONARY Hx Respiratory Disorders: No - NEUROLOGICAL Hx Neurological Disorder: Yes Hx Seizures: Yes Other/Comment: Epilepsy - HEENT Hx HEENT Problems: Yes Other/Comment: wears glasses - RENAL Hx Chronic Kidney Disease: No - ENDOCRINE/METABOLIC Hx Diabetes Mellitus Type 2: Yes - HEMATOLOGICAL/ONCOLOGICAL Hx Blood Disorders: No Other/Comment: blood infection - INTEGUMENTARY Hx Dermatological Problems: Yes Other/Comment: multiple wounds on the rt leg, cellulitis in b/l extreminity. 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 - SURGICAL HISTORY Hx Amputation: No Hx Appendectomy: No Hx Cholecystectomy: No Hx Gastric Bypass Surgery: No Hx Hysterectomy: No Hx Joint Replacement: No Hx Kidney Transplant: No Hx Liver Transplant: No Hx Mastectomy: No Hx Musculoskeletal Surgery: No Hx Open Heart Surgery: No Hx Orthopedic Surgery: No Hx Splenectomy: No Hx Valve Replacement: No - ANESTHESIA Hx Anesthesia: Yes Hx Anesthesia Reactions: No Hx Malignant Hyperthermia: No Meds Allergies/Adverse Reactions: Allergies Allergy/AdvReac Type Severity Reaction Status Date / Time piperacillin Allergy ANAPHYLAXIS Verified 08/11/18 23:26 tazobactam [From Zosyn] Allergy ANAPHYLAXIS Verified 08/12/18 04:15 - Medications Medications: Current Medications Apixaban (Eliquis) 2.5 mg PO BID [facility]; Protocol Atorvastatin Calcium (Lipitor) 40 mg PO HS [facility]; Protocol Last Admin: 08/15/18 22:03 Dose: 40 mg Betamethasone/Clotrimazole (Lotrisone) 0 ml TOP BID [facility] Furosemide (Lasix) 20 mg PO DAILY [facility]; Protocol Gabapentin (Neurontin) 400 mg PO TID [facility]; Protocol Glipizide (Glucotrol) 10 mg PO BID [facility]; Protocol Cefepime HCl (Maxipime 1gm) 1 gm in 100 mls @ 100 mls/hr IVPB Q8 [facility]; Protocol Last Admin: 08/16/18 04:59 Dose: 100 mls/hr Vancomycin HCl (Vancomycin 1gm) 1 gm in 250 mls @ 167 mls/hr IVPB 0600,1800 [facility]; Protocol Last Admin: 08/16/18 05:00 Dose: 167 mls/hr Insulin Human Regular (Humulin R High) 0 units SC ACHS [facility]; Protocol Last Admin: 08/16/18 06:35 Dose: 4 unit Multivitamins/Minerals (Therapeutic-M Tab) 1 tab PO 0800 [facility] Nystatin (Nystop Topical Powder) 0 gm TOP BID [facility] Ramipril (Altace) 10 mg PO DAILY [facility]; Protocol Physical Exam - Constitutional Appears: No Acute Distress, Chronically Ill - Head Exam Head Exam: NORMAL INSPECTION - Respiratory Exam Respiratory Exam: Decreased Breath Sounds - Cardiovascular Exam Cardiovascular Exam: +S1, +S2 - GI/Abdominal Exam GI & Abdominal Exam: Soft. absent: Tenderness - Extremities Exam Additional comments: both lower extremities with dressings in place Results - Vital Signs Recent Vital Signs: Last Vital Signs Temp 97.9 F 08/16/18 05:54 Pulse 56 L 08/16/18 05:54 Resp 20 08/16/18 05:54 BP 151/87 H 08/16/18 05:54 Pulse Ox 96 08/16/18 05:54 - Labs Labs: Laboratory Results - last 24 hr 08/16/18 05:20 POC Glucose (mg/dL) 218 H Assessment & Plan - Assessment and Plan (Free Text) Plan: Assessment consider right lower extremity infected chronic wounds history of sepsis due to right leg skin and skin structure infection associated with chronic leg ulcers, clinically improved and S/P treatment history of MRSA and Klebsiella oxytoca right leg cellulitis history of sepsis secondary to right leg skin/skin structure infection with chronic leg ulcers, growing MRSA and sensitive Klebsiella history of MRSA cellulitis Jun. 2015 history of Bilateral lower extremity skin and skin structure infection (Enterobacter, Klebsiella Oxytoca and Group B Strep, as well as MRSA) which was treated 06/2015; MRSA and Pseudomonas cellulitis of left leg in Sep 2015, January and March 2016 chronic lymphedema of the lower extremities Morbid obesity with BMI 35 HTN DM history of Strep bacteremia history of hernia surgery Learning disability Plan continue Vancomycin and Cefepime (patient is tolerating Cefepime without rash, no respiratory distress, no hives) day 5 for 7-10 days surgery doing local wound care will continue to monitor clinically
[2018-08-17] MEDS: Cefepime 1gm in NS 100ml 1 GM/100 ML BAG IVPB SCH ×3 (05:29→21:48)
[2018-08-17] MEDS: Vancomycin 1gm in NS 250ml 1 GM/250 ML BAG IVPB SCH ×2 (06:26→17:32)
[2018-08-17] MEDS: Insulin Reg-HIGH-Coverage SC SCH ×4 (06:31→21:47)
[2018-08-17] MEDS: Multivitamin With Minerals Tab PO SCH (08:25)
[2018-08-17] MEDS: Clotrimazole/Betamethasone Lotion(30 ml) TOP SCH ×2 (10:10→17:32)
[2018-08-17] MEDS: Nystatin 100,000 Units/gm Topical Pow(15 gm) TOP SCH ×2 (10:10→17:32)
[2018-08-18] MEDS: Cefepime 1gm in NS 100ml 1 GM/100 ML BAG IVPB SCH ×3 (05:13→21:41)
[2018-08-18] MEDS: Vancomycin 1gm in NS 250ml 1 GM/250 ML BAG IVPB SCH ×2 (05:14→17:57)
[2018-08-18] MEDS: Insulin Reg-HIGH-Coverage SC SCH ×4 (06:36→21:41)
[2018-08-18] MEDS: Multivitamin With Minerals Tab PO SCH (08:19)
--- NOTE | 2018-08-18 09:40 | CP.PCM.CON ---
<Alex Ocampo - Last Filed: 08/18/18 12:31> History of Present Illness - History of Present Illness History of Present Illness: Podiatry consult note for Dr. Guerrero 57 yo male with pmhx of morbid obesity, chronic lower extremity cellulitis of the legs with skin changes, atrial fibrillation on anticoagulation, hypertension, dyslipidemia, mute, and nephrolithiasis seen and evaluated for bilateral lower extremity edema. He was admitted for lower extremity edema and cellulitis with draining wounds and was transfered to TCU for deconditioning and IV abx. He states he is in no pain today and that his dressing was taken down yesterday to shower. He denies N/V/F/C/SOB/CP and has no acute pedal complaints today. PMHx - morbid obesity, chronic lower extremity cellulitis of the legs with skin changes, atrial fibrillation on anticoagulation, hypertension, dyslipidemia, mute, and nephrolithiasis PSHx- inguinal hernia repair All - piperacillin, tazobactam Past Patient History - Infectious Disease Hx of Infectious Diseases: None - Tetanus Immunizations Tetanus Immunization: Unknown - Past Medical History & Family History Past Medical History?: Yes - Past Social History Smoking Status: Former Smoker - CARDIAC Hx Cardiac Disorders: Yes (A fib) Hx Hypertension: Yes - PULMONARY Hx Respiratory Disorders: No - NEUROLOGICAL Hx Neurological Disorder: Yes Hx Seizures: Yes Other/Comment: Epilepsy - HEENT Hx HEENT Problems: Yes Other/Comment: wears glasses - RENAL Hx Chronic Kidney Disease: No - ENDOCRINE/METABOLIC Hx Diabetes Mellitus Type 2: Yes - HEMATOLOGICAL/ONCOLOGICAL Hx Blood Disorders: No Other/Comment: blood infection - INTEGUMENTARY Hx Dermatological Problems: Yes Other/Comment: multiple wounds on the rt leg, cellulitis in b/l extreminity. 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 - SURGICAL HISTORY Hx Amputation: No Hx Appendectomy: No Hx Cholecystectomy: No Hx Gastric Bypass Surgery: No Hx Hysterectomy: No Hx Joint Replacement: No Hx Kidney Transplant: No Hx Liver Transplant: No Hx Mastectomy: No Hx Musculoskeletal Surgery: No Hx Open Heart Surgery: No Hx Orthopedic Surgery: No Hx Splenectomy: No Hx Valve Replacement: No - ANESTHESIA Hx Anesthesia: Yes Hx Anesthesia Reactions: No Hx Malignant Hyperthermia: No Meds Allergies/Adverse Reactions: Allergies Allergy/AdvReac Type Severity Reaction Status Date / Time piperacillin Allergy ANAPHYLAXIS Verified 08/11/18 23:26 tazobactam [From Zosyn] Allergy ANAPHYLAXIS Verified 08/12/18 04:15 - Medications Medications: Current Medications Apixaban (Eliquis) 2.5 mg PO BID [facility]; Protocol Last Admin: 08/17/18 17:31 Dose: 2.5 mg Atorvastatin Calcium (Lipitor) 40 mg PO HS [facility]; Protocol Last Admin: 08/17/18 21:48 Dose: 40 mg Betamethasone/Clotrimazole (Lotrisone) 0 ml TOP BID [facility] Last Admin: 08/17/18 17:32 Dose: 1 applic Furosemide (Lasix) 20 mg PO DAILY [facility]; Protocol Last Admin: 08/17/18 10:09 Dose: 20 mg Gabapentin (Neurontin) 400 mg PO TID [facility]; Protocol Last Admin: 08/17/18 17:32 Dose: 400 mg Glipizide (Glucotrol) 10 mg PO BID [facility]; Protocol Last Admin: 08/17/18 17:31 Dose: 10 mg Cefepime HCl (Maxipime 1gm) 1 gm in 100 mls @ 100 mls/hr IVPB Q8 [facility]; Protocol Last Admin: 08/18/18 05:13 Dose: 100 mls/hr Vancomycin HCl (Vancomycin 1gm) 1 gm in 250 mls @ 167 mls/hr IVPB 0600,1800 [facility]; Protocol Last Admin: 08/18/18 05:14 Dose: 167 mls/hr Insulin Human Regular (Humulin R High) 0 units SC ACHS [facility]; Protocol Last Admin: 08/18/18 06:36 Dose: 4 unit Multivitamins/Minerals (Therapeutic-M Tab) 1 tab PO 0800 [facility] Last Admin: 08/18/18 08:19 Dose: 1 tab Nystatin (Nystop Topical Powder) 0 gm TOP BID [facility] Last Admin: 08/17/18 17:32 Dose: 1 applic Ramipril (Altace) 10 mg PO DAILY [facility]; Protocol Last Admin: 08/17/18 10:09 Dose: 10 mg Physical Exam - Constitutional Appears: Well, Non-toxic, No Acute Distress - Head Exam Head Exam: ATRAUMATIC, NORMOCEPHALIC - Extremities Exam Additional comments: Vasc: DP 2/4, PT pulse is non palpable 2ry to edema . Temperature gradient warm to warm from proximal to distal. Cap refill < 3 sec to all digits. Diffuse non pitting pedal edema noted from tibial tuberosity to digits Neuro: Protective and gross sensations are grossly intact Derm: Diffuse elephantiasis skin changes with lichnification and wart like skin lesions secondary scaling noted to the foot and leg up to the level of the tibial tuberosity. Superficial ulceration improved on LLE superior to the medial malleolus, no purulence, Mild malodor, no fluctuance. No clinical suspicion for infection. Slight erythema noted. MSK: No tenderness to posterior calf. No tenderness to palpation. Muscle power intact 5/5 in all groups. - Neurological Exam Neurological exam: Alert, Oriented x3 - Psychiatric Exam Psychiatric exam: Normal Affect, Normal Mood Results - Vital Signs Recent Vital Signs: Last Vital Signs Temp 98.7 F 08/17/18 16:00 Pulse 58 L 08/17/18 16:00 Resp 18 08/17/18 16:00 BP 149/79 08/17/18 16:00 Pulse Ox 95 08/17/18 16:00 - Labs Labs: Laboratory Results - last 24 hr 08/17/18 08/17/18 05:46 11:05 POC Glucose (mg/dL) 247 H 221 H Assessment & Plan - Assessment and Plan (Free Text) Assessment: 57 y/o diabetic male with bilateral lower extremity lymphedema, Left leg cellulitis and stasis ulceration Plan: Patient seen and evaluated at bedside Discussed in detail with Dr. Guerrero Labs and vitals reviewed- afebrile, WBC 9.9 (08/11) ID on board: Recommendations appreciated Lotrisone lotion applied to the LLE. Nystatin powder applied between folds of legs and behind the left knee Unna boot applied b/l with coban Continue PT Podiatry will follow up the patient while in house - Date & Time Date: 08/18/18 Time: 09:42 <Marin Guerrero - Last Filed: 08/18/18 19:03> Meds - Medications Medications: Current Medications Apixaban (Eliquis) 2.5 mg PO BID [facility]; Protocol Last Admin: 08/18/18 17:54 Dose: 2.5 mg Atorvastatin Calcium (Lipitor) 40 mg PO HS [facility]; Protocol Last Admin: 08/17/18 21:48 Dose: 40 mg Betamethasone/Clotrimazole (Lotrisone) 0 ml TOP BID [facility] Last Admin: 08/18/18 17:56 Dose: Not Given Furosemide (Lasix) 20 mg PO DAILY [facility]; Protocol Last Admin: 08/18/18 10:45 Dose: 20 mg Gabapentin (Neurontin) 400 mg PO TID [facility]; Protocol Last Admin: 08/18/18 17:56 Dose: 400 mg Glipizide (Glucotrol) 10 mg PO BID [facility]; Protocol Last Admin: 08/18/18 17:54 Dose: 10 mg Cefepime HCl (Maxipime 1gm) 1 gm in 100 mls @ 100 mls/hr IVPB Q8 [facility]; Protocol Last Admin: 08/18/18 14:29 Dose: 100 mls/hr Vancomycin HCl (Vancomycin 1gm) 1 gm in 250 mls @ 167 mls/hr IVPB 0600,1800 [facility]; Protocol Last Admin: 08/18/18 17:57 Dose: 167 mls/hr Insulin Human Regular (Humulin R High) 0 units SC ACHS [facility]; Protocol Last Admin: 08/18/18 17:54 Dose: 2 unit Multivitamins/Minerals (Therapeutic-M Tab) 1 tab PO 0800 [facility] Last Admin: 08/18/18 08:19 Dose: 1 tab Nystatin (Nystop Topical Powder) 0 gm TOP BID [facility] Last Admin: 08/18/18 17:56 Dose: 1 applic Ramipril (Altace) 10 mg PO DAILY [facility]; Protocol Last Admin: 08/18/18 10:45 Dose: 10 mg Results - Vital Signs Recent Vital Signs: Last Vital Signs Temp 98.5 F 08/18/18 16:00 Pulse 63 08/18/18 16:00 Resp 18 08/18/18 16:00 BP 133/67 08/18/18 16:00 Pulse Ox 96 08/18/18 16:00 - Labs Labs: Laboratory Results - last 24 hr 08/17/18 08/17/18 08/18/18 17:10 21:46 04:59 POC Glucose (mg/dL) 197 H 211 H 221 H 08/18/18 08/18/18 11:53 16:41 POC Glucose (mg/dL) 224 H 177 H Attending/Attestation - Attestation I have personally seen and examined this patient.: Yes I have fully participated in the care of the patient.: Yes I have reviewed all pertinent clinical information: Yes
[2018-08-18] MEDS: Clotrimazole/Betamethasone Lotion(30 ml) TOP SCH ×2 (10:28→17:56)
[2018-08-18] MEDS: Nystatin 100,000 Units/gm Topical Pow(15 gm) TOP SCH ×2 (14:30→17:56)
--- NOTE | 2018-08-18 14:42 | CP.PCM.PN ---
<Shivam Carrasco - Last Filed: 08/18/18 14:43> Subjective - Date & Time of Evaluation Date of Evaluation: 08/18/18 Time of Evaluation: 14:39 - Subjective Subjective: Shivam Carrasco DO, PGY-2: Progress Note for Dr. Streeter Patient was seen and examined at bedside. Patient denied any chest pain, nausea, vomiting, diarrhea, fever, chills. No adverse events noted overnight. Objective - Vital Signs/Intake and Output Vital Signs (last 24 hours): Temp Pulse Resp BP Pulse Ox 98.7 F 58 L 18 170/86 H 95 08/17/18 16:00 08/17/18 16:00 08/17/18 16:00 08/18/18 10:45 08/17/18 16:00 - Medications Medications: Current Medications Apixaban (Eliquis) 2.5 mg PO BID [facility]; Protocol Last Admin: 08/18/18 10:45 Dose: 2.5 mg Atorvastatin Calcium (Lipitor) 40 mg PO HS [facility]; Protocol Last Admin: 08/17/18 21:48 Dose: 40 mg Betamethasone/Clotrimazole (Lotrisone) 0 ml TOP BID [facility] Last Admin: 08/18/18 10:28 Dose: 1 applic Furosemide (Lasix) 20 mg PO DAILY [facility]; Protocol Last Admin: 08/18/18 10:45 Dose: 20 mg Gabapentin (Neurontin) 400 mg PO TID [facility]; Protocol Last Admin: 08/18/18 14:30 Dose: 400 mg Glipizide (Glucotrol) 10 mg PO BID [facility]; Protocol Last Admin: 08/18/18 10:45 Dose: 10 mg Cefepime HCl (Maxipime 1gm) 1 gm in 100 mls @ 100 mls/hr IVPB Q8 [facility]; Protocol Last Admin: 08/18/18 14:29 Dose: 100 mls/hr Vancomycin HCl (Vancomycin 1gm) 1 gm in 250 mls @ 167 mls/hr IVPB 0600,1800 [facility]; Protocol Last Admin: 08/18/18 05:14 Dose: 167 mls/hr Insulin Human Regular (Humulin R High) 0 units SC ACHS [facility]; Protocol Last Admin: 08/18/18 12:24 Dose: 4 unit Multivitamins/Minerals (Therapeutic-M Tab) 1 tab PO 0800 [facility] Last Admin: 08/18/18 08:19 Dose: 1 tab Nystatin (Nystop Topical Powder) 0 gm TOP BID [facility] Last Admin: 08/18/18 14:30 Dose: 1 applic Ramipril (Altace) 10 mg PO DAILY [facility]; Protocol Last Admin: 08/18/18 10:45 Dose: 10 mg - Constitutional Appears: Well, Non-toxic - Head Exam Head Exam: ATRAUMATIC, NORMOCEPHALIC - Eye Exam Eye Exam: EOMI, Normal appearance - ENT Exam ENT Exam: Mucous Membranes Moist - Neck Exam Neck Exam: Normal Inspection - Respiratory Exam Respiratory Exam: Clear to Ausculation Bilateral, NORMAL BREATHING PATTERN. absent: Accessory Muscle Use - Cardiovascular Exam Cardiovascular Exam: RRR, +S1, +S2 - GI/Abdominal Exam GI & Abdominal Exam: Soft, Normal Bowel Sounds - Extremities Exam Additional comments: elephatiasis with superficial warts - Neurological Exam Neurological Exam: Alert, Awake, Oriented x3 - Psychiatric Exam Psychiatric exam: Normal Affect, Normal Mood - Skin Skin Exam: Dry, Intact, Normal Color, Warm Assessment and Plan - Assessment and Plan (Free Text) Assessment: 57 year old male with a past medical history of morbid obesity, chronic lower extremity cellulitis of the legs with skin changes, atrial fibrillation on anticoagulation, hypertension, dyslipidemia, mute, and nephrloithiasis who presented with left foot and leg ulceration and cellulitis who is now admitted to the TCU for physical therapy for his gait instability and deconditioning as well and IV antibiotics 1) Cellulitis of left foot/leg in a patient with chronic lower extremity lymphedema - Cefepime 1 gram q8h sherita - Vancomycin 1 gram q12h - ID is following, appreciate recommendations - patient is on day 7 of antibiotics - Podiatry for wound care - Lasix 20 mg PO daily - Lotrisone cream BID - Multivitamin daily 2) Atrial Fibrillation - Eliquis 2.5 mg BID 3) Hypertension - Ramipiril 10 mg daily 4) DM II - Humulin ISS high with FSBG ACHS - Glipizide 10 mg BID 5) Dyslipidemia - Atorvastatin 40 mg HS 6) Fungal infection of leg and groin - - Lotrisone cream BID - Nystatin topical powder BID 7) Peripheral Neuropathy - Gabapentin 400 mg TID 8) DVT/GI prophylaxis - not indicated as patient is ambulating and no at risk for stomach ulcers Case reviewed and discussed with attending physician, Dr. Streeter <Winston Streeter - Last Filed: 08/18/18 20:17> Objective - Vital Signs/Intake and Output Vital Signs (last 24 hours): Temp Pulse Resp BP Pulse Ox 98.5 F 63 18 133/67 96 08/18/18 16:00 08/18/18 16:00 08/18/18 16:00 08/18/18 16:00 08/18/18 16:00 - Medications Medications: Current Medications Apixaban (Eliquis) 2.5 mg PO BID [facility]; Protocol Last Admin: 08/18/18 17:54 Dose: 2.5 mg Atorvastatin Calcium (Lipitor) 40 mg PO HS [facility]; Protocol Last Admin: 08/17/18 21:48 Dose: 40 mg Betamethasone/Clotrimazole (Lotrisone) 0 ml TOP BID [facility] Last Admin: 08/18/18 17:56 Dose: Not Given Furosemide (Lasix) 20 mg PO DAILY [facility]; Protocol Last Admin: 08/18/18 10:45 Dose: 20 mg Gabapentin (Neurontin) 400 mg PO TID [facility]; Protocol Last Admin: 08/18/18 17:56 Dose: 400 mg Glipizide (Glucotrol) 10 mg PO BID [facility]; Protocol Last Admin: 08/18/18 17:54 Dose: 10 mg Cefepime HCl (Maxipime 1gm) 1 gm in 100 mls @ 100 mls/hr IVPB Q8 [facility]; Protocol Last Admin: 08/18/18 14:29 Dose: 100 mls/hr Vancomycin HCl (Vancomycin 1gm) 1 gm in 250 mls @ 167 mls/hr IVPB 0600,1800 [facility]; Protocol Last Admin: 08/18/18 17:57 Dose: 167 mls/hr Insulin Human Regular (Humulin R High) 0 units SC ACHS [facility]; Protocol Last Admin: 08/18/18 17:54 Dose: 2 unit Multivitamins/Minerals (Therapeutic-M Tab) 1 tab PO 0800 [facility] Last Admin: 08/18/18 08:19 Dose: 1 tab Nystatin (Nystop Topical Powder) 0 gm TOP BID [facility] Last Admin: 08/18/18 17:56 Dose: 1 applic Ramipril (Altace) 10 mg PO DAILY [facility]; Protocol Last Admin: 08/18/18 10:45 Dose: 10 mg Assessment and Plan - Assessment and Plan (Free Text) Assessment: Pt seen and examined. I have reviewed the note of the medical and scientific illustrator and agree with it. I have discussed the assessment and plan with the resident. I have reviewed the patient's labs and medications. Pt with cellulits and is on IV Abx. His DM-2 is controlled with Glipizide. Pt on Atorvastatin for dyslipidemia. Pt will continue kody Peripheral neuropathy.
--- NOTE | 2018-08-18 15:25 | CP.PCM.PN ---
Subjective - Date & Time of Evaluation Date of Evaluation: 08/18/18 Time of Evaluation: 09:45 - Subjective Subjective: Comfortable, afebrile, not in distress. Objective - Vital Signs/Intake and Output Vital Signs (last 24 hours): Temp Pulse Resp BP Pulse Ox 97.9 F 56 L 20 183/97 H 96 08/16/18 05:54 08/16/18 05:54 08/16/18 05:54 08/16/18 09:42 08/16/18 05:54 - Medications Medications: Current Medications Apixaban (Eliquis) 2.5 mg PO BID [facility]; Protocol Last Admin: 08/16/18 09:42 Dose: 2.5 mg Atorvastatin Calcium (Lipitor) 40 mg PO HS [facility]; Protocol Last Admin: 08/15/18 22:03 Dose: 40 mg Betamethasone/Clotrimazole (Lotrisone) 0 ml TOP BID [facility] Last Admin: 08/16/18 10:29 Dose: 1 applic Furosemide (Lasix) 20 mg PO DAILY [facility]; Protocol Last Admin: 08/16/18 09:42 Dose: 20 mg Gabapentin (Neurontin) 400 mg PO TID [facility]; Protocol Last Admin: 08/16/18 13:49 Dose: 400 mg Glipizide (Glucotrol) 10 mg PO BID [facility]; Protocol Last Admin: 08/16/18 09:42 Dose: 10 mg Cefepime HCl (Maxipime 1gm) 1 gm in 100 mls @ 100 mls/hr IVPB Q8 [facility]; Protocol Last Admin: 08/16/18 13:49 Dose: 100 mls/hr Vancomycin HCl (Vancomycin 1gm) 1 gm in 250 mls @ 167 mls/hr IVPB 0600,1800 [facility]; Protocol Last Admin: 08/16/18 05:00 Dose: 167 mls/hr Insulin Human Regular (Humulin R High) 0 units SC ACHS [facility]; Protocol Last Admin: 08/16/18 12:25 Dose: 7 unit Multivitamins/Minerals (Therapeutic-M Tab) 1 tab PO 0800 [facility] Last Admin: 08/16/18 07:52 Dose: 1 tab Nystatin (Nystop Topical Powder) 0 gm TOP BID [facility] Last Admin: 08/16/18 10:29 Dose: 1 applic Ramipril (Altace) 10 mg PO DAILY [facility]; Protocol Last Admin: 08/16/18 09:41 Dose: 10 mg - Constitutional Appears: Chronically Ill - Head Exam Head Exam: NORMAL INSPECTION - Respiratory Exam Respiratory Exam: Decreased Breath Sounds - Cardiovascular Exam Cardiovascular Exam: +S1, +S2 - GI/Abdominal Exam GI & Abdominal Exam: Soft. absent: Tenderness - Extremities Exam Additional comments: both legs with dressings in place Assessment and Plan - Assessment and Plan (Free Text) Plan: Assessment consider right lower extremity infected chronic wounds history of sepsis due to right leg skin and skin structure infection associated with chronic leg ulcers, clinically improved and S/P treatment history of MRSA and Klebsiella oxytoca right leg cellulitis history of sepsis secondary to right leg skin/skin structure infection with chronic leg ulcers, growing MRSA and sensitive Klebsiella history of MRSA cellulitis 2015 history of Bilateral lower extremity skin and skin structure infection (Enterobacter, Klebsiella Oxytoca and Group B Strep, as well as MRSA) which was treated 06/2015; MRSA and Pseudomonas cellulitis of left leg in Sep 2015, January and March 2016 chronic lymphedema of the lower extremities Morbid obesity with BMI 35 HTN DM history of Strep bacteremia history of hernia surgery Learning disability Plan continue Vancomycin and Cefepime (patient is tolerating Cefepime without rash, no respiratory distress, no hives) day 7 for 7-10 days surgery doing local wound care will continue to monitor clinically
[2018-08-19] MEDS: Cefepime 1gm in NS 100ml 1 GM/100 ML BAG IVPB SCH ×3 (05:22→21:21)
[2018-08-19] MEDS: Vancomycin 1gm in NS 250ml 1 GM/250 ML BAG IVPB SCH ×2 (05:22→17:49)
[2018-08-19] MEDS: Insulin Reg-HIGH-Coverage SC SCH ×4 (06:53→22:17)
[2018-08-19] MEDS: Multivitamin With Minerals Tab PO SCH (08:32)
[2018-08-19] MEDS: Clotrimazole/Betamethasone Lotion(30 ml) TOP SCH ×2 (09:03→17:48)
[2018-08-19] MEDS: Nystatin 100,000 Units/gm Topical Pow(15 gm) TOP SCH ×2 (09:04→17:49)
[2018-08-19] MEDS ORDERED: Unna Boot TOP ONE (09:23)
--- NOTE | 2018-08-19 09:25 | CP.PCM.PCO ---
Physician Communication Note - Physician Communication Note Physician Communication Note: Patient was seen at bedside. Unnaboot was intact and clean B/L
--- NOTE | 2018-08-19 09:27 | CP.PCM.PN ---
<Mervin Lizmor - Last Filed: 08/19/18 09:25> Subjective - Date & Time of Evaluation Date of Evaluation: 08/19/18 Time of Evaluation: 09:25 - Subjective Subjective: Progress note for Dr. Guerrero Patient was seen and bedside. Unna boots were intact Objective - Vital Signs/Intake and Output Vital Signs (last 24 hours): Temp Pulse Resp BP Pulse Ox 98.5 F 63 18 155/78 H 96 08/18/18 16:00 08/18/18 16:00 08/18/18 16:00 08/19/18 09:03 08/18/18 16:00 - Medications Medications: Current Medications Apixaban (Eliquis) 2.5 mg PO BID [facility]; Protocol Last Admin: 08/19/18 09:03 Dose: 2.5 mg Atorvastatin Calcium (Lipitor) 40 mg PO HS [facility]; Protocol Last Admin: 08/18/18 21:41 Dose: 40 mg Bandage/Support Products (Unna-Flex Elastic Unna Boot) 1 dev TOP ONCE ONE Stop: 08/19/18 09:24 Betamethasone/Clotrimazole (Lotrisone) 0 ml TOP BID [facility] Last Admin: 08/19/18 09:03 Dose: 1 applic Furosemide (Lasix) 20 mg PO DAILY [facility]; Protocol Last Admin: 08/19/18 09:03 Dose: 20 mg Gabapentin (Neurontin) 400 mg PO TID [facility]; Protocol Last Admin: 08/19/18 09:03 Dose: 400 mg Glipizide (Glucotrol) 10 mg PO BID [facility]; Protocol Last Admin: 08/19/18 09:03 Dose: 10 mg Cefepime HCl (Maxipime 1gm) 1 gm in 100 mls @ 100 mls/hr IVPB Q8 [facility]; Protocol Last Admin: 08/19/18 05:22 Dose: 100 mls/hr Vancomycin HCl (Vancomycin 1gm) 1 gm in 250 mls @ 167 mls/hr IVPB 0600,1800 [facility]; Protocol Last Admin: 08/19/18 05:22 Dose: 167 mls/hr Insulin Human Regular (Humulin R High) 0 units SC ACHS [facility]; Protocol Last Admin: 08/19/18 06:53 Dose: 2 unit Multivitamins/Minerals (Therapeutic-M Tab) 1 tab PO 0800 [facility] Last Admin: 08/19/18 08:32 Dose: 1 tab Nystatin (Nystop Topical Powder) 0 gm TOP BID [facility] Last Admin: 08/19/18 09:04 Dose: 1 applic Ramipril (Altace) 10 mg PO DAILY [facility]; Protocol Last Admin: 08/19/18 09:03 Dose: 10 mg - Constitutional Appears: Well, Non-toxic, No Acute Distress - Head Exam Head Exam: ATRAUMATIC, NORMOCEPHALIC - Extremities Exam Additional comments: Marianna boots C/D/I - Neurological Exam Neurological Exam: Alert, Awake, Oriented x3 - Psychiatric Exam Psychiatric exam: Normal Affect, Normal Mood Assessment and Plan - Assessment and Plan (Free Text) Assessment: 57 y/o diabetic male with bilateral lower extremity lymphedema, Left leg cellulitis and stasis ulceration Plan: Patient seen and evaluated at bedside Discussed in detail with Dr. Guerrero Labs and vitals reviewed- afebrile, WBC 9.9 (08/11) ID on board: Recommendations appreciated Continue PT Podiatry will follow up the patient while in house <Marin Guerrero - Last Filed: 08/22/18 13:00> Objective - Vital Signs/Intake and Output Vital Signs (last 24 hours): Temp Pulse Resp BP Pulse Ox 98 F 66 18 139/75 95 08/21/18 16:00 08/21/18 16:00 08/21/18 16:00 08/22/18 09:41 08/21/18 16:00 - Medications Medications: Current Medications Apixaban (Eliquis) 2.5 mg PO BID [facility]; Protocol Last Admin: 08/22/18 09:41 Dose: 2.5 mg Atorvastatin Calcium (Lipitor) 40 mg PO HS [facility]; Protocol Last Admin: 08/21/18 21:13 Dose: 40 mg Betamethasone/Clotrimazole (Lotrisone) 0 ml TOP BID [facility] Last Admin: 08/22/18 09:42 Dose: 1 applic Furosemide (Lasix) 20 mg PO DAILY [facility]; Protocol Last Admin: 08/22/18 09:41 Dose: 20 mg Gabapentin (Neurontin) 400 mg PO TID [facility]; Protocol Last Admin: 08/22/18 09:41 Dose: 400 mg Glipizide (Glucotrol) 10 mg PO BID [facility]; Protocol Last Admin: 08/22/18 09:41 Dose: 10 mg Insulin Human Regular (Humulin R High) 0 units SC ACHS [facility]; Protocol Last Admin: 08/22/18 12:01 Dose: 4 unit Multivitamins/Minerals (Therapeutic-M Tab) 1 tab PO 0800 [facility] Last Admin: 08/22/18 09:00 Dose: 1 tab Nystatin (Nystop Topical Powder) 0 gm TOP BID [facility] Last Admin: 08/22/18 09:42 Dose: 1 applic Ramipril (Altace) 10 mg PO DAILY [facility]; Protocol Last Admin: 08/22/18 09:42 Dose: 10 mg Attending/Attestation - Attestation I have personally seen and examined this patient.: Yes I have fully participated in the care of the patient.: Yes I have reviewed all pertinent clinical information, including history, physical exam and plan: Yes
--- NOTE | 2018-08-19 12:25 | CP.PCM.PN ---
Subjective - Date & Time of Evaluation Date of Evaluation: 08/19/18 Time of Evaluation: 09:40 - Subjective Subjective: Comfortable, no fevers. Objective - Vital Signs/Intake and Output Vital Signs (last 24 hours): Temp Pulse Resp BP Pulse Ox 98.7 F 58 L 18 170/86 H 95 08/17/18 16:00 08/17/18 16:00 08/17/18 16:00 08/18/18 10:45 08/17/18 16:00 - Medications Medications: Current Medications Apixaban (Eliquis) 2.5 mg PO BID [facility]; Protocol Last Admin: 08/18/18 10:45 Dose: 2.5 mg Atorvastatin Calcium (Lipitor) 40 mg PO HS [facility]; Protocol Last Admin: 08/17/18 21:48 Dose: 40 mg Betamethasone/Clotrimazole (Lotrisone) 0 ml TOP BID [facility] Last Admin: 08/18/18 10:28 Dose: 1 applic Furosemide (Lasix) 20 mg PO DAILY [facility]; Protocol Last Admin: 08/18/18 10:45 Dose: 20 mg Gabapentin (Neurontin) 400 mg PO TID [facility]; Protocol Last Admin: 08/18/18 14:30 Dose: 400 mg Glipizide (Glucotrol) 10 mg PO BID [facility]; Protocol Last Admin: 08/18/18 10:45 Dose: 10 mg Cefepime HCl (Maxipime 1gm) 1 gm in 100 mls @ 100 mls/hr IVPB Q8 [facility]; Protocol Last Admin: 08/18/18 14:29 Dose: 100 mls/hr Vancomycin HCl (Vancomycin 1gm) 1 gm in 250 mls @ 167 mls/hr IVPB 0600,1800 [facility]; Protocol Last Admin: 08/18/18 05:14 Dose: 167 mls/hr Insulin Human Regular (Humulin R High) 0 units SC ACHS [facility]; Protocol Last Admin: 08/18/18 12:24 Dose: 4 unit Multivitamins/Minerals (Therapeutic-M Tab) 1 tab PO 0800 [facility] Last Admin: 08/18/18 08:19 Dose: 1 tab Nystatin (Nystop Topical Powder) 0 gm TOP BID [facility] Last Admin: 08/18/18 14:30 Dose: 1 applic Ramipril (Altace) 10 mg PO DAILY [facility]; Protocol Last Admin: 08/18/18 10:45 Dose: 10 mg - Constitutional Appears: Chronically Ill - Head Exam Head Exam: NORMAL INSPECTION - Respiratory Exam Respiratory Exam: Decreased Breath Sounds - Cardiovascular Exam Cardiovascular Exam: +S1, +S2 - GI/Abdominal Exam GI & Abdominal Exam: Soft. absent: Tenderness - Extremities Exam Additional comments: both legs with dressings in place Assessment and Plan - Assessment and Plan (Free Text) Plan: Assessment consider right lower extremity infected chronic wounds history of sepsis due to right leg skin and skin structure infection associated with chronic leg ulcers, clinically improved and S/P treatment history of MRSA and Klebsiella oxytoca right leg cellulitis history of sepsis secondary to right leg skin/skin structure infection with chronic leg ulcers, growing MRSA and sensitive Klebsiella history of MRSA cellulitis Jun. 2015 history of Bilateral lower extremity skin and skin structure infection (Enterobacter, Klebsiella Oxytoca and Group B Strep, as well as MRSA) which was treated 06/2015; MRSA and Pseudomonas cellulitis of left leg in Sep 2015, January and March 2016 chronic lymphedema of the lower extremities Morbid obesity with BMI 35 HTN DM history of Strep bacteremia history of hernia surgery Learning disability Plan continue Vancomycin and Cefepime (patient is tolerating Cefepime without rash, no respiratory distress, no hives) day 8 for 7-10 days surgery doing local wound care will continue to monitor clinically
--- NOTE | 2018-08-19 17:55 | PN ---
DATE: 08/19/2018 SUBJECTIVE: The patient is 57 years old, seen and examined, sitting in chair. Was admitted because of worsening bilateral leg wound infection. The patient is busy his books. Offered no complaint. PHYSICAL EXAMINATION: VITAL SIGNS: He is afebrile, pulse 60, respirations 20, blood pressure 148/73. LUNGS: Bilateral fair airflow. No rhonchi or crackle. HEART: S1 and S2 audible. ABDOMEN: Soft, obese, nontender. No rebound. No guarding. NEUROLOGICAL: He is awake and alert, slow to respond. EXTREMITIES: Bilateral leg, chronic stasis dermatitis. Foul-smelling wound discharge from both legs. The legs are wrapped. Wound care is being done with the Podiatry team. LABORATORY EXAM: Blood sugar is 213. ASSESSMENT: 1. Morbid obesity. 2. Chronic stasis dermatitis. 3. Bilateral leg cellulitis. 4. Chronic atrial fibrillation. 5. Hypertension. 6. Hyperlipidemia. 7. Diabetic neuropathy. PLAN: The patient's MAR reviewed. Found to be appropriate. Medications renewed. Monitor blood sugar. Currently, the patient is on IV vancomycin. He is on statin. His blood sugar is being monitored. He is on Eliquis. Encourage physical therapy. We will follow up in the a.m. Maria Hunt MD
[2018-08-20] MEDS: Cefepime 1gm in NS 100ml 1 GM/100 ML BAG IVPB SCH ×3 (06:29→21:18)
[2018-08-20] MEDS: Insulin Reg-HIGH-Coverage SC SCH ×4 (07:08→21:18)
[2018-08-20] MEDS: Vancomycin 1gm in NS 250ml 1 GM/250 ML BAG IVPB SCH ×2 (08:28→21:43)
[2018-08-20] MEDS: Multivitamin With Minerals Tab PO SCH (09:03)
[2018-08-20] MEDS: Clotrimazole/Betamethasone Lotion(30 ml) TOP SCH ×2 (10:58→17:40)
[2018-08-20] MEDS: Nystatin 100,000 Units/gm Topical Pow(15 gm) TOP SCH ×2 (10:59→17:41)
--- NOTE | 2018-08-20 12:04 | CP.PCM.PN ---
Subjective - Date & Time of Evaluation Date of Evaluation: 08/20/18 Time of Evaluation: 10:20 - Subjective Subjective: Not in distress, non-toxic, no fevers. Objective - Vital Signs/Intake and Output Vital Signs (last 24 hours): Temp Pulse Resp BP Pulse Ox 98.5 F 63 18 155/78 H 96 08/18/18 16:00 08/18/18 16:00 08/18/18 16:00 08/19/18 09:03 08/18/18 16:00 - Medications Medications: Current Medications Apixaban (Eliquis) 2.5 mg PO BID [facility]; Protocol Last Admin: 08/19/18 09:03 Dose: 2.5 mg Atorvastatin Calcium (Lipitor) 40 mg PO HS [facility]; Protocol Last Admin: 08/18/18 21:41 Dose: 40 mg Betamethasone/Clotrimazole (Lotrisone) 0 ml TOP BID [facility] Last Admin: 08/19/18 09:03 Dose: 1 applic Furosemide (Lasix) 20 mg PO DAILY [facility]; Protocol Last Admin: 08/19/18 09:03 Dose: 20 mg Gabapentin (Neurontin) 400 mg PO TID [facility]; Protocol Last Admin: 08/19/18 09:03 Dose: 400 mg Glipizide (Glucotrol) 10 mg PO BID [facility]; Protocol Last Admin: 08/19/18 09:03 Dose: 10 mg Cefepime HCl (Maxipime 1gm) 1 gm in 100 mls @ 100 mls/hr IVPB Q8 [facility]; Protocol Last Admin: 08/19/18 05:22 Dose: 100 mls/hr Vancomycin HCl (Vancomycin 1gm) 1 gm in 250 mls @ 167 mls/hr IVPB 0600,1800 [facility]; Protocol Last Admin: 08/19/18 05:22 Dose: 167 mls/hr Insulin Human Regular (Humulin R High) 0 units SC ACHS [facility]; Protocol Last Admin: 08/19/18 12:12 Dose: 4 unit Multivitamins/Minerals (Therapeutic-M Tab) 1 tab PO 0800 [facility] Last Admin: 08/19/18 08:32 Dose: 1 tab Nystatin (Nystop Topical Powder) 0 gm TOP BID [facility] Last Admin: 08/19/18 09:04 Dose: 1 applic Ramipril (Altace) 10 mg PO DAILY [facility]; Protocol Last Admin: 08/19/18 09:03 Dose: 10 mg - Constitutional Appears: No Acute Distress, Chronically Ill - Head Exam Head Exam: NORMAL INSPECTION - Respiratory Exam Respiratory Exam: Decreased Breath Sounds - Cardiovascular Exam Cardiovascular Exam: +S1, +S2 - GI/Abdominal Exam GI & Abdominal Exam: Soft. absent: Tenderness - Extremities Exam Additional comments: both lower extremities with dressings in place Assessment and Plan - Assessment and Plan (Free Text) Plan: Assessment consider right lower extremity infected chronic wounds history of sepsis due to right leg skin and skin structure infection associated with chronic leg ulcers, clinically improved and S/P treatment history of MRSA and Klebsiella oxytoca right leg cellulitis history of sepsis secondary to right leg skin/skin structure infection with chronic leg ulcers, growing MRSA and sensitive Klebsiella history of MRSA cellulitis 2015 history of Bilateral lower extremity skin and skin structure infection (Enterobacter, Klebsiella Oxytoca and Group B Strep, as well as MRSA) which was treated 06/2015; MRSA and Pseudomonas cellulitis of left leg in Sep 2015, January and March 2016 chronic lymphedema of the lower extremities Morbid obesity with BMI 35 HTN DM history of Strep bacteremia history of hernia surgery Learning disability Plan continue Vancomycin and Cefepime (patient is tolerating Cefepime without rash, no respiratory distress, no hives) day 9 for 7-10 days surgery doing local wound care will continue to follow clinically
--- NOTE | 2018-08-20 19:20 | PN ---
DATE: 08/20/2018 SUBJECTIVE: The patient is years 57 years old, seen and examined, sitting in chair, seems to be comfortable, just had bilateral leg dressing done by Podiatry team. PHYSICAL EXAMINATION: VITAL SIGNS: He is afebrile, pulse 60, respirations 20, blood pressure 157/84. LUNGS: Bilateral fair airflow. No rhonchi or crackle. HEART: S1 and S2 audible. ABDOMEN: Soft, nontender. No rebound. No guarding. Obese. No hepatosplenomegaly. EXTREMITIES: Bilateral leg cellulitis and chronic stasis dermatitis. LABORATORY EXAM: Blood sugar is 178. ASSESSMENT: 1. Morbid obesity. 2. Cerebral palsy. 3. Bilateral chronic stasis dermatitis. 4. Insulin-dependent diabetes. 5. Hypertension. 6. Hyperlipidemia. 7. Diabetic neuropathy. PLAN: Currently, the patient is on ramipril 10 mg daily, getting Eliquis for AFib. He is on glipizide 10 mg twice a day, he will get Lasix 20 mg daily. He is on Lipitor. He is on gabapentin 400 three times a day and he is on vancomycin 1 gm every [address] Rousseau will follow up patient in a.m. Maria Hunt MD
[2018-08-21] MEDS: Vancomycin 1gm in NS 250ml 1 GM/250 ML BAG IVPB SCH (05:09)
[2018-08-21] MEDS: Cefepime 1gm in NS 100ml 1 GM/100 ML BAG IVPB SCH (05:09)
[2018-08-21] MEDS: Insulin Reg-HIGH-Coverage SC SCH ×4 (07:04→22:01)
[2018-08-21] MEDS: Multivitamin With Minerals Tab PO SCH (08:42)
[2018-08-21] MEDS: Clotrimazole/Betamethasone Lotion(30 ml) TOP SCH ×2 (10:09→17:13)
[2018-08-21] MEDS: Nystatin 100,000 Units/gm Topical Pow(15 gm) TOP SCH ×2 (10:09→17:13)
--- NOTE | 2018-08-21 10:13 | PN ---
DATE: 08/21/2018 SUBJECTIVE: The patient has no complaints of any chest pain. No shortness of breath, no headaches or dizziness. PHYSICAL EXAMINATION: VITAL SIGNS: Temperature is 98.1, pulse of 80, blood pressure 142/81, respirations 20. GENERAL: The patient is lying in bed, flat, comfortable. HEENT: No oral lesion. Anicteric sclerae. Moist mucosa. NECK: No JVD, adenopathy, or thyromegaly. CARDIOVASCULAR: S1 and S2, regular. No murmurs, rubs, or gallops. LUNGS: Clear to auscultation bilaterally. No wheeze, rales, or rhonchi. ABDOMEN: Bowel sounds are positive, soft, nontender and nondistended. EXTREMITIES: No cyanosis, clubbing or edema. SKIN: Lower extremities, chronic skin changes. ASSESSMENT: 1. Left foot cellulitis, resolved. 2. Chronic lower extremity lymphedema bilaterally. 3. Atrial fibrillation, on Eliquis. 4. Hypertension. 5. Diabetes type 2. 6. Dyslipidemia. 7. Peripheral neuropathy. PLAN: The patient is currently comfortable. He is getting his IV antibiotics. He is on glipizide for his diabetes. He is receiving ramipril for his hypertension. He is going to be on atorvastatin for his dyslipidemia. The patient is on cefepime for antibiotics and vancomycin. He is on a heart-healthy diet. Winston Streeter MD
--- NOTE | 2018-08-21 12:51 | CP.PCM.PN ---
Subjective - Date & Time of Evaluation Date of Evaluation: 08/21/18 Time of Evaluation: 10:05 - Subjective Subjective: Comfortable in bed, no fevers. Objective - Vital Signs/Intake and Output Vital Signs (last 24 hours): Temp Pulse Resp BP Pulse Ox 98.2 F 60 20 157/84 H 97 08/19/18 16:00 08/19/18 16:00 08/19/18 16:00 08/20/18 10:56 08/19/18 16:00 - Medications Medications: Current Medications Apixaban (Eliquis) 2.5 mg PO BID [facility]; Protocol Last Admin: 08/20/18 10:56 Dose: 2.5 mg Atorvastatin Calcium (Lipitor) 40 mg PO HS [facility]; Protocol Last Admin: 08/19/18 21:21 Dose: 40 mg Betamethasone/Clotrimazole (Lotrisone) 0 ml TOP BID [facility] Last Admin: 08/20/18 10:58 Dose: 1 applic Furosemide (Lasix) 20 mg PO DAILY [facility]; Protocol Last Admin: 08/20/18 10:56 Dose: 20 mg Gabapentin (Neurontin) 400 mg PO TID [facility]; Protocol Last Admin: 08/20/18 10:59 Dose: 400 mg Glipizide (Glucotrol) 10 mg PO BID [facility]; Protocol Last Admin: 08/20/18 10:56 Dose: 10 mg Cefepime HCl (Maxipime 1gm) 1 gm in 100 mls @ 100 mls/hr IVPB Q8 [facility]; Protocol Last Admin: 08/20/18 06:29 Dose: 100 mls/hr Vancomycin HCl (Vancomycin 1gm) 1 gm in 250 mls @ 167 mls/hr IVPB 0600,1800 [facility]; Protocol Last Admin: 08/20/18 08:28 Dose: 167 mls/hr Insulin Human Regular (Humulin R High) 0 units SC ACHS [facility]; Protocol Last Admin: 08/20/18 07:08 Dose: 2 unit Multivitamins/Minerals (Therapeutic-M Tab) 1 tab PO 0800 [facility] Last Admin: 08/20/18 09:03 Dose: 1 tab Nystatin (Nystop Topical Powder) 0 gm TOP BID [facility] Last Admin: 08/20/18 10:59 Dose: 1 applic Ramipril (Altace) 10 mg PO DAILY [facility]; Protocol Last Admin: 08/20/18 10:55 Dose: 10 mg - Constitutional Appears: Chronically Ill - Head Exam Head Exam: NORMAL INSPECTION - Respiratory Exam Respiratory Exam: Decreased Breath Sounds - Cardiovascular Exam Cardiovascular Exam: +S1, +S2 - GI/Abdominal Exam GI & Abdominal Exam: Soft. absent: Tenderness - Extremities Exam Additional comments: both legs with dressings in place Assessment and Plan - Assessment and Plan (Free Text) Plan: Assessment consider right lower extremity infected chronic wounds history of sepsis due to right leg skin and skin structure infection associated with chronic leg ulcers, clinically improved and S/P treatment history of MRSA and Klebsiella oxytoca right leg cellulitis history of sepsis secondary to right leg skin/skin structure infection with chronic leg ulcers, growing MRSA and sensitive Klebsiella history of MRSA cellulitis Jun. 2015 history of Bilateral lower extremity skin and skin structure infection (Enterobacter, Klebsiella Oxytoca and Group B Strep, as well as MRSA) which was treated 06/2015; MRSA and Pseudomonas cellulitis of left leg in Sep 2015, January and March 2016 chronic lymphedema of the lower extremities Morbid obesity with BMI 35 HTN DM history of Strep bacteremia history of hernia surgery Learning disability Plan will d/c Vancomycin and Cefepime - had 10 days of antibiotics (patient is tolerating Cefepime without rash, no respiratory distress, no hives) surgery doing local wound care will continue to follow clinically
--- NOTE | 2018-08-21 14:32 | CP.PCM.PN ---
Subjective - Date & Time of Evaluation Date of Evaluation: 08/21/18 Time of Evaluation: 14:30 - Subjective Subjective: Podiatry progress note for Dr. Horta 57 y/o male was seen and evaluated at bedside. Patient is resting comfortably in chair at bedside. Patient denies any acute overnight events. Patient teddy F/N/V/SOB/chills Objective - Vital Signs/Intake and Output Vital Signs (last 24 hours): Temp Pulse Resp BP Pulse Ox 98.1 F 80 20 163/87 H 90 L 08/20/18 16:00 08/20/18 16:00 08/20/18 16:00 08/21/18 10:08 08/20/18 16:00 - Medications Medications: Current Medications Apixaban (Eliquis) 2.5 mg PO BID [facility]; Protocol Last Admin: 08/21/18 10:08 Dose: 2.5 mg Atorvastatin Calcium (Lipitor) 40 mg PO HS [facility]; Protocol Last Admin: 08/20/18 21:18 Dose: 40 mg Betamethasone/Clotrimazole (Lotrisone) 0 ml TOP BID [facility] Last Admin: 08/21/18 10:09 Dose: Not Given Furosemide (Lasix) 20 mg PO DAILY [facility]; Protocol Last Admin: 08/21/18 10:08 Dose: 20 mg Gabapentin (Neurontin) 400 mg PO TID [facility]; Protocol Last Admin: 08/21/18 10:09 Dose: 400 mg Glipizide (Glucotrol) 10 mg PO BID [facility]; Protocol Last Admin: 08/21/18 10:08 Dose: 10 mg Insulin Human Regular (Humulin R High) 0 units SC ACHS [facility]; Protocol Last Admin: 08/21/18 12:13 Dose: 2 unit Multivitamins/Minerals (Therapeutic-M Tab) 1 tab PO 0800 [facility] Last Admin: 08/21/18 08:42 Dose: 1 tab Nystatin (Nystop Topical Powder) 0 gm TOP BID [facility] Last Admin: 08/21/18 10:09 Dose: 1 applic Ramipril (Altace) 10 mg PO DAILY [facility]; Protocol Last Admin: 08/21/18 10:08 Dose: 10 mg - Constitutional Appears: Well, Non-toxic, No Acute Distress - Head Exam Head Exam: ATRAUMATIC, NORMOCEPHALIC - Extremities Exam Additional comments: Patient Unnaboots intact, clean and dry - Neurological Exam Neurological Exam: Alert, Awake, Oriented x3 - Psychiatric Exam Psychiatric exam: Normal Affect, Normal Mood Assessment and Plan - Assessment and Plan (Free Text) Assessment: 57 y/o diabetic male with bilateral lower extremity lymphedema, Left leg cellulitis and stasis ulceration Plan: Patient seen and evaluated at bedside Labs and vitals reviewed- afebrile, WBC 9.9 (08/11) ID on board: Recommendations appreciated Patient can shower today, and Unnaboots can be removed No dressings at this time Podiatry will put on Unnaboots prior to patient discharge Continue PT Podiatry will follow up the patient while in house
[2018-08-22 00:46] VITALS: RESP 18
[2018-08-22] MEDS: Insulin Reg-HIGH-Coverage SC SCH ×4 (06:55→21:03)
[2018-08-22] MEDS: Multivitamin With Minerals Tab PO SCH (09:00)
[2018-08-22] MEDS: Nystatin 100,000 Units/gm Topical Pow(15 gm) TOP SCH ×2 (09:42→18:08)
[2018-08-22] MEDS: Clotrimazole/Betamethasone Lotion(30 ml) TOP SCH ×2 (09:42→18:07)
--- NOTE | 2018-08-22 13:08 | CP.PCM.PN ---
<Mervin Lizmor - Last Filed: 08/22/18 13:06> Subjective - Date & Time of Evaluation Date of Evaluation: 08/22/18 Time of Evaluation: 13:06 - Subjective Subjective: Podiatry progress note for Dr. Guerrero 57 y/o male was seen and evaluated at bedside. Patient is resting comfortably in chair at bedside. Patient denies any acute overnight events. Patient teddy F/N/V/SOB/chills Objective - Vital Signs/Intake and Output Vital Signs (last 24 hours): Temp Pulse Resp BP Pulse Ox 98 F 66 18 139/75 95 08/21/18 16:00 08/21/18 16:00 08/21/18 16:00 08/22/18 09:41 08/21/18 16:00 - Medications Medications: Current Medications Apixaban (Eliquis) 2.5 mg PO BID [facility]; Protocol Last Admin: 08/22/18 09:41 Dose: 2.5 mg Atorvastatin Calcium (Lipitor) 40 mg PO HS [facility]; Protocol Last Admin: 08/21/18 21:13 Dose: 40 mg Betamethasone/Clotrimazole (Lotrisone) 0 ml TOP BID [facility] Last Admin: 08/22/18 09:42 Dose: 1 applic Furosemide (Lasix) 20 mg PO DAILY [facility]; Protocol Last Admin: 08/22/18 09:41 Dose: 20 mg Gabapentin (Neurontin) 400 mg PO TID [facility]; Protocol Last Admin: 08/22/18 09:41 Dose: 400 mg Glipizide (Glucotrol) 10 mg PO BID [facility]; Protocol Last Admin: 08/22/18 09:41 Dose: 10 mg Insulin Human Regular (Humulin R High) 0 units SC ACHS [facility]; Protocol Last Admin: 08/22/18 12:01 Dose: 4 unit Multivitamins/Minerals (Therapeutic-M Tab) 1 tab PO 0800 [facility] Last Admin: 08/22/18 09:00 Dose: 1 tab Nystatin (Nystop Topical Powder) 0 gm TOP BID [facility] Last Admin: 08/22/18 09:42 Dose: 1 applic Ramipril (Altace) 10 mg PO DAILY [facility]; Protocol Last Admin: 08/22/18 09:42 Dose: 10 mg - Constitutional Appears: Well, Non-toxic, No Acute Distress - Head Exam Head Exam: ATRAUMATIC, NORMOCEPHALIC - Extremities Exam Additional comments: Vasc: DP 2/4, PT pulse is non palpable 2ry to edema . Temperature gradient warm to warm from proximal to distal. Cap refill < 3 sec to all digits. Diffuse non pitting pedal edema noted from tibial tuberosity to digits Neuro: Protective and gross sensations are grossly intact Derm: Diffuse elephantiasis skin changes with lichnification and wart like skin lesions secondary scaling noted to the foot and leg up to the level of the tibial tuberosity. Superficial ulceration improved on LLE superior to the medial malleolus, no purulence, Mild malodor, no fluctuance. No clinical suspicion for infection. Slight erythema noted. MSK: No tenderness to posterior calf. No tenderness to palpation. Muscle power intact 5/5 in all groups. - Neurological Exam Neurological Exam: Alert, Awake, Oriented x3 - Psychiatric Exam Psychiatric exam: Normal Affect, Normal Mood Assessment and Plan - Assessment and Plan (Free Text) Assessment: 57 y/o diabetic male with bilateral lower extremity lymphedema, Left leg cellulitis and stasis ulceration Plan: Patient seen and evaluated at bedside Discussed in detail with Dr. Guerrero Labs and vitals reviewed- afebrile, WBC 9.9 (08/11) ID on board: Recommendations appreciated No dressing at this time Podiatry will apply UnnaBoot prior to discharge Continue PT Podiatry will follow up the patient while in house <Marin Guerrero - Last Filed: 08/22/18 15:13> Objective - Vital Signs/Intake and Output Vital Signs (last 24 hours): Temp Pulse Resp BP Pulse Ox 98 F 66 18 139/75 95 08/21/18 16:00 08/21/18 16:00 08/21/18 16:00 08/22/18 09:41 08/21/18 16:00 - Medications Medications: Current Medications Apixaban (Eliquis) 2.5 mg PO BID [facility]; Protocol Last Admin: 08/22/18 09:41 Dose: 2.5 mg Atorvastatin Calcium (Lipitor) 40 mg PO HS [facility]; Protocol Last Admin: 08/21/18 21:13 Dose: 40 mg Betamethasone/Clotrimazole (Lotrisone) 0 ml TOP BID [facility] Last Admin: 08/22/18 09:42 Dose: 1 applic Furosemide (Lasix) 20 mg PO DAILY [facility]; Protocol Last Admin: 08/22/18 09:41 Dose: 20 mg Gabapentin (Neurontin) 400 mg PO TID [facility]; Protocol Last Admin: 08/22/18 09:41 Dose: 400 mg Glipizide (Glucotrol) 10 mg PO BID [facility]; Protocol Last Admin: 08/22/18 09:41 Dose: 10 mg Insulin Human Regular (Humulin R High) 0 units SC ACHS [facility]; Protocol Last Admin: 08/22/18 12:01 Dose: 4 unit Multivitamins/Minerals (Therapeutic-M Tab) 1 tab PO 0800 [facility] Last Admin: 08/22/18 09:00 Dose: 1 tab Nystatin (Nystop Topical Powder) 0 gm TOP BID [facility] Last Admin: 08/22/18 09:42 Dose: 1 applic Ramipril (Altace) 10 mg PO DAILY [facility]; Protocol Last Admin: 08/22/18 09:42 Dose: 10 mg Attending/Attestation - Attestation I have personally seen and examined this patient.: Yes I have fully participated in the care of the patient.: Yes I have reviewed all pertinent clinical information, including history, physical exam and plan: Yes
--- NOTE | 2018-08-22 20:16 | PN ---
DATE: 08/22/2018 SUBJECTIVE: The patient is seen in bed, in no acute distress, nontoxic. OBJECTIVE: VITAL SIGNS: Temperature is 98, blood pressure is 130/70, and respiratory rate of 18. HEENT: Unremarkable. NECK: Supple. LUNGS: Have decreased breath sounds. HEART: Normal S1 and S2. ABDOMEN: Soft. LABORATORY DATA: Reviewed. ASSESSMENT AND PLAN: This is a 57-year-old with morbid obesity with right lower extremity infected chronic wound and with hypertension, diabetes, history of Streptococcus bacteremia, history of hernia surgery patient completed the vancomycin and cefepime, currently off of antibiotics. The patient is at risk for developing nosocomial infections. We will follow with you. Jean-Claude Aviles MD
[2018-08-23] MEDS: Insulin Reg-HIGH-Coverage SC SCH ×2 (06:51→11:43)
[2018-08-23] MEDS: Multivitamin With Minerals Tab PO SCH (09:00)
--- NOTE | 2018-08-23 09:10 | CP.PCM.PN ---
Subjective - Date & Time of Evaluation Date of Evaluation: 08/23/18 Time of Evaluation: 09:06 - Subjective Subjective: Podiatry consult note for Dr. Horta 57 y/o male seen and evaluated for bilateral lower extremity edema. Patient denies any complaints at this time. Patient was seen resting comfortably in the chair at bedside. He denies N/V/F/C/SOB/CP and has no acute pedal complaints today. As per nursing, patient will be discharged today from TCU Objective - Vital Signs/Intake and Output Vital Signs (last 24 hours): Temp Pulse Resp BP Pulse Ox 98 F 66 18 139/75 95 08/21/18 16:00 08/21/18 16:00 08/21/18 16:00 08/22/18 09:41 08/21/18 16:00 - Medications Medications: Current Medications Apixaban (Eliquis) 2.5 mg PO BID [facility]; Protocol Last Admin: 08/22/18 18:06 Dose: 2.5 mg Atorvastatin Calcium (Lipitor) 40 mg PO HS [facility]; Protocol Last Admin: 08/22/18 21:03 Dose: 40 mg Betamethasone/Clotrimazole (Lotrisone) 0 ml TOP BID [facility] Last Admin: 08/22/18 18:07 Dose: 1 applic Furosemide (Lasix) 20 mg PO DAILY [facility]; Protocol Last Admin: 08/22/18 09:41 Dose: 20 mg Gabapentin (Neurontin) 400 mg PO TID [facility]; Protocol Last Admin: 08/22/18 18:08 Dose: 400 mg Glipizide (Glucotrol) 10 mg PO BID [facility]; Protocol Last Admin: 08/22/18 18:07 Dose: 10 mg Insulin Human Regular (Humulin R High) 0 units SC ACHS [facility]; Protocol Last Admin: 08/23/18 06:51 Dose: 4 unit Multivitamins/Minerals (Therapeutic-M Tab) 1 tab PO 0800 [facility] Last Admin: 08/22/18 09:00 Dose: 1 tab Nystatin (Nystop Topical Powder) 0 gm TOP BID [facility] Last Admin: 08/22/18 18:08 Dose: 1 applic Ramipril (Altace) 10 mg PO DAILY [facility]; Protocol Last Admin: 08/22/18 09:42 Dose: 10 mg - Constitutional Appears: Well, Non-toxic, No Acute Distress - Head Exam Head Exam: ATRAUMATIC, NORMOCEPHALIC - Extremities Exam Additional comments: Vasc: DP 2/4, PT pulse is non palpable 2ry to edema . Temperature gradient warm to warm from proximal to distal. Cap refill < 3 sec to all digits. Diffuse non pitting pedal edema noted from tibial tuberosity to digits Neuro: Protective and gross sensations are grossly intact Derm: Diffuse elephantiasis skin changes with lichnification and wart like skin lesions secondary scaling noted to the foot and leg up to the level of the tibial tuberosity. Superficial ulceration improved on LLE superior to the medial malleolus, no purulence, Mild malodor, no fluctuance. No clinical suspicion for infection. Slight erythema noted. MSK: No tenderness to posterior calf. No tenderness to palpation. Muscle power intact 5/5 in all groups. - Neurological Exam Neurological Exam: Alert, Awake, Oriented x3 - Psychiatric Exam Psychiatric exam: Normal Affect, Normal Mood Assessment and Plan - Assessment and Plan (Free Text) Assessment: 57 y/o diabetic male with bilateral lower extremity lymphedema, Left leg cellulitis Plan: Patient seen and evaluated at bedside Discussed in detail with Dr. Horta Labs and vitals reviewed- afebrile at this time ID on board: Recommendations appreciated Lotrisone lotion applied to the LLE. Nystatin powder applied between folds of legs and behind the left knee Unna boot applied b/l with cobjordi Podiatry will follow up the patient while in house Patient stable for discharge from Podiatry standpoint Patient will follow up in [facility] as needed
[2018-08-23] MEDS: Nystatin 100,000 Units/gm Topical Pow(15 gm) TOP SCH (09:31)
[2018-08-23] MEDS: Clotrimazole/Betamethasone Lotion(30 ml) TOP SCH (09:31)
[2018-08-23 11:05] VITALS: BP 166/84; PULSE 62; TEMP 98.7; O2SAT 96
--- NOTE | 2018-08-23 12:58 | DS ---
HISTORY OF PRESENT ILLNESS: This is a 57-year-old male who was admitted to the hospital because of lower leg cellulitis. The patient has a history of chronic cellulitis. He was transferred to Transitional Care Unit for rehab. Patient has no complaints of any chest pain, shortness of breath, headaches, or dizziness. PHYSICAL EXAMINATION: VITAL SIGNS: Temperature is 98, pulse 66, blood pressure 140/72, respirations are 18, O2 saturation is 95%. GENERAL: The patient is lying in bed, flat, comfortable. HEENT: No oral lesion. Anicteric sclerae. Moist mucosa. NECK: No JVD, adenopathy, or thyromegaly. CARDIOVASCULAR: S1 and S2, regular. No murmurs, rubs, or gallops. LUNGS: Clear to auscultation bilaterally. No wheeze, rales, or rhonchi. ABDOMEN: Bowel sounds are positive, soft, nontender and nondistended. EXTREMITIES: Lower extremities, there is chronic skin changes bilaterally. ASSESSMENT: 1. Left foot cellulitis, resolved. 2. Atrial fibrillation, on Eliquis. 3. Hypertension. 4. Diabetes type II. 5. Dyslipidemia. 6. Peripheral neuropathy. PLAN: The patient is on Eliquis for anticoagulation. Is going to continue the patient on Glucotrol for diabetes. He is going to be on Lasix daily. He is on Lipitor for dyslipidemia. The patient is on a heart healthy diet. CONDITION: Stable. ACTIVITIES: Increase as tolerated. Winston Streeter MD
--- NOTE | 2018-08-24 01:04 | PN ---
DATE: 08/23/2018 SUBJECTIVE: The patient is in bed, in no acute distress, nontoxic. OBJECTIVE: VITALS: On exam, temperature is 98, blood pressure is 166/80, respiratory rate 18, heart rate of 62. HEENT: Unremarkable. NECK: Supple. LUNGS: Have decreased breath sounds. HEART: Normal S1, S2. ABDOMEN: Soft, nontender. LABORATORY DATA: Reviewed. ASSESSMENT AND PLAN: Reveals the patient is a 57-year-old male, who was seen earlier this morning in Room 304 with morbid obesity, BMI of 49, large right lower extremity infected chronic wound, hypertension, diabetes, history of streptococcus bacteremia, history of hernia surgery, completed antibiotic therapy with vancomycin and cefepime. Currently, the patient is scheduled for discharge, off of antibiotics. Risk for developing nosocomial infections. Jean-Claude Aviles MD
== END 2018-08-23 15:45 | disposition home or self-care (01) | DRG 92 ==
LOC: TRCU 20:42
PROVIDERS: ADMIT Internal Medicine Nephrology; ATTEND Internal Medicine Nephrology
PROC: 3E03329 Introduction of Other Anti-infective into Peripheral Vein, Percutaneous Approach (ICD-10-PCS; 2018-08-15)
PROC: F07Z9FZ Gait Training/Functional Ambulation Treatment using Assistive, Adaptive, Supportive or Protective Equipment (ICD-10-PCS; principal; 2018-08-17)
PROC: F07Z8FZ Transfer Training Treatment using Assistive, Adaptive, Supportive or Protective Equipment (ICD-10-PCS; 2018-08-17)
PROC: F07L6YZ Therapeutic Exercise Treatment of Musculoskeletal System - Lower Back / Lower Extremity using Other Equipment (ICD-10-PCS; 2018-08-17)
PROC: F08Z1FZ Dressing Techniques Treatment using Assistive, Adaptive, Supportive or Protective Equipment (ICD-10-PCS; 2018-08-20)
DX: R26.9 Unspecified abnormalities of gait and mobility (principal); L03.116 Cellulitis of left lower limb; L03.115 Cellulitis of right lower limb; L97.829 Non-pressure chronic ulcer of other part of left lower leg with unspecified severity; Z68.42 Body mass index [BMI] 45.0-49.9, adult; Z79.2 Long term (current) use of antibiotics; E11.622 Type 2 diabetes mellitus with other skin ulcer; I48.2 Chronic atrial fibrillation; E66.01 Morbid (severe) obesity due to excess calories; G80.9 Cerebral palsy, unspecified; E78.5 Hyperlipidemia, unspecified; F79 Unspecified intellectual disabilities; G40.909 Epilepsy, unspecified, not intractable, without status epilepticus; I87.2 Venous insufficiency (chronic) (peripheral); I10 Essential (primary) hypertension; I89.0 Lymphedema, not elsewhere classified; E11.42 Type 2 diabetes mellitus with diabetic polyneuropathy; B36.8 Other specified superficial mycoses; F81.9 Developmental disorder of scholastic skills, unspecified; Z79.01 Long term (current) use of anticoagulants; Z79.4 Long term (current) use of insulin; Z87.891 Personal history of nicotine dependence; Z86.14 Personal history of Methicillin resistant Staphylococcus aureus infection